=== PATIENT | male | born 1955 | race Caucasian/White ===

== ENCOUNTER → 2019-07-21 | Outpatient (CLI) | payer BC ==
[~2019-07-21] MED LIST: CATHETER FLUSH 10 ML SYR IV PRN; HOLD METFORMIN - RECEIVED CONTRAST 20 ML VIAL IV SCH; IOHEXOL 350 MG/ML 100 ML (OMNIPAQUE 350) VIAL IV ONE; NS 100 ML (IVPB) BAG IV ONE
[2019-07-21 10:31] LABS: BUN/CREATININE RATIO 13; CREATININE SERUM 0.99 MG/DL (0.60-1.30); GFR ESTIMATED > 60
--- NOTE | 2019-07-21 12:15 | Diagnostic Imaging Report ---
PROCEDURE: CT abdomen and pelvis with contrast. TECHNIQUE: Multiple contiguous axial images were obtained through the abdomen and pelvis after administration of intravenous contrast. Auto Exposure Controls were utilized during the CT exam to meet ALARA standards for radiation dose reduction. INDICATION: Bilateral flank pain. COMPARISON: There are no prior studies available for comparison. FINDINGS: There is no evidence for nephrolithiasis or urolithiasis and the kidneys do not seem to be obstructed. There is no sign of a solid renal mass. There do appear to be small cysts associated with both kidneys. These cysts have a generally benign appearance. The liver is of lower density than usually seen. This appearance does suggest fatty metamorphosis. There is no focal mass involving the liver, although the liver is mildly enlarged measuring 21 cm in length. The spleen, pancreas, adrenals, aorta, and inferior vena cava are unremarkable for an acute abnormality. The gallbladder is surgically absent. The stomach is partially filled with fluid and consequently difficult to assess. There is a suggestion of a focal area of narrowing of the midportion of the sigmoid colon. (Axial image 71/104, sagittal series 44/98). This finding is more likely due to volume averaging and/or peristalsis than to a constricting neoplastic mass. Even so, the possibility that there is an underlying neoplastic process should still be considered. If further evaluation is desired, then either an air contrast colon exam or endoscopy would be recommended. There are few diverticula involving the sigmoid and descending colon but there is no sign of acute diverticulitis. The appendix was visualized is not abnormally thickened. There is no pelvic mass or free fluid collection noted. The urinary bladder and prostate gland are grossly unremarkable. There is a small defect in the anterior abdominal wall to the right of midline at the level of the umbilicus. There is no incarceration or obstruction of the bowel in this area but a 3.2 x 3.3 cm collection of fat has extended through the defect into the subcutaneous region. The bone windows show no evidence for an acute fracture. However there is a 30-40% compression deformity of the superior endplate of L3. This is most likely longstanding in nature. There is also degenerative disc and bony disease involving the lower lumbar spine and there is trefoil stenosis at L4-L5 and L5-S1 and perhaps at L3-L4. If further imaging is desired, then MRI would be recommended. The lung bases are clear. IMPRESSION: 1. There is no acute abnormality of the abdomen or pelvis. 2. The apparent area of constriction in the midsigmoid region may be secondary to volume averaging and or peristalsis as opposed to a constricting neoplasm. Recommendations, as above. 3. There is a small defect in the anterior abdominal wall just to the right of midline at the level of the umbilicus. A portion of the mesenteric fat has extended through this defect but there is no incarceration or obstruction of the bowel. 4. There is a longstanding compression fracture of L3. There is also degenerative disc and bony disease in the lower lumbar spine. If further study is desired, then MRI would be recommended. Dictated by: Dictated on workstation # [id number]
== END ==
LOC: RAD 09:52
PROVIDERS: ATTEND Family Medicine
DX: M51.36 Other intervertebral disc degeneration, lumbar region (principal); M48.56XA Collapsed vertebra, not elsewhere classified, lumbar region, initial encounter for fracture
CPT/HCPCS: 36415; 74177; 82565; 84520

== ENCOUNTER 2019-09-20 05:32 | Outpatient (CLI) | payer BC ==
[~2019-09-20] VITALS: Ht 182.9 cm; Wt 130.9 kg
[2019-09-20] MEDS ORDERED: LISI-552 PO (15:03)
== END 2019-09-20 15:04 | disposition home or self-care (01) ==
LOC: PREOP 05:32
PROVIDERS: ATTEND Surgery
DX: Z01.818 Encounter for other preprocedural examination (principal)

== ENCOUNTER 2019-09-24 09:12 | Day surgery (SDC) | payer BC ==
[~2019-09-24] VITALS: Ht 182.9 cm; Wt 130.9 kg
[2019-09-24] VITALS (13 sets, daily range): BP systolic 79–168; BP diastolic 49–98
[~2019-09-24 09:12] MED LIST changes: -CATHETER FLUSH 10 ML SYR IV PRN; -HOLD METFORMIN - RECEIVED CONTRAST 20 ML VIAL IV SCH; -IOHEXOL 350 MG/ML 100 ML (OMNIPAQUE 350) VIAL IV ONE; +LISI-552 PO; -NS 100 ML (IVPB) BAG IV ONE
[2019-09-24] MEDS ORDERED: NS IV 500 ML 500 ML ONE (09:17)
[2019-09-24] MEDS ORDERED: NS IV 500 ML 500 ML IV PRN (09:28)
[2019-09-24] MEDS ORDERED: LIDOCAINE JELLY 2% 6 ML SYRINGE MM PRN (09:30)
[2019-09-24] MEDS ORDERED: fentaNYL INJECTION 100 MCG/2 ML AMP IVP ONE (09:30)
--- NOTE | 2019-09-24 10:35 | Conscious Sedation/ASA ---
Conscious Sedation Pre-Proced Time 10:30 ASA Score 2 For ASA 3 and 4: Consider anesthesia and medical clearance. Also, for patients with a history of failed moderate sedation consider anesthesia. Airway Lungs Heart ASA score ASA 1: a normal healthy patient ASA 2: a patient with a mild systemic disease (mid diabetes, controlled hypertension, obesity ASA 3: a patient with a severe systemic disease that limits activity (angina, COPD, prior Myocardial infarction) ASA 4: a patient with an incapacitating disease that is a constant threat to life (CHF, renal failure) ASA 5: a moribund patient not expected to survive 24 hrs. (ruptured aneurysm) ASA 6: a declared brain- patient whose organs are being harvested. For emergent operations, add the letter E after the classification Mallampati Classification Grade 2 Sedation Plan Analgesia, Amnesia, Plan communicated to team members, Discussed options with patient/fam, Discussed risks with patient/fam The patient is an appropriate candidate to undergo the planned procedure, sedation, and anesthesia. The patient immediately re-assessed prior to indication. PADMA GARG MD Sep 24, 2019 10:35
--- NOTE | 2019-09-24 10:35 | Progress Note-Pre Operative ---
Pre-Operative Progress Note H&P Reviewed The H&P was reviewed, patient examined and no changes noted. Date Seen by Provider: Sep 24, 2019 Time Seen by Provider: 10:30 Date H&P Reviewed: Sep 24, 2019 Time H&P Reviewed: 10:30 Pre-Operative Diagnosis: screening colo, sigmoid lesion on CT PADMA GARG MD Sep 24, 2019 10:35
--- NOTE | 2019-09-24 10:37 | Discharge Inst-Surgical ---
D/C Lap Instructions-BRIATNY Follow Up Activity as tolerated High Fiber Diet 25g or more per day Avoid Alcohol, Caffeine, Spicy [place] and Acid foods. Drink 64 fluid oz or more of fluids per day. Symptoms to Report: Fever over 101 degree F, Nausea/Vomiting If any problems/questions: Contact your physician or go to Emergency Room PADMA GARG MD Sep 24, 2019 10:37
[2019-09-24] MEDS ORDERED: HYDROcodone/APAP 5 MG/325 MG (LORTAB) TAB PO PRN (10:45)
[2019-09-24] MEDS ORDERED: morphine INJ 10 MG/ML 1ML (SYR OR VIAL) IVP PRN ×2 (10:45)
[2019-09-24] MEDS ORDERED: ACETAMINOPHEN 325 MG TABLET PO PRN (10:45)
[2019-09-24] MEDS ORDERED: ONDANSETRON 4 MG/2 ML (SDV) Z0FRAN IVP PRN (10:45)
[2019-09-24] MEDS ORDERED: LIDOCAINE JELLY 2% 6 ML SYRINGE ONE (10:48)
[2019-09-24] MEDS ORDERED: MIDAZOLAM 5 MG/5 ML (VERSED) VIAL ONE ×3 (10:49→11:13)
[2019-09-24] MEDS ORDERED: fentaNYL INJECTION 100 MCG/2 ML AMP ONE ×2 (10:49→11:13)
[2019-09-24] MEDS: MIDAZOLAM 5 MG/5 ML (VERSED) VIAL IV PRN ×5 (11:01→11:18)
--- NOTE | 2019-09-24 11:42 | Progress Note-Post Operative ---
Post-Operative Progess Note Surgeon (s)/Steel Barrel Reamer (s) Surgeon PADMA GARG MD Steel Barrel Reamer: none Pre-Operative Diagnosis screening colo, sigmoid lesion on CT Post-Operative Diagnosis mild chronic stage 2 ext and int hemorrhoids, mild sigmoid diverticulosis, no neoplasms. Procedure & Operative Findings Date of Procedure 09/24/19 Procedure Performed/Findings colonoscopy Anesthesia Type cs Estimated Blood Loss Estimated blood loss (mL): minimal Specimens/Packing Specimens Removed none PADMA GARG MD Sep 24, 2019 11:42
--- NOTE | 2019-09-24 18:30 | OPERATIVE REPORT ---
DATE OF SERVICE: 09/24/2019 ATTENDING PRIMARY CARE PHYSICIAN: Dr. Ling. PREOPERATIVE DIAGNOSIS: Screening colonoscopy with radiographic finding of the mid sigmoid peristalsis versus contraction versus a possible neoplasm. POSTOPERATIVE DIAGNOSES: Chronic stage II external and internal hemorrhoids, mild sigmoid diverticulosis. Remainder of the rectum and colon were normal. PROCEDURE: Colonoscopy. SURGEON: Padma Waite MD. ANESTHESIA: Conscious sedation. ESTIMATED BLOOD LOSS: Minimal. FINDINGS: Chronic stage II external and internal hemorrhoids, mild sigmoid diverticulosis. Remainder of the rectum and colon were normal. DISPOSITION: The patient tolerated the procedure well. INDICATIONS: The patient is a 64-year-old male referred over to us for screening colonoscopy. He has not had a colonoscopy up to this point in his life. He does report in the past six weeks, he has had intermittent bilateral flank pain, more on the right side and was found to have nephrolithiasis. A CT scan was also performed at that time, which did show constriction of the mid sigmoid colon, which may have been secondary to volume averaging versus peristalsis versus a constricting neoplasm. There was also a small ventral abdominal hernia identified as well; however, this is not symptomatic. He does not report any red blood per rectum nor any dark tarry stools. He also does not report any recent inadvertent weight loss. He also does not report any family history of colon cancer. DESCRIPTION OF PROCEDURE: The patient was brought to the endoscopy suite, laid in left lateral decubitus position. After adequate IV pain and stated medications and conscious sedation anesthesia, a digital rectal examination was performed. Mild chronic stage II external and internal hemorrhoids were identified, which were not actively edematous nor inflamed and no bleeding. Normal sphincter tone was felt and there were no palpable masses. Prostate gland was palpable and appeared normal. The endoscope was then intubated to the anus and rectum gently insufflated. The endoscope was then advanced to the valves of Deng of the rectum with no polyps or any neoplasms identified. Through the sigmoid colon, mild sigmoid diverticulosis identified. There was aperistaltic contractions of the sigmoid colon; however, no neoplasms identified. The endoscope was then advanced to the remainder of the descending, transverse and ascending colon to the cecum. These segments were normal as well. The endoscope was then slowly withdrawn while taking a second look and suctioning of residual air with no additional findings. The patient tolerated the procedure well. We will recommend a high fiber diet with 30 grams of fiber daily as well as 64 fluid ounces of water daily to promote soft stools on a daily basis. He does not need another colonoscopy for another 10 years. Job ID: [id number] DocumentID: [id number] Dictated Date: 09/24/2019 11:38:59 Cut And Print Machine Operator Date: 09/24/2019 18:29:13 Dictated By: PADMA WAITE MD
== END 2019-09-24 12:15 | disposition home or self-care (01) ==
LOC: ENDO 09:12
PROVIDERS: ATTEND Surgery
DX: Z12.11 Encounter for screening for malignant neoplasm of colon (principal); K64.1 Second degree hemorrhoids; K57.30 Diverticulosis of large intestine without perforation or abscess without bleeding; K43.2 Incisional hernia without obstruction or gangrene; Z87.442 Personal history of urinary calculi; I10 Essential (primary) hypertension; E11.9 Type 2 diabetes mellitus without complications; Z79.899 Other long term (current) drug therapy; Z87.81 Personal history of (healed) traumatic fracture; M48.07 Spinal stenosis, lumbosacral region; M51.36 Other intervertebral disc degeneration, lumbar region; S32.030D Wedge compression fracture of third lumbar vertebra, subsequent encounter for fracture with routine healing

== ENCOUNTER → 2019-10-28 | Outpatient (CLI) | payer BC | LOC: WOUNDCARE 08:03 | PROVIDERS: ATTEND Orthopaedic Surgery Hand Surgery | DX: E11.621 Type 2 diabetes mellitus with foot ulcer (principal); E11.42 Type 2 diabetes mellitus with diabetic polyneuropathy; L97.512 Non-pressure chronic ulcer of other part of right foot with fat layer exposed; L03.031 Cellulitis of right toe | CPT/HCPCS: 11042 ==

== ENCOUNTER → 2019-11-02 | Outpatient (CLI) | payer BC | LOC: WOUNDCARE 08:55 | PROVIDERS: ATTEND Orthopaedic Surgery Hand Surgery | DX: E11.621 Type 2 diabetes mellitus with foot ulcer (principal); E11.42 Type 2 diabetes mellitus with diabetic polyneuropathy; L97.512 Non-pressure chronic ulcer of other part of right foot with fat layer exposed; L03.031 Cellulitis of right toe; B95.62 Methicillin resistant Staphylococcus aureus infection as the cause of diseases classified elsewhere | CPT/HCPCS: 11042 ==

== ENCOUNTER → 2019-11-09 | Outpatient (CLI) | payer BC | LOC: WOUNDCARE 08:54 | PROVIDERS: ATTEND Orthopaedic Surgery Hand Surgery | DX: L97.512 Non-pressure chronic ulcer of other part of right foot with fat layer exposed (principal); E11.621 Type 2 diabetes mellitus with foot ulcer; E11.52 Type 2 diabetes mellitus with diabetic peripheral angiopathy with gangrene; E11.42 Type 2 diabetes mellitus with diabetic polyneuropathy; L03.039 Cellulitis of unspecified toe; B95.62 Methicillin resistant Staphylococcus aureus infection as the cause of diseases classified elsewhere | CPT/HCPCS: 11042 ==

== ENCOUNTER → 2019-11-16 | Outpatient (CLI) | payer BC | LOC: LAB 09:15 | PROVIDERS: ATTEND Surgery | DX: L97.512 Non-pressure chronic ulcer of other part of right foot with fat layer exposed (principal); E11.621 Type 2 diabetes mellitus with foot ulcer; E11.42 Type 2 diabetes mellitus with diabetic polyneuropathy; B95.62 Methicillin resistant Staphylococcus aureus infection as the cause of diseases classified elsewhere; E44.1 Mild protein-calorie malnutrition | CPT/HCPCS: 36415; 83036; 84134 ==

== ENCOUNTER → 2019-11-16 | Outpatient (CLI) | payer BC | LOC: WOUNDCARE 08:08 | PROVIDERS: ATTEND Surgery | DX: L97.512 Non-pressure chronic ulcer of other part of right foot with fat layer exposed (principal); E11.621 Type 2 diabetes mellitus with foot ulcer; E11.42 Type 2 diabetes mellitus with diabetic polyneuropathy; E11.52 Type 2 diabetes mellitus with diabetic peripheral angiopathy with gangrene; B95.62 Methicillin resistant Staphylococcus aureus infection as the cause of diseases classified elsewhere; E44.1 Mild protein-calorie malnutrition | CPT/HCPCS: 11042; 87070; 87077; 87205 ==

== ENCOUNTER → 2019-11-23 | Outpatient (CLI) | payer BC | LOC: WOUNDCARE 09:01 | PROVIDERS: ATTEND Surgery | DX: L97.512 Non-pressure chronic ulcer of other part of right foot with fat layer exposed (principal); E11.621 Type 2 diabetes mellitus with foot ulcer; E11.42 Type 2 diabetes mellitus with diabetic polyneuropathy; B95.62 Methicillin resistant Staphylococcus aureus infection as the cause of diseases classified elsewhere; E11.52 Type 2 diabetes mellitus with diabetic peripheral angiopathy with gangrene | CPT/HCPCS: 11042 ==

== ENCOUNTER → 2019-11-29 | Outpatient (CLI) | payer BC | LOC: WOUNDCARE 08:13 | PROVIDERS: ATTEND Surgery | DX: E11.621 Type 2 diabetes mellitus with foot ulcer (principal); E11.42 Type 2 diabetes mellitus with diabetic polyneuropathy; L97.512 Non-pressure chronic ulcer of other part of right foot with fat layer exposed; B95.62 Methicillin resistant Staphylococcus aureus infection as the cause of diseases classified elsewhere | CPT/HCPCS: 11042 ==

== ENCOUNTER → 2019-12-06 | Outpatient (CLI) | payer BC | LOC: WOUNDCARE 08:20 | PROVIDERS: ATTEND Surgery | DX: E11.621 Type 2 diabetes mellitus with foot ulcer (principal); E11.42 Type 2 diabetes mellitus with diabetic polyneuropathy; L97.512 Non-pressure chronic ulcer of other part of right foot with fat layer exposed; B95.62 Methicillin resistant Staphylococcus aureus infection as the cause of diseases classified elsewhere | CPT/HCPCS: 11042 ==

== ENCOUNTER → 2019-12-13 | Outpatient (CLI) | payer BC | LOC: WOUNDCARE 08:13 | PROVIDERS: ATTEND Surgery | DX: E11.621 Type 2 diabetes mellitus with foot ulcer (principal); E11.42 Type 2 diabetes mellitus with diabetic polyneuropathy; L97.512 Non-pressure chronic ulcer of other part of right foot with fat layer exposed; B95.62 Methicillin resistant Staphylococcus aureus infection as the cause of diseases classified elsewhere | CPT/HCPCS: 11042 ==

== ENCOUNTER → 2019-12-20 | Outpatient (CLI) | payer BC | LOC: WOUNDCARE 08:18 | PROVIDERS: ATTEND Surgery | DX: E11.621 Type 2 diabetes mellitus with foot ulcer (principal); E11.42 Type 2 diabetes mellitus with diabetic polyneuropathy; L97.512 Non-pressure chronic ulcer of other part of right foot with fat layer exposed; B95.62 Methicillin resistant Staphylococcus aureus infection as the cause of diseases classified elsewhere | CPT/HCPCS: 11042 ==

== ENCOUNTER → 2019-12-27 | Outpatient (CLI) | payer BC | LOC: WOUNDCARE 08:19 | PROVIDERS: ATTEND Surgery | DX: E11.621 Type 2 diabetes mellitus with foot ulcer (principal); E11.42 Type 2 diabetes mellitus with diabetic polyneuropathy; L97.512 Non-pressure chronic ulcer of other part of right foot with fat layer exposed; B95.62 Methicillin resistant Staphylococcus aureus infection as the cause of diseases classified elsewhere | CPT/HCPCS: 11042; 87070; 87077; 87205 ==

== ENCOUNTER → 2020-01-03 | Outpatient (CLI) | payer BC | LOC: WOUNDCARE 08:15 | PROVIDERS: ATTEND Surgery | DX: E11.621 Type 2 diabetes mellitus with foot ulcer (principal); E11.42 Type 2 diabetes mellitus with diabetic polyneuropathy; L97.512 Non-pressure chronic ulcer of other part of right foot with fat layer exposed; L97.522 Non-pressure chronic ulcer of other part of left foot with fat layer exposed; B95.62 Methicillin resistant Staphylococcus aureus infection as the cause of diseases classified elsewhere | CPT/HCPCS: 11042; 15275 ==

== ENCOUNTER → 2020-01-10 | Outpatient (CLI) | payer BC | LOC: WOUNDCARE 08:16 | PROVIDERS: ATTEND Surgery | DX: E11.621 Type 2 diabetes mellitus with foot ulcer (principal); E11.42 Type 2 diabetes mellitus with diabetic polyneuropathy; L97.512 Non-pressure chronic ulcer of other part of right foot with fat layer exposed; L97.522 Non-pressure chronic ulcer of other part of left foot with fat layer exposed; B95.62 Methicillin resistant Staphylococcus aureus infection as the cause of diseases classified elsewhere; I70.245 Atherosclerosis of native arteries of left leg with ulceration of other part of foot | CPT/HCPCS: 15275 ==

== ENCOUNTER → 2020-01-17 | Outpatient (CLI) | payer BC | LOC: WOUNDCARE 08:25 | PROVIDERS: ATTEND Surgery | DX: E11.621 Type 2 diabetes mellitus with foot ulcer (principal); E11.42 Type 2 diabetes mellitus with diabetic polyneuropathy; L97.512 Non-pressure chronic ulcer of other part of right foot with fat layer exposed; L97.522 Non-pressure chronic ulcer of other part of left foot with fat layer exposed; B95.62 Methicillin resistant Staphylococcus aureus infection as the cause of diseases classified elsewhere; I70.245 Atherosclerosis of native arteries of left leg with ulceration of other part of foot | CPT/HCPCS: 11042 ==

== ENCOUNTER 2020-01-20 10:30 | Inpatient (IN) | payer OTHER ==
[~2020-01-20] VITALS: Ht 182.9 cm; Wt 137.0 kg
[~2020-01-20 10:30] MED LIST changes: -CALC625T66 PO; -EMPA10TA PO; -GABA-488 PO; -IBUP-1773 PO; -INSU100I32 SC; -LEVO750T39 PO; -LNZ600T PO; -METF-397 PO; -METR-145 PO
--- NOTE | 2020-01-20 10:35 | NUR ---
PT DIRECT ADMIT TO FLOOR FROM WOUND CLINIC FOR LEFT DIABETIC FOOT INFECTION. ORIENTED PT TO ROOM/CALL LIGHT.
[2020-01-20 10:44] VITALS: BP 143/92
--- NOTE | 2020-01-20 10:55 | NUR ---
PT TAKEN OFF FLOOR FOR MRI AND THEN WILL GO TO US BEFORE RETURNING TO FLOOR
[2020-01-20] MEDS ORDERED: MILK OF MAGNESIA 400 MG/5 ML 30 ML UDC PO PRN (11:00)
[2020-01-20] MEDS: inSUlin ASPART (NovoLOG) 1 UNIT/0.01 ML (CHARGE PER UNIT) SC SCH ×3 (11:00→22:02)
[2020-01-20] MEDS ORDERED: ANTACID SUSP 30 ML UDC (MYLANTA) PO PRN (11:00)
[2020-01-20] MEDS ORDERED: MELATONIN 3 MG TABLET PO PRN (11:00)
[2020-01-20] MEDS ORDERED: VANCOMYCIN INJECTION 0.1 MG in NS (IVPB) 250 ML IV SCH (11:00)
--- NOTE | 2020-01-20 11:09 | History & Physical-Hospitalist ---
History of Present Illness HPI/Chief Complaint 64-year-old male with a past medical history of insulin-dependent diabetes type II, hypertension, sleep apnea, chronic foot wounds was direct admitted from wound care clinic here due to a new worsening left foot wound. She was following with Dr. Raya at wound care for the past 2 months for a wound on his right great toe. This has responded to treatment well but within the past couple of weeks his left foot developed a wound between his great toe and second digit in the webspace. He has been on Levaquin, and his lip, and Flagyl and been compliant with wound care. Despite this he has new necrotic area of that wound with surrounding erythema and warmth of the foot. He was direct admitted from wound care today. He is a known insulin-dependent diabetic that is poorly controlled. His last A1c was 12.8. He has no known peripheral artery disease. Source: patient Date Seen 01/20/20 Time Seen by a Provider: 11:04 Attending Physician Kaylee Burnette MD PCP Jaxon Ling DO Referring Physician Date of Admission Home Medications & Allergies Home Medications Reviewed patient Home Medication Reconciliation performed by pharmacy medication reconciliations microfilm technician and/or nursing. Patients Allergies have been reviewed. Allergies Allergies Coded Allergies No Known Drug Allergies (Unverified09/20/19) Past Jarbhpr-Cycwoo-Rmvhmq Hx Past Med/Social Hx: Reviewed Nursing Past Med/Soc Hx Patient Social History Employed/Student: employed Smoking Status: Former Smoker Former Smoker, Quit: Dec 14, 2008 Recent Foreign Travel: Yes ( states has been in [place] within the last month and [place] a few weeks ) Contact w/other who traveled: No Recent Hopitalizations: No Recent Infectious Disease Expo: No Seasonal Allergies Seasonal Allergies: No Past Medical History Surgeries: Gallbladder Cardiac: Hypertension Endocrine: Diabetes, Insulin dep History of Blood Disorders: No Family History Reviewed Nursing Family Hx No Pertinent Family Hx Review of Systems Constitutional: No chills, No fever EENTM: no symptoms reported Respiratory: No cough, No short of breath Cardiovascular: No chest pain, No Hx of Intervention, No palpitations Gastrointestinal: abdominal pain; No constipation; diarrhea Genitourinary: no symptoms reported Musculoskeletal: no symptoms reported Skin: see HPI Psychiatric/Neurological: No Symptoms Reported Physical Exam Physical Exam Vital Signs Vital Signs - First Documented 01/20/20 10:44 Temp 37.4 Pulse 103 Resp 20 B/P (MAP) 143/92 Pulse Ox 94 O2 Delivery Room Air Capillary Refill : Height, Weight, BMI Height: '" Weight: lbs. oz. kg; 40.14 BMI Method: General Appearance: No Apparent Distress, WD/WN, Obese HEENT: PERRL/EOMI, Moist Mucous Membranes; No Scleral Icterus (L), No Scleral Icterus (R) Respiratory: Lungs Clear, No Accessory Muscle Use, No Respiratory Distress Cardiovascular: Regular Rate, Rhythm, No Murmur Gastrointestinal: Normal Bowel Sounds, Non Tender, Soft Extremity: Other (right foot wrapped in dressing from wound care- I did not undress. Left foot dressing unfone and revealed ~3x1cm wound between first and second toe with some nercosis noted, erythema, warmth, and edema of left foot noted) Neurologic/Psychiatric: Alert, Oriented x3, Normal Mood/Affect Results Results/Procedures Labs Patient resulted labs reviewed. Assessment/Plan Admission Diagnosis Diabetic Foot Wound Admission Status: Inpatient Order (span 2 midnights) Reason for Inpatient Admission: failed outpatient management Assessment and Plan Diabetic Foot Wound Likely osteomyelitis MRI ordered Wound care consult Vanc and Zosyn Blood cultures ordered No evidence of sepsis CBC/BMP ordered HTN diminished pulse Concern for PAD Dopplers ordered Cardiology consult placed Continue home antihypertensives IDDMII poorly controlled SSI Levemir 20 units QHS as is on Tresiba 20U at home Diarrhea Check KAYLEE Fung MD January 20, 2020 11:09
[2020-01-20] MEDS ORDERED: PIPERACILLIN/TAZO 4.5 GM/NS 100 ML IV NR ×4 (11:30→13:13)
[2020-01-20 11:46] LABS: BASOPHILS % (AUTO) 0 % (0-10); EOSINOPHILS # (AUTO) 0.1 10^3/uL (0.0-0.3); EOSINOPHILS % (AUTO) 1 % (0-10); HEMATOCRIT 41 % (40-54); HEMOGLOBIN 13.9 G/DL (13.3-17.7); LYMPHOCYTES # (AUTO) 2.1 X 10^3 (1.0-4.0); LYMPHOCYTES % (AUTO) 16 % (12-44); MEAN CORPUSCULAR HEMOGLOBIN 30 PG (25-34); MEAN CORPUSCULAR HGB CONC 34 G/DL (32-36); MEAN CORPUSCULAR VOLUME 89 FL (80-99); MEAN PLATELET VOLUME 9.7 FL (7.4-10.4); MONOCYTES % (AUTO) 8 % (0-12); NEUTROPHILS % (AUTO) 76 % (42-75); PLATELET COUNT 398 10^3/uL (130-400); RED CELL DISTRIBUTION WIDTH 12.7 % (10.0-14.5); WHITE BLOOD COUNT 13.2 10^3/uL (4.3-11.0)
--- NOTE | 2020-01-20 11:47 | Consultation-Cardiology ---
HPI-Cardiology Cardiology Consultation: Date of Consultation 01/20/20 Time Seen by a Provider: 14:40 Date of Admission 01-20-2020 Attending Physician Kaylee Burnette MD Admitting Physician Jaxon Ling DO Consulting Physician Jenn Botello MD HPI: Chief Complaint: Non-healing wound to left foot Mr. Nation is a 64 year old male admitted to [facility] as a direct admit from wound care clinic. He has been following with wound care for approx the last 2 months for treatment of a wound to the left great toe which was improving, but has recently began to worsen. He states the wound has extended from between his left great toe to the second toe. He reports he has chronic peripheral neuropathy d/t diabetes and has not had any pain. He does not recall any recent injury to the foot. He reports he has noted redness and warmth to the top of the left foot. He denies any symptoms of claudication. He denies any fever or chills. He denies any c/o CP, dyspnea, palpitations, syncope or near syncope. He states he used to smoke, but quit greater than 10 years ago. Review of Systems-Cardiology Review of Systems Constitutional: No chills, No fever, No malaise Eyes: No vision change Ears/Nose/Throat: No epistaxis, No recent hearing loss Respiratory: As described under HPI Cardiovascular: As described under HPI Gastrointestinal: No constipation; diarrhea; No nausea, No vomiting Genitourinary: No dysuria, No hematuria Musculoskeletal: As describe under HPI Skin: As described under HPI Psychiatric/Neurological: No anxiety, No depression, No seizure, No focal weakness, No syncope Hematologic: No bleeding abnormalities INY-Vvvqtg-Ivlmxb Hx Patient Social History Employed/Student: employed Smoking Status: Former Smoker Recent Foreign Travel: Yes (Pt states has been in [place] within the last month and [place] a few weeks ) Recent Infectious Disease Expo: No Past Medical History PMH As described under Assessment. Family Medical History Family Medical History: He reports his mother had an CO in her 40's. No other reported family h/o CAD. Allergies and Home Medications Allergies Coded Allergies: No Known Drug Allergies (Unverified , 09/20/19) Home Medications Calcium Polycarbophil 625 Mg Tablet, 625 MG PO DAILY, (Reported) Empagliflozin 10 Mg Tablet, 10 MG PO DAILY, (Reported) Gabapentin 300 Mg Capsule, 300 MG PO TID, (Reported) Ibuprofen 600 Mg Tablet, 600 MG PO TID PRN for PAIN-MILD (1-4), (Reported) Insulin Degludec 100 Unit/1 Ml Insuln.pen, 20 UNITS SC HS, (Reported) Levofloxacin 750 Mg Tablet, 750 MG PO DAILY, (Reported) PICKED UP 01-05-2020 #14 DAY SUPPLY Linezolid 600 Mg Tablet, 600 MG PO BID, (Reported) FILLED 01-10-2020 # DAY SUPPLY Lisinopril 20 Mg Tablet, 20 TAB PO BID, (Reported) Metformin HCl 500 Mg Tablet, 500-1,000 MG PO BID, (Reported) TAKES 1 TO 2 TABS TWICE DAILY Metronidazole 500 Mg Tablet, 500 MG PO QID, (Reported) PICKED UP 01-05-2020 #56 DAY SUPPLY Patient Home Medication List Home Medication List Reviewed: Yes Physical Exam-Cardiology Physical Exam Vital Signs/I&O 01/21/20 01/21/20 01/21/20 03:51 08:00 12:00 Temp 36.3 36.9 36.5 Pulse 80 85 97 Resp 18 18 18 B/P (MAP) 154/81 (105) 151/95 (113) 155/81 (105) Pulse Ox 96 96 94 O2 Delivery Room Air Room Air Room Air 01/21/20 00:00 Intake Total 2145 ml Balance 2145 ml Capillary Refill : Constitutional: AAO x 3, well-developed, well-nourished HEENT: PERRL, hearing is well preserved, oral hygience is good Neck: No carotid bruit; carotid pulses are 2 + bilaterally Respiratory: No accessory muscle use, No respiratory distress; chest expansion is symmetric, chest is bilaterally symmetric, lungs clear to auscultation Cardiovascular: regular rate-rhythm; No JVD; S1 and S2 Gastrointestinal: No tender; soft, round, audible bowel sounds Extremities: other (mild LLE swelling) Neurologic/Psychiatric: grossly intact (moves all extremities) Skin: other (Dressing to left foot; D&I - not removed. Ruddish discoloration of the visible portion of the foot.) Data Review Labs Laboratory Tests 01/20/20 16:36: Glucometer 298H 01/20/20 21:06: Glucometer 299H 01/21/20 05:24: Glucometer 183H 01/21/20 05:55: White Blood Count 11.8H, Red Blood Count 4.29L, Hemoglobin 13.0L, Hematocrit 38L , Mean Corpuscular Volume 90, Mean Corpuscular Hemoglobin 30, Mean Corpuscular Hemoglobin Concent 34, Red Cell Distribution Width 12.8, Platelet Count 397, Mean Platelet Volume 9.6, Prothrombin Time 13.8, INR Comment 1.0, Activated Partial Thromboplast Time 31, Sodium Level 138, Potassium Level 3.6, Chloride Level 105, Carbon Dioxide Level 23, Anion Gap 10, Blood Urea Nitrogen 10, Creatinine 0.80, Estimat Glomerular Filtration Rate > 60, BUN/Creatinine Ratio 13, Glucose Level 193H, Calcium Level 8.8 01/21/20 10:15: Vancomycin Level Trough 9.5L 01/21/20 11:01: Glucometer 275H Microbiology 01/20/20 MRSA Screen - Final, Complete MRSA not isolated 01/20/20 C. difficile GDH Antigen & Toxins - Final, Complete Radiology NAME: JONELLE NATION MED REC#: [id number] PT STATUS: ADM IN : 1955 PHYSICIAN: KAYLEE BURNETTE MD ADMIT DATE: 01/20/20 Draft Date of Exam:01/20/20 US JANI LOWER EXT [id number] PROCEDURE: US Bilateral lower extremity arterial. TECHNIQUE: Multiple real-time grayscale images are obtained through both lower extremity arterial systems with color Doppler imaging and color Doppler spectral analysis. INDICATION: Foot infection, peripheral artery disease COMPARISON: None available FINDINGS: Triphasic and biphasic waveforms are identified throughout the large arterial structures of the right lower extremity with associated brisk upstrokes. No focally increased velocities. Monophasic waveforms are identified within the left posterior tibial artery and left dorsalis pedis artery. There is associated focally increased velocities within the left posterior tibial artery distally at 254 cm/s. Otherwise, triphasic and biphasic waveforms noted throughout the large arterial structures of the left lower extremity. 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 No evidence of hemodynamically significant stenosis on the right. Dictated on workstation # [id number] Dict: 01/20/20 1333 Trans: 01/20/20 1340 [facility] [id number] Interpreted by: JAXON HADDAD MD Electronically signed by: PT STATUS: ADM IN : 1955 PHYSICIAN: KAYLEE BURNETTE MD ADMIT DATE: 01/20/20/ Signed Date of Exam:01/20/20 MRI LT LOWER EXT W/O CON EXAMINATION: MRI of the left lower extremity from 01/20/2020. TECHNIQUE: Multiplanar, multisequence non contrast enhanced MR imaging of the left lower extremity was accomplished. INDICATION: Ulceration between the great toe and second toe. Diabetic. FINDINGS: Per the technologist, patient had marked difficulty remaining still for imaging. There is marked motion artifact on most of the sequences, limiting evaluation. There does appear to be abnormal signal intensity along the dorsum of the forefoot, predominantly overlying the third and second metatarsophalangeal joint spaces. In this region, more focal fluid-like collections are noted with the collection overlying the third metatarsophalangeal joint measuring at least 2.1 cm in jotlrmex-qf-ghvdob dimension. A similar finding is seen just between the second metatarsophalangeal joint and adjacent great toe. This extends into the soft tissues in between the toes and measures at least 2.8 cm in hbjliqgk-ct-xrycmx dimension. This may extend through the skin in between the toes as there is marked hyperintensity, best seen on sagittal STIR sequence image #15/35. Correlate for site of ulceration. This appears to track towards the larger cystic collection just described. The underlying second proximal phalanx demonstrates questioned edema. This could be secondary to reactive change versus osteomyelitis and follow-up with and without contrast, when patient is able to remain still for imaging, may be useful for further delineation of these findings as clinically indicated. The remaining osseous structures appear to be unremarkable at this time. There is small amount of joint fluid within the second and first metatarsophalangeal joints. The visualized tendons are grossly intact. IMPRESSION: 1. Suspected ulceration extending to the distal skin in between the second and first toes which appears to track proximally and towards the dorsum of the foot into a fluid collection, possibly abscess. Similar smaller fluid collection overlies the third metatarsophalangeal joint. 2. Findings of suspected osteomyelitis of the second proximal phalanx, however please see above discussion. Dictated by: Dictated on workstation # [id number] Dict: 01/20/20 1216 Trans: 01/20/20 1257 [id number] Interpreted by: JAY GONZALEZ MD Electronically signed by: JAY GONZALEZ MD 01/20/20 1257 A/P-Cardiology Assessment/Admission Diagnosis Non-healing wound to left foot PAD - Monophasic waveforms within the left posterior tibial artery and dorsalis pedis artery is consistent with underlying atherosclerotic tibioperoneal disease on the left. No evidence of hemodynamically significant stenosis on the right. Per Doppler of January 20, 2020 Suspected ulceration extending to the distal skin in between the second and first toes which appears to track proximally and towards the dorsum of the foot into a fluid collection, possibly abscess. Similar smaller fluid collection overlies the third metatarsophalangeal joint. Findings of suspected osteomy elitis of the second proximal phalanx per MRI of January 20, 2020 DM 2 HTN Reported peripheral neuropathy GERD Diarrhea Discussion and Recomendations Non-healing wound to the left foot with evidence of PAD per doppler carried out today Advise peripheral angiogram to eval perfusion. Discussed procedure, risks, benefits of peripheral angiogram with possible percutaneous intervention. Provides informed consent. Will proceed tomorrow or sooner if needed. Monitor lab closely Continue enoxaparin Continue home medications Management of DM as per medical services Management of diarrhea per medical services Wound care management per medical services We would like to thank Dr. Burnette for this consult Further recs will be based on his hospital course VINITA WINN January 20, 2020 11:47
--- NOTE | 2020-01-20 11:52 | NUR ---
PTD VANCOMYCIN LABS: PENDING PLAN: WEIGHT 134KG WILL GIVE VANCOMYCIN LOADING DOSE 2,000MG X 1 NOW, THEN START 1,500MG IV Q 12 HOURS (STARTING TONIGHT) WILL CHECK A TROUGH PRIOR TO 3RD DOSE (01/20 @ 1000). HOLD IF GREATER THAN 20. WILL MONITOR SCR/RENAL FXN CLOSELY AND ADJUST DOSE IF NEEDED.
[2020-01-20] MEDS ORDERED: VANCOMYCIN 2000 MG/NS 500 ML IVPB IV NR ×2 (12:00)
[2020-01-20 12:03] LABS: ALANINE AMINOTRANSFERASE 20 U/L (0-55); ALBUMIN 3.6 GM/DL (3.2-4.5); ALKALINE PHOSPHATASE 89 U/L (40-136); BILIRUBIN,TOTAL 0.3 MG/DL (0.1-1.0); BUN/CREATININE RATIO 11; CALCIUM 9.6 MG/DL (8.5-10.1); CARBON DIOXIDE 27 MMOL/L (21-32); CHLORIDE 101 MMOL/L (98-107); CREATININE SERUM 0.94 MG/DL (0.60-1.30); GFR ESTIMATED > 60; GLUCOSE 354 MG/DL (70-105); SODIUM 138 MMOL/L (135-145); TOTAL PROTEIN 8.6 GM/DL (6.4-8.2)
--- OUTSIDE RECORDS SUMMARY | 2020-01-20 12:33 | XMS REPORT | Continuity of Care Document ---
Author Organization Unknown Address Unknown Phone Unavailable Allergies Active Description Code Type Severity Reaction Onset Reported/Identified Relationship to Patient Clinical Status Yes No Allergy Information Available [id number] Drug Allergy Unknown N/A 019 Yes No Known Drug Allergies [id number] Drug Allergy Unknown N/A 09/20/2019 Medications There is no data. Problems Date Dx Coded Attending Type Code Diagnosis Diagnosed By 09/03/2019 COURTNEY FERREIRA DO, Ot M48.56 XA COLLAPSED VERTEBRA, NEC, LUMBAR REGION, 09/03/2019 COURTNEY FERREIRA DO, Ot M51.36 OTHER INTERVERTEBRAL DISC DEGENERATION, 09/22/2019 PADMA GARG MD, Ot Z01.81 8 ENCOUNTER FOR OTHER PREPROCEDURAL EXAMIN 09/24/2019 PADMA GARG MD Ot E11.9 TYPE 2 DIABETES MELLITUS WITHOUT COMPLIC 09/24/2019 PADMA GARG MD Ot I10 ESSENTIAL (PRIMARY) HYPERTENSION 09/24/2019 PADMA GARG MD, Ot K43.2 INCISIONAL HERNIA WITHOUT OBSTRUCTION OR 09/24/2019 PADMA GARG MD, Ot K57.30 DVRTCLOS OF LG INT W/O PERFORATION OR AB 09/24/2019 PADMA GARG MD, Ot K64.1 SECOND DEGREE HEMORRHOIDS 09/24/2019 PADMA GARG MD, Ot M48.07 SPINAL STENOSIS, LUMBOSACRAL REGION 09/24/2019 PADMA GARG MD, Ot M51.36 OTHER INTERVERTEBRAL DISC DEGENERATION, 09/24/2019 PADMA GARG MD, Ot S32.03 0D WEDGE COMPRSN FX THIRD LUM VERT, SUBS FO 09/24/2019 PADMA GARG MD, Ot Z12.11 ENCOUNTER FOR SCREENING FOR MALIGNANT NE 09/24/2019 PADMA GARG MD, Ot Z79.89 9 OTHER CABLE REELER (CURRENT) DRUG THERAPY 09/24/2019 PADMA GARG MD, Ot Z87.44 2 PERSONAL HISTORY OF URINARY CALCULI 09/24/2019 PADMA GARG MD, Ot Z87.81 PERSONAL HISTORY OF (HEALED) TRAUMATIC F 09/27/2019 PADMA GARG MD, Ot E11.9 TYPE 2 DIABETES MELLITUS WITHOUT COMPLIC 09/27/2019 PADMA GARG MD, Ot I10 ESSENTIAL (PRIMARY) HYPERTENSION 09/27/2019 PADMA GARG MD, Ot K43.2 INCISIONAL HERNIA WITHOUT OBSTRUCTION OR 09/27/2019 PADMA GARG MD, Ot K57.30 DVRTCLOS OF LG INT W/O PERFORATION OR AB 09/27/2019 PADMA GARG MD, Ot K64.1 SECOND DEGREE HEMORRHOIDS 09/27/2019 PADMA GARG MD, Ot M48.07 SPINAL STENOSIS, LUMBOSACRAL REGION 09/27/2019 PADMA GARG MD, Ot M51.36 OTHER INTERVERTEBRAL DISC DEGENERATION, 09/27/2019 PADMA GARG MD, Ot S32.03 0D WEDGE COMPRSN FX THIRD LUM VERT, SUBS FO 09/27/2019 PADMA GARG MD, Ot Z12.11 ENCOUNTER FOR SCREENING FOR MALIGNANT NE 09/27/2019 PADMA GARG MD, Ot Z79.89 9 OTHER DETENTION (CURRENT) DRUG THERAPY 09/27/2019 PADMA GARG MD, Ot Z87.44 2 PERSONAL HISTORY OF URINARY CALCULI 09/27/2019 PADMA GARG MD, Ot Z87.81 PERSONAL HISTORY OF (HEALED) TRAUMATIC F 10/29/2019 SILVIO SINGH MD, Ot E11.42 TYPE 2 DIABETES MELLITUS WITH DIABETIC P 10/29/2019 SILVIO SINGH MD, Ot E11.621 TYPE 2 DIABETES MELLITUS WITH FOOT ULCER 10/29/2019 SILVIO SINGH MD, Ot L03.031 CELLULITIS OF RIGHT TOE 10/29/2019 SILVIO SINGH MD, Ot L97.512 NON- PRS CHRONIC ULCER OTH PRT RIGHT FOOT 11/04/2019 SILVIO SINGH MD, Ot 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 11/04/2019 SILVIO SINGH MD, Ot E11.42 TYPE 2 DIABETES MELLITUS WITH DIABETIC P 11/04/2019 SILVIO SINGH MD, Ot E11.621 TYPE 2 DIABETES MELLITUS WITH FOOT ULCER 11/04/2019 SILVIO SINGH MD, Ot L03.031 CELLULITIS OF RIGHT TOE 11/04/2019 LO MD, KIRTIE Ot L97.512 NON- PRS CHRONIC ULCER OTH PRT RIGHT FOOT 11/17/2019 SILVIO SINGH MD Ot 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 11/17/2019 SILVIO SINGH MD, Ot E11.42 TYPE 2 DIABETES MELLITUS WITH DIABETIC P 11/17/2019 SILVIO SINGH MD, Ot E11.52 TYPE 2 DIABETES W DIABETIC PERIPHERAL AN 11/17/2019 SILVIO SINGH MD, Ot E11.621 TYPE 2 DIABETES MELLITUS WITH FOOT ULCER 11/17/2019 SILVIO SINGH MD, Ot L03.031 CELLULITIS OF RIGHT TOE 11/17/2019 SILVIO SINGH MD, Ot L97.512 NON- PRS CHRONIC ULCER OTH PRT RIGHT FOOT 11/18/2019 LIDA GARCIA MD, Ot 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 11/18/2019 LIDA GARCIA MD, Ot E11.42 TYPE 2 DIABETES MELLITUS WITH DIABETIC P 11/18/2019 LIDA GARCIA MD, Ot E11.52 TYPE 2 DIABETES W DIABETIC PERIPHERAL AN 11/18/2019 LIDA GARCIA MD, Ot E11.621 TYPE 2 DIABETES MELLITUS WITH FOOT ULCER 11/18/2019 LIDA GARCIA MD Ot E44 .1 MILD PROTEIN-CALORIE MALNUTRITION 11/18/2019 LIDA GARCIA MD Ot L97.512 NON-PRS CHRONIC ULCER OTH PRT RIGHT FOOT 11/18/2019 LIDA GARCIA MD, Ot 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 11/18/2019 LIDA GARCIA MD Ot E11.42 TYPE 2 DIABETES MELLITUS WITH DIABETIC P 11/18/2019 LIDA GARCIA MD, Ot E11.621 TYPE 2 DIABETES MELLITUS WITH FOOT ULCER 11/18/2019 LIDA GARCIA MD, Ot E44 .1 MILD PROTEIN-CALORIE MALNUTRITION 11/18/2019 LIDA GARCIA MD, Ot L97.512 NON-PRS CHRONIC ULCER OTH PRT RIGHT FOOT 11/25/2019 LIDA GARCIA MD, Ot 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 11/25/2019 LIDA GARCIA MD, Ot E11.42 TYPE 2 DIABETES MELLITUS WITH DIABETIC P 11/25/2019 LIDA GARCIA MD Ot E11.52 TYPE 2 DIABETES W DIABETIC PERIPHERAL AN 11/25/2019 LIDA GARCIA MD, Ot E11.621 TYPE 2 DIABETES MELLITUS WITH FOOT ULCER 11/25/2019 LIDA GARCIA MD, Ot L97.512 NON-PRS CHRONIC ULCER OTH PRT RIGHT FOOT 11/30/2019 LIDA GARCIA MD Ot 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 11/30/2019 LIDA GARCIA MD, Ot E11.42 TYPE 2 DIABETES MELLITUS WITH DIABETIC P 11/30/2019 LIDA GARCIA MD, Ot E11.621 TYPE 2 DIABETES MELLITUS WITH FOOT ULCER 11/30/2019 LIDA GARCIA MD, Ot L97.512 NON-PRS CHRONIC ULCER OTH PRT RIGHT FOOT 12/03/2019 SILVIO SINGH MD, Ot E11.42 TYPE 2 DIABETES MELLITUS WITH DIABETIC P 12/03/2019 SILVIO SINGH MD, Ot E11.621 TYPE 2 DIABETES MELLITUS WITH FOOT ULCER 12/03/2019 SILVIO SINGH MD, Ot L03.031 CELLULITIS OF RIGHT TOE 12/03/2019 SILVIO SINGH MD, Ot L97.512 NON- PRS CHRONIC ULCER OTH PRT RIGHT FOOT 12/03/2019 SILVIO SINGH MD, Ot 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 12/03/2019 SILVIO SINGH MD, Ot E11.42 TYPE 2 DIABETES MELLITUS WITH DIABETIC P 12/03/2019 SILVIO SINGH MD, Ot E11.621 TYPE 2 DIABETES MELLITUS WITH FOOT ULCER 12/03/2019 SILVIO SINGH MD, Ot L03.031 CELLULITIS OF RIGHT TOE 12/03/2019 SILVIO SINGH MD, Ot L97.512 NON- PRS CHRONIC ULCER OTH PRT RIGHT FOOT 12/03/2019 SILVIO SINGH MD, Ot 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 12/03/2019 SILVIO SINGH MD, Ot E11.42 TYPE 2 DIABETES MELLITUS WITH DIABETIC P 12/03/2019 SILVIO SINGH MD, Ot E11.52 TYPE 2 DIABETES W DIABETIC PERIPHERAL AN 12/03/2019 SILVIO SINGH MD, Ot E11.621 TYPE 2 DIABETES MELLITUS WITH FOOT ULCER 12/03/2019 SILVIO SINGH MD, Ot L03.031 CELLULITIS OF RIGHT TOE 12/03/2019 SILVIO SINGH MD, Ot L97.512 NON- PRS CHRONIC ULCER OTH PRT RIGHT FOOT 12/08/2019 LIDA GARCIA MD Ot 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 12/08/2019 LIDA GARCIA MD, Ot E11.42 TYPE 2 DIABETES MELLITUS WITH DIABETIC P 12/08/2019 LIDA GARCIA MD Ot E11.621 TYPE 2 DIABETES MELLITUS WITH FOOT ULCER 12/08/2019 LIDA GARCIA MD, Ot L97.512 NON-PRS CHRONIC ULCER OTH PRT RIGHT FOOT 12/15/2019 LIDA GARCIA MD Ot 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 12/15/2019 LIDA GARCIA MD Ot E11.42 TYPE 2 DIABETES MELLITUS WITH DIABETIC P 12/15/2019 LIDA GARCIA MD, Ot E11.621 TYPE 2 DIABETES MELLITUS WITH FOOT ULCER 12/15/2019 LIDA GARCIA MD, Ot L97.512 NON-PRS CHRONIC ULCER OTH PRT RIGHT FOOT 12/21/2019 LIDA GARCIA MD Ot 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 12/21/2019 LIDA GARCIA MD, Ot E11.42 TYPE 2 DIABETES MELLITUS WITH DIABETIC P 12/21/2019 LIDA GARCIA MD, Ot E11.621 TYPE 2 DIABETES MELLITUS WITH FOOT ULCER 12/21/2019 LIDA GARCIA MD Ot L97.512 NON-PRS CHRONIC ULCER OTH PRT RIGHT FOOT 12/28/2019 LIDA GARCIA MD Ot 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 12/28/2019 LIDA GARCIA MD Ot E11.42 TYPE 2 DIABETES MELLITUS WITH DIABETIC P 12/28/2019 LIDA GARCIA MD Ot E11.621 TYPE 2 DIABETES MELLITUS WITH FOOT ULCER 12/28/2019 LIDA GARCIA MD Ot L97.512 NON-PRS CHRONIC ULCER OTH PRT RIGHT FOOT 12/30/2019 LIDA GARCIA MD Ot 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 12/30/2019 LIDA GARCIA MD Ot E11.42 TYPE 2 DIABETES MELLITUS WITH DIABETIC P 12/30/2019 LIDA GARCIA MD Ot E11.52 TYPE 2 DIABETES W DIABETIC PERIPHERAL AN 12/30/2019 LIDA GARCIA MD Ot E11.621 TYPE 2 DIABETES MELLITUS WITH FOOT ULCER 12/30/2019 LIDA GARCIA MD Ot E44 .1 MILD PROTEIN-CALORIE MALNUTRITION 12/30/2019 LIDA GARCIA MD Ot L97.512 NON-PRS CHRONIC ULCER OTH PRT RIGHT FOOT 12/30/2019 LIDA GARCIA MD Ot 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 12/30/2019 LIDA GARCIA MD Ot E11.42 TYPE 2 DIABETES MELLITUS WITH DIABETIC P 12/30/2019 LIDA GARCIA MD, Ot E11.621 TYPE 2 DIABETES MELLITUS WITH FOOT ULCER 12/30/2019 LIDA GARCIA MD Ot E44 .1 MILD PROTEIN-CALORIE MALNUTRITION 12/30/2019 LIDA GARCIA MD, Ot L97.512 NON-PRS CHRONIC ULCER OTH PRT RIGHT FOOT 12/30/2019 LIDA GARCIA MD Ot 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 12/30/2019 LIDA GARCIA MD Ot E11.42 TYPE 2 DIABETES MELLITUS WITH DIABETIC P 12/30/2019 LIDA GARCIA MD Ot E11.52 TYPE 2 DIABETES W DIABETIC PERIPHERAL AN 12/30/2019 LIDA GARCIA MD, Ot E11.621 TYPE 2 DIABETES MELLITUS WITH FOOT ULCER 12/30/2019 LIDA GARCIA MD Ot L97.512 NON-PRS CHRONIC ULCER OTH PRT RIGHT FOOT 12/30/2019 LIDA GARCIA MD Ot 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 12/30/2019 LIDA GARCIA MD Ot E11.42 TYPE 2 DIABETES MELLITUS WITH DIABETIC P 12/30/2019 LIDA GARCIA MD Ot E11.621 TYPE 2 DIABETES MELLITUS WITH FOOT ULCER 12/30/2019 LIDA GARCIA MD Ot L97.512 NON-PRS CHRONIC ULCER OTH PRT RIGHT FOOT 12/30/2019 LIDA GARCIA MD Ot 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 12/30/2019 LIDA GARCIA MD Ot E11.42 TYPE 2 DIABETES MELLITUS WITH DIABETIC P 12/30/2019 LIDA GARCIA MD Ot E11.621 TYPE 2 DIABETES MELLITUS WITH FOOT ULCER 12/30/2019 LIDA GARCIA MD Ot L97.512 NON-PRS CHRONIC ULCER OTH PRT RIGHT FOOT 12/30/2019 LIDA GARCIA MD Ot 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 12/30/2019 LIDA GARCIA MD Ot E11.42 TYPE 2 DIABETES MELLITUS WITH DIABETIC P 12/30/2019 LIDA GARCIA MD, Ot E11.621 TYPE 2 DIABETES MELLITUS WITH FOOT ULCER 12/30/2019 LIDA GARCIA MD Ot L97.512 NON-PRS CHRONIC ULCER OTH PRT RIGHT FOOT 01/04/2020 LIDA GARCIA MD, Ot 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 01/04/2020 LIDA GARCIA MD, Ot E11.42 TYPE 2 DIABETES MELLITUS WITH DIABETIC P 01/04/2020 LIDA GARCIA MD, Ot E11.621 TYPE 2 DIABETES MELLITUS WITH FOOT ULCER 01/04/2020 LIDA GARCIA MD, Ot L97.512 NON-PRS CHRONIC ULCER OTH PRT RIGHT FOOT 01/04/2020 LIDA GARCIA MD, Ot L97.522 NON-PRS CHRONIC ULCER OTH PRT LEFT FOOT 01/11/2020 LIDA GARCIA MD, Ot 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 01/11/2020 LIDA GARCIA MD, Ot E11.42 TYPE 2 DIABETES MELLITUS WITH DIABETIC P 01/11/2020 LIDA GARCIA MD, Ot E11.621 TYPE 2 DIABETES MELLITUS WITH FOOT ULCER 01/11/2020 LIDA GARCIA MD, Ot I70.245 ATHSCL SN[place]MIE ARTERIES OF LEFT LEG W ULC 01/11/2020 LIDA GARCIA MD, Ot L97.512 NON-PRS CHRONIC ULCER OTH PRT RIGHT FOOT 01/11/2020 LIDA GARCIA MD, Ot L97.522 NON-PRS CHRONIC ULCER OTH PRT LEFT FOOT 01/18/2020 LIDA GARCIA MD, Ot 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 Results Test Result Range [id number] - 07/21/19 10:03 Serum or plasma urea nitrogen measurement (mass/volume ) 13 mg/dL 7-18 Serum or plasma creatinine measurement (mass/volume) 0.99 mg/dL 0.60-1.30 Serum or plasma urea nitrogen/creatinine mass ratio 13 NRG Serum or plasma creatinine measurement w ith calculation of estimated glomerular filtration rate > NRG Gram stain microscopy - 11/16/19 08:46 Gram stain microscopy No bacteria seen NRG Bacteria identification in wound by cult ure - 11/16/19 08:46 Bacteria identification in wound by culture [id number] NRG FREE TEXT EXTERNAL NO SUSCEPTIBILITY PERFORMED NRG QUANTITY OF GROWTH Rare NRG FREE TEXT ENTRY 2 RESISTANT ORGANISM/CONTACT PRECA UTIONS NRG FREE TEXT ENTRY 3 MRSA/METHICILLIN-RESISTANT STAPH AUREUS NRG CALL POSITIVES (F1 HELP) CALLED TO TUNG/WC 11-22-19, 09/KD NRG PBP2 NO INDUCIBLE CLINDAMYCIN RESISTANTCE NRG Dirithromycin susceptibility test by dis k diffusion - 11/16/19 08:46 Oxacillin susceptibility test by minimum inhibitory co ncentration > NRG Clindamycin susceptibility test by minimum inhibitory concentration <= NRG Erythromycin susceptibility test by minimum inhibitory concentration > NRG Trimethoprim/sulfamethoxazole susceptibi lity test by minimum inhibitoryconcentration <= NRG Vancomycin susceptibility test by minimum inhibitory c oncentration 1 NRG Levofloxacin susceptibility test by minimum inhibitory concentration <= NRG Rifampin susceptibility test by minimum inhibitory con centration <= NRG Cefazolin susceptibility test by minimum inhibitory co ncentration R NRG Linezolid susceptibility test by minimum inhibitory co ncentration 2 NRG Penicillin G susceptibility test by minimum inhibitory concentration > NRG Moxifloxacin susceptibility test by minimum inhibitory concentration <= NRG Minocycline susc DAYNE <= NRG Hemoglobin A1c measurement - 11/16/19 09 :25 Blood hemoglobin A1C measurement (mass/volume) 12. 8 % 4.0- 5.6 MEAN BLOOD GLUCOSE 321 % <=126 Prealbumin - 11/16/19 09:25 Serum or plasma prealbumin measurement (mass/volume) 28.8 % 18.0-37.0 Gram stain microscopy - 12/27/19 08:46 Gram stain microscopy No bacteria seen NRG Bacteria identification in wound by cult ure - 12/27/19 08:46 Bacteria identification in wound by culture [id number] NRG FREE TEXT EXTERNAL NO INDUCIBLE CLINDAMYCIN RESIST ANCE NRG QUANTITY OF GROWTH Rare NRG SUSCEPTIBILITY RML REPORT: NO SUSCEPTIBILIY PERFOR MED NRG MRSA SCREEN RML REPORT: NO SUSCEPTIBILTIY PERFORME D NRG RAPID ID PRELIM RAPID ID TEST AT [facility] 12/27 13:27 NRG MRSA CONFIRMATION RML CONFIRMED MRSA 12/29 15:05 NRG ID CONFIRMATION RML CONFIRMED ID 12/27 16:25 NRG Dirithromycin susceptibility test by dis k diffusion - 12/27/19 08:46 Oxacillin susceptibility test by minimum inhibitory co ncentration > NRG Clindamycin susceptibility test by minimum inhibitory concentration <= NRG Erythromycin susceptibility test by minimum inhibitory concentration > NRG Trimethoprim/sulfamethoxazole susceptibi lity test by minimum inhibitoryconcentration <= NRG Vancomycin susceptibility test by minimum inhibitory c oncentration 1 NRG Levofloxacin susceptibility test by minimum inhibitory concentration <= NRG Rifampin susceptibility test by minimum inhibitory con centration <= NRG Cefazolin susceptibility test by minimum inhibitory co ncentration R NRG Linezolid susceptibility test by minimum inhibitory co ncentration 2 NRG Penicillin G susceptibility test by minimum inhibitory concentration > NRG Moxifloxacin susceptibility test by minimum inhibitory concentration <= NRG Minocycline susc DAYNE <= NRG Complete blood count (CBC) with automate d white blood cell (WBC) differential - 01/20/20 11:30 Blood leukocytes automated count (number/volume) 13.2 10*3/uL 4.3-11.0 Blood erythrocytes automated count (number/volume) 4.62 10*6/uL 4.35-5.85 Venous blood hemoglobin measurement (mass/volume) 13.9 g/dL 13.3-17.7 Blood hematocrit (volume fraction) 41 % 40-54 Automated erythrocyte mean corpuscular volume 89 [ foz_us] 80-99 Automated erythrocyte mean corpuscular h emoglobin (mass per erythrocyte) 30 pg 25-34 Automated erythrocyte mean corpuscular h emoglobin concentration measurement (mass/volume) 34 g/dL 32-36 Automated erythrocyte distribution width ratio 12. 7 % 10.0- 14.5 Automated blood platelet count (count/volume) 398 10*3/uL 130-400 Automated blood platelet mean volume measurement 9.7 [foz_us] 7.4-10.4 Automated blood neutrophils/100 leukocytes 76 % 42-75 Automated blood lymphocytes/100 leukocytes 16 % 12-44 Blood monocytes/100 leukocytes 8 % 0-12 Automated blood eosinophils/100 leukocytes 1 % 0-10 Automated blood basophils/100 leukocytes 0 % 0-10 Blood neutrophils automated count (number/volume) 10.0 10*3 1.8-7.8 Blood lymphocytes automated count (number/volume) 2.1 10*3 1.0-4.0 Blood monocytes automated count (number/volume) 1. 0 10*3 0.0-1.0 Automated eosinophil count 0.1 10*3/uL 0 .0-0.3 Automated blood basophil count (count/volume) 0.0 10*3/uL 0.0-0.1 Blood lactic acid measurement (moles/vol ume) - 01/20/20 11:30 Blood lactic acid measurement (moles/volume) 1.63 mmol/L 0.50-2.00 Comprehensive metabolic panel - 01/20/20 11:30 Serum or plasma sodium measurement (moles/volume) 138 mmol/L 135-145 Serum or plasma potassium measurement (moles/volume) 4.0 mmol/L 3.6-5.0 Serum or plasma chloride measurement (moles/volume) 101 mmol/L 98-107 Carbon dioxide 27 mmol/L 21-32 Serum or plasma anion gap determination (moles/volume) 10 mmol/L 5-14 Serum or plasma urea nitrogen measurement (mass/volume ) 10 mg/dL 7-18 Serum or plasma creatinine measurement (mass/volume) 0.94 mg/dL 0.60-1.30 Serum or plasma urea nitrogen/creatinine mass ratio 11 NRG Serum or plasma creatinine measurement w ith calculation of estimated glomerular filtration rate > NRG Serum or plasma glucose measurement (mass/volume) 354 mg/dL 70-105 Serum or plasma calcium measurement (mass/volume) 9.6 mg/dL 8.5-10.1 Serum or plasma total bilirubin measurement (mass/volu me) 0.3 mg/dL 0.1-1.0 Serum or plasma alkaline phosphatase thea surement (enzymatic activity/volume) 89 U/L 40-136 Serum or plasma aspartate aminotransfera se measurement (enzymatic activity/volume) 11 U/L 5-34 Serum or plasma alanine aminotransferase measurement (enzymatic activity/volume) 20 U/L 0-55 Serum or plasma protein measurement (mass/volume) 8.6 g/dL 6.4-8.2 Serum or plasma albumin measurement (mass/volume) 3.6 g/dL 3.2-4.5 CALCIUM CORRECTED 9.9 mg/dL 8.5-10.1 Encounters ACCT No. Visit Date/Time Discharge Status Pt. Type Provider Facility Loc./Unit Complaint [id number] 01/10/2020 08:16:00 23:59:59 CLS Outpatient LIDA GARCIA MD [facility] [id number] 01/03/2020 08:15:00 23:59:59 CLS Outpatient LIDA GARCIA MD [facility] [id number] 12/27/2019 08:19:00 23:59:59 CLS Outpatient LIDA GARCIA MD [facility] [id number] 12/20/2019 08:18:00 23:59:59 CLS Outpatient LIDA GARCIA MD [facility] [id number] 12/13/2019 08:13:00 23:59:59 CLS Outpatient LIDA GARCIA MD [facility] [id number] 12/06/2019 08:20:00 23:59:59 CLS Outpatient LIDA GARCIA MD [facility] [id number] 11/29/2019 09:46:00 23:59:59 CLS Outpatient LIDA GARCIA MD [facility] [id number] 11/23/2019 09:01:00 23:59:59 CLS Outpatient LIDA GARCIA MD [facility] [id number] 11/16/2019 09:15:00 23:59:59 CLS Outpatient LIDA GARCIA MD [facility] LAB TYPE 2 DIABETES [id number] 11/16/2019 08:08:00 23:59:59 CLS Outpatient LIDA GARCIA MD [facility] [id number] 11/09/2019 08:54:00 23:59:59 CLS Outpatient SILVIO SINGH MD [facility] [id number] 11/02/2019 08:55:00 23:59:59 CLS Outpatient SILVIO SINGH MD [id number] 10/28/2019 08:03:00 23:59:59 CLS Outpatient SILVIO SINGH MD [facility] [id number] 09/24/2019 09:12:00 12:15:00 DIS Outpatient PADMA GARG MD [facility] ENDO SCREENING [id number] 09/20/2019 05:32:00 15:04:00 DIS Outpatient PADMA GARG MD [facility] PREOP COLONOSCOPY [id number] 07/21/2019 09:52:00 23:59:59 CLS Outpatient COURTNEY FERREIRA DO [facility] RAD ABD PAIN [id number] 01/20/2020 11:51:00 Document Registration [id number] 01/17/2020 08:25:[address] Outpatient RADHA PHAN, LIDA Saini [facility]
--- NOTE | 2020-01-20 12:36 | Diagnostic Imaging Report ---
EXAMINATION: MRI of the left lower extremity from 01/20/2020. TECHNIQUE: Multiplanar, multisequence non contrast enhanced MR imaging of the left lower extremity was accomplished. INDICATION: Ulceration between the great toe and second toe. Diabetic. FINDINGS: Per the technologist, patient had marked difficulty remaining still for imaging. There is marked motion artifact on most of the sequences, limiting evaluation. There does appear to be abnormal signal intensity along the dorsum of the forefoot, predominantly overlying the third and second metatarsophalangeal joint spaces. In this region, more focal fluid-like collections are noted with the collection overlying the third metatarsophalangeal joint measuring at least 2.1 cm in [id number] dimension. A similar finding is seen just between the second metatarsophalangeal joint and adjacent great toe. This extends into the soft tissues in between the toes and measures at least 2.8 cm in [id number] dimension. This may extend through the skin in between the toes as there is marked hyperintensity, best seen on sagittal STIR sequence image #15/35. Correlate for site of ulceration. This appears to track towards the larger cystic collection just described. The underlying second proximal phalanx demonstrates questioned edema. This could be secondary to reactive change versus osteomyelitis and follow-up with and without contrast, when patient is able to remain still for imaging, may be useful for further delineation of these findings as clinically indicated. The remaining osseous structures appear to be unremarkable at this time. There is small amount of joint fluid within the second and first metatarsophalangeal joints. The visualized tendons are grossly intact. IMPRESSION: 1. Suspected ulceration extending to the distal skin in between the second and first toes which appears to track proximally and towards the dorsum of the foot into a fluid collection, possibly abscess. Similar smaller fluid collection overlies the third metatarsophalangeal joint. 2. Findings of suspected osteomyelitis of the second proximal phalanx, however please see above discussion. Dictated by: Dictated on workstation # [id number]
[2020-01-20 12:47] VITALS: BP 149/94
[2020-01-20] MEDS: ENOXAPARIN 40 MG/0.4 ML (LOVENOX) SYR SQ SCH (13:30)
[2020-01-20] MEDS ORDERED: GABA-488 PO (13:32)
[2020-01-20] MEDS ORDERED: CALC625T66 PO (13:32)
[2020-01-20] MEDS ORDERED: IBUP-1773 PO (13:32)
[2020-01-20] MEDS ORDERED: INSU100I32 SC (13:32)
[2020-01-20] MEDS ORDERED: EMPA10TA PO (13:32)
[2020-01-20] MEDS ORDERED: LNZ600T PO (13:32)
[2020-01-20] MEDS ORDERED: METF-397 PO (13:32)
--- NOTE | 2020-01-20 13:40 | Diagnostic Imaging Report ---
PROCEDURE: US Bilateral lower extremity arterial. TECHNIQUE: Multiple real-time grayscale images are obtained through both lower extremity arterial systems with color Doppler imaging and color Doppler spectral analysis. INDICATION: Foot infection, peripheral artery disease COMPARISON: None available FINDINGS: Triphasic and biphasic waveforms are identified throughout the large arterial structures of the right lower extremity with associated brisk upstrokes. No focally increased velocities. Monophasic waveforms are identified within the left posterior tibial artery and left dorsalis pedis artery. There is associated focally increased velocities within the left posterior tibial artery distally at 254 cm/s. Otherwise, triphasic and biphasic waveforms noted throughout the large arterial structures of the left lower extremity. 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 No evidence of hemodynamically significant stenosis on the right. Dictated by: Dictated on workstation # [id number]
[2020-01-20] MEDS ORDERED: METR-145 PO (14:14)
[2020-01-20] MEDS ORDERED: LEVO750T39 PO (14:14)
--- NOTE | 2020-01-20 14:14 | NUR ---
SPOKE WITH THE PT, WENT THRU THE EXT MED HISTORY AND CALLED [facility] TO COMPLETE THE MED REC WHEN I SPOKE WITH THE PATIENT HE LET ME KNOW HE WAS TAKING 3 DIFFERENT ANTIBIOTICS, LINEZOLID PICKED UP 01-10-2020 #14 FLAGYL 500MG PICKED UP 01-05-2020 #56/14DS LEVAQUIN 750MG PICKED UP 01-05-2020 #14 THE FLAGYL AND LEVAQUIN WERE FILLED ON 01-03-2020 BUT PT SAID HE DID NOT PICK THEM UP RIGHT AWAY AND HAD STILL BEEN TAKING PRIOR TO HIS ADMISSION TODAY GABAPENTIN 300MG: THE DIRECTIONS SAY "1 BID" HOWEVER THE PT IS TAKING 1 TID- HE DIDNT REALIZE THE PRESCRIPTION SAID TWICE DAILY METFORMIN 500MG- THE SCRIPT SAYS " 2 TABS BID" HOWEVER THE PT SAID DUE TO GI SIDE EFFECTS HE WILL ONLY TAKE 1 TAB TWICE DAILY OTC MEDS: FIBER SUPPLEMENT
[2020-01-20 16:00] VITALS: BP 162/91
--- NOTE | 2020-01-20 17:04 | Consultation-Cardiology ---
HPI-Cardiology Cardiology Consultation: Date of Consultation 01/20/20 Time Seen by a Provider: 16:40 Date of Admission Attending Physician Scarlett Burnette MD Admitting Physician Jaxon Ling DO Consulting Physician BREE IGNACIO MD, MA, FACP, FACC, [facility] [place], CCDS Physician requesting consult: Dr Burnette HPI: Chief Complaint: Reason for consultation: Non-healing wound on left foot Mr. Rivera is a 64 year old male admitted to [facility] as a direct admit from wound care clinic. He has been following with wound care for approx the last 2 months for treatment of a wound to the left great toe which was improving, but has recently began to worsen. He states the wound has extended from between his left great toe to the second toe. He reports he has chronic peripheral neuropathy d/t diabetes and has not had any pain. He does not recall any recent injury to the foot. He reports he has noted redness and warmth to the top of the left foot. He denies any symptoms of claudication. He denies any fever or chills. He denies any c/o CP, dyspnea, palpitations, syncope or near syncope. He states he used to smoke, but quit greater than 10 years ago. Review of Systems-Cardiology Review of Systems Constitutional: No chills, No fever, No malaise Eyes: No vision change Ears/Nose/Throat: No epistaxis, No recent hearing loss Respiratory: As described under HPI Cardiovascular: As described under HPI Gastrointestinal: No constipation; diarrhea; No nausea, No vomiting Genitourinary: No dysuria, No hematuria Musculoskeletal: As describe under HPI Skin: As described under HPI Psychiatric/Neurological: No anxiety, No depression, No seizure, No focal weakness, No syncope Hematologic: No bleeding abnormalities [id number] Hx Patient Social History Employed/Student: employed Smoking Status: Former Smoker Recent Foreign Travel: Yes (Pt states has been in [place] within the last month and [place] a few weeks ) Recent Infectious Disease Expo: No Past Medical History PMH As described under Assessment. Family Medical History Family Medical History: He reports his mother had an SD in her 40's. No other reported family h/o CAD. Allergies and Home Medications Allergies Coded Allergies: No Known Drug Allergies (Unverified , 09/20/19) Home Medications Calcium Polycarbophil 625 Mg Tablet, 625 MG PO DAILY, (Reported) Empagliflozin 10 Mg Tablet, 10 MG PO DAILY, (Reported) Gabapentin 300 Mg Capsule, 300 MG PO TID, (Reported) Ibuprofen 600 Mg Tablet, 600 MG PO TID PRN for PAIN-MILD (1-4), (Reported) Insulin Degludec 100 Unit/1 Ml Insuln.pen, 20 UNITS SC HS, (Reported) Levofloxacin 750 Mg Tablet, 750 MG PO DAILY, (Reported) PICKED UP 01-05-2020 #14/14 DAY SUPPLY Linezolid 600 Mg Tablet, 600 MG PO BID, (Reported) FILLED 01-10-2020 #28 DAY SUPPLY Lisinopril 20 Mg Tablet, 20 TAB PO BID, (Reported) Metformin HCl 500 Mg Tablet, 500-1,000 MG PO BID, (Reported) TAKES 1 TO 2 TABS TWICE DAILY Metronidazole 500 Mg Tablet, 500 MG PO QID, (Reported) PICKED UP 01-05-2020 #56/ DAY SUPPLY Patient Home Medication List Home Medication List Reviewed: Yes Physical Exam-Cardiology Physical Exam Vital Signs/I&O 01/20/20 01/20/20 01/20/20 10:44 12:47 16:00 Temp 37.4 37.1 Pulse 103 93 91 Resp 20 20 14 B/P (MAP) 143/92 149/94 (112) 162/91 (114) Pulse Ox 94 93 95 O2 Delivery Room Air Room Air Room Air Capillary Refill : Constitutional: AAO x 3, well-developed, well-nourished HEENT: PERRL, hearing is well preserved, oral hygience is good Neck: No carotid bruit; carotid pulses are 2 + bilaterally Respiratory: No accessory muscle use, No respiratory distress; chest expansion is symmetric, chest is bilaterally symmetric, lungs clear to auscultation Cardiovascular: regular rate-rhythm; No JVD; S1 and S2 Gastrointestinal: No tender; soft, round, audible bowel sounds Extremities: other (mild LLE swelling) Neurologic/Psychiatric: grossly intact (moves all extremities) Skin: other (Dressing to left foot; D&I - not removed. Ruddish discoloration of the visible portion of the foot.) Data Review Labs Laboratory Tests 01/20/20 11:30: White Blood Count 13.2H, Red Blood Count 4.62, Hemoglobin 13.9, Hematocrit 41, Mean Corpuscular Volume 89, Mean Corpuscular Hemoglobin 30, Mean Corpuscular Hemoglobin Concent 34, Red Cell Distribution Width 12.7, Platelet Count 398, Mean Platelet Volume 9.7, Neutrophils (%) (Auto) 76H, Lymphocytes (%) (Auto) 16, Monocytes (%) (Auto) 8, Eosinophils (%) (Auto) 1, Basophils (%) (Auto) 0, Neutrophils # (Auto) 10.0H, Lymphocytes # (Auto) 2.1, Monocytes # (Auto) 1.0, Eosinophils # (Auto) 0.1, Basophils # (Auto) 0.0, Sodium Level 138, Potassium Level 4.0, Chloride Level 101, Carbon Dioxide Level 27, Anion Gap 10, Blood Urea Nitrogen 10, Creatinine 0.94, Estimat Glomerular Filtration Rate > 60, BUN/ Creatinine Ratio 11, Glucose Level 354H, Lactic Acid Level 1.63, Calcium Level 9.6, Corrected Calcium 9.9, Total Bilirubin 0.3, Aspartate Amino Transf (AST/SGOT) 11, Alanine Aminotransferase (ALT/SGPT) 20, Alkaline Phosphatase 89, Total Protein 8.6H, Albumin 3.6 01/20/20 16:36: Glucometer 298H A/P-Cardiology Assessment/Admission Diagnosis Non-healing wound to left foot PAD - Arterial Doppler of 01/20/20: Monophasic waveforms within the left posterior tibial artery and dorsalis pedis artery is consistent with underlying atherosclerotic tibioperoneal disease on the left. No evidence of hemodynamically significant stenosis on the right. Suspected ulceration extending to the distal skin in between the second and first toes which appears to track proximally and towards the dorsum of the foot into a fluid collection, possibly abscess. Similar smaller fluid collection overlies the third metatarsophalangeal joint. Findings of suspected osteomyelitis of the second proximal phalanx per MRI of January 20, 2020 DM 2 HTN Reported peripheral neuropathy GERD Diarrhea Discussion and Recomendations Advise peripheral angiogram to eval perfusion. Discussed procedure, risks, benefits of peripheral angiogram with possible percutaneous intervention. Provides informed consent. Will proceed tomorrow or sooner if needed. Monitor lab closely Continue enoxaparin Continue home medications Management of DM as per Medical services Management of diarrhea per Medical services Wound care management per Medical services We would like to thank Dr. Burnette for this consult Further recs will be based on his hospital course BREE IGNACIO MD FACP FAC CCDS January 20, 2020 17:04
[2020-01-20 20:00] VITALS: BP 141/74
[2020-01-20] MEDS: PIPERACILLIN/TAZOBACTAM (BULK) 4.5 GM in NS (IVPB) 100 ML IV SCH (20:09)
[2020-01-20] MEDS: DAKIN'S 1/4 STRENGTH (0.125%) 473 ML BTL TOP SCH (22:04)
[2020-01-20] MEDS: ACETAMINOPHEN 325 MG TABLET PO PRN (22:06)
[2020-01-21] VITALS (14 sets, daily range): BP systolic 116–190; BP diastolic 77–120
[2020-01-21] MEDS: ENOXAPARIN 40 MG/0.4 ML (LOVENOX) SYR SQ SCH ×3 (00:04→23:23)
[2020-01-21] MEDS: VANCOMYCIN 1500 MG/NS 500 ML IVPB IV SCH ×8 (00:04→22:14)
[2020-01-21] MEDS: PIPERACILLIN/TAZOBACTAM (BULK) 4.5 GM in NS (IVPB) 100 ML IV SCH ×3 (04:35→22:14)
[2020-01-21] MEDS: ACETAMINOPHEN 325 MG TABLET PO PRN ×2 (04:36→17:17)
[2020-01-21] MEDS: inSUlin ASPART (NovoLOG) 1 UNIT/0.01 ML (CHARGE PER UNIT) SC SCH ×4 (06:18→20:30)
[2020-01-21 06:41] LABS: MEAN PLATELET VOLUME 9.6 FL (7.4-10.4); RED CELL DISTRIBUTION WIDTH 12.8 % (10.0-14.5); WHITE BLOOD COUNT 11.8 10^3/uL (4.3-11.0)
[2020-01-21 06:52] LABS: PROTHROMBIN TIME PATIENT 13.8 SEC (12.2-14.7)
[2020-01-21 06:54] LABS: CHLORIDE 105 MMOL/L (98-107); POTASSIUM 3.6 MMOL/L (3.6-5.0); SODIUM 138 MMOL/L (135-145)
[2020-01-21 06:55] LABS: CALCIUM 8.8 MG/DL (8.5-10.1)
[2020-01-21 06:56] LABS: GLUCOSE 193 MG/DL (70-105)
[2020-01-21 06:57] LABS: CARBON DIOXIDE 23 MMOL/L (21-32)
[2020-01-21 07:00] LABS: GFR ESTIMATED > 60
[2020-01-21 07:01] LABS: BUN/CREATININE RATIO 13
[2020-01-21] MEDS ORDERED: LIDOCAINE 1% INJ 20 ML 20 ML VIAL ONE (08:17)
[2020-01-21] MEDS ORDERED: HEParin (CATH LAB) 2,000 ML IV ONE (08:17)
[2020-01-21] MEDS: DAKIN'S 1/4 STRENGTH (0.125%) 473 ML BTL TOP SCH ×2 (09:00→22:08)
--- NOTE | 2020-01-21 09:09 | Progress Note - Hospitalist ---
Subjective HPI/CC On Admission Date Seen by Provider: January 21, 2020 Time Seen by Provider: 09:09 64-year-old male with a past medical history of insulin-dependent diabetes type II, hypertension, sleep apnea, chronic foot wounds was direct admitted from wound care clinic here due to a new worsening left foot wound. She was following with Dr. Raya at wound care for the past 2 months for a wound on his right great toe. This has responded to treatment well but within the past couple of weeks his left foot developed a wound between his great toe and second digit in the webspace. He has been on Levaquin, and his lip, and Flagyl and been compliant with wound care. Despite this he has new necrotic area of that wound with surrounding erythema and warmth of the foot. He was direct admitted from wound care today. He is a known insulin-dependent diabetic that is poorly controlled. His last A1c was 12.8. He has no known peripheral artery disease. Subjective/Events-last exam Pt reports doing well. Still having diarrhea. Plan for angiogram today. Focused Exam Lactate Level 01/20/20 11:30: Lactic Acid Level 1.63 Objective Exam Vital Signs Vital Signs Date Time Temp Pulse Resp B/P (MAP) Pulse Ox O2 Delivery O2 Flow Rate FiO2 01/21/20 03:51 36.3 80 18 154/81 (105) 96 Room Air Capillary Refill : Less Than 3 Seconds General Appearance: No Apparent Distress, Obese Respiratory: Lungs Clear, No Respiratory Distress Cardiovascular: Regular Rate, Rhythm, No Murmur Gastrointestinal: Normal Bowel Sounds, Non Tender, Soft Extremity: Other (bilatereal feet wrapped in gauze and plastic bags for shower) Neurologic/Psychiatric: Alert, Oriented x3 Results/Procedures Lab Laboratory Tests 01/20/20 11:30 01/21/20 05:55 Patient resulted labs reviewed. Assessment/Plan Assessment and Plan Assess & Plan/Chief Complaint Diabetic Foot Wound Suspected osteomyelitis MRI shows likely abscess and suspected osteo Podiatry consulted Wound care consult Vanc and Zosyn Blood cultures pending HTN diminished pulse Concern for PAD Dopplers consistent with underlying PAD Cardiology consult placed, plan for angiogram today Continue home antihypertensives IDDMII poorly controlled SSI Levemir 20 units QHS as is on Tresiba 20U at home Diarrhea C diff negative Add probiotic KAYLEE LU MD January 21, 2020 09:09
--- NOTE | 2020-01-21 09:58 | Progress Note - Cardiology ---
Cardiology SOAP Progress Note Subjective: Does not report foot or leg pain No cp or palp or syncope No focal weakness No n/v/d today Objective: I&O/Vital Signs 01/21/20 01/21/20 00:59 03:51 Temp 36.8 36.3 Pulse 80 80 Resp 18 18 B/P (MAP) 143/84 (103) 154/81 (105) Pulse Ox 96 96 O2 Delivery Room Air Room Air 01/21/20 00:00 Intake Total 2145 ml Balance 2145 ml Constitutional: AAO x 3, well-developed, well-nourished Respiratory: No accessory muscle use, No respiratory distress; chest expansion is symmetric, chest is bilaterally symmetric, lungs clear to auscultation Cardiovascular: regular rate-rhythm; No JVD; S1 and S2 Gastrointestional: No tender; soft, round, audible bowel sounds Extremities: other (mild LLE swelling) Neurologic/Psychiatric: grossly intact (moves all extremities) Skin: other (Dressing to left foot; D&I - not removed. Ruddish discoloration of the visible portion of the foot.) Results/Procedures: Labs Laboratory Tests 01/20/20 11:30: White Blood Count 13.2H, Red Blood Count 4.62, Hemoglobin 13.9, Hematocrit 41, Mean Corpuscular Volume 89, Mean Corpuscular Hemoglobin 30, Mean Corpuscular He moglobin Concent 34, Red Cell Distribution Width 12.7, Platelet Count 398, Mean Platelet Volume 9.7, Neutrophils (%) (Auto) 76H, Lymphocytes (%) (Auto) 16, Monocytes (%) (Auto) 8, Eosinophils (%) (Auto) 1, Basophils (%) (Auto) 0, Neutrophils # (Auto) 10.0H, Lymphocytes # (Auto) 2.1, Monocytes # (Auto) 1.0, Eosinophils # (Auto) 0.1, Basophils # (Auto) 0.0, Sodium Level 138, Potassium Level 4.0, Chloride Level 101, Carbon Dioxide Level 27, Anion Gap 10, Blood Urea Nitrogen 10, Creatinine 0.94, Estimat Glomerular Filtration Rate > 60, BUN/Creatinine Ratio 11, Glucose Level 354H, Lactic Acid Level 1.63, Calcium Level 9.6, Corrected Calcium 9.9, Total Bilirubin 0.3, Aspartate Amino Transf (AST/SGOT) 11, Alanine Aminotransferase (ALT/SGPT) 20, Alkaline Phosphatase 89, Total Protein 8.6H, Albumin 3.6 01/20/20 16:36: Glucometer 298H 01/20/20 21:06: Glucometer 299H 01/21/20 05:24: Glucometer 183H 01/21/20 05:55: White Blood Count 11.8H, Red Blood Count 4.29L, Hemoglobin 13.0L, Hematocrit 38L , Mean Corpuscular Volume 90, Mean Corpuscular Hemoglobin 30, Mean Corpuscular Hemoglobin Concent 34, Red Cell Distribution Width 12.8, Platelet Count 397, Mean Platelet Volume 9.6, Prothrombin Time 13.8, INR Comment 1.0, Activated Partial Thromboplast Time 31, Sodium Level 138, Potassium Level 3.6, Chloride Level 105, Carbon Dioxide Level 23, Anion Gap 10, Blood Urea Nitrogen 10, Creatinine 0.80, Estimat Glomerular Filtration Rate > 60, BUN/Creatinine Ratio 13, Glucose Level 193H, Calcium Level 8.8 Microbiology 01/20/20 C. difficile GDH Antigen & Toxins - Final, Complete Laboratory Tests 01/20/20 11:30 01/21/20 05:55 A/P: Assessment: Non-healing wound to left foot PAD - Arterial Doppler of 01/20/20: Monophasic waveforms within the left posterior tibial artery and dorsalis pedis artery is consistent with underlying atherosclerotic tibioperoneal disease on the left. No evidence of hemodynamically significant stenosis on the right. Suspected ulceration extending to the distal skin in between the second and first toes which appears to track proximally and towards the dorsum of the foot into a fluid collection, possibly abscess. Similar smaller fluid collection overlies the third metatarsophalangeal joint. Findings of suspected osteomyelitis of the second proximal phalanx per MRI of January 20, 2020 DM 2 HTN Reported peripheral neuropathy GERD Diarrhea Plan: * Plan peripheral angiogram to eval perfusion. Discussed procedure, risks, benefits of peripheral angiogram with possible percutaneous intervention. Provides informed consent. Will proceed tomorrow or sooner if needed. * Monitor lab closely * Management of DM as per Medical services * Wound care management per Medical services * Further recs will be based on his hospital course BREE IGNACIO MD FACP FAC CCDS January 21, 2020 09:58
[2020-01-21] MEDS ORDERED: TROUGH ORDER-PHARMACY XX ONE (10:00)
[2020-01-21] MEDS: LACTOBACILLUS ACIDOPHILUS (PROBIOTIC) CAPSULE PO SCH ×2 (12:11→19:29)
[2020-01-21] MEDS ORDERED: fentaNYL INJECTION 100 MCG/2 ML AMP ONE (13:15)
[2020-01-21] MEDS ORDERED: MIDAZOLAM 5 MG/5 ML (VERSED) VIAL ONE (13:15)
[2020-01-21] MEDS ORDERED: HEParin 1000 UNIT/ML (10ML VIAL) FOR BOLUS ONE (13:15)
--- NOTE | 2020-01-21 13:35 | NUR ---
TO HEART CATH ROOM PER BED.
[2020-01-21] MEDS ORDERED: NS IV 1000 ML 1,000 ML ONE (13:47)
--- NOTE | 2020-01-21 13:47 | NUR ---
RD ASSESSMENT PMHx: DM; HTN; sleep apnea; chronic wounds PT INTERACTION: Pt was awake and pleasant during nutrition assessment. Pt states current appetite is "alright," and was the same prior to admit. Note avg PO intake 88% x2meal, per chart review. Pt states following a diabetic diet at home, and has no issues with chewing/swallowing food. Pt states no recent issues with nausea, vomiting, or constipation, but states issues with "diarrhea, constantly." Note last BM was 01/20, and pt not currently on bowel regimen per chart review. Pt states recent wt gain of "a little bit," but unsure of amount/timeframe. Note recent 7# wt gain x4mon, per chart review. Pt states current DM management as "pretty good, until I got here (was admitted)." Note recent HbA1c of 12.8 taken on 11/16/19, per chart review. Note presence of wound on left foot, per chart review. ABNORMAL NUTRITION-RELATED LAB VALUES LOW: HIGH: glu 193; HbA1c 12.8 (11/16/2019) Est. kcal needs: 7920-5076 kcal | 15-18 kcal/kg Est. Pro needs: 134-161 g Pro | 1.0-1.2 g Pro/kg PES STATEMENT: Inadequate protein intake ([id number]) related to increased protein needs as evidenced by presence of wound (left foot) INTERVENTION: Note pt currently NPO. Would recommend diet advancement to consistent CHO diet, when medically able and as tolerated. When medically able, add Ensure HP (vary) to meals TID. Provides 160 kcal and 16 g Pro per serving for perceived benefit to wound healing. Discussed DM management and nutrition suggestions. Discussed CHO counting and smartphone applications. Discussed with pt role of fiber in diet and its relationship to DM management. Pt appeared confident to follow suggestions upon discharge. Will continue to follow and reassess as pt needs, intake, and status change. MONITOR/EVALUATE: PO Intake; Plan of Care; Hydration Status; Weight Status; Lab Values Claudia Ca, MS, RD, LD
--- NOTE | 2020-01-21 13:49 | NUR ---
VANCOMYCIN TROUGH LEVEL 9.5 01/20 @ 1000; CHANGED DOSING FREQUENCY TO 1500MG Q8H, WILL RECHECK LEVEL ON 01/21 @ 1000; IF TROUGH >20, WILL HOLD DOSE AND MAKE FURHTER ADJUSTMENTS.
[2020-01-21] MEDS ORDERED: NITRO DRIP 25000 MCG/D5W 250 ML IV ONE (14:51)
[2020-01-21] MEDS ORDERED: NS (IVPB) 250 ML ONE (15:44)
[2020-01-21] MEDS ORDERED: niCARdipine 25 MG/10 ML (CARDENE) AMP IV ONE (15:44)
[2020-01-21] MEDS ORDERED: ASPIRIN 81 MG CHEW (CHILDREN'S ASA) ONE (16:09)
[2020-01-21] MEDS ORDERED: CLOPIDOGREL 300 MG (PLAVIX) TABLET PO ONE (16:09)
--- NOTE | 2020-01-21 19:15 | NUR ---
Dr. Villalta in room. Unwrapped drsg to lt foot. Dr. Villalta spoke with pt regarding dx osteomyelitis et need for sx in AM. Pt agrees to surgery et states Dr. Villalta answered all questions. Dr. Villalta stated sx already schd for 0800 tomorrow. AZAR Kelly notified.
--- NOTE | 2020-01-21 19:17 | Podiatry Progress Note ---
Standard Progress Note Progress Notes/Assess & Plan Date Seen by a Provider: January 21, 2020 Time Seen by a Provider: 19:16 Progress/Assessment & Plan Consult dictated. Deep abscess left foot. Will go to surgery in the morning for I&D and possible 2nd toe amputation. Final Diagnosis Abscess left foot, Osteomyelitis left 2nd toe. GEE SEXTON DPM January 21, 2020 19:17
--- NOTE | 2020-01-21 19:23 | OPERATIVE REPORT ---
DATE OF SERVICE: 01/21/2020 PERIPHERAL ANGIOGRAPHY AND INTERVENTION REPORT The patient is a 64-year-old man with risk factors for peripheral arterial disease, who has a nonhealing wound of the left foot. Noninvasive imaging was indicative of peripheral arterial disease of the left side. Informed consent was obtained for peripheral angiography and intervention, if needed. DESCRIPTION OF PROCEDURE: He was brought to the cardiac catheterization laboratory in a fasting state. Right groin was prepared and draped in the usual sterile fashion. Utilizing 1% lidocaine for local anesthesia. Modified Seldinger technique was used to advance a 5-[place] sheath in the right femoral artery. A 5-[place] pigtail catheter was used for abdominal aortic angiography. The pigtail was placed at the level of L1 and abdominal aortic angiography was performed. The catheter was then pulled back to just above the level of the aortoiliac bifurcation and bilateral angiography was performed with runoff down to the level of the ankles. Subsequently, percutaneous intervention was carried out, which is described below. PERCUTANEOUS INTERVENTION TO THE LEFT POPLITEAL ARTERY AND TO THE LEFT POSTERIOR TIBIAL ARTERY: We used a crossover catheter to advance a Storq wire into the left superficial femoral artery. We removed the 5-[place] sheath. We advanced a long 6-[place] sheath with the tip of the sheath placed in the left superficial femoral artery. We then crossed the lesions in the popliteal artery and the left posterior tibial artery with an 0.018 wire. We carried out balloon angioplasty with 2.5 x 40 mm balloon and the distal left posterior tibial. We then exchanged the wire out to a 0.014 inch wire. DICTATION ENDS HERE. Job ID: [id number] DocumentID: [id number] Dictated Date: 01/21/2020 16:26:16 Corsage Maker Date: 01/21/2020 19:22:55 Dictated By: BREE IGNACIO MD, MA, FACP, FACC,
--- NOTE | 2020-01-21 22:00 | NUR ---
PT B/P 190/120, HR 98. DR IGNACIO NOTIFIED. DR ORDERED TO RESTART PT HOME MED LISINOPRIL, AND TO GIVE A ONE TIME DOSE OF TOPROL XL 100MG, AND ORDERED TO TOPROL XL 100MG DAILY.
[2020-01-21] MEDS ORDERED: lisINopril 20 MG (PRINIVIL) TABLET ONE (22:07)
[2020-01-21] MEDS ORDERED: meTOprolol SUCCINATE 100 MG (TOPROL XL) TAB PO ONE (22:15)
[2020-01-21] MEDS: lisINopril 20 MG (PRINIVIL) TABLET PO SCH (22:17)
--- NOTE | 2020-01-21 23:24 | CONSULTATION REPORT ---
DATE OF SERVICE: 01/21/2020 REASON FOR CONSULTATION: Diabetic foot care. HISTORY OF PRESENT ILLNESS: This 64-year-old male who was admitted secondary to a worsening new wound of the left forefoot. He has been working with Dr. Sanchez for wound care for the last couple of months for the right great toe; however, this right great toe seems to be progressing and improving. He developed a crack in between the first and second toes of the left foot, which quickly developed into a deep space wound that developed necrosis and Dr. Sanchez felt it is best for him to be admitted for IV antibiotics and possible incision and drainage type procedure. He is a poorly controlled diabetic with a hemoglobin A1c last checked, it was 12.8%. He is known to have some peripheral vascular disease and was earlier today had a revascularization procedure performed on the left lower extremity. PAST MEDICAL HISTORY: The patient has a past medical history, which includes the insulin-dependent diabetes, hypertension, sleep apnea, chronic wounds of the feet and peripheral neuropathy. PAST SURGICAL HISTORY: Include a cholecystectomy. SOCIAL HISTORY: The patient denies tobacco use. 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 ALLERGIES: He has no known drug allergies. PHYSICAL EXAMINATION: LOWER EXTREMITY EXAMINATION: The patient has nonpalpable pedal pulses on the left. The foot is warm to touch with capillary refill time of less than 2 seconds to the hallux. NEUROLOGIC: The patient has diminished light touch sensation. He also has diminished protective sensation with 10 gram monofilament wire examination to the forefoot on the left. DERMATOLOGIC: The patient has a full-thickness wound that probes deep tissue in between the first and second digit and extends to the dorsal aspect of the second metatarsophalangeal joint with necrosis and serous drainage noted. No malodor. Some surrounding erythema is present. The right foot wound was not evaluated due to recent vascular intervention. I did not want to move the right lower extremity at this time. DIAGNOSTICS: 1. The MRI report that was reviewed, which has one suspected ulceration extending to the distal skin in between the second and first toes, which appears to track proximally and towards the dorsum of the foot and a fluid collection, possibly abscess. Similar smaller fluid collection overlying the third metatarsophalangeal joint. 2. Findings of suspected osteomyelitis of the second proximal phalanx; however, please see above discussion. ASSESSMENT: 1. Diabetic neuropathy. 2. Peripheral vascular disease. 3. Deep abscess with cellulitis left foot, possible osteomyelitis of the second toe. PLAN: Various treatment options were discussed with the patient today. We discussed the need for a debridement of the abscess, which will need to be done surgically. The patient is agreeable to incision and drainage procedure to be performed tomorrow morning. The patient understands that if there are signs and symptoms of a bone infection of the proximal phalanx of the left second toe and amputation of the second toe is likely to happen. The patient is to continue with IV antibiotics tomorrow morning. A deep wound culture and sensitivity will also be taken. In the meantime, he is to be nonweightbearing. Dressing change was performed with Dakin solution to the left first and in webspace lesion. Job ID: [id number] DocumentID: [id number] Dictated Date: 01/21/2020 19:44:18 Premix Operator Concentrate Date: 01/21/2020 23:22:55 Dictated By: GEE SEXTON DPM
--- NOTE | 2020-01-21 23:34 | OPERATIVE REPORT ---
DATE OF SERVICE: 01/21/2020 PERIPHERAL ANGIOGRAPHY AND INTERVENTION REPORT INDICATIONS: The patient is a 64-year-old man with nonhealing ulcer of the left foot. Noninvasive imaging had indicated considerable disease of the arterial circulation of the left lower leg. Peripheral angiography was recommended. Informed consent was obtained for peripheral angiography and for ad hoc intervention, if needed. DESCRIPTION OF PROCEDURE: He was brought to the cardiac catheterization laboratory in a fasting state. The right groin was prepared and draped in the usual sterile fashion. 1% lidocaine was used for local anesthesia. Modified Seldinger technique was used to advance a 5-Venezuelan sheath into right femoral artery. We used a 5-Venezuelan pigtail catheter to carry out abdominal aortic angiography. The catheter was placed at the level of L1. Abdominal aortic angiography was performed. The catheter was then pulled back to just above the aortoiliac bifurcation and bilateral leg artery angiography was performed with runoff down to the level of the ankles. Subsequently, percutaneous intervention was carried out to the distal arterial circulation of the left leg that is described below. PERCUTANEOUS INTERVENTION TO THE LEFT POPLITEAL ARTERY AND TO THE LEFT POSTERIOR TIBIAL ARTERY: We exchanged the right femoral sheath over a wire for a long 6-Venezuelan sheath after we had advanced a Storq wire into the left superficial femoral artery using a crossover catheter. The sheath was used to perform selective angiography of the left superficial femoral artery with runoff down to the level of the ankle. We then carried out percutaneous intervention in the left popliteal artery and in the left posterior tibial artery. We first used an 0.018 inch wire to cross multiple lesions and carried out balloon angioplasty with a 2.5 x 40 mm balloon. Multiple balloon inflations were carried out within the left posterior tibial artery. Then, keeping balloon in place, the wire was replaced with a 0.014 inch wire to allow more options with balloons. We then used a 2.5 x 200 mm balloon and carried out balloon angioplasty throughout the length of the posterior tibial artery. Subsequently, we used a 5.0 x 60 mm balloon to carry out balloon angioplasty within the left popliteal artery. The popliteal artery was exhibiting 80% stenosis, which was reduced to less than 20% stenosis. The posterior tibial artery was exhibiting many up to 90% stenoses, which was reduced to less than 50%. However, the very distal segment of the left posterior tibial artery exhibited dissection and a very little antegrade flow. It could not be further intervened on. The peroneal artery was not intervened on. It did not show significant disease and exhibited good flow. The left anterior tibial artery is proximally occluded and of small caliber. It did not exhibit any significant flow and no intervention was attempted to that vessel. The patient tolerated the procedure well. ABDOMINAL AORTIC ANGIOGRAPHY: Abdominal aortic angiography did not indicate any significant abdominal aortic aneurysm or dissection. The renal arteries are identified. The right renal artery is seen well and does not exhibit significant disease. The left renal artery is seen, but the views are somewhat suboptimal. It does not exhibit significant disease. The aortoiliac bifurcation does not exhibit significant disease. LEG ARTERY ANGIOGRAPHY: On the right side, there does not appear to be significant stenosis of the iliac, femoral, popliteal or trifurcation vessels. On the left side, the iliacs are intact and so are the superficial and deep femorals. The popliteal, however, had up to 80% stenosis to which successful balloon angioplasty was carried out with reduction of stenosis to less than 20%. The anterior tibial artery is occluded proximally and does not exhibit any distal flow. The peroneal artery was intact and does not exhibit significant disease. The posterior tibial artery had multiple up to 90% stenosis in its proximal, mid and distal portion to which balloon angioplasty was carried out The stenoses were reduced to less than 50% proximally and in the mid vessel. However, the very distal segment of the posterior tibial artery exhibits dissection and slow or no flow that could not be further intervened on. CONCLUSIONS: Peripheral arterial disease primarily consisting of 80% distal stenosis of the left popliteal artery to which successful balloon angioplasty was carried out with reduction of stenosis to less than 20%. The left anterior tibial is chronically occluded. The left posterior tibial had multiple severe stenoses to which successful balloon angioplasty was carried out in the proximal and mid segments, but the distal segment exhibits dissection and slow flow that could not be further intervened on. Job ID: [id number] DocumentID: [id number] Dictated Date: 01/21/2020 19:06:19 Paint And Table Edger Date: 01/21/2020 23:33:10 Dictated By: BREE IGNACIO MD, MA, FACP, FACC, FSCAI, CCDS [facility]
[2020-01-22] VITALS (11 sets, daily range): BP systolic 130–158; BP diastolic 74–101
[2020-01-22] MEDS: ACETAMINOPHEN 325 MG TABLET PO PRN (00:11)
[2020-01-22] MEDS: BENZONATATE 100 MG (TESSALON) CAPSULE PO PRN ×2 (00:11→15:03)
[2020-01-22] MEDS: PIPERACILLIN/TAZOBACTAM (BULK) 4.5 GM in NS (IVPB) 100 ML IV SCH ×3 (05:18→20:45)
[2020-01-22] MEDS: VANCOMYCIN 1500 MG/NS 500 ML IVPB IV SCH ×6 (05:21→20:45)
[2020-01-22 06:19] LABS: HEMOGLOBIN 12.7 G/DL (13.3-17.7); MEAN PLATELET VOLUME 9.5 FL (7.4-10.4); RED CELL DISTRIBUTION WIDTH 12.5 % (10.0-14.5)
[2020-01-22 06:40] LABS: BUN/CREATININE RATIO 9; CALCIUM 8.6 MG/DL (8.5-10.1); CARBON DIOXIDE 23 MMOL/L (21-32); CHLORIDE 106 MMOL/L (98-107); CREATININE SERUM 0.74 MG/DL (0.60-1.30); GFR ESTIMATED > 60; GLUCOSE 181 MG/DL (70-105); POTASSIUM 3.4 MMOL/L (3.6-5.0); SODIUM 139 MMOL/L (135-145)
[2020-01-22] MEDS: inSUlin ASPART (NovoLOG) 1 UNIT/0.01 ML (CHARGE PER UNIT) SC SCH ×4 (06:57→20:45)
--- NOTE | 2020-01-22 07:30 | NUR ---
PT off floor to surgery at this time
[2020-01-22] MEDS ORDERED: PROPOFOL INJECTION 50 ML IV ONE (07:38)
[2020-01-22] MEDS ORDERED: fentaNYL INJECTION 100 MCG/2 ML AMP ONE (07:39)
[2020-01-22] MEDS ORDERED: KETAMINE/NaCl 50 MG/5 ML SYRINGE (ED ONLY) ONE (07:39)
[2020-01-22] MEDS ORDERED: LACTATED RINGERS 1,000 ML IV PRN (07:40)
[2020-01-22] MEDS ORDERED: MIDAZOLAM 2 MG/2 ML (VERSED) VIAL ONE (07:41)
[2020-01-22] MEDS ORDERED: BUPIVACAINE 0.5% 30 ML (SENSORCAINE) VIAL ONE (07:52)
[2020-01-22] MEDS ORDERED: LIDOCAINE 1% INJ 20 ML 20 ML VIAL ONE (07:52)
[2020-01-22] MEDS: LACTOBACILLUS ACIDOPHILUS (PROBIOTIC) CAPSULE PO SCH ×3 (08:06→17:52)
--- NOTE | 2020-01-22 08:44 | Progress Note-Post Operative ---
Post-Operative Progess Note Surgeon (s)/Card Tender (s) Surgeon GEE SEXTON DPM Card Tender: none Pre-Operative Diagnosis Deep Abscess left foot, possible osteomyelitis of the 2nd toe Post-Operative Diagnosis Deep Abscess left foot, Fascia and muscle Procedure & Operative Findings Date of Procedure 01/22/20 Procedure Performed/Findings Incision and Drainage of deep abscess (Fascia and muscle) left foot Anesthesia Type MAC Estimated Blood Loss Estimated blood loss (mL): Minimal Specimens/Packing Specimens Removed Soft tissue from left 2nd metatarsophalangeal joint area. Packing: Betadine soaked gauzGEE Kendall DPM January 22, 2020 08:44
[2020-01-22] MEDS: DAKIN'S 1/4 STRENGTH (0.125%) 473 ML BTL TOP SCH ×2 (09:06→21:03)
--- NOTE | 2020-01-22 09:06 | NUR ---
Dakins dressing change will not be administered this shift per MDs orders of no dressing changes until post op day 1
--- NOTE | 2020-01-22 09:20 | NUR ---
PT back to floor at this time. Pt alert and orientated. no pain noted. IV fluids infusing. complaint of hunger. dietary called to bring PT breakfast . no other needs at this time
--- NOTE | 2020-01-22 09:25 | Anesthesia-General Post-Op ---
MAC Patient Condition Mental Status/LOC: Same as Preop Cardiovascular: Satisfactory Nausea/Vomiting: Absent Respiratory: Satisfactory Pain: Controlled Complications: Absent Post Op Complications Complications None Follow Up Care/Instructions Patient Instructions None needed. Anesthesiology Discharge Order Discharge Order Patient is doing well, no complaints, stable vital signs, no apparent adverse anesthesia problems. No complications reported per nursing. KEVIN FALLON CRNA January 22, 2020 09:25
[2020-01-22] MEDS: lisINopril 20 MG (PRINIVIL) TABLET PO SCH ×2 (09:49→20:46)
[2020-01-22] MEDS: meTOprolol SUCCINATE 100 MG (TOPROL XL) TAB PO SCH (09:49)
[2020-01-22] MEDS: LACTATED RINGERS 1,000 ML IV SCH ×3 (09:49→23:44)
[2020-01-22] MEDS: HYDROcodone/APAP 5 MG/325 MG (LORTAB) TAB PO PRN ×2 (10:29→15:04)
[2020-01-22] MEDS ORDERED: TROUGH ORDER-PHARMACY XX NR (11:00)
--- NOTE | 2020-01-22 11:13 | Progress Note - Hospitalist ---
Subjective HPI/CC On Admission Date Seen by Provider: January 22, 2020 Time Seen by Provider: 11:08 64-year-old male with a past medical history of insulin-dependent diabetes type II, hypertension, sleep apnea, chronic foot wounds was direct admitted from wound care clinic here due to a new worsening left foot wound. She was following with Dr. Raya at wound care for the past 2 months for a wound on his right great toe. This has responded to treatment well but within the past couple of weeks his left foot developed a wound between his great toe and second digit in the webspace. He has been on Levaquin, and his lip, and Flagyl and been compliant with wound care. Despite this he has new necrotic area of that wound with surrounding erythema and warmth of the foot. He was direct admitted from wound care today. He is a known insulin-dependent diabetic that is poorly controlled. His last A1c was 12.8. He has no known peripheral artery disease. Subjective/Events-last exam Pt reports doing well. Went to OR this morning for I&D. Pain controlled. No complaints. Focused Exam Lactate Level 01/20/20 11:30: Lactic Acid Level 1.63 Objective Exam Vital Signs Vital Signs Date Time Temp Pulse Resp B/P (MAP) Pulse Ox O2 Delivery O2 Flow Rate FiO2 01/22/20 09:32 Room Air 01/22/20 09:30 36.8 79 18 158/92 (114) 93 Capillary Refill : Less Than 3 SecondsLess Than 3 Seconds General Appearance: No Apparent Distress, Obese Respiratory: Lungs Clear, No Respiratory Distress Cardiovascular: Regular Rate, Rhythm, No Murmur Gastrointestinal: Normal Bowel Sounds, Soft Extremity: Other (feet wrapped in gauze, clean and dry dressings. I did not unwrap as just back from the OR) Neurologic/Psychiatric: Alert, Oriented x3 Results/Procedures Lab Laboratory Tests 01/22/20 05:00 01/22/20 05:20 Patient resulted labs reviewed. Assessment/Plan Assessment and Plan Assess & Plan/Chief Complaint Diabetic Foot Wound Suspected osteomyelitis MRI shows likely abscess and suspected osteo Podiatry consulted Wound care consult Vanc and Zosyn Blood cultures NGTD I&D today by Dr Villalta Await operative cultures HTN diminished pulse Concern for PAD Dopplers consistent with underlying PAD Cardiology consulted, appreciate recs underwent angiogram on 01/20 with revascularization as able but had severe distal disease Continue home antihypertensives IDDMII poorly controlled, a1c 12.8 as an outpatient SSI Levemir 20 units QHS as is on Tresiba 20U at home Diarrhea C diff negative probiotic KAYLEE LU MD January 22, 2020 11:13
[2020-01-22] MEDS ORDERED: LOPERAMIDE 2 MG (IMODIUM) TABLET PO PRN (11:15)
[2020-01-22] MEDS: ENOXAPARIN 40 MG/0.4 ML (LOVENOX) SYR SQ SCH ×2 (11:52→23:44)
--- NOTE | 2020-01-22 15:32 | OPERATIVE REPORT ---
DATE OF SERVICE: 01/22/2020 SURGEON: Joanna Sexton DPM. PREOPERATIVE DIAGNOSES: Deep abscess, left foot, possible osteomyelitis of the proximal phalanx, left second toe. POSTOPERATIVE DIAGNOSIS: Deep abscess, left foot into the first and second webspace and intermetatarsal space. PROCEDURE: Incision and drainage of deep abscess down to deep fascia and muscle, left foot. WOUND CLASS: Contaminated. ANESTHESIA: Monitored anesthesia care. HEMOSTASIS: None. INDICATIONS: This 64-year-old was admitted secondary to a deep infection to the left foot. MRI results indicated a deep abscess between the first and second metatarsals as well as the third and second metatarsal area with a possible osteomyelitis to the base of the proximal phalanx, left second toe. The patient is agreeable to surgical intervention after risks and complications were discussed at length. No guarantees were extended to the patient and he is willing to proceed. DESCRIPTION OF PROCEDURE: The patient was brought back to the operating table, placed in secure supine position. Appropriate timeout was performed. Pneumatic ankle tourniquet was placed on the left lower extremity over several layers of padding, but it was never inflated. Left foot was prepped and draped in normal sterile manner. The left foot was then addressed to the first web space where there is a deep abscess between the first and second digits that extended dorsally to the base of the proximal phalanx and second metatarsophalangeal joint. Utilizing a combination of electrocautery as well as sharp dissection, the necrotic and abscess tissue was removed overlying the second metatarsophalangeal joint to and into the second intermetatarsal space. There was a large abscess that was identified and a deep culture taken of this material. Specimen was also taken and sent for gross and microscopic evaluation. The abscess continued to the dorsal aspect of the third metatarsophalangeal joint area, but did not extend to the plantar aspect of the foot. The wound was then explored into the first intermetatarsal space were extended proximally another centimeter or more, which was evacuated of any necrotic and purulent tissue. The base of the second digit was devoid of any necrosis or signs of osteomyelitis. It was then decided to leave the digit in place and proceed with the incision and drainage as well as the pulse irrigation. Pulse irrigation was then performed to the entire wound. 3000 mL were utilized. After the irrigation, no pulsatile bleeders were identified. Areas of oozing were noted to the wound, which indicated to me that he has good healing potential for this ulceration. The wound was then packed with Betadine soaked gauze, sterile 4 x 4's, Kerlix, ABDs and secured with a Kerlix and Coban wrap. The patient is to have daily Dakin's solution dressing changes and wound care would be through Dr. Sanchez. He is welcome to follow up as necessary. Job ID: [id number] DocumentID: [id number] Dictated Date: 01/22/2020 09:13:00 Drying Machine Back Tender Date: 01/22/2020 15:32:11 Dictated By: JOANNA SEXTON DPM
--- NOTE | 2020-01-22 15:36 | NUR ---
Patients foot dressing is saturated with bright red blood at this time. Dr Villalta notified. Instructed this RN to reinforce dressing only at this time
--- NOTE | 2020-01-22 15:51 | Progress Note - Cardiology ---
Cardiology SOAP Progress Note Subjective: Has had L foot surgery this am. Reports mild discomfort at the site of incision No cp or palp or syncope No leg or foot discoloration or pain No fever or chills No n/v/d Objective: I&O/Vital Signs 01/22/20 01/22/20 01/22/20 01/22/20 04:59 06:42 08:39 08:39 Temp 36.9 36.5 Pulse 82 97 Resp 20 16 B/P (MAP) 149/101 (117) 140/78 (98) Pulse Ox 97 96 O2 Delivery Room Air Room Air Room Air 01/22/20 01/22/20 01/22/20 01/22/20 08:40 08:50 08:50 09:00 Resp 16 14 12 B/P (MAP) 140/78 (98) 143/85 (104) 130/78 (95) Pulse Ox 96 94 96 O2 Delivery Room Air Room Air Room Air Room Air 01/22/20 01/22/20 01/22/20 01/22/20 09:05 09:10 09:20 09:20 Temp 36.6 Resp 14 16 B/P (MAP) 135/74 (94) 135/74 (94) Pulse Ox 96 96 O2 Delivery Room Air Room Air Room Air Room Air 01/22/20 01/22/20 01/22/20 01/22/20 09:30 09:32 12:00 12:37 Temp 36.8 37.0 Pulse 79 83 78 Resp 18 20 B/P (MAP) 158/92 (114) 153/93 (113) Pulse Ox 93 95 O2 Delivery Room Air Room Air Room Air 01/22/20 00:00 Intake Total 250 ml Balance 250 ml Constitutional: AAO x 3, well-developed, well-nourished Respiratory: No accessory muscle use, No respiratory distress; chest expansion is symmetric, chest is bilaterally symmetric, lungs clear to auscultation Cardiovascular: regular rate-rhythm; No JVD; S1 and S2 Gastrointestional: No tender; soft, round, audible bowel sounds Extremities: other (mild LLE swelling) Neurologic/Psychiatric: grossly intact (moves all extremities) Skin: other (Dressing to left foot; D&I - not removed. Ruddish discoloration of the visible portion of the foot.) Results/Procedures: Labs Laboratory Tests 01/21/20 20:23: Glucometer 256H 01/22/20 05:00: Sodium Level 139, Potassium Level 3.4L, Chloride Level 106, Carbon Dioxide Level 23, Anion Gap 10, Blood Urea Nitrogen 7, Creatinine 0.74, Estimat Glomerular Filtration Rate > 60, BUN/Creatinine Ratio 9, Glucose Level 181H, Calcium Level 8.6 01/22/20 05:20: White Blood Count 11.0, Red Blood Count 4.20L, Hemoglobin 12.7L, Hematocrit 38L, Mean Corpuscular Volume 89, Mean Corpuscular Hemoglobin 30, Mean Corpuscular Hemoglobin Concent 34, Red Cell Distribution Width 12.5, Platelet Count 377, Mean Platelet Volume 9.5 01/22/20 05:29: Glucometer 194H 01/22/20 10:54: Glucometer 236H 01/22/20 11:09: Vancomycin Level Trough 18.0 Microbiology 01/20/20 MRSA Screen - Final, Complete MRSA not isolated 01/20/20 C. difficile GDH Antigen & Toxins - Final, Complete 01/20/20 Blood Culture - Preliminary, Resulted No growth A/P: Assessment: PAD. Angio and PCI of 01/21/20: 80% distal stenosis of the left popliteal artery to which successful balloon angioplasty was carried out with reduction of stenosis to less than 20%. The left anterior tibial is chronically occluded. The left posterior tibial had multiple severe stenoses to which successful balloon angioplasty was carried out in the proximal and mid segments, but the distal segment exhibits dissection and slow flow that could not be further intervened on. Deep abscess left foot, possible osteomyelitis of the 2nd toe, treated with I&D by Dr Villalta on 01/22/20 DM 2 HTN Reported peripheral neuropathy involving the lower extremeties GERD, by history Obesity with BMI approx 41 Plan: * I again reviewed with him the findings of peripheral angio and treatments undertaken and their results on 01/21/20. I did that again today. I answered his questions * I discussed the findings and treatments and results with Dr Sanchez on 01/21/[address] Burnette on 01/22/20 * Monitor lab closely * Management of DM as per Medical services * Wound care management is per Wound Care Svce and per Medical and Surg Svces BREE IGNACIO MD FACP FAC CCDS January 22, 2020 15:51
[2020-01-23] VITALS: BP 149/92
[2020-01-23] MEDS: ONDANSETRON 4 MG/2 ML (SDV) Z0FRAN IV PRN ×2 (00:09→17:29)
[2020-01-23 04:00] VITALS: BP 151/78
[2020-01-23] MEDS: VANCOMYCIN 1500 MG/NS 500 ML IVPB IV SCH ×6 (04:22→22:16)
[2020-01-23] MEDS: PIPERACILLIN/TAZOBACTAM (BULK) 4.5 GM in NS (IVPB) 100 ML IV SCH ×3 (04:22→20:19)
[2020-01-23 05:24] LABS: BASOPHILS % (AUTO) 0 % (0-10); EOSINOPHILS # (AUTO) 0.1 10^3/uL (0.0-0.3); EOSINOPHILS % (AUTO) 1 % (0-10); HEMATOCRIT 35 % (40-54); HEMOGLOBIN 11.8 G/DL (13.3-17.7); LYMPHOCYTES # (AUTO) 2.2 X 10^3 (1.0-4.0); LYMPHOCYTES % (AUTO) 20 % (12-44); MEAN CORPUSCULAR HEMOGLOBIN 30 PG (25-34); MEAN CORPUSCULAR HGB CONC 34 G/DL (32-36); MEAN CORPUSCULAR VOLUME 90 FL (80-99); MEAN PLATELET VOLUME 9.1 FL (7.4-10.4); MONOCYTES # (AUTO) 0.9 X 10^3 (0.0-1.0); MONOCYTES % (AUTO) 9 % (0-12); NEUTROPHILS # (AUTO) 7.8 X 10^3 (1.8-7.8); NEUTROPHILS % (AUTO) 70 % (42-75); PLATELET COUNT 386 10^3/uL (130-400); RED CELL DISTRIBUTION WIDTH 12.9 % (10.0-14.5); WHITE BLOOD COUNT 11.1 10^3/uL (4.3-11.0)
[2020-01-23 05:51] LABS: CHLORIDE 107 MMOL/L (98-107); POTASSIUM 3.6 MMOL/L (3.6-5.0); SODIUM 139 MMOL/L (135-145)
[2020-01-23 05:52] LABS: CALCIUM 8.4 MG/DL (8.5-10.1)
[2020-01-23 05:53] LABS: GLUCOSE 149 MG/DL (70-105)
[2020-01-23 05:54] LABS: CARBON DIOXIDE 23 MMOL/L (21-32)
[2020-01-23 05:56] LABS: CREATININE SERUM 0.71 MG/DL (0.60-1.30); GFR ESTIMATED > 60
[2020-01-23 05:57] LABS: BUN/CREATININE RATIO 7
[2020-01-23] MEDS: inSUlin ASPART (NovoLOG) 1 UNIT/0.01 ML (CHARGE PER UNIT) SC SCH ×4 (06:06→22:14)
[2020-01-23] MEDS: HYDROcodone/APAP 5 MG/325 MG (LORTAB) TAB PO PRN ×3 (06:38→22:16)
[2020-01-23 08:00] VITALS: BP 120/72
[2020-01-23] MEDS: lisINopril 20 MG (PRINIVIL) TABLET PO SCH ×2 (08:39→22:15)
[2020-01-23] MEDS: LACTATED RINGERS 1,000 ML IV SCH ×3 (08:39→18:31)
[2020-01-23] MEDS: meTOprolol SUCCINATE 100 MG (TOPROL XL) TAB PO SCH (08:39)
[2020-01-23] MEDS: LACTOBACILLUS ACIDOPHILUS (PROBIOTIC) CAPSULE PO SCH ×3 (08:39→18:31)
--- NOTE | 2020-01-23 10:15 | NUR ---
DR SEXTON ORDERED TO RESTART ASPIRIN 81 MG AND PLAVIX [address] MG[address] AND [address] LU NOTIFIED.
[2020-01-23] MEDS: ASPIRIN 81 MG CHEW (CHILDREN'S ASA) PO SCH (11:02)
[2020-01-23] MEDS: CLOPIDOGREL 75 MG (PLAVIX) TABLET PO SCH (11:02)
[2020-01-23] MEDS: DAKIN'S 1/4 STRENGTH (0.125%) 473 ML BTL TOP SCH ×2 (11:03→22:16)
[2020-01-23 11:27] VITALS: BP 127/71
[2020-01-23] MEDS: ENOXAPARIN 40 MG/0.4 ML (LOVENOX) SYR SQ SCH ×2 (11:42→22:40)
--- NOTE | 2020-01-23 12:38 | Progress Note - Hospitalist ---
Subjective HPI/CC On Admission Date Seen by Provider: January 23, 2020 Time Seen by Provider: 12:32 64-year-old male with a past medical history of insulin-dependent diabetes type II, hypertension, sleep apnea, chronic foot wounds was direct admitted from wound care clinic here due to a new worsening left foot wound. She was following with Dr. Raya at wound care for the past 2 months for a wound on his right great toe. This has responded to treatment well but within the past couple of weeks his left foot developed a wound between his great toe and second digit in the webspace. He has been on Levaquin, and his lip, and Flagyl and been compliant with wound care. Despite this he has new necrotic area of that wound with surrounding erythema and warmth of the foot. He was direct admitted from wound care today. He is a known insulin-dependent diabetic that is poorly controlled. His last A1c was 12.8. He has no known peripheral artery disease. Subjective/Events-last exam Pt reports feeling well. No complaints. Pain under control. Review cultures results. Staph Aureus is growing. Awaiting sensitivities. Pt reports he will only stay until noon tomorrow and then will discharge. Objective Exam Vital Signs Vital Signs Date Time Temp Pulse Resp B/P (MAP) Pulse Ox O2 Delivery O2 Flow Rate FiO2 01/23/20 11:27 36.8 72 18 127/71 (89) 95 Room Air Capillary Refill : Less Than 3 SecondsLess Than 3 Seconds General Appearance: No Apparent Distress, Obese Respiratory: Lungs Clear, No Respiratory Distress Cardiovascular: Regular Rate, Rhythm, No Murmur Extremity: Other (feet wrapped in surgical ) Neurologic/Psychiatric: Alert, Oriented x3 Results/Procedures Lab Laboratory Tests 01/23/20 04:55 Patient resulted labs reviewed. Assessment/Plan Assessment and Plan Assess & Plan/Chief Complaint Diabetic Foot Wound Suspected osteomyelitis MRI shows likely abscess and suspected osteo Podiatry consulted Wound care consult Vanc and Zosyn Blood cultures NGTD POD #[address] Villalta Operative cultures show staph aureus, await sensitivities PAD HTN Dopplers consistent with underlying PAD Cardiology consulted, appreciate recs underwent angiogram on 01/20 with revascularization as able but had severe distal disease Continue home antihypertensives IDDMII poorly controlled, a1c 12.8 as an outpatient SSI Levemir 20 units QHS as is on Tresiba 20U at home Diarrhea C diff negative probiotic Diagnosis/Problems Diagnosis/Problems (1) PAD (peripheral artery disease) Status: Acute (2) Insulin dependent diabetes mellitus Status: Chronic (3) Essential (primary) hypertension Status: Chronic (4) Diarrhea Status: Acute Qualifiers: Diarrhea type: unspecified type Qualified Codes: R19.7 - Diarrhea, unspecified (5) Diabetic infection of left foot Status: Acute KAYLEE LU MD January 23, 2020 12:38
--- NOTE | 2020-01-23 13:21 | Progress Note - Cardiology ---
Cardiology SOAP Progress Note Subjective: No cp or palp or syncope or shortness of breath at rest No significant leg swelling or foot discomfort Gen malaise No focal weaknes No n/v/d Objective: I&O/Vital Signs 01/23/20 01/23/20 01/23/20 01/23/20 04:00 06:58 08:00 08:00 Temp 37.3 36.8 Pulse 80 76 85 Resp 22 22 B/P (MAP) 151/78 (102) 120/72 (88) Pulse Ox 98 95 O2 Delivery Room Air Room Air Room Air 01/23/20 11:27 Temp 36.8 Pulse 72 Resp 18 B/P (MAP) 127/71 (89) Pulse Ox 95 O2 Delivery Room Air 01/23/20 00:00 Intake Total 1665 ml Balance 1665 ml Constitutional: AAO x 3, well-developed, well-nourished Respiratory: No accessory muscle use, No respiratory distress; chest expansion is symmetric, chest is bilaterally symmetric, lungs clear to auscultation Cardiovascular: regular rate-rhythm; No JVD; S1 and S2 Gastrointestional: No tender; soft, round, audible bowel sounds Extremities: other (mild LLE swelling) Neurologic/Psychiatric: grossly intact (moves all extremities) Skin: other (Dressing to left foot; D&I - not removed. Ruddish discoloration of the visible portion of the foot.) Results/Procedures: Labs Laboratory Tests 01/22/20 16:42: Glucometer 236H 01/22/20 20:10: Glucometer 264H 01/23/20 04:55: White Blood Count 11.1H, Red Blood Count 3.90L, Hemoglobin 11.8L, Hematocrit 35L , Mean Corpuscular Volume 90, Mean Corpuscular Hemoglobin 30, Mean Corpuscular Hemoglobin Concent 34, Red Cell Distribution Width 12.9, Platelet Count 386, Mean Platelet Volume 9.1, Neutrophils (%) (Auto) 70, Lymphocytes (%) (Auto) 20, Monocytes (%) (Auto) 9, Eosinophils (%) (Auto) 1, Basophils (%) (Auto) 0, Neutrophils # (Auto) 7.8, Lymphocytes # (Auto) 2.2, Monocytes # (Auto) 0.9, Eosinophils # (Auto) 0.1, Basophils # (Auto) 0.0, Sodium Level 139, Potassium Level 3.6, Chloride Level 107, Carbon Dioxide Level 23, Anion Gap 9, Blood Urea Nitrogen 5L, Creatinine 0.71, Estimat Glomerular Filtration Rate > 60, BUN/Creatinine Ratio 7, Glucose Level 149H, Calcium Level 8.4L 01/23/20 10:52: Glucometer 217H Microbiology 01/22/20 Gram Stain - Final, Resulted 01/22/20 Anaerobic Culture, Resulted Pending 01/22/20 Surgical Culture - Preliminary, Resulted Staphylococcus aureus 01/22/20 Fungal Culture 1, Resulted Pending 01/20/20 MRSA Screen - Final, Complete MRSA not isolated 01/20/20 C. difficile GDH Antigen & Toxins - Final, Complete 01/20/20 Blood Culture - Preliminary, Resulted No growth A/P: Assessment: PAD. Angio and PCI of 01/21/20: 80% distal stenosis of the left popliteal artery to which successful balloon angioplasty was carried out with reduction of stenosis to less than 20%. The left anterior tibial is chronically occluded. The left posterior tibial had multiple severe stenoses to which successful balloon angioplasty was carried out in the proximal and mid segments, but the distal segment exhibits dissection and slow flow that could not be further intervened on. 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
[2020-01-23 15:33] VITALS: BP 151/87
[2020-01-23 20:01] VITALS: BP 161/92
[2020-01-24 00:05] VITALS: BP 114/69
[2020-01-24] MEDS: LACTATED RINGERS 1,000 ML IV SCH ×2 (01:00→04:21)
[2020-01-24] MEDS: PIPERACILLIN/TAZOBACTAM (BULK) 4.5 GM in NS (IVPB) 100 ML IV SCH ×2 (04:14→11:46)
[2020-01-24] MEDS: ACETAMINOPHEN 325 MG TABLET PO PRN (04:20)
[2020-01-24 04:40] VITALS: BP 153/94
[2020-01-24] MEDS: VANCOMYCIN 1500 MG/NS 500 ML IVPB IV SCH ×4 (05:34→13:20)
[2020-01-24] MEDS: inSUlin ASPART (NovoLOG) 1 UNIT/0.01 ML (CHARGE PER UNIT) SC SCH ×2 (06:37→11:41)
[2020-01-24] MEDS: LACTOBACILLUS ACIDOPHILUS (PROBIOTIC) CAPSULE PO SCH ×2 (07:54→13:21)
[2020-01-24] MEDS: meTOprolol SUCCINATE 100 MG (TOPROL XL) TAB PO SCH (07:55)
[2020-01-24] MEDS: CLOPIDOGREL 75 MG (PLAVIX) TABLET PO SCH (07:55)
[2020-01-24] MEDS: lisINopril 20 MG (PRINIVIL) TABLET PO SCH (07:55)
[2020-01-24] MEDS: ASPIRIN 81 MG CHEW (CHILDREN'S ASA) PO SCH (07:55)
--- NOTE | 2020-01-24 09:42 | Progress Note - Cardiology ---
Cardiology SOAP Progress Note Subjective: No cp or palp or syncope or shortness of breath or leg or foot discomfort No focal weakness Some gen malaise No n/v/d Objective: I&O/Vital Signs 01/24/20 01/24/20 01/24/20 01/24/20 00:05 01:00 04:40 07:00 Temp 36.6 36.6 Pulse 84 82 75 73 Resp 16 18 B/P (MAP) 114/69 (84) 153/94 (113) Pulse Ox 95 94 O2 Delivery Room Air Room Air 01/24/20 08:00 Pulse Ox 94 O2 Delivery Room Air 01/24/20 00:00 Intake Total 2710 ml Balance 2710 ml Constitutional: AAO x 3, well-developed, well-nourished Respiratory: No accessory muscle use, No respiratory distress; chest expansion is symmetric, chest is bilaterally symmetric, lungs clear to auscultation Cardiovascular: regular rate-rhythm; No JVD; S1 and S2 Gastrointestional: No tender; soft, round, audible bowel sounds Extremities: other (mild LLE swelling; Dressing to left foot; D&I - not removed. No discoloration of visible part of foot) Neurologic/Psychiatric: grossly intact (moves all extremities) Skin: other (Dressing to left foot; D&I - not removed. No discoloration of visible part of foot) Results/Procedures: Labs Laboratory Tests 01/23/20 10:52: Glucometer 217H 01/23/20 15:36: Glucometer 192H 01/23/20 20:07: Glucometer 213H 01/24/20 05:58: Glucometer 190H Microbiology 01/22/20 Gram Stain - Final, Resulted 01/22/20 Anaerobic Culture, Resulted Pending 01/22/20 Surgical Culture - Preliminary, Resulted Staphylococcus aureus 01/22/20 Fungal Culture 1, Resulted Pending 01/20/20 MRSA Screen - Final, Complete MRSA not isolated 01/20/20 C. difficile GDH Antigen & Toxins - Final, Complete 01/20/20 Blood Culture - Preliminary, Resulted No growth A/P: Assessment: PAD. Angio and PCI of 01/21/20: 80% distal stenosis of the left popliteal artery to which successful balloon angioplasty was carried out with reduction of stenosis to less than 20%. The left anterior tibial is chronically occluded. The left posterior tibial had multiple severe stenoses to which successful balloon angioplasty was carried out in the proximal and mid segments, but the distal segment exhibits dissection and slow flow that could not be further i ntervened on. Deep abscess left foot, treated with I&D by Dr Villalta on 01/22/20, growing staph aureus DM 2 HTN Reported peripheral neuropathy involving the lower extremeties GERD, by history Obesity with BMI approx 41 Plan: * Continue DAPT * Monitor labs * Management of DM as per Medical services * Wound care management is per [facility] and per [facility] BREE IGNACIO MD FACP FACC CCDS January 24, 2020 09:42
[2020-01-24] MEDS: ENOXAPARIN 40 MG/0.4 ML (LOVENOX) SYR SQ SCH (11:41)
[2020-01-24] MEDS: DAKIN'S 1/4 STRENGTH (0.125%) 473 ML BTL TOP SCH (11:41)
[2020-01-24 12:00] VITALS: BP 168/85
--- NOTE | 2020-01-24 12:21 | NUR ---
WAS CALLED, PT'S SYSTOLIC BP INCREASED OVER MORNING WITH HEART MEDICATIONS GIVEN. LAST WAS SYSTOLIC 180. DR. GARCIA'S ORDERS ARE TO WAIT AND RECHECK. WILL RECHECK AFTER LUNCH
[2020-01-24] MEDS ORDERED: hydrALAZINE (APESOLINE) 20 MG/ML VIAL IV PRN (12:30)
[2020-01-24 13:18] VITALS: BP 168/103
[2020-01-24] MEDS: ONDANSETRON 4 MG/2 ML (SDV) Z0FRAN IV PRN (13:32)
[2020-01-24] MEDS ORDERED: LNZ600T PO (14:14)
[2020-01-24 14:15] VITALS: BP 168/103
[2020-01-24] MEDS ORDERED: CLOP75TA28 PO (14:25)
[2020-01-24] MEDS ORDERED: ASPI-999 PO (14:25)
--- NOTE | 2020-01-24 14:41 | Discharge Summary ---
Discharge Summary Hospital Course Was the Problem List Reviewed?: Yes Problems/Dx: (1) Diabetic infection of left foot Status: Acute (2) PAD (peripheral artery disease) Status: Acute (3) Insulin dependent diabetes mellitus Status: Chronic (4) Essential (primary) hypertension Status: Chronic Hospital Course Date of Admission: January 20, 2020 at 10:35 Admission Diagnosis : Diabetic infection of left foot Family Physician/Provider: Jaxon Ling DO Date of Discharge: 01/24/20 Discharge Diagnosis: diabetic infection of left foot, peripheral arterial disease Hospital Course: Santo Rivera is a 64-year-old male with past medical history of type II diabetes mellitus who presented with a diabetic infection of the left foot. He had been on oral antibiotics as an outpatient but failed to improve. Cardiology was consulted to evaluate for peripheral arterial disease. He underwent an angiogram which revealed severe stenosis of the popliteal and stent was placed. He was started on dual antiplatelet therapy with aspirin and Plavix. Imaging was concerning for possible osteomyelitis. Podiatry was consulted and performed an irrigation and debridement which revealed an abscess but no evident osteomyelitis. His wound culture grew MRSA, sensitive to linezolid. He had been on linezolid prior to admission and this was thought to be ineffective due to lack of source control with his underlying abscess. He will complete a two- week course of linezolid as an outpatient. He will follow-up in the wound clini c for ongoing wound care. He should follow-up with podiatry. He should follow up with cardiology in about 2 weeks. He should follow-up with his primary care physician in about 2 weeks. Labs and Pending Lab Test: Laboratory Tests 01/23/20 15:36: Glucometer 192H 01/23/20 20:07: Glucometer 213H 01/24/20 05:58: Glucometer 190H 01/24/20 11:34: Glucometer 242H Microbiology 01/22/20 Gram Stain - Final, Resulted 01/22/20 Anaerobic Culture, Resulted Pending 01/22/20 Surgical Culture - Final, Resulted Staphylococcus aureus 01/22/20 Fungal Culture 1, Resulted Pending 01/20/20 MRSA Screen - Final, Complete MRSA not isolated 01/20/20 C. difficile GDH Antigen & Toxins - Final, Complete 01/20/20 Blood Culture - Preliminary, Resulted No growth Home Meds Active Aspirin 81 Mg Tab.chew 81 Mg PO DAILY 30 Days Clopidogrel (Clopidogrel Bisulfate) 75 Mg Tablet 75 Mg PO DAILY 30 Days Linezolid 600 Mg Tablet 600 Mg PO BID 10 Days FILLED 01-10-2020 # DAY SUPPLY Reported Levofloxacin 750 Mg Tablet 750 Mg PO DAILY 14 Days PICKED UP 01-05-2020 #14 DAY SUPPLY Metronidazole 500 Mg Tablet 500 Mg PO QID 14 Days PICKED UP 01-05-2020 #56 DAY SUPPLY Fiber-Tabs (Calcium Polycarbophil) 625 Mg Tablet 625 Mg PO DAILY Jardiance (Empagliflozin) 10 Mg Tablet 10 Mg PO DAILY Metformin HCl 500 Mg Tablet 500-1,000 Mg PO BID TAKES 1 TO 2 TABS TWICE DAILY Tresiba Flextouch U-100 (Insulin Degludec) 100 Unit/1 Ml Insuln.pen 20 Units SC HS Gabapentin 300 Mg Capsule 300 Mg PO TID Ibuprofen 600 Mg Tablet 600 Mg PO TID PRN Lisinopril 20 Mg Tablet 20 Tab PO BID Assessment/Pt Instructions take medications as prescribed. Complete your course of antibiotics even if you're feeling better. Continue to work towards better control of your diabetes. Follow-up with wound care, podiatry, cardiology, and her primary care physician. Discharge Planning: <30 minutes discharge planning Discharge Instructions Discharge Diet: ADA Diet Activity as Tolerated: Yes Pneumonia Vaccine Order Indica: Yes Consultations Podiatry, cardiology, wound care Discharge Physical Examination Vital Signs Vital Signs Date Time Temp Pulse Resp B/P (MAP) Pulse Ox O2 Delivery O2 Flow Rate FiO2 01/24/20 14:15 36.7 92 20 168/103 97 Room Air General Appearance: No Apparent Distress, Obese Respiratory: Lungs Clear, Normal Breath Sounds, No Respiratory Distress Cardiovascular: Regular Rate, Rhythm, No Murmur Gastrointestinal: Normal Bowel Sounds, Non Tender Extremity: Normal Inspection, Pedal Edema, Other (left foot wrapped with bandage) Skin: Normal Color, Warm/Dry Neurologic/Psychiatric: Alert, Oriented x3, No Motor/Sensory Deficits, Normal Mood/Affect Allergies: Coded Allergies: No Known Drug Allergies (Unverified , 09/20/19) Copy Copies To 1: JAXON LING DO Discharge Summary Date of Admission January 20, 2020 at 10:35 Date of Discharge Discharge Date: January 24, 2020 Discharge Time: 14:33 Admission Diagnosis Diabetic Foot Wound Consults/Procedures Consulations Podiatry, cardiology, wound care Discharge Diagnosis (1) Diabetic infection of left foot Status: Acute (2) PAD (peripheral artery disease) Status: Acute (3) Insulin dependent diabetes mellitus Status: Chronic (4) Essential (primary) hypertension Status: Chronic (5) Diarrhea Status: Acute Qualifiers: Qualified Codes: R19.7 - Diarrhea, unspecified BEE GARCIA MD January 24, 2020 14:34
== END 2020-01-24 15:15 | disposition home or self-care (01) | DRG 623 ==
LOC: 4TH 10:35 → ICU 01-21 17:35 → 4TH 01-21 21:30
PROVIDERS: ADMIT Family Medicine; ATTEND Family Medicine
PROC: 047N3ZZ Dilation of Left Popliteal Artery, Percutaneous Approach (ICD-10-PCS; 2020-01-21)
PROC: 047S3ZZ Dilation of Left Posterior Tibial Artery, Percutaneous Approach (ICD-10-PCS; 2020-01-21)
PROC: B41D1ZZ Fluoroscopy of Aorta and Bilateral Lower Extremity Arteries using Low Osmolar Contrast (ICD-10-PCS; 2020-01-21)
PROC: 0KBW0ZZ Excision of Left Foot Muscle, Open Approach (ICD-10-PCS; principal; 2020-01-22 07:51)
DX: E11.69 Type 2 diabetes mellitus with other specified complication (principal); M60.074 Infective myositis, left foot; B95.62 Methicillin resistant Staphylococcus aureus infection as the cause of diseases classified elsewhere; I70.92 Chronic total occlusion of artery of the extremities; Z68.41 Body mass index [BMI] 40.0-44.9, adult; E11.621 Type 2 diabetes mellitus with foot ulcer; L97.524 Non-pressure chronic ulcer of other part of left foot with necrosis of bone; L97.519 Non-pressure chronic ulcer of other part of right foot with unspecified severity; E11.42 Type 2 diabetes mellitus with diabetic polyneuropathy; I70.202 Unspecified atherosclerosis of native arteries of extremities, left leg; K21.9 Gastro-esophageal reflux disease without esophagitis; I10 Essential (primary) hypertension; G47.30 Sleep apnea, unspecified; E11.65 Type 2 diabetes mellitus with hyperglycemia; R19.7 Diarrhea, unspecified; E66.9 Obesity, unspecified; Z79.4 Long term (current) use of insulin; Z87.891 Personal history of nicotine dependence
CPT/HCPCS: 36415; 75625; 75716; 80048; 80053; 80202; 82962; 83605; 85025; 85027; 85610; 85730; 87040; 87070; 87075; 87077; 87081; 87101; 87186; 87205; 87324; 87449; 93925

== ENCOUNTER → 2020-01-20 | Outpatient (CLI) | payer OTHER ==
[~2020-01-20] MED LIST changes: +CALC625T66 PO; +EMPA10TA PO; +GABA-488 PO; +IBUP-1773 PO; +INSU100I32 SC; +LEVO750T39 PO; +LNZ600T PO; +METF-397 PO; +METR-145 PO
== END ==
LOC: WOUNDCARE 09:03
PROVIDERS: ATTEND Surgery
DX: E11.621 Type 2 diabetes mellitus with foot ulcer (principal); E11.42 Type 2 diabetes mellitus with diabetic polyneuropathy; L97.512 Non-pressure chronic ulcer of other part of right foot with fat layer exposed; L97.522 Non-pressure chronic ulcer of other part of left foot with fat layer exposed; B95.62 Methicillin resistant Staphylococcus aureus infection as the cause of diseases classified elsewhere; I70.245 Atherosclerosis of native arteries of left leg with ulceration of other part of foot
CPT/HCPCS: 99214

== ENCOUNTER → 2020-01-26 | Outpatient (CLI) | payer OTHER ==
[~2020-01-26] MED LIST changes: +ASPI-999 PO; +CALC625T66 PO; +CLOP75TA28 PO; +EMPA10TA PO; +GABA-488 PO; +IBUP-1773 PO; +INSU100I32 SC; +LEVO750T39 PO; +LNZ600T PO; +METF-397 PO; +METR-145 PO
== END ==
LOC: WOUNDCARE 08:40
PROVIDERS: ATTEND Surgery
DX: E11.621 Type 2 diabetes mellitus with foot ulcer (principal); E11.42 Type 2 diabetes mellitus with diabetic polyneuropathy; L97.512 Non-pressure chronic ulcer of other part of right foot with fat layer exposed; L97.523 Non-pressure chronic ulcer of other part of left foot with necrosis of muscle; B95.62 Methicillin resistant Staphylococcus aureus infection as the cause of diseases classified elsewhere; I70.245 Atherosclerosis of native arteries of left leg with ulceration of other part of foot; M65.172 Other infective (teno)synovitis, left ankle and foot; I10 Essential (primary) hypertension; Z87.891 Personal history of nicotine dependence
CPT/HCPCS: 11042; 11043

== ENCOUNTER → 2020-01-31 | Outpatient (CLI) | payer OTHER | LOC: WOUNDCARE 08:10 | PROVIDERS: ATTEND Surgery | DX: E11.621 Type 2 diabetes mellitus with foot ulcer (principal); E11.42 Type 2 diabetes mellitus with diabetic polyneuropathy; L97.512 Non-pressure chronic ulcer of other part of right foot with fat layer exposed; L97.523 Non-pressure chronic ulcer of other part of left foot with necrosis of muscle; B95.62 Methicillin resistant Staphylococcus aureus infection as the cause of diseases classified elsewhere; I70.245 Atherosclerosis of native arteries of left leg with ulceration of other part of foot; M65.172 Other infective (teno)synovitis, left ankle and foot; I10 Essential (primary) hypertension; Z87.891 Personal history of nicotine dependence | CPT/HCPCS: 11042; 11043 ==

== ENCOUNTER → 2020-02-14 | Outpatient (CLI) | payer OTHER | LOC: WOUNDCARE 08:09 | PROVIDERS: ATTEND Surgery | DX: M65.872 Other synovitis and tenosynovitis, left ankle and foot (principal); E11.621 Type 2 diabetes mellitus with foot ulcer; E11.42 Type 2 diabetes mellitus with diabetic polyneuropathy; E11.52 Type 2 diabetes mellitus with diabetic peripheral angiopathy with gangrene; L97.523 Non-pressure chronic ulcer of other part of left foot with necrosis of muscle; L97.512 Non-pressure chronic ulcer of other part of right foot with fat layer exposed; B95.62 Methicillin resistant Staphylococcus aureus infection as the cause of diseases classified elsewhere; I70.245 Atherosclerosis of native arteries of left leg with ulceration of other part of foot | CPT/HCPCS: 11042; 11043 ==

== ENCOUNTER → 2020-02-21 | Outpatient (CLI) | payer OTHER | LOC: WOUNDCARE 10:02 | PROVIDERS: ATTEND Surgery | DX: E11.621 Type 2 diabetes mellitus with foot ulcer (principal); E11.42 Type 2 diabetes mellitus with diabetic polyneuropathy; E11.52 Type 2 diabetes mellitus with diabetic peripheral angiopathy with gangrene; L97.523 Non-pressure chronic ulcer of other part of left foot with necrosis of muscle; I70.245 Atherosclerosis of native arteries of left leg with ulceration of other part of foot; L97.512 Non-pressure chronic ulcer of other part of right foot with fat layer exposed; M65.872 Other synovitis and tenosynovitis, left ankle and foot; B95.62 Methicillin resistant Staphylococcus aureus infection as the cause of diseases classified elsewhere ==

== ENCOUNTER → 2020-02-21 | Outpatient (CLI) | payer OTHER | LOC: LAB 11:28 | PROVIDERS: ATTEND Surgery | DX: E11.621 Type 2 diabetes mellitus with foot ulcer (principal); E11.42 Type 2 diabetes mellitus with diabetic polyneuropathy; L97.523 Non-pressure chronic ulcer of other part of left foot with necrosis of muscle; I70.245 Atherosclerosis of native arteries of left leg with ulceration of other part of foot; L97.512 Non-pressure chronic ulcer of other part of right foot with fat layer exposed; M65.172 Other infective (teno)synovitis, left ankle and foot; B95.62 Methicillin resistant Staphylococcus aureus infection as the cause of diseases classified elsewhere | CPT/HCPCS: 36415; 83036 ==

== ENCOUNTER → 2020-02-28 | Outpatient (CLI) | payer OTHER ==
[2020-02-28 10:50] LABS: BUN/CREATININE RATIO 23; CALCIUM 9.8 MG/DL (8.5-10.1); CARBON DIOXIDE 21 MMOL/L (21-32); CHLORIDE 108 MMOL/L (98-107); CREATININE SERUM 0.86 MG/DL (0.60-1.30); GFR ESTIMATED > 60; GLUCOSE 159 MG/DL (70-105); POTASSIUM 4.3 MMOL/L (3.6-5.0); SODIUM 140 MMOL/L (135-145)
== END ==
LOC: LAB 10:14
PROVIDERS: ATTEND Surgery
DX: Z01.89 Encounter for other specified special examinations (principal)
CPT/HCPCS: 36415; 80048

== ENCOUNTER → 2020-02-28 | Outpatient (CLI) | payer OTHER | LOC: WOUNDCARE 02-21 10:31 | PROVIDERS: ATTEND Surgery | DX: E11.621 Type 2 diabetes mellitus with foot ulcer (principal); E11.42 Type 2 diabetes mellitus with diabetic polyneuropathy; E11.52 Type 2 diabetes mellitus with diabetic peripheral angiopathy with gangrene; L97.523 Non-pressure chronic ulcer of other part of left foot with necrosis of muscle; I70.245 Atherosclerosis of native arteries of left leg with ulceration of other part of foot; L97.512 Non-pressure chronic ulcer of other part of right foot with fat layer exposed; M65.872 Other synovitis and tenosynovitis, left ankle and foot; B95.62 Methicillin resistant Staphylococcus aureus infection as the cause of diseases classified elsewhere | CPT/HCPCS: 11042 ×2; 11043; A6207 ==

== ENCOUNTER → 2020-03-06 | Outpatient (CLI) | payer OTHER | LOC: WOUNDCARE 11:26 | PROVIDERS: ATTEND Surgery | DX: L97.422 Non-pressure chronic ulcer of left heel and midfoot with fat layer exposed (principal); E11.621 Type 2 diabetes mellitus with foot ulcer; E11.42 Type 2 diabetes mellitus with diabetic polyneuropathy; L97.523 Non-pressure chronic ulcer of other part of left foot with necrosis of muscle; I70.245 Atherosclerosis of native arteries of left leg with ulceration of other part of foot; L97.512 Non-pressure chronic ulcer of other part of right foot with fat layer exposed; M65.172 Other infective (teno)synovitis, left ankle and foot; B95.62 Methicillin resistant Staphylococcus aureus infection as the cause of diseases classified elsewhere; E11.52 Type 2 diabetes mellitus with diabetic peripheral angiopathy with gangrene | CPT/HCPCS: 11042; 11043 ==

== ENCOUNTER → 2020-03-13 | Outpatient (CLI) | payer OTHER | LOC: WOUNDCARE 08:15 | PROVIDERS: ATTEND Surgery | DX: E11.621 Type 2 diabetes mellitus with foot ulcer (principal); E11.42 Type 2 diabetes mellitus with diabetic polyneuropathy; L97.523 Non-pressure chronic ulcer of other part of left foot with necrosis of muscle; M65.172 Other infective (teno)synovitis, left ankle and foot; L97.422 Non-pressure chronic ulcer of left heel and midfoot with fat layer exposed; I70.245 Atherosclerosis of native arteries of left leg with ulceration of other part of foot; L97.512 Non-pressure chronic ulcer of other part of right foot with fat layer exposed; B95.62 Methicillin resistant Staphylococcus aureus infection as the cause of diseases classified elsewhere; E11.52 Type 2 diabetes mellitus with diabetic peripheral angiopathy with gangrene | CPT/HCPCS: 11042; 11043 ==

== ENCOUNTER → 2020-03-20 | Outpatient (CLI) | payer OTHER | LOC: WOUNDCARE 08:03 | PROVIDERS: ATTEND Surgery | DX: E11.621 Type 2 diabetes mellitus with foot ulcer (principal); E11.42 Type 2 diabetes mellitus with diabetic polyneuropathy; L97.522 Non-pressure chronic ulcer of other part of left foot with fat layer exposed; M65.172 Other infective (teno)synovitis, left ankle and foot; L97.422 Non-pressure chronic ulcer of left heel and midfoot with fat layer exposed; I70.245 Atherosclerosis of native arteries of left leg with ulceration of other part of foot; L97.512 Non-pressure chronic ulcer of other part of right foot with fat layer exposed; B95.62 Methicillin resistant Staphylococcus aureus infection as the cause of diseases classified elsewhere; E11.52 Type 2 diabetes mellitus with diabetic peripheral angiopathy with gangrene | CPT/HCPCS: 11042 ==

== ENCOUNTER → 2020-03-20 | Outpatient (CLI) | payer OTHER ==
[2020-03-20 12:00] LABS: CHLORIDE 106 MMOL/L (98-107); SODIUM 137 MMOL/L (135-145)
[2020-03-20 12:01] LABS: CALCIUM 9.4 MG/DL (8.5-10.1)
[2020-03-20 12:02] LABS: GLUCOSE 131 MG/DL (70-105)
[2020-03-20 12:03] LABS: CARBON DIOXIDE 21 MMOL/L (21-32)
[2020-03-20 12:06] LABS: CREATININE SERUM 0.95 MG/DL (0.60-1.30); GFR ESTIMATED > 60
[2020-03-20 12:07] LABS: BUN/CREATININE RATIO 18
== END ==
LOC: LAB 11:25
PROVIDERS: ATTEND Surgery
DX: E11.621 Type 2 diabetes mellitus with foot ulcer (principal); E11.42 Type 2 diabetes mellitus with diabetic polyneuropathy; L97.523 Non-pressure chronic ulcer of other part of left foot with necrosis of muscle; M65.172 Other infective (teno)synovitis, left ankle and foot; L97.422 Non-pressure chronic ulcer of left heel and midfoot with fat layer exposed; I70.245 Atherosclerosis of native arteries of left leg with ulceration of other part of foot; L97.512 Non-pressure chronic ulcer of other part of right foot with fat layer exposed; B95.62 Methicillin resistant Staphylococcus aureus infection as the cause of diseases classified elsewhere
CPT/HCPCS: 36415; 80048

== ENCOUNTER → 2020-03-28 | Outpatient (CLI) | payer OTHER | LOC: WOUNDCARE 09:16 | PROVIDERS: ATTEND Surgery | DX: E11.621 Type 2 diabetes mellitus with foot ulcer (principal); E11.42 Type 2 diabetes mellitus with diabetic polyneuropathy; E11.52 Type 2 diabetes mellitus with diabetic peripheral angiopathy with gangrene; L97.522 Non-pressure chronic ulcer of other part of left foot with fat layer exposed; L97.422 Non-pressure chronic ulcer of left heel and midfoot with fat layer exposed; L97.512 Non-pressure chronic ulcer of other part of right foot with fat layer exposed; M65.872 Other synovitis and tenosynovitis, left ankle and foot; I70.245 Atherosclerosis of native arteries of left leg with ulceration of other part of foot | CPT/HCPCS: 11042 ==

== ENCOUNTER → 2020-03-30 | Outpatient (CLI) | payer OTHER ==
[2020-03-30 12:17] LABS: CALCIUM 10.1 MG/DL (8.5-10.1); CREATININE SERUM 1.37 MG/DL (0.60-1.30); POTASSIUM 5.1 MMOL/L (3.6-5.0)
== END ==
LOC: LAB 11:41
PROVIDERS: ATTEND Surgery
DX: E11.621 Type 2 diabetes mellitus with foot ulcer (principal); E11.42 Type 2 diabetes mellitus with diabetic polyneuropathy; L97.522 Non-pressure chronic ulcer of other part of left foot with fat layer exposed; M65.172 Other infective (teno)synovitis, left ankle and foot; L97.422 Non-pressure chronic ulcer of left heel and midfoot with fat layer exposed; I70.245 Atherosclerosis of native arteries of left leg with ulceration of other part of foot; L97.512 Non-pressure chronic ulcer of other part of right foot with fat layer exposed
CPT/HCPCS: 36415; 80048

== ENCOUNTER → 2020-04-03 | Outpatient (CLI) | payer OTHER | LOC: WOUNDCARE 08:25 | PROVIDERS: ATTEND Surgery | DX: E11.621 Type 2 diabetes mellitus with foot ulcer (principal); E11.42 Type 2 diabetes mellitus with diabetic polyneuropathy; L97.522 Non-pressure chronic ulcer of other part of left foot with fat layer exposed; M65.172 Other infective (teno)synovitis, left ankle and foot; L97.422 Non-pressure chronic ulcer of left heel and midfoot with fat layer exposed; I70.245 Atherosclerosis of native arteries of left leg with ulceration of other part of foot; L97.512 Non-pressure chronic ulcer of other part of right foot with fat layer exposed | CPT/HCPCS: 11042 ==

== ENCOUNTER → 2020-04-10 | Outpatient (CLI) | payer OTHER | LOC: WOUNDCARE 10:40 | PROVIDERS: ATTEND Surgery | DX: E11.621 Type 2 diabetes mellitus with foot ulcer (principal); E11.42 Type 2 diabetes mellitus with diabetic polyneuropathy; E11.52 Type 2 diabetes mellitus with diabetic peripheral angiopathy with gangrene; I70.262 Atherosclerosis of native arteries of extremities with gangrene, left leg; L97.522 Non-pressure chronic ulcer of other part of left foot with fat layer exposed; L97.422 Non-pressure chronic ulcer of left heel and midfoot with fat layer exposed; L97.512 Non-pressure chronic ulcer of other part of right foot with fat layer exposed; M65.172 Other infective (teno)synovitis, left ankle and foot | CPT/HCPCS: 11042 ==

== ENCOUNTER → 2020-04-20 | Outpatient (CLI) | payer OTHER | LOC: WOUNDCARE 07:58 | PROVIDERS: ATTEND Surgery | DX: E11.621 Type 2 diabetes mellitus with foot ulcer (principal); E11.42 Type 2 diabetes mellitus with diabetic polyneuropathy; M65.872 Other synovitis and tenosynovitis, left ankle and foot; L97.522 Non-pressure chronic ulcer of other part of left foot with fat layer exposed; L97.512 Non-pressure chronic ulcer of other part of right foot with fat layer exposed; I70.245 Atherosclerosis of native arteries of left leg with ulceration of other part of foot; I70.244 Atherosclerosis of native arteries of left leg with ulceration of heel and midfoot; L97.422 Non-pressure chronic ulcer of left heel and midfoot with fat layer exposed; I10 Essential (primary) hypertension; M48.061 Spinal stenosis, lumbar region without neurogenic claudication; Z87.891 Personal history of nicotine dependence | CPT/HCPCS: 11042; G0463 ==

== ENCOUNTER → 2020-04-24 | Outpatient (CLI) | payer OTHER | LOC: WOUNDCARE 08:46 | PROVIDERS: ATTEND Surgery | DX: E11.621 Type 2 diabetes mellitus with foot ulcer (principal); E11.42 Type 2 diabetes mellitus with diabetic polyneuropathy; M65.172 Other infective (teno)synovitis, left ankle and foot; L97.522 Non-pressure chronic ulcer of other part of left foot with fat layer exposed; L97.512 Non-pressure chronic ulcer of other part of right foot with fat layer exposed; I70.245 Atherosclerosis of native arteries of left leg with ulceration of other part of foot; I70.244 Atherosclerosis of native arteries of left leg with ulceration of heel and midfoot; L97.422 Non-pressure chronic ulcer of left heel and midfoot with fat layer exposed; E11.52 Type 2 diabetes mellitus with diabetic peripheral angiopathy with gangrene | CPT/HCPCS: 11042; G0463 ==

== ENCOUNTER → 2020-05-01 | Outpatient (CLI) | payer OTHER | LOC: WOUNDCARE 08:06 | PROVIDERS: ATTEND Surgery | DX: E11.621 Type 2 diabetes mellitus with foot ulcer (principal); E11.42 Type 2 diabetes mellitus with diabetic polyneuropathy; M65.172 Other infective (teno)synovitis, left ankle and foot; L97.523 Non-pressure chronic ulcer of other part of left foot with necrosis of muscle; L97.512 Non-pressure chronic ulcer of other part of right foot with fat layer exposed; I70.245 Atherosclerosis of native arteries of left leg with ulceration of other part of foot; I70.244 Atherosclerosis of native arteries of left leg with ulceration of heel and midfoot; L97.423 Non-pressure chronic ulcer of left heel and midfoot with necrosis of muscle; E11.52 Type 2 diabetes mellitus with diabetic peripheral angiopathy with gangrene | CPT/HCPCS: 11043; 15275; G0463 ==

== ENCOUNTER → 2020-05-08 | Outpatient (CLI) | payer OTHER | LOC: WOUNDCARE 08:03 | PROVIDERS: ATTEND Surgery | DX: E11.621 Type 2 diabetes mellitus with foot ulcer (principal); E11.42 Type 2 diabetes mellitus with diabetic polyneuropathy; E11.52 Type 2 diabetes mellitus with diabetic peripheral angiopathy with gangrene; I70.262 Atherosclerosis of native arteries of extremities with gangrene, left leg; L97.422 Non-pressure chronic ulcer of left heel and midfoot with fat layer exposed; L97.523 Non-pressure chronic ulcer of other part of left foot with necrosis of muscle; L97.512 Non-pressure chronic ulcer of other part of right foot with fat layer exposed; M65.172 Other infective (teno)synovitis, left ankle and foot | CPT/HCPCS: 11042; 11043; 15275; G0463 ==

== ENCOUNTER 2020-05-18 08:10 | Outpatient (RCR) | payer OTHER | END 2020-05-18 12:00 | disposition home or self-care (01) | LOC: WOUNDCARE 08:10 | PROVIDERS: ATTEND Surgery | DX: E11.621 Type 2 diabetes mellitus with foot ulcer (principal); E11.42 Type 2 diabetes mellitus with diabetic polyneuropathy; I10 Essential (primary) hypertension; L97.523 Non-pressure chronic ulcer of other part of left foot with necrosis of muscle; M65.172 Other infective (teno)synovitis, left ankle and foot; L97.422 Non-pressure chronic ulcer of left heel and midfoot with fat layer exposed; I70.245 Atherosclerosis of native arteries of left leg with ulceration of other part of foot; L97.512 Non-pressure chronic ulcer of other part of right foot with fat layer exposed; B95.62 Methicillin resistant Staphylococcus aureus infection as the cause of diseases classified elsewhere; E11.52 Type 2 diabetes mellitus with diabetic peripheral angiopathy with gangrene; Z87.891 Personal history of nicotine dependence | CPT/HCPCS: 82962; G0277; 99183 ==

== ENCOUNTER → 2020-05-23 | Outpatient (CLI) | payer OTHER | LOC: WOUNDCARE 11:05 | PROVIDERS: ATTEND Surgery | DX: E11.621 Type 2 diabetes mellitus with foot ulcer (principal); E11.42 Type 2 diabetes mellitus with diabetic polyneuropathy; M65.172 Other infective (teno)synovitis, left ankle and foot; L97.522 Non-pressure chronic ulcer of other part of left foot with fat layer exposed; L97.512 Non-pressure chronic ulcer of other part of right foot with fat layer exposed; I70.245 Atherosclerosis of native arteries of left leg with ulceration of other part of foot; E11.52 Type 2 diabetes mellitus with diabetic peripheral angiopathy with gangrene | CPT/HCPCS: 11042; 15275; G0463 ==

== ENCOUNTER → 2020-06-06 | Outpatient (CLI) | payer OTHER | LOC: WOUNDCARE 10:58 | PROVIDERS: ATTEND Surgery | DX: E11.621 Type 2 diabetes mellitus with foot ulcer (principal); E11.42 Type 2 diabetes mellitus with diabetic polyneuropathy; E11.52 Type 2 diabetes mellitus with diabetic peripheral angiopathy with gangrene; L97.516 Non-pressure chronic ulcer of other part of right foot with bone involvement without evidence of necrosis; L97.522 Non-pressure chronic ulcer of other part of left foot with fat layer exposed; M65.172 Other infective (teno)synovitis, left ankle and foot; I70.262 Atherosclerosis of native arteries of extremities with gangrene, left leg | CPT/HCPCS: 11042; 11043; 87070; 87075; 87205; A6266; G0463 ==

== ENCOUNTER → 2020-06-08 | Outpatient (CLI) | payer OTHER ==
[2020-06-08 10:34] LABS: BASOPHILS % (AUTO) 0 % (0-10); EOSINOPHILS # (AUTO) 0.1 10^3/uL (0.0-0.3); EOSINOPHILS % (AUTO) 1 % (0-10); HEMATOCRIT 40 % (40-54); HEMOGLOBIN 13.5 g/dL (13.3-17.7); LYMPHOCYTES % (AUTO) 17 % (12-44); MEAN CORPUSCULAR HEMOGLOBIN 30 pg (25-34); MEAN CORPUSCULAR HGB CONC 34 g/dL (32-36); MEAN CORPUSCULAR VOLUME 88 fL (80-99); MONOCYTES # (AUTO) 0.9 10^3/uL (0.0-1.0); MONOCYTES % (AUTO) 8 % (0-12); NEUTROPHILS # (AUTO) 8.5 10^3/uL (1.8-7.8); NEUTROPHILS % (AUTO) 74 % (42-75); PLATELET COUNT 280 10^3/uL (130-400); WHITE BLOOD COUNT 11.5 10^3/uL (4.3-11.0)
[2020-06-08 10:56] LABS: ALANINE AMINOTRANSFERASE 15 U/L (0-55); ALBUMIN 3.6 GM/DL (3.2-4.5); ALKALINE PHOSPHATASE 93 U/L (40-136); BILIRUBIN,TOTAL 0.6 MG/DL (0.1-1.0); BUN/CREATININE RATIO 18; CALCIUM 9.5 MG/DL (8.5-10.1); CARBON DIOXIDE 23 MMOL/L (21-32); CHLORIDE 104 MMOL/L (98-107); CREATININE SERUM 0.87 MG/DL (0.60-1.30); GFR ESTIMATED > 60; GLUCOSE 241 MG/DL (70-105); POTASSIUM 3.6 MMOL/L (3.6-5.0); SODIUM 138 MMOL/L (135-145); TOTAL PROTEIN 7.9 GM/DL (6.4-8.2)
--- NOTE | 2020-06-08 14:36 | Diagnostic Imaging Report ---
PROCEDURE: US Bilateral lower extremity arterial. TECHNIQUE: Multiple real-time grayscale images are obtained through both lower extremity arterial systems with color Doppler imaging and color Doppler spectral analysis. INDICATION: Type 2 diabetes, synovitis left ankle. FINDINGS: The previous bilateral lower extremity arterial Doppler exam of 01/20/2020 noted monophasic waveforms within the left posterior tibial and dorsalis pedis arteries consistent with underlying atherosclerotic tibioperoneal disease. On this exam, there is still monophasic flow within the posterior tibial and dorsalis pedis arteries on the left; however, the velocity within the posterior tibial artery has diminished since the prior exam and is now 115 cm/s as opposed to 254 cm/s on the prior exam. There is no hemodynamically significant stenosis of the arterial system of the left lower extremity seen otherwise. Triphasic and biphasic waveforms are evident in the superficial femoral, profunda, common femoral, and popliteal arteries. There is generally good arterial blood flow in the right lower extremity. Triphasic and biphasic waveforms are seen and there is no sign of a hemodynamically significant stenosis. IMPRESSION: 1. There is still monophasic flow in the posterior tibial and dorsalis pedis arteries on the left; however, the velocity in the posterior tibial artery has decreased since the prior exam. 2. There is no evidence for hemodynamically significant stenosis of either lower extremity otherwise. Dictated by: Dictated on workstation # [id number]
== END ==
LOC: RAD 10:30
PROVIDERS: ATTEND Surgery
DX: E11.621 Type 2 diabetes mellitus with foot ulcer (principal); E11.42 Type 2 diabetes mellitus with diabetic polyneuropathy; L97.516 Non-pressure chronic ulcer of other part of right foot with bone involvement without evidence of necrosis; L97.522 Non-pressure chronic ulcer of other part of left foot with fat layer exposed; M65.172 Other infective (teno)synovitis, left ankle and foot; I70.245 Atherosclerosis of native arteries of left leg with ulceration of other part of foot
CPT/HCPCS: 36415; 80053; 83036; 85025; 93925

== ENCOUNTER → 2020-06-13 | Outpatient (CLI) | payer OTHER | LOC: WOUNDCARE 10:04 | PROVIDERS: ATTEND Surgery | DX: E11.621 Type 2 diabetes mellitus with foot ulcer (principal); E11.42 Type 2 diabetes mellitus with diabetic polyneuropathy; L97.514 Non-pressure chronic ulcer of other part of right foot with necrosis of bone; L97.522 Non-pressure chronic ulcer of other part of left foot with fat layer exposed; M65.172 Other infective (teno)synovitis, left ankle and foot; I70.235 Atherosclerosis of native arteries of right leg with ulceration of other part of foot; M86.471 Chronic osteomyelitis with draining sinus, right ankle and foot; E11.52 Type 2 diabetes mellitus with diabetic peripheral angiopathy with gangrene | CPT/HCPCS: 11042; 11044; G0463 ==

== ENCOUNTER → 2020-06-21 | Outpatient (CLI) | payer OTHER | LOC: WOUNDCARE 15:01 | PROVIDERS: ATTEND Surgery | DX: L03.115 Cellulitis of right lower limb (principal); E11.621 Type 2 diabetes mellitus with foot ulcer; E11.42 Type 2 diabetes mellitus with diabetic polyneuropathy; L97.514 Non-pressure chronic ulcer of other part of right foot with necrosis of bone; L97.522 Non-pressure chronic ulcer of other part of left foot with fat layer exposed; M65.872 Other synovitis and tenosynovitis, left ankle and foot; I70.245 Atherosclerosis of native arteries of left leg with ulceration of other part of foot; M86.471 Chronic osteomyelitis with draining sinus, right ankle and foot; E11.52 Type 2 diabetes mellitus with diabetic peripheral angiopathy with gangrene | CPT/HCPCS: 11042; 11044; G0463 ==

== ENCOUNTER → 2020-06-29 | Outpatient (CLI) | payer OTHER | LOC: WOUNDCARE 11:05 | PROVIDERS: ATTEND Surgery | DX: E11.621 Type 2 diabetes mellitus with foot ulcer (principal); E11.42 Type 2 diabetes mellitus with diabetic polyneuropathy; L97.522 Non-pressure chronic ulcer of other part of left foot with fat layer exposed; L97.514 Non-pressure chronic ulcer of other part of right foot with necrosis of bone; M65.872 Other synovitis and tenosynovitis, left ankle and foot; I70.245 Atherosclerosis of native arteries of left leg with ulceration of other part of foot; M86.471 Chronic osteomyelitis with draining sinus, right ankle and foot | CPT/HCPCS: 11042; 11044; A6207; G0463 ==

== ENCOUNTER → 2020-07-06 | Outpatient (CLI) | payer OTHER | LOC: WOUNDCARE 09:33 | PROVIDERS: ATTEND Surgery | DX: E11.621 Type 2 diabetes mellitus with foot ulcer (principal); E11.42 Type 2 diabetes mellitus with diabetic polyneuropathy; L97.514 Non-pressure chronic ulcer of other part of right foot with necrosis of bone; M86.471 Chronic osteomyelitis with draining sinus, right ankle and foot; L97.522 Non-pressure chronic ulcer of other part of left foot with fat layer exposed; M65.172 Other infective (teno)synovitis, left ankle and foot; I70.245 Atherosclerosis of native arteries of left leg with ulceration of other part of foot | CPT/HCPCS: 11042; 11044; G0463 ==

== ENCOUNTER → 2020-07-13 | Outpatient (CLI) | payer OTHER | LOC: WOUNDCARE 08:38 | PROVIDERS: ATTEND Surgery | DX: E11.621 Type 2 diabetes mellitus with foot ulcer (principal); E11.42 Type 2 diabetes mellitus with diabetic polyneuropathy; L97.514 Non-pressure chronic ulcer of other part of right foot with necrosis of bone; M86.471 Chronic osteomyelitis with draining sinus, right ankle and foot; L97.522 Non-pressure chronic ulcer of other part of left foot with fat layer exposed; M65.172 Other infective (teno)synovitis, left ankle and foot; I70.245 Atherosclerosis of native arteries of left leg with ulceration of other part of foot; I96 Gangrene, not elsewhere classified | CPT/HCPCS: 11042; 11044; G0463 ==

== ENCOUNTER → 2020-07-24 | Outpatient (CLI) | payer OTHER | LOC: WOUNDCARE 09:14 | PROVIDERS: ATTEND Surgery | DX: E11.621 Type 2 diabetes mellitus with foot ulcer (principal); E11.42 Type 2 diabetes mellitus with diabetic polyneuropathy; L97.512 Non-pressure chronic ulcer of other part of right foot with fat layer exposed; M86.471 Chronic osteomyelitis with draining sinus, right ankle and foot; L97.522 Non-pressure chronic ulcer of other part of left foot with fat layer exposed; M65.872 Other synovitis and tenosynovitis, left ankle and foot; I70.245 Atherosclerosis of native arteries of left leg with ulceration of other part of foot; E11.52 Type 2 diabetes mellitus with diabetic peripheral angiopathy with gangrene | CPT/HCPCS: 11042; G0463 ==

== ENCOUNTER → 2020-07-31 | Outpatient (CLI) | payer OTHER | LOC: WOUNDCARE 08:24 | PROVIDERS: ATTEND Surgery | DX: E11.621 Type 2 diabetes mellitus with foot ulcer (principal); E11.42 Type 2 diabetes mellitus with diabetic polyneuropathy; L97.514 Non-pressure chronic ulcer of other part of right foot with necrosis of bone; M86.471 Chronic osteomyelitis with draining sinus, right ankle and foot; L97.522 Non-pressure chronic ulcer of other part of left foot with fat layer exposed; M65.172 Other infective (teno)synovitis, left ankle and foot; I70.245 Atherosclerosis of native arteries of left leg with ulceration of other part of foot; E11.52 Type 2 diabetes mellitus with diabetic peripheral angiopathy with gangrene | CPT/HCPCS: 11042; 11044 ==

== ENCOUNTER → 2020-08-07 | Outpatient (CLI) | payer OTHER | LOC: WOUNDCARE 08:26 | PROVIDERS: ATTEND Surgery | DX: E11.621 Type 2 diabetes mellitus with foot ulcer (principal); E11.42 Type 2 diabetes mellitus with diabetic polyneuropathy; L97.516 Non-pressure chronic ulcer of other part of right foot with bone involvement without evidence of necrosis; M86.471 Chronic osteomyelitis with draining sinus, right ankle and foot; L97.522 Non-pressure chronic ulcer of other part of left foot with fat layer exposed; M65.172 Other infective (teno)synovitis, left ankle and foot; I70.245 Atherosclerosis of native arteries of left leg with ulceration of other part of foot; I96 Gangrene, not elsewhere classified | CPT/HCPCS: 11042; A6197; G0463 ==

== ENCOUNTER → 2020-08-16 | Outpatient (CLI) | payer OTHER | LOC: WOUNDCARE 10:41 | PROVIDERS: ATTEND Surgery | DX: E11.621 Type 2 diabetes mellitus with foot ulcer (principal); E11.42 Type 2 diabetes mellitus with diabetic polyneuropathy; I96 Gangrene, not elsewhere classified; I70.245 Atherosclerosis of native arteries of left leg with ulceration of other part of foot; L97.512 Non-pressure chronic ulcer of other part of right foot with fat layer exposed; L97.522 Non-pressure chronic ulcer of other part of left foot with fat layer exposed; L97.523 Non-pressure chronic ulcer of other part of left foot with necrosis of muscle; M86.471 Chronic osteomyelitis with draining sinus, right ankle and foot; M65.872 Other synovitis and tenosynovitis, left ankle and foot | CPT/HCPCS: 11042; 11043; G0463 ==

== ENCOUNTER → 2020-08-23 | Outpatient (CLI) | payer OTHER | LOC: WOUNDCARE 08:59 | PROVIDERS: ATTEND Surgery | DX: E11.621 Type 2 diabetes mellitus with foot ulcer (principal); E11.42 Type 2 diabetes mellitus with diabetic polyneuropathy; L97.516 Non-pressure chronic ulcer of other part of right foot with bone involvement without evidence of necrosis; L97.522 Non-pressure chronic ulcer of other part of left foot with fat layer exposed; M86.471 Chronic osteomyelitis with draining sinus, right ankle and foot; M65.172 Other infective (teno)synovitis, left ankle and foot; I70.245 Atherosclerosis of native arteries of left leg with ulceration of other part of foot; I96 Gangrene, not elsewhere classified | CPT/HCPCS: 11042; G0463 ==

== ENCOUNTER → 2020-08-30 | Outpatient (CLI) | payer OTHER | LOC: WOUNDCARE 09:02 | PROVIDERS: ATTEND Surgery | DX: E11.621 Type 2 diabetes mellitus with foot ulcer (principal); E11.42 Type 2 diabetes mellitus with diabetic polyneuropathy; L97.516 Non-pressure chronic ulcer of other part of right foot with bone involvement without evidence of necrosis; L97.522 Non-pressure chronic ulcer of other part of left foot with fat layer exposed; M86.471 Chronic osteomyelitis with draining sinus, right ankle and foot; M65.172 Other infective (teno)synovitis, left ankle and foot; I70.245 Atherosclerosis of native arteries of left leg with ulceration of other part of foot; I96 Gangrene, not elsewhere classified | CPT/HCPCS: 11042; G0463 ==

== ENCOUNTER → 2020-09-06 | Outpatient (CLI) | payer OTHER | LOC: WOUNDCARE 08:57 | PROVIDERS: ATTEND Surgery | DX: E11.52 Type 2 diabetes mellitus with diabetic peripheral angiopathy with gangrene (principal); E11.621 Type 2 diabetes mellitus with foot ulcer; E11.42 Type 2 diabetes mellitus with diabetic polyneuropathy; I70.262 Atherosclerosis of native arteries of extremities with gangrene, left leg; L97.222 Non-pressure chronic ulcer of left calf with fat layer exposed; L97.212 Non-pressure chronic ulcer of right calf with fat layer exposed; M86.471 Chronic osteomyelitis with draining sinus, right ankle and foot; M65.172 Other infective (teno)synovitis, left ankle and foot | CPT/HCPCS: 11042; 17250; G0463 ==

== ENCOUNTER → 2020-09-13 | Outpatient (CLI) | payer OTHER | LOC: WOUNDCARE 08:20 | PROVIDERS: ATTEND Surgery | DX: E11.621 Type 2 diabetes mellitus with foot ulcer (principal); E11.42 Type 2 diabetes mellitus with diabetic polyneuropathy; L97.512 Non-pressure chronic ulcer of other part of right foot with fat layer exposed; L97.522 Non-pressure chronic ulcer of other part of left foot with fat layer exposed; M86.471 Chronic osteomyelitis with draining sinus, right ankle and foot; M65.172 Other infective (teno)synovitis, left ankle and foot; I70.245 Atherosclerosis of native arteries of left leg with ulceration of other part of foot; L92.8 Other granulomatous disorders of the skin and subcutaneous tissue; I96 Gangrene, not elsewhere classified | CPT/HCPCS: 11042; 17250; G0463 ==

== ENCOUNTER → 2020-09-14 | Outpatient (CLI) | payer OTHER ==
[2020-09-14 12:29] LABS: BASOPHILS % (AUTO) 0 % (0-10); EOSINOPHILS # (AUTO) 0.1 10^3/uL (0.0-0.3); EOSINOPHILS % (AUTO) 1 % (0-10); HEMATOCRIT 46 % (40-54); HEMOGLOBIN 15.5 g/dL (13.3-17.7); LYMPHOCYTES # (AUTO) 2.1 10^3/uL (1.0-4.0); LYMPHOCYTES % (AUTO) 25 % (12-44); MEAN CORPUSCULAR HEMOGLOBIN 30 pg (25-34); MEAN CORPUSCULAR HGB CONC 34 g/dL (32-36); MEAN CORPUSCULAR VOLUME 90 fL (80-99); MEAN PLATELET VOLUME 10.1 fL (9.0-12.2); MONOCYTES # (AUTO) 0.6 10^3/uL (0.0-1.0); MONOCYTES % (AUTO) 8 % (0-12); NEUTROPHILS # (AUTO) 5.4 10^3/uL (1.8-7.8); NEUTROPHILS % (AUTO) 66 % (42-75); PLATELET COUNT 230 10^3/uL (130-400); WHITE BLOOD COUNT 8.1 10^3/uL (4.3-11.0)
[2020-09-14 12:45] LABS: CHLORIDE 104 MMOL/L (98-107); POTASSIUM 4.1 MMOL/L (3.6-5.0); SODIUM 134 MMOL/L (135-145)
[2020-09-14 12:47] LABS: CALCIUM 9.1 MG/DL (8.5-10.1)
[2020-09-14 12:48] LABS: TOTAL PROTEIN 8.3 GM/DL (6.4-8.2)
[2020-09-14 12:49] LABS: CARBON DIOXIDE 19 MMOL/L (21-32)
[2020-09-14 12:50] LABS: BILIRUBIN,TOTAL 0.3 MG/DL (0.1-1.0)
[2020-09-14 12:51] LABS: ALKALINE PHOSPHATASE 105 U/L (40-136); CREATININE SERUM 1.13 MG/DL (0.60-1.30); GFR ESTIMATED > 60
[2020-09-14 12:53] LABS: BUN/CREATININE RATIO 14
[2020-09-14 12:54] LABS: ALANINE AMINOTRANSFERASE 27 U/L (0-55)
[2020-09-14 13:00] LABS: GLUCOSE 412 MG/DL (70-105)
== END ==
LOC: LAB 11:50
PROVIDERS: ATTEND Surgery
DX: E11.621 Type 2 diabetes mellitus with foot ulcer (principal); E11.42 Type 2 diabetes mellitus with diabetic polyneuropathy; L97.512 Non-pressure chronic ulcer of other part of right foot with fat layer exposed; L97.522 Non-pressure chronic ulcer of other part of left foot with fat layer exposed; M86.471 Chronic osteomyelitis with draining sinus, right ankle and foot; M65.172 Other infective (teno)synovitis, left ankle and foot; I70.245 Atherosclerosis of native arteries of left leg with ulceration of other part of foot; L92.8 Other granulomatous disorders of the skin and subcutaneous tissue
CPT/HCPCS: 36415; 80053; 83036; 85025

== ENCOUNTER → 2020-09-27 | Outpatient (CLI) | payer OTHER | LOC: WOUNDCARE 09:33 | PROVIDERS: ATTEND Orthopaedic Surgery Hand Surgery | DX: E11.621 Type 2 diabetes mellitus with foot ulcer (principal); E11.42 Type 2 diabetes mellitus with diabetic polyneuropathy; L97.516 Non-pressure chronic ulcer of other part of right foot with bone involvement without evidence of necrosis; L97.522 Non-pressure chronic ulcer of other part of left foot with fat layer exposed; M86.471 Chronic osteomyelitis with draining sinus, right ankle and foot; M65.172 Other infective (teno)synovitis, left ankle and foot; I70.245 Atherosclerosis of native arteries of left leg with ulceration of other part of foot; L92.8 Other granulomatous disorders of the skin and subcutaneous tissue; E11.52 Type 2 diabetes mellitus with diabetic peripheral angiopathy with gangrene | CPT/HCPCS: 11042; G0463 ==

== ENCOUNTER → 2020-10-09 | Outpatient (CLI) | payer OTHER | LOC: WOUNDCARE 11:30 | PROVIDERS: ATTEND Orthopaedic Surgery Hand Surgery | DX: E11.621 Type 2 diabetes mellitus with foot ulcer (principal); E11.42 Type 2 diabetes mellitus with diabetic polyneuropathy; I96 Gangrene, not elsewhere classified; I70.245 Atherosclerosis of native arteries of left leg with ulceration of other part of foot; L97.516 Non-pressure chronic ulcer of other part of right foot with bone involvement without evidence of necrosis; L97.522 Non-pressure chronic ulcer of other part of left foot with fat layer exposed; L92.8 Other granulomatous disorders of the skin and subcutaneous tissue; M86.471 Chronic osteomyelitis with draining sinus, right ankle and foot; M65.872 Other synovitis and tenosynovitis, left ankle and foot | CPT/HCPCS: 11042; G0463 ==

== ENCOUNTER → 2020-10-17 | Outpatient (CLI) | payer OTHER ==
[~2020-10-17] VITALS: Ht 182.9 cm; Wt 136.4 kg
[~2020-10-17] MED LIST changes: +BAMLANIVIMAB (NON FORM) 700 MG in NS (IVPB) 250 ML IV ONE; +EPINEPHrine INJECTION 1 MG/ML AMP IM PRN; +diphenhydrAMINE 50 MG/ML INJ (BENADRYL) IV PRN
[2020-10-17 08:22] VITALS: BP 184/88
[2020-10-17 10:34] VITALS: BP 157/93
== END ==
LOC: INFUSION 08:24
PROVIDERS: ATTEND Nurse Practitioner Family
DX: U07.1 COVID-19 (principal)

== ENCOUNTER → 2020-11-07 | Outpatient (CLI) | payer OTHER ==
[~2020-11-07] MED LIST changes: -BAMLANIVIMAB (NON FORM) 700 MG in NS (IVPB) 250 ML IV ONE; -EPINEPHrine INJECTION 1 MG/ML AMP IM PRN; -LISI-552 PO; +LISI20TA26 PO; -diphenhydrAMINE 50 MG/ML INJ (BENADRYL) IV PRN
== END ==
LOC: WOUNDCARE 12:58
PROVIDERS: ATTEND Surgery
DX: E11.621 Type 2 diabetes mellitus with foot ulcer (principal); E11.42 Type 2 diabetes mellitus with diabetic polyneuropathy; L97.514 Non-pressure chronic ulcer of other part of right foot with necrosis of bone; L97.522 Non-pressure chronic ulcer of other part of left foot with fat layer exposed; M86.471 Chronic osteomyelitis with draining sinus, right ankle and foot; M65.172 Other infective (teno)synovitis, left ankle and foot; I70.245 Atherosclerosis of native arteries of left leg with ulceration of other part of foot
CPT/HCPCS: 11042; 11044; 87070; 87077; 87205

== ENCOUNTER → 2020-11-14 | Outpatient (CLI) | payer OTHER | LOC: WOUNDCARE 08:18 | PROVIDERS: ATTEND Surgery | DX: E11.621 Type 2 diabetes mellitus with foot ulcer (principal); E11.42 Type 2 diabetes mellitus with diabetic polyneuropathy; L97.512 Non-pressure chronic ulcer of other part of right foot with fat layer exposed; L97.522 Non-pressure chronic ulcer of other part of left foot with fat layer exposed; M86.471 Chronic osteomyelitis with draining sinus, right ankle and foot; I70.245 Atherosclerosis of native arteries of left leg with ulceration of other part of foot; E11.52 Type 2 diabetes mellitus with diabetic peripheral angiopathy with gangrene | CPT/HCPCS: 11042 ==

== ENCOUNTER → 2020-11-22 | Outpatient (CLI) | payer OTHER | LOC: WOUNDCARE 08:22 | PROVIDERS: ATTEND Surgery | DX: E11.621 Type 2 diabetes mellitus with foot ulcer (principal); E11.42 Type 2 diabetes mellitus with diabetic polyneuropathy; L97.512 Non-pressure chronic ulcer of other part of right foot with fat layer exposed; L97.522 Non-pressure chronic ulcer of other part of left foot with fat layer exposed; M86.471 Chronic osteomyelitis with draining sinus, right ankle and foot; I70.245 Atherosclerosis of native arteries of left leg with ulceration of other part of foot; E11.52 Type 2 diabetes mellitus with diabetic peripheral angiopathy with gangrene | CPT/HCPCS: 11042 ==

== ENCOUNTER → 2020-11-29 | Outpatient (CLI) | payer OTHER | LOC: WOUNDCARE 08:12 | PROVIDERS: ATTEND Surgery | DX: E11.621 Type 2 diabetes mellitus with foot ulcer (principal); I96 Gangrene, not elsewhere classified; E11.42 Type 2 diabetes mellitus with diabetic polyneuropathy; L97.522 Non-pressure chronic ulcer of other part of left foot with fat layer exposed; L97.512 Non-pressure chronic ulcer of other part of right foot with fat layer exposed; M86.471 Chronic osteomyelitis with draining sinus, right ankle and foot; I70.245 Atherosclerosis of native arteries of left leg with ulceration of other part of foot | CPT/HCPCS: 11042; G0463 ==

== ENCOUNTER → 2020-12-13 | Outpatient (CLI) | payer OTHER | LOC: WOUNDCARE 08:30 | PROVIDERS: ATTEND Surgery | DX: E11.621 Type 2 diabetes mellitus with foot ulcer (principal); E11.42 Type 2 diabetes mellitus with diabetic polyneuropathy; I96 Gangrene, not elsewhere classified; L97.512 Non-pressure chronic ulcer of other part of right foot with fat layer exposed; M86.471 Chronic osteomyelitis with draining sinus, right ankle and foot | CPT/HCPCS: 11042; G0463 ==

== ENCOUNTER → 2020-12-20 | Outpatient (CLI) | payer OTHER | LOC: WOUNDCARE 08:38 | PROVIDERS: ATTEND Surgery | DX: E11.621 Type 2 diabetes mellitus with foot ulcer (principal); E11.42 Type 2 diabetes mellitus with diabetic polyneuropathy; L97.512 Non-pressure chronic ulcer of other part of right foot with fat layer exposed; M86.471 Chronic osteomyelitis with draining sinus, right ankle and foot; E11.52 Type 2 diabetes mellitus with diabetic peripheral angiopathy with gangrene | CPT/HCPCS: 11042; G0463 ==

== ENCOUNTER → 2020-12-20 | Outpatient (CLI) | payer OTHER ==
[2020-12-20 09:58] LABS: BASOPHILS % (AUTO) 0 % (0-10); EOSINOPHILS # (AUTO) 0.1 10^3/uL (0.0-0.3); EOSINOPHILS % (AUTO) 1 % (0-10); HEMATOCRIT 46 % (40-54); HEMOGLOBIN 15.7 g/dL (13.3-17.7); LYMPHOCYTES # (AUTO) 1.8 10^3/uL (1.0-4.0); LYMPHOCYTES % (AUTO) 26 % (12-44); MEAN CORPUSCULAR HEMOGLOBIN 32 pg (25-34); MEAN CORPUSCULAR HGB CONC 34 g/dL (32-36); MEAN CORPUSCULAR VOLUME 93 fL (80-99); MEAN PLATELET VOLUME 10.3 fL (9.0-12.2); MONOCYTES # (AUTO) 0.6 10^3/uL (0.0-1.0); MONOCYTES % (AUTO) 8 % (0-12); NEUTROPHILS # (AUTO) 4.6 10^3/uL (1.8-7.8); NEUTROPHILS % (AUTO) 64 % (42-75); PLATELET COUNT 253 10^3/uL (130-400); WHITE BLOOD COUNT 7.2 10^3/uL (4.3-11.0)
[2020-12-20 10:24] LABS: ALANINE AMINOTRANSFERASE 25 U/L (0-55); ALKALINE PHOSPHATASE 93 U/L (40-136); BILIRUBIN,TOTAL 0.8 MG/DL (0.1-1.0); BUN/CREATININE RATIO 20; CALCIUM 9.5 MG/DL (8.5-10.1); CARBON DIOXIDE 21 MMOL/L (21-32); CHLORIDE 101 MMOL/L (98-107); CREATININE SERUM 1.13 MG/DL (0.60-1.30); GFR ESTIMATED > 60; GLUCOSE 385 MG/DL (70-105); POTASSIUM 4.2 MMOL/L (3.6-5.0); SODIUM 135 MMOL/L (135-145); TOTAL PROTEIN 8.5 GM/DL (6.4-8.2)
[2020-12-20 10:34] LABS: ERYTHROCYTE SEDIMENTATION RATE 12 MM/HR (0-30)
== END ==
LOC: LAB 09:31
PROVIDERS: ATTEND Surgery
DX: E11.621 Type 2 diabetes mellitus with foot ulcer (principal); E11.42 Type 2 diabetes mellitus with diabetic polyneuropathy; L97.512 Non-pressure chronic ulcer of other part of right foot with fat layer exposed; M86.471 Chronic osteomyelitis with draining sinus, right ankle and foot
CPT/HCPCS: 36415; 80053; 83036; 85025; 85652; 86141

== ENCOUNTER → 2020-12-29 | Outpatient (CLI) | payer OTHER | LOC: WOUNDCARE 08:03 | PROVIDERS: ATTEND Orthopaedic Surgery Hand Surgery | DX: E11.52 Type 2 diabetes mellitus with diabetic peripheral angiopathy with gangrene (principal); E11.621 Type 2 diabetes mellitus with foot ulcer; E11.42 Type 2 diabetes mellitus with diabetic polyneuropathy; E11.65 Type 2 diabetes mellitus with hyperglycemia; I96 Gangrene, not elsewhere classified; L97.512 Non-pressure chronic ulcer of other part of right foot with fat layer exposed; M86.471 Chronic osteomyelitis with draining sinus, right ankle and foot | CPT/HCPCS: 11042; G0463 ==

== ENCOUNTER → 2021-01-03 | Outpatient (CLI) | payer OTHER | LOC: WOUNDCARE 08:26 | PROVIDERS: ATTEND Surgery | DX: E11.621 Type 2 diabetes mellitus with foot ulcer (principal); I96 Gangrene, not elsewhere classified; E11.42 Type 2 diabetes mellitus with diabetic polyneuropathy; L97.512 Non-pressure chronic ulcer of other part of right foot with fat layer exposed; M86.471 Chronic osteomyelitis with draining sinus, right ankle and foot; E11.65 Type 2 diabetes mellitus with hyperglycemia | CPT/HCPCS: 11042; G0463 ==

== ENCOUNTER → 2021-01-10 | Outpatient (CLI) | payer OTHER | LOC: WOUNDCARE 08:27 | PROVIDERS: ATTEND Surgery | DX: E11.52 Type 2 diabetes mellitus with diabetic peripheral angiopathy with gangrene (principal); E11.621 Type 2 diabetes mellitus with foot ulcer; E11.42 Type 2 diabetes mellitus with diabetic polyneuropathy; E11.65 Type 2 diabetes mellitus with hyperglycemia; I96 Gangrene, not elsewhere classified; L97.516 Non-pressure chronic ulcer of other part of right foot with bone involvement without evidence of necrosis; M86.471 Chronic osteomyelitis with draining sinus, right ankle and foot | CPT/HCPCS: 11042; G0463 ==

== ENCOUNTER → 2021-01-17 | Outpatient (CLI) | payer OTHER | LOC: WOUNDCARE 08:20 | PROVIDERS: ATTEND Surgery | DX: E11.621 Type 2 diabetes mellitus with foot ulcer (principal); E11.42 Type 2 diabetes mellitus with diabetic polyneuropathy; I96 Gangrene, not elsewhere classified; L97.512 Non-pressure chronic ulcer of other part of right foot with fat layer exposed; M86.471 Chronic osteomyelitis with draining sinus, right ankle and foot; E11.65 Type 2 diabetes mellitus with hyperglycemia | CPT/HCPCS: 11042; G0463 ==

== ENCOUNTER → 2021-01-29 | Outpatient (CLI) | payer BC, OTHER | LOC: WOUNDCARE 11:29 | PROVIDERS: ATTEND Surgery | DX: L03.115 Cellulitis of right lower limb (principal); I96 Gangrene, not elsewhere classified; E11.621 Type 2 diabetes mellitus with foot ulcer; E11.42 Type 2 diabetes mellitus with diabetic polyneuropathy; L97.514 Non-pressure chronic ulcer of other part of right foot with necrosis of bone; M86.471 Chronic osteomyelitis with draining sinus, right ankle and foot; E11.65 Type 2 diabetes mellitus with hyperglycemia | CPT/HCPCS: 11044; 82947; A6266; G0463 ==

== ENCOUNTER → 2021-01-29 | Outpatient (CLI) | payer BC ==
--- NOTE | 2021-01-29 16:37 | Diagnostic Imaging Report ---
INDICATION: Cellulitis. Suspect osteomyelitis. COMPARISON: None FINDINGS: 3 radiographic views of the right foot were obtained. There is osteolytic process involving the 1st interphalangeal joint space as well as the adjacent portions of the proximal and distal phalanges. Overlying soft tissue defect is also noted medially. No unexpected radiopaque foreign bodies seen. There is no radiographic evidence of acute fracture or dislocation. IMPRESSION:. Prominent osteolytic process at the centered at the 1st interphalangeal joint space involving the adjacent proximal and distal phalanges. Given history of cellulitis and overlying soft tissue defect, findings are favored to represent osteomyelitis. Dictated by: Dictated on workstation # [id number]
== END ==
LOC: RAD 13:01
PROVIDERS: ATTEND Surgery
DX: L03.115 Cellulitis of right lower limb (principal)
CPT/HCPCS: 73630

== ENCOUNTER → 2021-02-07 | Outpatient (CLI) | payer BC | LOC: WOUNDCARE 08:21 | PROVIDERS: ATTEND Surgery | DX: L03.115 Cellulitis of right lower limb (principal); M86.471 Chronic osteomyelitis with draining sinus, right ankle and foot; E11.621 Type 2 diabetes mellitus with foot ulcer; L97.514 Non-pressure chronic ulcer of other part of right foot with necrosis of bone; E11.42 Type 2 diabetes mellitus with diabetic polyneuropathy; E11.65 Type 2 diabetes mellitus with hyperglycemia; E11.52 Type 2 diabetes mellitus with diabetic peripheral angiopathy with gangrene | CPT/HCPCS: 11042; G0463 ==

== ENCOUNTER → 2021-02-21 | Outpatient (CLI) | payer BC | LOC: WOUNDCARE 10:59 | PROVIDERS: ATTEND Surgery | DX: M86.471 Chronic osteomyelitis with draining sinus, right ankle and foot (principal); E11.621 Type 2 diabetes mellitus with foot ulcer; L97.514 Non-pressure chronic ulcer of other part of right foot with necrosis of bone; E11.42 Type 2 diabetes mellitus with diabetic polyneuropathy; E11.65 Type 2 diabetes mellitus with hyperglycemia; E11.52 Type 2 diabetes mellitus with diabetic peripheral angiopathy with gangrene | CPT/HCPCS: 11044; G0463 ==

== ENCOUNTER → 2021-02-28 | Outpatient (CLI) | payer BC | LOC: WOUNDCARE 09:06 | PROVIDERS: ATTEND Surgery | DX: M86.471 Chronic osteomyelitis with draining sinus, right ankle and foot (principal); E11.621 Type 2 diabetes mellitus with foot ulcer; L97.514 Non-pressure chronic ulcer of other part of right foot with necrosis of bone; E11.42 Type 2 diabetes mellitus with diabetic polyneuropathy; E11.65 Type 2 diabetes mellitus with hyperglycemia; E11.52 Type 2 diabetes mellitus with diabetic peripheral angiopathy with gangrene | CPT/HCPCS: 11044; G0463 ==

== ENCOUNTER → 2021-03-09 | Outpatient (CLI) | payer BC | LOC: WOUNDCARE 09:27 | PROVIDERS: ATTEND Surgery | DX: M86.471 Chronic osteomyelitis with draining sinus, right ankle and foot (principal); I96 Gangrene, not elsewhere classified; E11.621 Type 2 diabetes mellitus with foot ulcer; L97.514 Non-pressure chronic ulcer of other part of right foot with necrosis of bone; E11.42 Type 2 diabetes mellitus with diabetic polyneuropathy; E11.65 Type 2 diabetes mellitus with hyperglycemia | CPT/HCPCS: 11042; G0463 ==

== ENCOUNTER → 2021-03-14 | Outpatient (CLI) | payer BC | LOC: WOUNDCARE 09:50 | PROVIDERS: ATTEND Surgery | DX: M86.471 Chronic osteomyelitis with draining sinus, right ankle and foot (principal); I96 Gangrene, not elsewhere classified; E11.621 Type 2 diabetes mellitus with foot ulcer; L97.514 Non-pressure chronic ulcer of other part of right foot with necrosis of bone; E11.42 Type 2 diabetes mellitus with diabetic polyneuropathy; E11.65 Type 2 diabetes mellitus with hyperglycemia | CPT/HCPCS: 11042; G0463 ==

== ENCOUNTER → 2021-03-22 | Outpatient (CLI) | payer BC | LOC: WOUNDCARE 09:35 | PROVIDERS: ATTEND Surgery | DX: M86.471 Chronic osteomyelitis with draining sinus, right ankle and foot (principal); I96 Gangrene, not elsewhere classified; E11.621 Type 2 diabetes mellitus with foot ulcer; L97.514 Non-pressure chronic ulcer of other part of right foot with necrosis of bone; E11.42 Type 2 diabetes mellitus with diabetic polyneuropathy; E11.65 Type 2 diabetes mellitus with hyperglycemia | CPT/HCPCS: 11042; G0463 ==

== ENCOUNTER → 2021-03-22 | Outpatient (CLI) | payer BC ==
[2021-03-22 10:39] LABS: BASOPHILS % (AUTO) 1 % (0-10); EOSINOPHILS # (AUTO) 0.1 10^3/uL (0.0-0.3); EOSINOPHILS % (AUTO) 1 % (0-10); HEMATOCRIT 46 % (40-54); HEMOGLOBIN 15.4 g/dL (13.3-17.7); LYMPHOCYTES # (AUTO) 2.2 10^3/uL (1.0-4.0); LYMPHOCYTES % (AUTO) 26 % (12-44); MEAN CORPUSCULAR HEMOGLOBIN 31 pg (25-34); MEAN CORPUSCULAR HGB CONC 34 g/dL (32-36); MEAN CORPUSCULAR VOLUME 92 fL (80-99); MEAN PLATELET VOLUME 9.9 fL (9.0-12.2); MONOCYTES # (AUTO) 0.6 10^3/uL (0.0-1.0); MONOCYTES % (AUTO) 8 % (0-12); NEUTROPHILS # (AUTO) 5.5 10^3/uL (1.8-7.8); NEUTROPHILS % (AUTO) 65 % (42-75); PLATELET COUNT 280 10^3/uL (130-400); WHITE BLOOD COUNT 8.4 10^3/uL (4.3-11.0)
[2021-03-22 11:01] LABS: BILIRUBIN,TOTAL 0.4 MG/DL (0.1-1.0); CALCIUM 9.9 MG/DL (8.5-10.1); CREATININE SERUM 1.42 MG/DL (0.60-1.30); POTASSIUM 4.6 MMOL/L (3.6-5.0); TOTAL PROTEIN 8.7 GM/DL (6.4-8.2)
== END ==
LOC: LAB 10:13
PROVIDERS: ATTEND Surgery
DX: M86.471 Chronic osteomyelitis with draining sinus, right ankle and foot (principal); E11.621 Type 2 diabetes mellitus with foot ulcer; L97.514 Non-pressure chronic ulcer of other part of right foot with necrosis of bone; E11.42 Type 2 diabetes mellitus with diabetic polyneuropathy; E11.65 Type 2 diabetes mellitus with hyperglycemia
CPT/HCPCS: 36415; 80053; 83036; 85025

== ENCOUNTER → 2021-04-04 | Outpatient (CLI) | payer BC | LOC: WOUNDCARE 08:22 | PROVIDERS: ATTEND Surgery | DX: M86.471 Chronic osteomyelitis with draining sinus, right ankle and foot (principal); E11.621 Type 2 diabetes mellitus with foot ulcer; L97.514 Non-pressure chronic ulcer of other part of right foot with necrosis of bone; E11.42 Type 2 diabetes mellitus with diabetic polyneuropathy; E11.65 Type 2 diabetes mellitus with hyperglycemia; E11.52 Type 2 diabetes mellitus with diabetic peripheral angiopathy with gangrene | CPT/HCPCS: 11044; G0463 ==

== ENCOUNTER → 2021-04-11 | Outpatient (CLI) | payer BC | LOC: WOUNDCARE 08:29 | PROVIDERS: ATTEND Surgery | DX: M86.471 Chronic osteomyelitis with draining sinus, right ankle and foot (principal); E11.621 Type 2 diabetes mellitus with foot ulcer; L97.514 Non-pressure chronic ulcer of other part of right foot with necrosis of bone; E11.42 Type 2 diabetes mellitus with diabetic polyneuropathy; E11.65 Type 2 diabetes mellitus with hyperglycemia; E11.52 Type 2 diabetes mellitus with diabetic peripheral angiopathy with gangrene | CPT/HCPCS: 11044; 87070; 87205; A6207; G0463 ==

== ENCOUNTER → 2021-04-18 | Outpatient (CLI) | payer BC | LOC: WOUNDCARE 08:18 | PROVIDERS: ATTEND Surgery | DX: M86.471 Chronic osteomyelitis with draining sinus, right ankle and foot (principal); E11.621 Type 2 diabetes mellitus with foot ulcer; L97.514 Non-pressure chronic ulcer of other part of right foot with necrosis of bone; E11.42 Type 2 diabetes mellitus with diabetic polyneuropathy; E11.65 Type 2 diabetes mellitus with hyperglycemia; E11.52 Type 2 diabetes mellitus with diabetic peripheral angiopathy with gangrene | CPT/HCPCS: 11044; G0463 ==

== ENCOUNTER → 2021-04-26 | Outpatient (CLI) | payer BC | LOC: WOUNDCARE 13:46 | PROVIDERS: ATTEND Surgery | DX: M86.471 Chronic osteomyelitis with draining sinus, right ankle and foot (principal); I96 Gangrene, not elsewhere classified; E11.621 Type 2 diabetes mellitus with foot ulcer; L97.514 Non-pressure chronic ulcer of other part of right foot with necrosis of bone; E11.42 Type 2 diabetes mellitus with diabetic polyneuropathy; E11.65 Type 2 diabetes mellitus with hyperglycemia | CPT/HCPCS: 11044; G0463 ==

== ENCOUNTER → 2021-05-02 | Outpatient (CLI) | payer BC | LOC: WOUNDCARE 08:30 | PROVIDERS: ATTEND Surgery | DX: M86.471 Chronic osteomyelitis with draining sinus, right ankle and foot (principal); E11.621 Type 2 diabetes mellitus with foot ulcer; L97.514 Non-pressure chronic ulcer of other part of right foot with necrosis of bone; E11.42 Type 2 diabetes mellitus with diabetic polyneuropathy; E11.65 Type 2 diabetes mellitus with hyperglycemia; E11.52 Type 2 diabetes mellitus with diabetic peripheral angiopathy with gangrene | CPT/HCPCS: 11044; G0463 ==

== ENCOUNTER → 2021-05-16 | Outpatient (CLI) | payer BC | LOC: WOUNDCARE 08:31 | PROVIDERS: ATTEND Surgery | DX: M86.471 Chronic osteomyelitis with draining sinus, right ankle and foot (principal); E11.621 Type 2 diabetes mellitus with foot ulcer; L97.514 Non-pressure chronic ulcer of other part of right foot with necrosis of bone; E11.42 Type 2 diabetes mellitus with diabetic polyneuropathy; E11.65 Type 2 diabetes mellitus with hyperglycemia; E11.52 Type 2 diabetes mellitus with diabetic peripheral angiopathy with gangrene | CPT/HCPCS: 11044; G0463 ==

== ENCOUNTER → 2021-06-07 | Outpatient (CLI) | payer BC | LOC: WOUNDCARE 08:48 | PROVIDERS: ATTEND Surgery | DX: M86.471 Chronic osteomyelitis with draining sinus, right ankle and foot (principal); E11.621 Type 2 diabetes mellitus with foot ulcer; L97.512 Non-pressure chronic ulcer of other part of right foot with fat layer exposed; E11.42 Type 2 diabetes mellitus with diabetic polyneuropathy; E11.65 Type 2 diabetes mellitus with hyperglycemia; E11.52 Type 2 diabetes mellitus with diabetic peripheral angiopathy with gangrene | CPT/HCPCS: 99213 ==

== ENCOUNTER → 2021-06-13 | Outpatient (CLI) | payer BC | LOC: WOUNDCARE 08:51 | PROVIDERS: ATTEND Surgery | DX: M86.471 Chronic osteomyelitis with draining sinus, right ankle and foot (principal); E11.621 Type 2 diabetes mellitus with foot ulcer; L97.512 Non-pressure chronic ulcer of other part of right foot with fat layer exposed; E11.42 Type 2 diabetes mellitus with diabetic polyneuropathy; E11.65 Type 2 diabetes mellitus with hyperglycemia; E11.52 Type 2 diabetes mellitus with diabetic peripheral angiopathy with gangrene | CPT/HCPCS: 99212 ==

== ENCOUNTER → 2021-06-20 | Outpatient (CLI) | payer BC | LOC: WOUNDCARE 08:27 | PROVIDERS: ATTEND Surgery | DX: M86.471 Chronic osteomyelitis with draining sinus, right ankle and foot (principal); E11.621 Type 2 diabetes mellitus with foot ulcer; E11.42 Type 2 diabetes mellitus with diabetic polyneuropathy; E11.65 Type 2 diabetes mellitus with hyperglycemia; L97.512 Non-pressure chronic ulcer of other part of right foot with fat layer exposed | CPT/HCPCS: 11042; G0463 ==

== ENCOUNTER → 2021-06-29 | Outpatient (CLI) | payer BC | LOC: WOUNDCARE 08:28 | PROVIDERS: ATTEND Surgery | DX: M86.471 Chronic osteomyelitis with draining sinus, right ankle and foot (principal); E11.621 Type 2 diabetes mellitus with foot ulcer; L97.512 Non-pressure chronic ulcer of other part of right foot with fat layer exposed; E11.42 Type 2 diabetes mellitus with diabetic polyneuropathy; E11.65 Type 2 diabetes mellitus with hyperglycemia; E11.52 Type 2 diabetes mellitus with diabetic peripheral angiopathy with gangrene | CPT/HCPCS: 99213 ==

== ENCOUNTER → 2021-07-04 | Outpatient (CLI) | payer BC | LOC: WOUNDCARE 08:36 | PROVIDERS: ATTEND Family Medicine | DX: M86.471 Chronic osteomyelitis with draining sinus, right ankle and foot (principal); E11.621 Type 2 diabetes mellitus with foot ulcer; L97.512 Non-pressure chronic ulcer of other part of right foot with fat layer exposed; E11.42 Type 2 diabetes mellitus with diabetic polyneuropathy; E11.65 Type 2 diabetes mellitus with hyperglycemia; E11.52 Type 2 diabetes mellitus with diabetic peripheral angiopathy with gangrene | CPT/HCPCS: 11042; G0463 ==

== ENCOUNTER → 2021-07-11 | Outpatient (CLI) | payer BC | LOC: WOUNDCARE 08:26 | PROVIDERS: ATTEND Family Medicine | DX: M86.471 Chronic osteomyelitis with draining sinus, right ankle and foot (principal); E11.621 Type 2 diabetes mellitus with foot ulcer; E11.52 Type 2 diabetes mellitus with diabetic peripheral angiopathy with gangrene; L97.512 Non-pressure chronic ulcer of other part of right foot with fat layer exposed; E11.42 Type 2 diabetes mellitus with diabetic polyneuropathy; E11.65 Type 2 diabetes mellitus with hyperglycemia; R19.7 Diarrhea, unspecified | CPT/HCPCS: 11042; G0463 ==

== ENCOUNTER → 2021-07-18 | Outpatient (CLI) | payer BC | LOC: WOUNDCARE 08:21 | PROVIDERS: ATTEND Family Medicine | DX: M86.471 Chronic osteomyelitis with draining sinus, right ankle and foot (principal); E11.621 Type 2 diabetes mellitus with foot ulcer; L97.512 Non-pressure chronic ulcer of other part of right foot with fat layer exposed; E11.42 Type 2 diabetes mellitus with diabetic polyneuropathy; E11.65 Type 2 diabetes mellitus with hyperglycemia; E11.52 Type 2 diabetes mellitus with diabetic peripheral angiopathy with gangrene; R19.7 Diarrhea, unspecified | CPT/HCPCS: 11042; G0463 ==

== ENCOUNTER → 2021-07-26 | Outpatient (CLI) | payer BC | LOC: WOUNDCARE 12:37 | PROVIDERS: ATTEND Family Medicine | DX: M86.471 Chronic osteomyelitis with draining sinus, right ankle and foot (principal); E11.621 Type 2 diabetes mellitus with foot ulcer; L97.512 Non-pressure chronic ulcer of other part of right foot with fat layer exposed; E11.42 Type 2 diabetes mellitus with diabetic polyneuropathy; E11.65 Type 2 diabetes mellitus with hyperglycemia | CPT/HCPCS: A6197; G0463; 99212 ==

== ENCOUNTER → 2021-08-01 | Outpatient (CLI) | payer BC | LOC: WOUNDCARE 08:29 | PROVIDERS: ATTEND Family Medicine | DX: E11.52 Type 2 diabetes mellitus with diabetic peripheral angiopathy with gangrene (principal); E11.621 Type 2 diabetes mellitus with foot ulcer; E11.42 Type 2 diabetes mellitus with diabetic polyneuropathy; E11.65 Type 2 diabetes mellitus with hyperglycemia; M86.471 Chronic osteomyelitis with draining sinus, right ankle and foot; L97.512 Non-pressure chronic ulcer of other part of right foot with fat layer exposed; I96 Gangrene, not elsewhere classified | CPT/HCPCS: 97597; G0463 ==

== ENCOUNTER → 2021-08-08 | Outpatient (CLI) | payer BC | LOC: WOUNDCARE 08:25 | PROVIDERS: ATTEND Family Medicine | DX: E11.42 Type 2 diabetes mellitus with diabetic polyneuropathy (principal); E11.65 Type 2 diabetes mellitus with hyperglycemia | CPT/HCPCS: 99212 ==

== ENCOUNTER → 2021-12-27 | Outpatient (CLI) | payer BC ==
[~2021-12-27] MED LIST changes: +GABA300C PO; +SULF-221 PO
== END ==
LOC: WOUNDCARE 14:15
PROVIDERS: ATTEND Family Medicine
DX: L97.522 Non-pressure chronic ulcer of other part of left foot with fat layer exposed (principal); S91.332A Puncture wound without foreign body, left foot, initial encounter; E11.621 Type 2 diabetes mellitus with foot ulcer; E11.65 Type 2 diabetes mellitus with hyperglycemia; L03.116 Cellulitis of left lower limb; I70.244 Atherosclerosis of native arteries of left leg with ulceration of heel and midfoot; E11.40 Type 2 diabetes mellitus with diabetic neuropathy, unspecified
CPT/HCPCS: 11042; 87070; 87077; 87205; A6260; G0463

== ENCOUNTER 2021-12-31 15:33 | Inpatient (IN) | payer BC ==
[~2021-12-31] VITALS: Ht 180 cm; Wt 126.4 kg
[~2021-12-31 15:33] MED LIST changes: -GABA300C PO; -SULF-221 PO
[2021-12-31] MEDS ORDERED: LACTATED RINGERS 1,000 ML IV ONE (15:45)
--- NOTE | 2021-12-31 15:49 | ED General ---
General Stated Complaint: L FOOT CELLULITIS/WOUND, FEVER Source of Information: Patient Exam Limitations: No Limitations History of Present Illness Date Seen by Provider: Dec 31, 2021 Time Seen by Provider: 15:48 Initial Comments To ER by private vehicle with reports of left foot cellulitis. He was seen initially by wound care last week for a wound to the plantar surface arch of the left foot. He has neuropathy and is a poorly controlled diabetic. Unbeknownst to him he was found to have a nail at this location in his shoe. He was given empiric Bactrim and return today for follow-up and found to have worsening cellulitis. Plain films of the left foot were obtained today as well as CBC CMP CRP and ESR. CRP, ESR, WBC were elevated. He was referred to the emergency room. Primary care is Dr. FERREIRA. Timing/Duration: 1 Week, Getting Worse Severity: Moderate Associated Systoms: Fever/Chills; No Nausea/Vomiting Allergies and Home Medications Allergies Coded Allergies: No Known Drug Allergies (Unverified , 09/20/19) Patient Home Medication List Home Medication List Reviewed: Yes Aspirin (Aspirin) 81 Mg Tab.chew, 81 MG PO DAILY Prescribed by: BEE GARCIA on 01/24/20 1425 Calcium Polycarbophil (Fiber-Tabs) 625 Mg Tablet, 625 MG PO DAILY, (Reported) Entered as Reported by: ANDI ORTEGA on 01/20/20 133 Clopidogrel Bisulfate (Clopidogrel) 75 Mg Tablet, 75 MG PO DAILY Prescribed by: BEE GARCIA on 01/24/20 1425 Empagliflozin (Jardiance) 10 Mg Tablet, 10 MG PO DAILY, (Reported) Entered as Reported by: ANDI ORTEGA on 01/20/20 1332 Gabapentin (Gabapentin) 300 Mg Capsule, 300 MG PO TID, (Reported) Entered as Reported by: ANDI ORTEGA on 01/20/20 133 Ibuprofen (Ibuprofen) 600 Mg Tablet, 600 MG PO TID PRN for PAIN-MILD (1-4), (Reported) Entered as Reported by: ANDI ORTEGA on 01/20/20 133 Insulin Degludec (Tresiba Flextouch U-100) 100 Unit/1 Ml Insuln.pen, 20 UNITS SC HS, (Reported) Entered as Reported by: ANDI ORTEGA on 01/20/20 1332 Linezolid (Linezolid) 600 Mg Tablet, 600 MG PO BID Prescribed by: BEE GARCIA on 01/24/20 1414 Lisinopril (Lisinopril) 20 Mg Tablet, 20 TAB PO BID, (Reported) Entered as Reported by: DUKE AKHTAR on 09/20/19 1503 Metformin HCl (Metformin HCl) 500 Mg Tablet, 500-1,000 MG PO BID, (Reported) Entered as Reported by: ANDI ORTEGA on 01/20/20 1332 Review of Systems Review of Systems Constitutional: see HPI, chills, fever EENTM: see HPI Respiratory: no symptoms reported Cardiovascular: no symptoms reported Genitourinary: no symptoms reported Musculoskeletal: no symptoms reported Skin: see HPI Psychiatric/Neurological: No Symptoms Reported Hematologic/Lymphatic: No Symptoms Reported Immunological/Allergic: no symptoms reported Past Lwuolgn-Hyyvtd-Yxwzws Hx Seasonal Allergies Seasonal Allergies: No Past Medical History Surgeries: Yes Gallbladder Respiratory: No Cardiac: Yes Hypertension Neurological: No Genitourinary: No Gastrointestinal: Yes Diverticulosis Musculoskeletal: No Endocrine: Yes Diabetes, Insulin dep HEENT: No Cancer: No Psychosocial: No Integumentary: No Blood Disorders: No Family Medical History No Pertinent Family Hx Physical Exam Vital Signs Vital Signs - First Documented 12/31/21 16:02 Temp 36.9 Pulse 107 Resp 22 B/P (MAP) 144/99 Pulse Ox 96 O2 Delivery Room Air Capillary Refill : Height, Weight, BMI Height: '" Weight: lbs. oz. kg; 40.14 BMI Method: General Appearance: No Apparent Distress, WD/WN, Chronically ill Eyes: Bilateral Eye Normal Inspection, Bilateral Eye PERRL, Bilateral Eye EOMI Neck: Full Range of Motion, Normal Inspection Respiratory: Normal Breath Sounds, No Accessory Muscle Use, No Respiratory Distress Cardiovascular: Normal Peripheral Pulses, Tachycardia Gastrointestinal: Normal Bowel Sounds, Non Tender, Soft Extremity: No Calf Tenderness, Other (To the plantar surface of the arch of the left foot there is some erythema with central dry black necrotic tissue. He has capillary refill at about 3 seconds at the toes.) Neurologic/Psychiatric: Alert, Oriented x3 Skin: Normal Color, Warm/Dry Focused Exam Lactate Level 12/31/21 15:51: Lactic Acid Level Laboratory Tests Test 12/31/21 15:51 Progress/Results/Core Measures Suspected Sepsis SIRS Temperature: Pulse: Respiratory Rate: Laboratory Tests 12/31/21 15:51: Blood Pressure / Mean: 12/31/21 15:51: Laboratory Tests 12/31/21 15:51: Results/Orders Lab Results Laboratory Tests Test 12/31/21 15:51 Range/Units My Orders Orders - LARRY MOJICA APRN Cbc With Automated Diff (12/31/21 15:35) Comprehensive Metabolic Panel (12/31/21 15:35) Blood Culture (12/31/21 15:35) Sputum Culture (12/31/21 15:35) Urinalysis (12/31/21 15:35) Urine Culture (12/31/21 15:35) Protime With Inr (12/31/21 15:35) Partial Thromboplastin Time (12/31/21 15:35) Ed Iv/Invasive Line Start (12/31/21 15:35) Ed Iv/Invasive Line Start (12/31/21 15:35) Vital Signs Adult Sepsis Patie Q15M (12/31/21 15:35) O2 (12/31/21 15:35) Remove Rings In Anticipation O (12/31/21 15:35) Lactic Acid Analyzer (12/31/21 15:35) Lactated Ringers (Lr 1000 Ml Iv Solution (12/31/21 15:45) Mri Lt Lower Ext With Con (12/31/21 15:38) Insulin (Regular) Human (Novolin R (Per (12/31/21 16:15) Vital Signs/I&O 12/31/21 16:02 Temp 36.9 Pulse 107 Resp 22 B/P (MAP) 144/99 Pulse Ox 96 O2 Delivery Room Air Capillary Refill : Departure Communication (Admissions) 1610-Patient had labs done at wound care before being referred here. He is alert oriented very pleasant. Though tachycardic with a heart rate of 107. Blood pressure is fine. 144/99. I spoke with Dr. Burnette we will admit to MedSurg on Zosyn and vancomycin. The patient has been operated on previously by Dr. Villalta and so I did speak with Dr. Villalta and he will be happy to consult on the patient. I will get an MRI as soon as available. I have placed the order but I am not sure if they will be able to get to this today or if it will be tomorrow morning. I will put him on sepsis protocol as well as insulin sliding scale. Impression Primary Impression: Sepsis Additional Impressions: Cellulitis of left foot Poorly controlled diabetes mellitus Disposition: ADMITTED INPATIENT Condition: Stable Admissions Decision to Admit Reason: Admit from ER (General) Decision to Admit/Date: Dec 31, 2021 Time/Decision to Admit Time: 16:09 Departure-Patient Inst. Referrals: COURTNEY FERREIRA DO (PCP/Family) Primary Care Physician LARRY MOJICA APRN Dec 31, 2021 15:49
[2021-12-31 16:05] LABS: BASOPHILS # (AUTO) 0.1 10^3/uL (0.0-0.1); BASOPHILS % (AUTO) 0 % (0-10); EOSINOPHILS % (AUTO) 0 % (0-10); HEMATOCRIT 43 % (40-54); HEMOGLOBIN 14.6 g/dL (13.3-17.7); LYMPHOCYTES # (AUTO) 1.8 10^3/uL (1.0-4.0); LYMPHOCYTES % (AUTO) 8 % (12-44); MEAN CORPUSCULAR HEMOGLOBIN 31 pg (25-34); MEAN CORPUSCULAR HGB CONC 34 g/dL (32-36); MEAN CORPUSCULAR VOLUME 91 fL (80-99); MEAN PLATELET VOLUME 9.7 fL (9.0-12.2); MONOCYTES # (AUTO) 1.4 10^3/uL (0.0-1.0); MONOCYTES % (AUTO) 6 % (0-12); NEUTROPHILS # (AUTO) 18.1 10^3/uL (1.8-7.8); NEUTROPHILS % (AUTO) 83 % (42-75); PLATELET COUNT 394 10^3/uL (130-400); WHITE BLOOD COUNT 21.8 10^3/uL (4.3-11.0)
[2021-12-31 16:10] LABS: ALBUMIN 3.6 GM/DL (3.2-4.5); POTASSIUM 4.1 MMOL/L (3.6-5.0)
[2021-12-31 16:12] LABS: CALCIUM 9.6 MG/DL (8.5-10.1)
[2021-12-31 16:13] LABS: TOTAL PROTEIN 8.4 GM/DL (6.4-8.2)
[2021-12-31 16:15] LABS: BILIRUBIN,TOTAL 0.4 MG/DL (0.1-1.0)
[2021-12-31] MEDS ORDERED: inSUlin (REGULAR) HUMAN 1 UNIT/0.01 ML (CHARGE PER UNIT) IV SCH (16:15)
[2021-12-31 16:17] LABS: CREATININE SERUM 1.23 MG/DL (0.60-1.30)
[2021-12-31 16:19] LABS: INR 1.1 (0.8-1.4); PROTHROMBIN TIME PATIENT 14.2 SEC (12.2-14.7)
[2021-12-31] MEDS ORDERED: NS IV 1000 ML 1,000 ML ONE (17:50)
[2021-12-31 17:53] VITALS: BP 134/90
[2021-12-31] MEDS ORDERED: ACETAMINOPHEN 325 MG TABLET PO PRN (18:15)
[2021-12-31] MEDS ORDERED: ONDANSETRON 4 MG/2 ML (SDV) Z0FRAN IV PRN (18:15)
[2021-12-31] MEDS ORDERED: IBUPROFEN 600 MG (MOTRIN) TAB PO PRN (18:15)
[2021-12-31] MEDS ORDERED: PIPERACILLIN SODIUM/TAZOBACTAM 4.5 GM in NS (IVPB) 100 ML IV NR (18:15)
[2021-12-31] MEDS: NS IV 1000 ML 1,000 ML IV SCH (18:27)
[2021-12-31] MEDS ORDERED: VANCOMYCIN 2000 MG/NS 500 ML IVPB IV NR ×2 (18:30)
[2021-12-31 19:28] VITALS: BP 145/73
[2021-12-31] MEDS: inSUlin ASPART (NovoLOG) 1 UNIT/0.01 ML (CHARGE PER UNIT) SC SCH (20:39)
[2021-12-31 23:21] VITALS: BP 131/70
[2022-01-01] VITALS (7 sets, daily range): BP systolic 129–164; BP diastolic 67–95
[2022-01-01] MEDS: PIPERACILLIN SODIUM/TAZOBACTAM 4.5 GM in NS (IVPB) 100 ML IV SCH ×3 (00:43→16:43)
[2022-01-01] MEDS: NS IV 1000 ML 1,000 ML IV SCH ×3 (00:44→19:30)
[2022-01-01 05:59] LABS: BASOPHILS # (AUTO) 0.1 10^3/uL (0.0-0.1); BASOPHILS % (AUTO) 0 % (0-10); EOSINOPHILS # (AUTO) 0.1 10^3/uL (0.0-0.3); EOSINOPHILS % (AUTO) 1 % (0-10); HEMATOCRIT 38 % (40-54); HEMOGLOBIN 13.1 g/dL (13.3-17.7); LYMPHOCYTES # (AUTO) 1.8 10^3/uL (1.0-4.0); LYMPHOCYTES % (AUTO) 11 % (12-44); MEAN CORPUSCULAR HEMOGLOBIN 31 pg (25-34); MEAN CORPUSCULAR HGB CONC 34 g/dL (32-36); MEAN CORPUSCULAR VOLUME 91 fL (80-99); MEAN PLATELET VOLUME 9.8 fL (9.0-12.2); MONOCYTES # (AUTO) 1.2 10^3/uL (0.0-1.0); MONOCYTES % (AUTO) 7 % (0-12); NEUTROPHILS # (AUTO) 13.6 10^3/uL (1.8-7.8); NEUTROPHILS % (AUTO) 81 % (42-75); PLATELET COUNT 340 10^3/uL (130-400); WHITE BLOOD COUNT 16.9 10^3/uL (4.3-11.0)
[2022-01-01 06:13] LABS: POTASSIUM 3.5 MMOL/L (3.6-5.0)
[2022-01-01 06:14] LABS: CALCIUM 8.8 MG/DL (8.5-10.1)
[2022-01-01 06:19] LABS: CREATININE SERUM 0.89 MG/DL (0.60-1.30)
[2022-01-01] MEDS: VANCOMYCIN 1500 MG/NS 500 ML IVPB IV SCH ×4 (06:31→18:22)
[2022-01-01] MEDS: inSUlin ASPART (NovoLOG) 1 UNIT/0.01 ML (CHARGE PER UNIT) SC SCH ×4 (06:31→21:02)
[2022-01-01] MEDS ORDERED: HYPOCHLOROUS ACID/NaCl (VASHE) 250 ML IR PRN (10:45)
[2022-01-01] MEDS ORDERED: GABA300C PO (11:03)
[2022-01-01] MEDS ORDERED: SULF-221 PO (11:03)
--- NOTE | 2022-01-01 11:47 | History & Physical-Hospitalist ---
History of Present Illness HPI/Chief Complaint Patient 66-year-old male past medical history of insulin-dependent diabetes type 2 and peripheral neuropathy who presented to the emergency department from the wound care clinic due to a wound on his left foot. He states that a couple weeks ago he stepped on a nail and due to his neuropathy he did not feel it and it remained in his boot. He developed a wound secondary to this and has been following with Dr. Rivas. He was started on Bactrim as an outpatient and followed up yesterday with him and despite antibiotics his wound had worsened with a significant mount of eschar. He was also found to have a leukocytosis and elevated CRP and was admitted for IV antibiotics and podiatry consult. This morning he states he is feeling okay he denies any pain. He reports to the hospital pharmacy technician that he does not take his insulin and reports to me that his blood sugars often read as high and probably average around 300. Source: patient Date Seen 01/01/22 Time Seen by a Provider: 11:47 Attending Physician Kaylee Lu MD PCP Jaxon Ling DO Referring Physician Date of Admission Dec 31, 2021 at 16:00 Home Medications & Allergies Home Medications Reviewed patient Home Medication Reconciliation performed by pharmacy medication reconciliations electrical service technician and/or nursing. Patients Allergies have been reviewed. Allergies Allergies Coded Allergies No Known Drug Allergies (Unverified09/20/19) Past Mqfduiu-Qbwxzy-Nrjvbj Hx Patient Social History Tobacco Use?: No Use of E-Cig and/or Vaping dev: No Substance use?: No Alcohol Use?: No Pt feels they are or have been: No Seasonal Allergies Seasonal Allergies: No Current Status Advance Directives: No Communicates: Verbally Primary Language: Yoruba Preferred Spoken Language: Yoruba Is interpretation needed?: No Sensory deficits: Vision impairment Implanted or Applied Medical D: None Past Medical History Surgeries: Gallbladder Hypertension Diverticulosis Diabetes, Insulin dep Blood Disorders: No Family Medical History No Pertinent Family Hx Review of Systems Constitutional: No chills; fever EENTM: no symptoms reported Respiratory: No cough, No short of breath Cardiovascular: No chest pain, No palpitations Gastrointestinal: no symptoms reported Genitourinary: no symptoms reported Musculoskeletal: see HPI Skin: other (wound on foot) Psychiatric/Neurological: Paresthesia Physical Exam Physical Exam Vital Signs Vital Signs - First Documented 12/31/21 16:02 Temp 36.9 Pulse 107 Resp 22 B/P (MAP) 144/99 Pulse Ox 96 O2 Delivery Room Air Capillary Refill : Less Than 3 Seconds Height, Weight, BMI Height: '" Weight: lbs. oz. kg; 39.01 BMI Method: General Appearance: No Apparent Distress, WD/WN, Obese HEENT: PERRL/EOMI, Moist Mucous Membranes Neck: Normal Inspection, Supple Respiratory: Lungs Clear, No Accessory Muscle Use, No Respiratory Distress Cardiovascular: Regular Rate, Rhythm, No JVD, No Murmur Gastrointestinal: Normal Bowel Sounds, Non Tender, Soft Extremity: No Calf Tenderness, No Pedal Edema, Other (large wound on base of foot extending superiorly with eschar and erythema) Neurologic/Psychiatric: Alert, Oriented x3 Results Results/Procedures Labs Laboratory Tests 12/31/21 15:51 01/01/22 05:29 Patient resulted labs reviewed. Imaging: Reviewed Imaging Report Imaging [facility] [place] NAME: JONELLE NATION Syeda [facility] REC#: [id number] PT STATUS: REG CLI : 1955 PHYSICIAN: KEVIN RIVAS MD ADMIT DATE: 12/31/21/RAD Signed Date of Exam:12/31/21 FOOT, LEFT, 3 VIEWS INDICATION: Foot pain and swelling. COMPARISON: None. FINDINGS: Three views of the left foot demonstrate no acute fracture or dislocation. There are no focal osseous lesions. There is no soft tissue swelling. Joint spaces are well maintained. No radiopaque foreign bodies are seen. IMPRESSION: Unremarkable radiographic exam of the left foot. Please note, osteomyelitis cannot be excluded based on radiographs alone. If there is concern for osteomyelitis, further evaluation with MRI is recommended. Dictated by: Dictated on workstation # [id number] Dict: 12/31/21 1644 Trans: 01/01/22 0845 [id number] Interpreted by: GEORGE ABRAHAM MD Electronically signed by: GEORGE ABRAHAM MD 01/01/22 0845 Assessment/Plan Admission Diagnosis Diabetic foot wound Admission Status: Inpatient Order (span 2 midnights) Reason for Inpatient Admission: see below Assessment and Plan Diabetic foot wound- rule out osteomyelitis Continue on vanc and Zosyn Podiatry consulted, appreciate recs MRI ordered- was inadvertently cancelled last night but reordered today Wound nurse consulted IDDMII Peripheral Neuropathy Noncompliant with insulin at home DM education Start insulin here A1c Resume home gabapentin DVT ppx: Lovenox after seen by podiatry if no plan for intervention KAYLEE LU MD Jan 01, 2022 11:47
--- NOTE | 2022-01-01 16:48 | Diagnostic Imaging Report ---
EXAMINATION: Magnetic resonance imaging of the left ankle with and without intravenous contrast. DATE: January 01, 2022. COMPARISON: Left foot radiographs December 31, 2021. HISTORY: 66-year-old male, left foot wound. Concern for infection and osteomyelitis. TECHNIQUE: Magnetic Resonance Imaging sequences were performed of the ankle without and with intravenous contrast. FINDINGS: The Achilles tendon is intact. There is a very small amount of fluid in the tibialis posterior tendon sheath likely within normal limits for detection on MRI. Additional evaluation of the posterior flexor tendons is unremarkable. There is an interstitial split tear of the peroneus brevis tendon centered in the region of the distal fibular tip. The peroneus longus tendon is intact. The anterior extensor tendons are intact. The anterior and posterior syndesmotic ligaments are intact. The anterior talofibular, posterior talofibular, and calcaneofibular ligaments are intact. The deep deltoid ligament is intact. There is thickening and increased signal of the medial cord of the plantar fascia. There is no evidence of active plantar fasciitis. There is no identified tear of the plantar fascia. There is no acute fracture, bone contusion, or evidence of osteonecrosis. There is no evidence of osteomyelitis. There are areas of fatty muscle atrophy likely reflecting polyneuropathy. There is also intramuscular edema. There is a skin defect near the marker denoting focal area of concern compatible with soft tissue ulcer which is at the medial aspect of the midfoot. Sensitivity for detection of abscess is reduced without the use of intravenous contrast. There is no clearly identified focal fluid collection or abscess present. IMPRESSION: 1. Skin ulcer at the medial aspect of the midfoot without identified focal fluid collection or abscess on noncontrast imaging assessment. 2. No evidence of osteomyelitis. 3. Interstitial split tear of the peroneus brevis tendon centered at the level of the distal fibular tip. 4. Multifocal fatty muscle atrophy and intramuscular edema most likely reflecting polyneuropathy. Dictated by: Dictated on workstation # [id number]
--- NOTE | 2022-01-01 17:41 | Podiatry Progress Note ---
Standard Progress Note Progress Notes/Assess & Plan Date Seen by a Provider: Jan 01, 2022 Time Seen by a Provider: 17:38 Progress/Assessment & Plan Consultation dictated. Superficial incision and drainage performed to the left foot. Swab culture taken. Reviewed MRI - no deep abscess and no osteomyelitis noted. Final Diagnosis Cellulitis left foot Superficial abscess left foot Diabetic Neuropathy GEE SEXTON DPCarson Jan 01, 2022 17:41
--- NOTE | 2022-01-01 18:14 | CONSULTATION REPORT ---
DATE OF SERVICE: 01/01/2022 REASON FOR CONSULTATION: Foot care. HISTORY OF PRESENT ILLNESS: This 66-year-old male presented through the ER with a puncture wound to the left foot. He indicated that he had a nail go through his shoe and into the foot approximately a week and half ago. He is not sure exact date. After the puncture wound apparently remained in the boot, developed into a secondary wound, seen by Dr. Rivas, who was seen through the ER. He was placed on Bactrim as outpatient and was admitted for IV antibiotic therapy. He also had leukocytosis. He denies any pain. He reports that the foot is doing better since yesterday since he was placed on IV antibiotics. He denies any current fever, chills, nausea or vomiting and no foot pain. No shortness of breath. PAST MEDICAL HISTORY: Insulin-dependent diabetes, history of abscess to the foot, hypertension, diverticulitis. PAST SURGICAL HISTORY: Include cholecystectomy, incision and drainage to the foot. ALLERGIES: The patient has no known drug allergies. CURRENT MEDICATIONS: Listed on the chart. Currently, the patient is afebrile. His WBCs have come down from 21.8 to 16.9 from yesterday to today. Reviewed the MRI report from radiology, which indicated that there is: 1. Skin ulcer at the medial aspect of the mid foot without identified focal fluid collection or abscess on noncontrast image assessment. 2. No evidence of osteomyelitis. 3. Split tear of the peroneus brevis tendon centered at the level of the distal fibular tip. 4. Multifocal fatty muscle atrophy and intramuscular edema, most likely reflective polyneuropathy. PHYSICAL EXAMINATION: LOWER EXTREMITY: The patient has 1/4, PT and dorsalis pedis pulse, 1/4 posterior tibial pulse. NEUROLOGIC: He has absent protective sensation with 10 gram monofilament wire examination. INTEGUMENTARY: The patient has an eschar to the medial aspect of the left foot that measures approximately 30 x 35 mm distal and proximal to this area or wounds that probed approximately 5 mm with some purulent discharge. With further examination, the wounds articulate between the most proximal and distal aspect of the eschar. There is no surrounding erythema, but no proximal streaking, no bogginess identified. There is some slight increasing calor from the left compared to the right. 4/5 muscle strength to the four major quadrants of the foot are noted for the consultation. ASSESSMENT: Superficial abscess with cellulitis, left foot, status post puncture wound, left foot. Various treatment options were discussed with the patient today. The patient is minimal to a superficial debridement of the wound. An incision and drainage procedure was done superficially to the communicating areas of the most distal and proximal aspect of the abscess of the eschar. A 10 blade was utilized to debride the eschar. The area was flushed with normal saline, after which a deep swab culture was taken. The rest of the wound was irrigated with sterile water, after which an iodoform packing quarter inch was applied into the wound site, followed by sterile 4 x 4 and Kerlix. The wound is to be changed twice a day. The patient is to be nonweightbearing on the left foot. We will continue with IV antibiotics until cultures are further worked. We will likely do a bedside debridement of the wound here in the near future. Job ID: [id number] DocumentID: [id number] Dictated Date: 01/01/2022 17:53:06 Bicycle Fitter Date: 01/01/2022 18:14:21 Dictated By: EMILY MICHEL
[2022-01-01] MEDS: GABAPENTIN 300 MG (NEURONTIN) CAP PO SCH (21:02)
[2022-01-02] MEDS: PIPERACILLIN SODIUM/TAZOBACTAM 4.5 GM in NS (IVPB) 100 ML IV SCH ×3 (01:52→16:40)
[2022-01-02 03:25] VITALS: BP 129/71
[2022-01-02] MEDS: VANCOMYCIN 1500 MG/NS 500 ML IVPB IV SCH ×2 (06:23)
[2022-01-02] MEDS: inSUlin ASPART (NovoLOG) 1 UNIT/0.01 ML (CHARGE PER UNIT) SC SCH ×4 (06:23→21:17)
[2022-01-02 07:37] VITALS: BP 153/89
[2022-01-02] MEDS: GABAPENTIN 300 MG (NEURONTIN) CAP PO SCH ×2 (08:27→21:17)
--- NOTE | 2022-01-02 09:57 | Progress Note - Hospitalist ---
Subjective HPI/CC On Admission Date Seen by Provider: Jan 02, 2022 Time Seen by Provider: 09:59 Patient 66-year-old male past medical history of insulin-dependent diabetes type 2 and peripheral neuropathy who presented to the emergency department from the wound care clinic due to a wound on his left foot. He states that a couple weeks ago he stepped on a nail and due to his neuropathy he did not feel it and it remained in his boot. He developed a wound secondary to this and has been following with Dr. Rivas. He was started on Bactrim as an outpatient and followed up yesterday with him and despite antibiotics his wound had worsened with a significant mount of eschar. He was also found to have a leukocytosis and elevated CRP and was admitted for IV antibiotics and podiatry consult. This morning he states he is feeling okay he denies any pain. He reports to the pharmacy district manager that he does not take his insulin and reports to me that his blood sugars often read as high and probably average around 300. Subjective/Events-last exam Pt reports feeling well. No complaints. Discussed plan to wait for culture results to tailor antibiotics. Focused Exam Lactate Level 12/31/21 15:51: Lactic Acid Level 1.81 Objective Exam Vital Signs Vital Signs Date Time Temp Pulse Resp B/P (MAP) Pulse Ox O2 Delivery O2 Flow Rate FiO2 01/02/22 08:59 Room Air 01/02/22 07:37 36.5 87 18 153/89 (110) 92 Capillary Refill : Less Than 3 Seconds General Appearance: No Apparent Distress, Chronically ill, Obese Respiratory: Lungs Clear, No Respiratory Distress Cardiovascular: Regular Rate, Rhythm, No Murmur Gastrointestinal: Normal Bowel Sounds, Soft Extremity: Other (left foot wrapped) Neurologic/Psychiatric: Alert, Oriented x3 Results/Procedures Lab Patient resulted labs reviewed. Imaging: Reviewed Imaging Report Assessment/Plan Assessment and Plan Assess & Plan/Chief Complaint Diabetic foot wound- rule out osteomyelitis Continue on vanc and Zosyn Podiatry consulted, appreciate recs MRI without evidence of osteo Wound nurse consulted IDDMII Peripheral Neuropathy Noncompliant with insulin at home DM education A1c 12 gabapentin DVT ppx: KAYLEE Clifford MD Jan 02, 2022 09:57
[2022-01-02] MEDS: ENOXAPARIN 40 MG/0.4 ML (LOVENOX) SYR SQ SCH (10:46)
--- NOTE | 2022-01-02 12:29 | Podiatry Progress Note ---
Standard Progress Note Progress Notes/Assess & Plan Date Seen by a Provider: Jan 02, 2022 Time Seen by a Provider: 12:23 Progress/Assessment & Plan The patient denies F/C/N/V. No left foot pain. Laboratory Tests 01/02/22 10:37: Glucometer 328H Cultures resulted in strep. There is necrotic tissue with tunneling to the plantar and medial arch, left foot. The erythema around the wound has stabilized. There is no active exudate. Plan: A superficial debridement was done bedside without the aid of anesthesia. He tolerated this well. I believe a more aggressive debridement is need and he will be scheduled for the morning. NPO after midnight. Final Diagnosis Cellulitis with abscess left foot. GEE SEXTON DPM Jan 02, 2022 12:29
[2022-01-02 16:00] VITALS: BP 162/90
[2022-01-02] MEDS ORDERED: DIPHENOXYLATE/ATROPINE 2.5MG/0.025MG (LOMOTIL) TAB PO PRN (21:15)
[2022-01-03] VITALS (11 sets, daily range): BP systolic 122–171; BP diastolic 75–104
[2022-01-03] MEDS: PIPERACILLIN SODIUM/TAZOBACTAM 4.5 GM in NS (IVPB) 100 ML IV SCH ×4 (00:45→23:58)
[2022-01-03 05:41] LABS: HEMATOCRIT 41 % (40-54); HEMOGLOBIN 13.5 g/dL (13.3-17.7); MEAN CORPUSCULAR HEMOGLOBIN 31 pg (25-34); MEAN CORPUSCULAR HGB CONC 33 g/dL (32-36); MEAN CORPUSCULAR VOLUME 92 fL (80-99); MEAN PLATELET VOLUME 9.3 fL (9.0-12.2); PLATELET COUNT 375 10^3/uL (130-400); WHITE BLOOD COUNT 13.7 10^3/uL (4.3-11.0)
[2022-01-03 05:54] LABS: POTASSIUM 3.5 MMOL/L (3.6-5.0)
[2022-01-03 05:55] LABS: CALCIUM 9.3 MG/DL (8.5-10.1)
[2022-01-03] MEDS: inSUlin ASPART (NovoLOG) 1 UNIT/0.01 ML (CHARGE PER UNIT) SC SCH ×4 (05:56→20:33)
[2022-01-03 05:59] LABS: CREATININE SERUM 0.92 MG/DL (0.60-1.30)
--- NOTE | 2022-01-03 07:14 | Progress Note-Pre Operative ---
Pre-Operative Progress Note H&P Reviewed The H&P was reviewed, patient examined and no changes noted. Date Seen by Provider: Jan 03, 2022 Time Seen by Provider: 07:14 Date H&P Reviewed: Jan 03, 2022 Time H&P Reviewed: 07:14 Pre-Operative Diagnosis: Cellulitis and abscess left foot GEE SEXTON DPM Jan 03, 2022 07:14
[2022-01-03] MEDS ORDERED: LACTATED RINGERS 1,000 ML IV PRN ×2 (07:15→08:00)
[2022-01-03] MEDS ORDERED: MIDAZOLAM 2 MG/2 ML (VERSED) VIAL ONE (07:16)
[2022-01-03] MEDS ORDERED: proPOfol 200 MG/20 ML (DIPRIVAN) VIAL IV ONE (07:16)
--- NOTE | 2022-01-03 08:07 | Progress Note-Post Operative ---
Post-Operative Progess Note Surgeon (s)/Test Grader (s) Surgeon GEE SEXTON DPM Test Grader: none Pre-Operative Diagnosis Cellulitis and abscess left foot Post-Operative Diagnosis same Procedure & Operative Findings Date of Procedure 01/03/22 Procedure Performed/Findings Incision and Drainage (deep) left foot Anesthesia Type MAC Estimated Blood Loss Estimated blood loss (mL): Minimal Specimens/Packing Specimens Removed Soft tissue left foot Packing: Iodoform /" GEE SEXTON DPM Jan 03, 2022 08:07
[2022-01-03] MEDS ORDERED: LACTATED RINGERS 1,000 ML IV SCH (08:15)
[2022-01-03] MEDS: ENOXAPARIN 40 MG/0.4 ML (LOVENOX) SYR SQ SCH (09:09)
[2022-01-03] MEDS: GABAPENTIN 300 MG (NEURONTIN) CAP PO SCH ×2 (09:09→20:32)
--- NOTE | 2022-01-03 09:24 | Wound Care Assessment ---
Wound Care Assessment Date Seen by Provider: Jan 03, 2022 Time Seen by Provider: 09:41 Chief Complaint L Foot Abscess/Cellulitis HPI 66yo M with history of T2DM (noncompliant with all medications prior to admit) presents with L medial foot abscess/cellulitis. He is well known to our wound care clinic for previous foot injuries as a result of his neuropathy from diabetes. The current injury started with walking on a nail in his shoe for approximately 5 days prior to noticing wound and presenting to clinic. Started on outpatient antibiotics (Bactrim) empirically last and presented again Friday with worsening of wound and fever. Sent to ER for further eval uation (workup for deep space infection and osteomyelitis). MRI negative for osteo. Podiatry consulted with both bedside and OR debridements (we appreciate their assistance). His A1c on 01/01/22 was 12.0. He did have leukocytosis on admission which has improved with vanc and zosyn. Santo is noncompliant with off loading recommendations in the past as well as glycemic control. He has been advised on the risk for amputation with his current wound trajectory. He has had osteomyelitis on the contralateral foot in the past. Current wound cultures positive for GBC primarily but several other gram positive organisms in smaller quantities. Would suggest Augmentin as option for consideration. Santo's current blood sugars in 200's and he will need tighter control to aide in his healing. I have discussed his case with Dr. Burnette, Dr. Villalta and Dr. Ling. Past Medical History: Admits Diabetes Type II Smoking Status: Never a Smoker Alcohol Use: Rarely Uses Review of Systems General: No Chills, No Night Sweats, No Fatigue HEENT: No Head Aches, No Visual Changes, No Ear Pain Pulmonary: No Dyspnea, No Cough, No Pleuritic Chest Pain Cardiovascular: No: Chest Pain, Palpitations, Paroxysmal Noc. Dyspnea Gastrointestinal: No: Nausea, Vomiting, Diarrhea Genitourinary: No Dysuria, No Frequency, No Incontinence Musculoskeletal: No: neck pain, leg pain, foot pain Neurological: No: Weakness, Numbness, Change in speech Exam Vital Signs Date Time Temp Pulse Resp B/P (MAP) Pulse Ox O2 Delivery O2 Flow Rate FiO2 01/03/22 08:59 36.5 79 20 161/98 (119) 93 Room Air Capillary Refill : Less Than 3 Seconds General Appearance: WD/WN, no apparent distress, obese HEENT: PERRL/EOMI Neck: non-tender, supple, normal inspection Cardiovascular: regular rate, rhythm Respiratory: chest non-tender, lungs clear, normal breath sounds Gastrointestinal: non tender, soft Extremities: non-tender Neurologic/Psychiatric: alert, oriented x 3 Skin: normal color, warm/dry Patient is immediately post op. I did not remove his dressings today as a result. Will complete wound assessment in the near future. Results Laboratory Tests 01/02/22 10:37: Glucometer 328H 01/02/22 16:33: Glucometer 266H 01/02/22 20:46: Glucometer 203H 01/03/22 05:06: Glucometer 220H 01/03/22 05:30: White Blood Count 13.7H, Red Blood Count 4.39, Hemoglobin 13.5, Hematocrit 41, Mean Corpuscular Volume 92, Mean Corpuscular Hemoglobin 31, Mean Corpuscular Hemoglobin Concent 33, Red Cell Distribution Width 12.4, Platelet Count 375, Mean Platelet Volume 9.3, Sodium Level 138, Potassium Level 3.5L, Chloride Level 102, Carbon Dioxide Level 21, Anion Gap 15H, Blood Urea Nitrogen 6L, Creatinine 0.92, Estimat Glomerular Filtration Rate 93, BUN/Creatinine Ratio 7, Glucose Level 232H, Calcium Level 9.3 Microbiology 01/01/22 Gram Stain - Final, Resulted 01/01/22 Anaerobic Culture, Resulted Pending 01/01/22 Wound Culture - Preliminary, Resulted Strep, Beta Hemolytic Group B 12/31/21 Blood Culture - Preliminary, Resulted No growth Microbiology 01/01/22 Gram Stain - Final, Resulted 01/01/22 Anaerobic Culture, Resulted Pending 01/01/22 Wound Culture - Preliminary, Resulted Strep, Beta Hemolytic Group B Assessment/Plan/Dx Assessment: L medial foot abscess/cellulitis s/p I&D on L medial foot abscess 01/03/[address] Villalta [id number] controlled Neuropathy-diabetic Leukocytosis Plan: 1. Transition to oral antibiotics per primary team. Will continue course as indicated as outpatient 2. Glycemic control per primary team. Santo will need to contact his primary for closer monitoring upon d/c home 3. Follow up with outpatient wound care after cleared by primary team. Likely will pack with Vashe or Dakin's and gauze/kerlix as indicated 4. Complete non-weight bearing today. Will transition to CAM vs. cast as outpatient. Supervisory-Addendum Brief Verification & Attestation Participated in pt care: history, MDM, physical Personally performed: history, MDM, supervision of care Care discussed with: Medical Student Procedures: n/a Results interpretation: Verified all documentation HUGH Gonzalez MD Jan 03, 2022 09:24 KEVIN PANDYA MD Jan 03, 2022 13:02
[2022-01-03] MEDS ORDERED: CALCIUM CARBONATE 500 MG (TUMS) TAB.CHEW PO PRN (09:30)
[2022-01-03] MEDS ORDERED: LOPERAMIDE 2 MG (IMODIUM) TABLET PO PRN (09:30)
[2022-01-03] MEDS: HYDROcodone/APAP 5 MG/325 MG (LORTAB) TAB PO PRN ×3 (09:48→23:58)
--- NOTE | 2022-01-03 10:02 | OPERATIVE REPORT ---
DATE OF SERVICE: 01/03/2022 SURGEON: Joanna Villalta DPM. PREOPERATIVE DIAGNOSIS: Abscess, left foot. POSTOPERATIVE DIAGNOSIS: Abscess, left foot. PROCEDURE: Incision and drainage, left foot, down to deep fascia. WOUND CLASS: Contaminated. ANESTHESIA: Monitored anesthesia care. HEMOSTASIS: None. INDICATIONS: This 66-year-old male who had a puncture wound of the left foot resulting in cellulitis and sepsis. He was subsequently admitted for IV antibiotic care. The patient had continued destruction of soft tissue to the plantar aspect of the left foot despite IV antibiotics. Bedside exploration of the wound indicated purulent discharge from tracking abscess. This extended from the inferior aspect of the mid arch extending superiorly and medially. This resulted in a large necrosis to the medial aspect of the left mid arch. It was then decided that an incision and drainage would be in the patient's best interest, which he is agreeable to after risks and complications were discussed at length. No guarantees were extended to the patient and he is willing to proceed. DESCRIPTION OF PROCEDURE: The patient was brought back to the operating table. Appropriate timeout was performed. The patient was given sedation. Due to his profound neuropathy, no local anesthetic was applied at this time. The left foot was prepped and draped in normal sterile manner after an ankle tourniquet was applied. The wound was explored from the inferior aspect of the puncture wound where some purulent discharge was identified that extended superior to the plantar fascia into the intrinsic musculature area. It did not extend beyond the muscle group for the flexor digitorum brevis. The necrosis and purulent tracking was extended along the medial soft tissue, which was sharply debrided as well as utilizing a cautery. The specimens were sent for gross microscopic evaluation and deep culture was also repeated. The tracking extended medially and proximally extending towards the tarsal tunnel area, but only extended towards the navicular tuberosity level. The length of the lesion extended approximately 12 cm. No other abnormality was identified at this time. All necrotic tissue was removed with sharp and cautery knife application. The wound was then flushed with power irrigation with 3000 mL of normal saline. All the tissues appeared to be viable that was left behind. Iodoform packing was then applied into the wound followed by sterile 4 x 4's, ABD, Kerlix, and Coban. The patient tolerated the procedure well and left the operating room with vital signs stable and vascular status intact to all toes of the left foot. He will continue with wound care on a daily basis. He is to be nonweightbearing on left lower extremity. We will continue with IV antibiotics. Preliminary results for the cultures was strep. Job ID: [id number] DocumentID: [id number] Dictated Date: 01/03/2022 08:18:35 Frame Carver Spindle Date: 01/03/2022 10:01:33 Dictated By: EMILY MICHEL
--- NOTE | 2022-01-03 10:53 | Anesthesia-General Post-Op ---
MAC Patient Condition Mental Status/LOC: Same as Preop Cardiovascular: Satisfactory Nausea/Vomiting: Absent Respiratory: Satisfactory Pain: Controlled Complications: Absent Post Op Complications Complications None Follow Up Care/Instructions Patient Instructions None needed. Anesthesiology Discharge Order Discharge Order Patient is doing well, no complaints, stable vital signs, no apparent adverse anesthesia problems. No complications reported per nursing. MARSHALL DUNCAN CRNA Jan 03, 2022 10:53
--- NOTE | 2022-01-03 11:55 | Physical Therapy Evaluation ---
PT Evaluation-General Medical Diagnosis Admission Date Dec 31, 2021 at 16:00 Medical Diagnosis: left foot cellulitis/sepsis Onset Date: Dec 31, 2021 Therapy Diagnosis Therapy Diagnosis: impaired mobility/weakness Precautions Precautions/Isolations: Fall Prevention, Standard Precautions Weight Bear Status Right Lower Extremity: Right Full Weight Bearing Left Lower Extremity: Left Non Weight Bearing Patient unable to comply with NWB left foot with sit to stand transfers Referral Physician: Ambar Reason for Referral: Evaluation/Treatment Medical History Pertinent Medical History: DM, HTN, Neuropathy Current History s/p left foot surgery due to abscess (per physician, patient is NWB left foot fo r the unforeseeable future) Reviewed History: Yes Social History Home: Single Level Current Living Status: Alone Entry Into Home: Stairs Without Railing PT Steps Into Home: 3 Prior Prior Level of Function SCALE: Activities may be completed with or without assistive devices. 4-Ztrwnsrvsm-zuakvhp completes the activity by him/herself with no assistance from a helper. 5-Set-up or Clean-up Assistance-helper sets up or cleans up; patient completes activity. [place] assists only prior to or following the activity. 4-Supervision or Touching Assistance-helper provides verbal cues and/or touching/steadying and/or contact guard assistance as patient completes activity. Assistance may be provided throughout the activity or intermittently. 3-Partial/Moderate Assistance-helper does LESS THAN HALF the effort. [place] lifts, holds or supports trunk or limbs, but provides less than half the effort. 2-Substantial/Maximal Assistance-helper does MORE THAN HALF the effort. [place] lifts or holds trunk or limbs and provides more than half the effort. 1-Wzinwlzdw-xbsprk does ALL the effort. Patient does none of the effort to complete the activity. Or, the assistance of 2 or more helpers is required for the patient to complete the activity. If activity was not attempted, code reason: 7-Patient Refused. 9-Not Applicable-not attempted and the patient did not perform the activity before the current illness, exacerbation or injury. 10-Not Attempted due to Environmental Limitations-(lack of equipment, weather restraints, etc.). 88-Not Attempted due to Medical Conditions or Safety Concerns. Bed Mobility: 6 Transfers (B,C,W/C): 6 Gait: 6 Stairs: 6 Indoor Mobility (Ambulation): Independent Stairs: Independent Prior Devices Use: None PT Evaluation-Current Subjective Patient agrees to PT. Objective Patient Orientation: Normal For Age Attachments: IV ROM/Strength ROM Lower Extremities bilateral LE WFL (left foot wrapped) Strength Lower Extremities right knee flexion 4-/5, extension 4-/5; hip flexion 3/5 left LE 3/5 grossly Integumentary/Posture Integumentary refer to nursing notes Bowel Incontinence: No Bladder Incontinence: No Posture WFL Neuromuscular (Tone, Coordination, Reflexes) grossly intact Sensory Vision: Functional Hearing: Functional Sensation Right Lower Extremit: Impaired Sensation Left Lower Extremity: Impaired Transfers Roll Left to Right (QC): 6 Sit to Lying (QC): 6 Lying to Sitting/Side of Bed(Q: 6 Sit to Stand (QC): 1 (x 2 to comply with NWB left foot/assist of 1 is not enough to maintain NWB left foot) Gait Walk 10 feet (QC): 1 (x 2 for safety due to balance and increase c/o bilateral knee pain with use of knee scooter) Walk 50 ft with 2 Turns(QC): 1 (x 2 for safety due to balance and increase c/o bilateral knee pain with use of knee scooter) Walk 150 ft (QC): 88 Gait Assistive Device: FWW Comments/Gait Description attempted to use FWW for ambulation, however, patient unable to safely perform or comply with NWB left foot/utilized knee scooter x 75' with patient having increase c/o bilateral knee pain and requiring assist of 2 for safety and balance deficits Balance Sitting Static: Normal Sitting Dynamic: Normal Standing Static: Poor Standing Dynamic: Poor Assessment/Needs Patient lives alone and has 3 steps to enter home. Patient is currently not s afe with ambulation with FWW or knee scooter to be independent in home. Did discuss temporary detention stay due to patient in [facility] for the "unforeseeable future" per Dr. Villalta. Education on how this would allow healing and be able to receive therapies, medication, meals, etc., however, patient adamantly declined. Dr. Burnette and SW notified of discussion and PT findings. Rehab Potential: Guarded Post Rehab Potential-Barriers: compliance PT Mcc Goals Mcc Goals PT Mcc Goals Time Frame: Jan 12, 2022 Roll Left & Right (QC): 6 Sit to Lying (QC): 6 Lying-Sitting on Side/Bed(QC): 6 Sit to Stand (QC): 4 Chair/Snq-xe-Jfiwc Xfer(QC): 4 Toilet Transfer (QC): 4 Walk 10 feet (QC): 4 (knee scooter) Walk 50ft with 2 Turns (QC): 4 (knee scooter) Walk 150 ft (QC): 4 (knee scooter) PT Plan Problem List Problem List: Activity Tolerance, Functional Strength, Safety, Balance, Gait, Transfer Treatment/Plan Treatment Plan: Continue Plan of Care Treatment Plan: Education, Functional Activity Carlos Manuel, Functional Strength, Gait, Safety, Therapeutic Exercise, Transfers Treatment Duration: Jan 12, 2022 Frequency: 6 times per week Estimated Hrs Per Day: .5 hour per day Patient and/or Family Agrees t: Yes Time/GCodes Time In: 1100 Time Out: 1125 Total Billed Treatment Time: 25 Total Billed Treatment 1 visit EVModC 10 min GT 15 min JUNIOR ESPINOZA PT Jan 03, 2022 11:55
--- NOTE | 2022-01-03 12:30 | Progress Note - Hospitalist ---
Subjective HPI/CC On Admission Date Seen by Provider: Jan 03, 2022 Time Seen by Provider: 12:25 Patient 66-year-old male past medical history of insulin-dependent diabetes type 2 and peripheral neuropathy who presented to the emergency department from the wound care clinic due to a wound on his left foot. He states that a couple weeks ago he stepped on a nail and due to his neuropathy he did not feel it and it remained in his boot. He developed a wound secondary to this and has been following with Dr. Rivas. He was started on Bactrim as an outpatient and followed up yesterday with him and despite antibiotics his wound had worsened with a significant mount of eschar. He was also found to have a leukocytosis and elevated CRP and was admitted for IV antibiotics and podiatry consult. This morning he states he is feeling okay he denies any pain. He reports to the on call pharmacy technician that he does not take his insulin and reports to me that his blood sugars often read as high and probably average around 300. Subjective/Events-last exam Pt reports doing well. Just back from surgery. States he is starting to get some pain now but had previously been doing well. Focused Exam Lactate Level 12/31/21 15:51: Lactic Acid Level 1.81 Objective Exam Vital Signs Vital Signs Date Time Temp Pulse Resp B/P (MAP) Pulse Ox O2 Delivery O2 Flow Rate FiO2 01/03/22 08:59 36.5 79 20 161/98 (119) 93 Room Air Capillary Refill : Less Than 3 Seconds General Appearance: No Apparent Distress, WD/WN Respiratory: Lungs Clear, No Accessory Muscle Use, No Respiratory Distress Cardiovascular: Regular Rate, Rhythm, No Murmur Neurologic/Psychiatric: Alert, Oriented x3 Results/Procedures Lab Laboratory Tests 01/03/22 05:30 Patient resulted labs reviewed. Imaging: Reviewed Imaging Report Assessment/Plan Assessment and Plan Assess & Plan/Chief Complaint Diabetic foot wound with abscess- rule out osteomyelitis Continue on Zosyn, await operative cultures Podiatry consulted, appreciate recs MRI without evidence of osteo Wound nurse consulted POD #[address] Villalta PT/OT IDDMII Peripheral Neuropathy Noncompliant with insulin at home- states he has no reason, just quit taking it Is agreeable to taking it now DM education A1c 12 gabapentin DVT ppx: KAYLEE Clifford MD Jan 03, 2022 12:29
--- NOTE | 2022-01-03 14:51 | Physician Query Clarification ---
Physician Query-General Query to Physician: The medical record reflects the following clinical scenario: The patient, in the setting of History/Risk factors, DM, Cellulitis of L Foot with abscess Clinical Findings Admission VS/Labs: HR 107, RR 22, BP 144/99, SpO2 96% sat on room air T 36.9 decreased to 35.9, WBC 21.8, Lactic Acid 1.81 Treatment ER: LR 1L, Zosyn IV, Surgery consult, I and D with removal of necrotic tissue Question: Do you agree with the impression of Sepsis per Dr Usman Rubio and Dr. Mike Villalta? 1. Yes; will document Sepsis, present on admission in the Progress Notes 2. No; will continue current documentation in the Progress Notes 3. Other; will document explanation of clinical findings 4. Clinically undetermined; no explanation for clinical findings Please clarify and document your clinical opinion in the Progress Notes and Di jeannierge Summary including the definitive and/or presumptive diagnosis, (suspected or probable), related to the above clinical findings. Please include clinical findings supporting your diagnosis. In responding to this query, please exercise your independent professional judgment. The purpose of this communication is to more accurately reflect the complexity of your patients condition. The fact that a question is asked does not imply that any particular answer is desired or expected. Please remember a lack of response to the above will prompt a phone page by CDI/coding staff Thank you for timely response to this clarification. Kelsie Kay MSN, RN Clinical [employer]er [phone] PHYSICIAN RESPONSE: Based on the clinical findings in the record, please respond to the query above on this document as an addendum. Physician Response: Physician Response 1 If you have questions please contact: Poultry C[employer]er: Ext: Thank you for your time and cooperation. Clinical [employer]er/P[employer] C[employer]er This is a permanent part of the medical record KELSIE KAY Jan 03, 2022 14:51 KAYLEE LU MD Jan 04, 2022 16:54
[2022-01-04] MEDS: HYDROcodone/APAP 5 MG/325 MG (LORTAB) TAB PO PRN ×3 (03:33→16:14)
[2022-01-04] MEDS: inSUlin ASPART (NovoLOG) 1 UNIT/0.01 ML (CHARGE PER UNIT) SC SCH ×4 (05:43→21:19)
[2022-01-04 07:16] VITALS: BP 169/100
[2022-01-04 08:23] VITALS: BP 158/95
[2022-01-04] MEDS: PIPERACILLIN SODIUM/TAZOBACTAM 4.5 GM in NS (IVPB) 100 ML IV SCH ×2 (08:35→16:15)
[2022-01-04] MEDS: GABAPENTIN 300 MG (NEURONTIN) CAP PO SCH ×2 (08:35→21:19)
--- NOTE | 2022-01-04 09:40 | Physical Therapy Daily Note ---
PT Daily Note-Current Subjective Patient declined knee scooter for mobility due to knee patient and inability to tolerate is. Mental Status Patient Orientation: Normal For Age Attachments: IV Transfers SCALE: Activities may be completed with or without assistive devices. 2-Iruchqupta-rhbqrwo completes the activity by him/herself with no assistance from a helper. 5-Set-up or Clean-up Assistance-helper sets up or cleans up; patient completes activity. [place] assists only prior to or following the activity. 4-Supervision or Touching Assistance-helper provides verbal cues and/or touching/steadying and/or contact guard assistance as patient completes activity. Assistance may be provided throughout the activity or intermittently. 3-Partial/Moderate Assistance-helper does LESS THAN HALF the effort. [place] lifts, holds or supports trunk or limbs, but provides less than half the effort. 2-Substantial/Maximal Assistance-helper does MORE THAN HALF the effort. [place] lifts or holds trunk or limbs and provides more than half the effort. 1-Lxomvijgt-bhighv does ALL the effort. Patient does none of the effort to complete the activity. Or, the assistance of 2 or more helpers is required for the patient to complete the activity. If activity was not attempted, code reason: 7-Patient Refused. 9-Not Applicable-not attempted and the patient did not perform the activity before the current illness, exacerbation or injury. 10-Not Attempted due to Environmental Limitations-(lack of equipment, weather restraints, etc.). 88-Not Attempted due to Medical Conditions or Safety Concerns. Lying to Sitting/Side of Bed(Q: 6 Sit to Stand (QC): 3 Chair/Nut-dx-Ncrtz Xfer(QC): 3 unable to comply with NWB left foot with sit to stand and transfer to recliner Weight Bearing Right Lower Extremity: Right Full Weight Bearing Left Lower Extremity: Left Non Weight Bearing Patient unable to comply with NWB left foot with sit to stand transfers Exercises Seated Therapy Exercises: Long arc quads, Hip flexion Seated Reps: 15 (2 sets bilaterally) Assessment PT and patient discussed mobility and safety with NWB left foot. Due to patient's inability to comply with NWB and to allow healing of left foot, patient would benefit from w/c use in home to assist with the process. Patient agrees and reports the use of a w/c would be beneficial. Physician and SW n otified. PT Associate Chemist Goals Assisted Goals PT Associate Chemist Goals Time Frame: Jan 12, 2022 Roll Left & Right (QC): 6 Sit to Lying (QC): 6 Lying-Sitting on Side/Bed(QC): 6 Sit to Stand (QC): 4 Chair/Hes-wu-Huwll Xfer(QC): 4 Toilet Transfer (QC): 4 Walk 10 feet (QC): 4 (knee scooter) Walk 50ft with 2 Turns (QC): 4 (knee scooter) Walk 150 ft (QC): 4 (knee scooter) PT Plan Treatment/Plan Treatment Plan: Continue Plan of Care Treatment Plan: Education, Functional Activity Carlos Manuel, Functional Strength, Gait, Safety, Therapeutic Exercise, Transfers Treatment Duration: Jan 12, 2022 Frequency: 6 times per week Estimated Hrs Per Day: .5 hour per day Patient and/or Family Agrees t: Yes Discharge Recommendations Equpiment Recommendations-D/C: Front Wheeled Walker, Manual Wheelchair Time/GCodes Time In: 910 Time Out: 924 Total Billed Treatment Time: 14 Total Billed Treatment 1 visit EX 14 min JUNIOR ESPINOZA PT Jan 04, 2022 09:40
[2022-01-04] MEDS: ENOXAPARIN 40 MG/0.4 ML (LOVENOX) SYR SQ SCH (10:02)
[2022-01-04] MEDS ORDERED: lisINopril 10 MG (PRINIVIL) TABLET PO NR (11:00)
--- NOTE | 2022-01-04 12:10 | Wound Care Assessment ---
Wound Care Assessment Date Seen by Provider: Jan 04, 2022 Time Seen by Provider: 10:00 Chief Complaint L Foot Abscess/Cellulitis HPI 66yo M with history of T2DM (noncompliant with all medications prior to admit) presented with L medial foot abscess/cellulitis. He is well known to our wound care clinic for previous foot injuries as a result of his neuropathy from diabetes. The current injury started with walking on a nail in his shoe for approximately 5 days prior to noticing wound and presenting to clinic. Started on outpatient antibiotics (Bactrim) empirically last and presented again Friday with worsening of wound and fever. Sent to ER for further dylan luation (workup for deep space infection and osteomyelitis). MRI negative for osteo. Podiatry consulted with both bedside and OR debridements (we appreciate their assistance). His A1c on 01/01/22 was 12.0. He did have leukocytosis on admission which has improved with vanc and zosyn. Santo is noncompliant with off loading recommendations in the past as well as glycemic control. On this admission he has worked with diabetic education and even has had a few blood sugars within the normal range. Importance of glycemic control by diet and medication stressed again today. He will need to stay in close contact with Dr. Ling in order to acheive adequate glycemic control. I have spoke with Dr. Ling and he is aware of Santo's situation. Santo has declined to work with PT on the knee scooter on this admission. However, his off loading is as important as his glycemic control in his wound healing process. I did spend much time in counseling on the importance. A wound vac is a good consideration for Santo due to the large nature of his current ulcer but this will only be possible if he is willing to appropriately off load. He verbalizes understanding and is agreeable to try. We will discuss this further as an outpatient (follow up already arranged). He has been advised on the risk for amputation with his current wound trajectory. He has had osteomyelitis on the contralateral foot in the past. Dr. Burnette is waiting on final cultures prior to d/c home. Plan for dressing currently Vashe dampened gauze packing to be changed twice daily. He already has the necessary supplies at home with the bottle of Vashe from his stay here. Past Medical History: Admits Diabetes Type II, Admits Peripheral Artery Disease Smoking Status: Never a Smoker Alcohol Use: Rarely Uses Exam Vital Signs Date Time Temp Pulse Resp B/P (MAP) Pulse Ox O2 Delivery O2 Flow Rate FiO2 01/04/22 08:42 Room Air 01/04/22 08:23 158/95 (116) 01/04/22 07:16 36.6 72 18 94 Capillary Refill : Less Than 3 Seconds General Appearance: WD/WN, no apparent distress, obese Cardiovascular: no edema Respiratory: no respiratory distress, no accessory muscle use Extremities: pedal edema (left foot) Skin: warm/dry Skin Character: drainage, erythema Left foot: The epithelialization is none, there is no tunneling or undermining, drainage is large and purulent, granulation is none, necrotic is large with slough. Muscle, tendon and fascia exposed. No bone exposed. 2.5x7.5x2.2 cm Results Laboratory Tests 01/03/22 15:26: Glucometer 267H 01/03/22 20:14: Glucometer 198H 01/04/22 05:34: Glucometer 156H Microbiology 01/03/22 Gram Stain - Final, Resulted 01/03/22 Anaerobic Culture, Resulted Pending 01/03/22 Surgical Culture, Resulted Pending 01/03/22 Fungal Culture 1, Resulted Pending 12/31/21 Blood Culture - Preliminary, Resulted No growth Microbiology 01/03/22 Gram Stain - Final, Resulted 01/03/22 Anaerobic Culture, Resulted Pending 01/03/22 Surgical Culture, Resulted Pending 01/03/22 Fungal Culture 1, Resulted Pending Assessment/Plan/Dx Assessment: L medial foot abscess/cellulitis s/p I&D on L medial foot abscess 01/03/[address] Villalta [id number] controlled Neuropathy-diabetic Leukocytosis Plan: 1. Transition to oral antibiotics per primary team. Will continue course as indicated as outpatient 2. Glycemic control per primary team. Santo will need to contact his primary for closer monitoring upon d/c home 3. Follow up with outpatient wound care after cleared by primary team (as scheduled) 4. Off load with knee scooter 5. Vashe gauze wet to dry dressings twice daily and secure with roller gauze, tape and [place] KEVIN PANDYA MD Jan 04, 2022 12:10
--- NOTE | 2022-01-04 12:15 | Podiatry Progress Note ---
Standard Progress Note Progress Notes/Assess & Plan Date Seen by a Provider: Jan 04, 2022 Time Seen by a Provider: 12:10 Progress/Assessment & Plan Post Op day #1 for deep debridement left foot. The patient denies F/C/N/V. No left foot pain today. There was some pain yesterday. Cultures resulted in strep with no sensitivities ran. The dressing was intact with no strike-through, left foot. Plan: Dressing changes were made this morning with Dr. Rivas. He will be discharged to home tomorrow with instruction for wound care and non-weight bearing for the left foot. He is welcome to follow up as needed. I appreciated the opportunity to help. Final Diagnosis Cellulitis and abcess left foot diabetic neuropathy GEE SEXTON DPM Jan 04, 2022 12:15
[2022-01-04 13:49] VITALS: BP 150/70
[2022-01-04 15:16] VITALS: BP 146/78
--- NOTE | 2022-01-04 16:01 | Progress Note - Hospitalist ---
Subjective HPI/CC On Admission Date Seen by Provider: Jan 04, 2022 Time Seen by Provider: 11:30 Patient 66-year-old male past medical history of insulin-dependent diabetes type 2 and peripheral neuropathy who presented to the emergency department from the wound care clinic due to a wound on his left foot. He states that a couple weeks ago he stepped on a nail and due to his neuropathy he did not feel it and it remained in his boot. He developed a wound secondary to this and has been following with Dr. Rivas. He was started on Bactrim as an outpatient and followed up yesterday with him and despite antibiotics his wound had worsened with a significant mount of eschar. He was also found to have a leukocytosis and elevated CRP and was admitted for IV antibiotics and podiatry consult. This morning he states he is feeling okay he denies any pain. He reports to the phlebotomy support tech that he does not take his insulin and reports to me that his blood sugars often read as high and probably average around 300. Subjective/Events-last exam pt reports doing well. No complaints. Agreeable to using wheelchair now. Objective Exam Vital Signs Vital Signs Date Time Temp Pulse Resp B/P (MAP) Pulse Ox O2 Delivery O2 Flow Rate FiO2 01/04/22 15:16 36.4 79 18 146/78 (100) 95 Room Air Capillary Refill : Less Than 3 Seconds General Appearance: No Apparent Distress, Chronically ill, Obese Respiratory: Lungs Clear, No Accessory Muscle Use, No Respiratory Distress Cardiovascular: Regular Rate, Rhythm, No Murmur Gastrointestinal: Normal Bowel Sounds, Non Tender, Soft Neurologic/Psychiatric: Alert, Oriented x3 Results/Procedures Lab Patient resulted labs reviewed. Imaging: Reviewed Imaging Report Assessment/Plan Assessment and Plan Assess & Plan/Chief Complaint Diabetic foot wound with abscess- rule out osteomyelitis Continue on Zosyn, await operative cultures Podiatry consulted, appreciate recs MRI without evidence of osteo Wound nurse consulted POD #[address] Villalta PT/OT Planning DC home tomorrow, awaiting surgical cultures IDDMII Peripheral Neuropathy Noncompliant with insulin at home- states he has no reason, just quit taking it Is agreeable to taking it now DM education A1c 12 gabapentin DVT ppx: KAYLEE Clifford MD Jan 04, 2022 16:01
[2022-01-05] VITALS: BP 142/96
[2022-01-05] MEDS: inSUlin ASPART (NovoLOG) 1 UNIT/0.01 ML (CHARGE PER UNIT) SC SCH ×2 (05:22→11:23)
[2022-01-05 08:00] VITALS: BP 141/83
[2022-01-05] MEDS: GABAPENTIN 300 MG (NEURONTIN) CAP PO SCH (08:17)
--- NOTE | 2022-01-05 08:31 | Physical Therapy Progress Note ---
Therapy Progress Note Patient declined PT stating, "I'm going home and I have everything I need. Thank you." RN notified. 1 ref JUNIOR ESPINOZA PT Jan 05, 2022 08:31
[2022-01-05] MEDS ORDERED: lisINopril 10 MG (PRINIVIL) TABLET PO SCH (09:00)
[2022-01-05] MEDS ORDERED: AMOX1TAB12 PO (09:12)
[2022-01-05] MEDS ORDERED: LISI10TA25 PO (09:12)
[2022-01-05] MEDS ORDERED: INSU100I29 SQ (09:12)
[2022-01-05] MEDS ORDERED: ACHD5005 PO (09:12)
[2022-01-05] MEDS ORDERED: INSU100I14 SQ (09:12)
--- NOTE | 2022-01-05 09:17 | Discharge Inst-Simple/Standard ---
Discharge Inst-Standard Discharge Medications New, Converted or Re-Newed RX: Transmitted to Pharmacy Patient Instructions/Follow Up Plan of Care/Instructions/FU: o Please continue take your medications as written. Please comply with your nonweightbearing status on your left foot. Please follow-up with Dr. FERREIRA and Dr. Rivas to follow-up this hospital stay. Activity as Tolerated: Yes Discharge Diet: ADA Diet Return to The Hospital For: Increasing pain, fever, shortness of breath, chest pain, if you feel you are getting worse. KAYLEE LU MD Jan 05, 2022 09:17
[2022-01-05] MEDS: HYDROcodone/APAP 5 MG/325 MG (LORTAB) TAB PO PRN (09:18)
[2022-01-05] MEDS: ENOXAPARIN 40 MG/0.4 ML (LOVENOX) SYR SQ SCH (09:50)
--- NOTE | 2022-01-05 09:53 | Discharge Summary ---
Diagnosis/Chief Complaint Date of Admission Dec 31, 2021 at 16:00 Date of Discharge Discharge Date: Jan 05, 2022 Admission Diagnosis Diabetic foot wound Primary Care Jaxon Ling DO Discharge Summary Discharge Physical Exam Allergies: Coded Allergies: No Known Drug Allergies (Unverified , 09/20/19) Vitals & I&Os Vital Signs Date Time Temp Pulse Resp B/P (MAP) Pulse Ox O2 Delivery O2 Flow Rate FiO2 01/05/22 08:28 96 Room Air 01/05/22 08:00 36.6 89 18 141/83 (102) General Appearance: No Apparent Distress, WD/WN Neurologic/Psychiatric: Alert, Oriented x3 Hospital Course Patient was admitted to the hospital secondary to sepsis from a diabetic foot ulcer with cellulitis that had failed patient management. He has been followed by Dr. Ophelia Rivas with the wound clinic and had been treated with Bactrim as an outpatient but despite this his wound had worsened with spreading erythema. He was admitted for IV antibiotics and despite this again continued to worsen. Podiatry was consulted and took him to the emergency room for I&D of abscess and debridement of necrotic tissue. He did not have evidence of osteomyelitis at that time. He was continued on IV antibiotics and did well. PT and OT were consulted to assist him with his nonweightbearing status. He was deemed most appropriate for a wheelchair and was discharged home with that. He revealed that he had quit taking his insulin months ago. His A1c was 12. He was restarted on his insulin with improving glycemic control. He was discharged home to follow-up with his primary care doctor and Dr. Rivas to follow-up this hospital stay. Labs (last 24 hrs) Laboratory Tests 01/04/22 20:21: Glucometer 241H 01/05/22 05:17: Glucometer 179H 01/05/22 10:54: Glucometer 208H Microbiology 01/03/22 Gram Stain - Final, Resulted 01/03/22 Anaerobic Culture, Resulted Pending 01/03/22 Surgical Culture, Resulted Pending 01/03/22 Fungal Culture 1, Resulted Pending 12/31/21 Blood Culture - Preliminary, Resulted No growth Patient resulted labs reviewed. Pending Labs Laboratory Tests 01/05/22 05:17: Glucometer 179 01/05/22 10:54: Glucometer 208 Imaging: Reviewed Imaging Report Discussion & Recommendations Discharge Planning: >30 minutes discharge planning Discharge Home Medications: Active Scripts Active Amox Tr-K Clv 875-125 mg Tab (Amoxicillin/Potassium Clav) 875 Mg-125 Mg Tablet 1 Each PO BID Novolog Flexpen (Insulin Aspart) 100 Unit/Ml (3 Ml) Solution 5 Units SQ AC Levemir Flextouch (Insulin Detemir) 100 Unit/Ml (3 Ml) Insuln.pen 15 Unit SQ HS HYDROcodone/APAP 5 MG/325 MG TAB (Acetaminophen/Hydrocodone Bitart) 1 Tab Tab 1 Ea PO Q4H PRN Lisinopril 10 Mg Tablet 10 Mg PO DAILY Reported Neurontin (Gabapentin) 300 Mg Capsule 600 Mg PO BID TAKES 2 (300MG) CAPS LAST FILLED 08-12-2021 #360/90 DAY SUPPLY Bactrim Ds Tablet (Sulfamethoxazole/Trimethoprim) 800 Mg-160 Mg Tablet 1 Ea PO BID FILLED 12-27-2021 #28/14 DAY SUPPLY Ibuprofen 600 Mg Tablet 600-1,200 Mg PO BID PRN TAKES 1 TO 2 (600MG) TABS Instructions to patient/family Please see electronic discharge instructions given to patient. KAYLEE LU MD Jan 05, 2022 09:53
[2022-01-05 12:24] VITALS: BP 141/83
== END 2022-01-05 12:35 | disposition home or self-care (01) | DRG 854 ==
LOC: EDUNIT# 15:33 → ER 15:34 → 4TH 16:00 → EDLOC 16:00
PROVIDERS: ADMIT Family Medicine; ATTEND Family Medicine
PROC: 0JBR0ZZ Excision of Left Foot Subcutaneous Tissue and Fascia, Open Approach (ICD-10-PCS; principal; 2022-01-03 07:15)
DX: A41.9 Sepsis, unspecified organism (principal); L03.116 Cellulitis of left lower limb; L02.612 Cutaneous abscess of left foot; E11.621 Type 2 diabetes mellitus with foot ulcer; L97.529 Non-pressure chronic ulcer of other part of left foot with unspecified severity; E11.42 Type 2 diabetes mellitus with diabetic polyneuropathy; Z91.14 Patient's other noncompliance with medication regimen; E11.65 Type 2 diabetes mellitus with hyperglycemia; D72.829 Elevated white blood cell count, unspecified; Z79.82 Long term (current) use of aspirin; Z79.4 Long term (current) use of insulin; Z79.899 Other long term (current) drug therapy; K57.90 Diverticulosis of intestine, part unspecified, without perforation or abscess without bleeding
CPT/HCPCS: 36415; 80048; 80053; 82947; 83036; 83605; 85025; 85027; 85610; 85730; 87040; 87070; 87075; 87077; 87101; 87205

== ENCOUNTER → 2021-12-31 | Outpatient (CLI) | payer BC ==
[~2021-12-31] MED LIST changes: +ACHD5005 PO; +AMOX1TAB12 PO; +INSU100I14 SQ; +INSU100I29 SQ; +LISI10TA25 PO
== END ==
LOC: WOUNDCARE 14:18
PROVIDERS: ATTEND Family Medicine
DX: L97.522 Non-pressure chronic ulcer of other part of left foot with fat layer exposed (principal); S91.332A Puncture wound without foreign body, left foot, initial encounter; E11.621 Type 2 diabetes mellitus with foot ulcer; E11.65 Type 2 diabetes mellitus with hyperglycemia; L03.116 Cellulitis of left lower limb; I70.244 Atherosclerosis of native arteries of left leg with ulceration of heel and midfoot; E11.40 Type 2 diabetes mellitus with diabetic neuropathy, unspecified; E11.52 Type 2 diabetes mellitus with diabetic peripheral angiopathy with gangrene
CPT/HCPCS: 11042; 11045; G0463

== ENCOUNTER → 2021-12-31 | Outpatient (CLI) | payer BC ==
[~2021-12-31] MED LIST changes: -ACHD5005 PO; -AMOX1TAB12 PO; -INSU100I14 SQ; -INSU100I29 SQ; -LISI10TA25 PO
[2021-12-31 14:50] LABS: BASOPHILS # (AUTO) 0.1 10^3/uL (0.0-0.1); BASOPHILS % (AUTO) 0 % (0-10); EOSINOPHILS % (AUTO) 0 % (0-10); HEMATOCRIT 43 % (40-54); HEMOGLOBIN 14.7 g/dL (13.3-17.7); LYMPHOCYTES # (AUTO) 1.8 10^3/uL (1.0-4.0); LYMPHOCYTES % (AUTO) 8 % (12-44); MEAN CORPUSCULAR HEMOGLOBIN 31 pg (25-34); MEAN CORPUSCULAR HGB CONC 35 g/dL (32-36); MEAN CORPUSCULAR VOLUME 90 fL (80-99); MEAN PLATELET VOLUME 9.9 fL (9.0-12.2); MONOCYTES # (AUTO) 1.4 10^3/uL (0.0-1.0); MONOCYTES % (AUTO) 6 % (0-12); NEUTROPHILS # (AUTO) 19.6 10^3/uL (1.8-7.8); NEUTROPHILS % (AUTO) 85 % (42-75); PLATELET COUNT 413 10^3/uL (130-400)
[2021-12-31 15:10] LABS: ERYTHROCYTE SEDIMENTATION RATE 37 MM/HR (0-30)
[2021-12-31 15:19] LABS: ALBUMIN 3.7 GM/DL (3.2-4.5); BILIRUBIN,TOTAL 0.5 MG/DL (0.1-1.0); CALCIUM 9.7 MG/DL (8.5-10.1); CREATININE SERUM 1.28 MG/DL (0.60-1.30); POTASSIUM 4.4 MMOL/L (3.6-5.0)
[2021-12-31 15:33] LABS: BAND NEUTROPHILS 1 %; LYMPHOCYTES % (MANUAL) 8 %; MONOCYTES % (MANUAL) 6 %; NEUTROPHILS % (MANUAL) 85 %; RBC MORPH NORMAL
--- NOTE | 2021-12-31 18:26 | Diagnostic Imaging Report ---
INDICATION: Foot pain and swelling. COMPARISON: None. FINDINGS: Three views of the left foot demonstrate no acute fracture or dislocation. There are no focal osseous lesions. There is no soft tissue swelling. Joint spaces are well maintained. No radiopaque foreign bodies are seen. IMPRESSION: Unremarkable radiographic exam of the left foot. Please note, osteomyelitis cannot be excluded based on radiographs alone. If there is concern for osteomyelitis, further evaluation with MRI is recommended. Dictated by: Dictated on workstation # [id number]
== END ==
LOC: RAD 14:24
PROVIDERS: ATTEND Family Medicine
DX: E11.621 Type 2 diabetes mellitus with foot ulcer (principal); L97.522 Non-pressure chronic ulcer of other part of left foot with fat layer exposed
CPT/HCPCS: 36415; 73630; 80053; 83036; 85007; 85027; 85652; 86141

== ENCOUNTER → 2022-01-09 | Outpatient (CLI) | payer BC ==
[~2022-01-09] MED LIST changes: +ACHD5005 PO; +AMOX1TAB12 PO; +GABA300C PO; +INSU100I14 SQ; +INSU100I29 SQ; +LISI10TA25 PO; +SULF-221 PO
== END ==
LOC: WOUNDCARE 08:09
PROVIDERS: ATTEND Family Medicine
DX: E11.621 Type 2 diabetes mellitus with foot ulcer (principal); L97.523 Non-pressure chronic ulcer of other part of left foot with necrosis of muscle; S91.332A Puncture wound without foreign body, left foot, initial encounter; E11.65 Type 2 diabetes mellitus with hyperglycemia; L03.116 Cellulitis of left lower limb; I70.244 Atherosclerosis of native arteries of left leg with ulceration of heel and midfoot; E11.42 Type 2 diabetes mellitus with diabetic polyneuropathy; I96 Gangrene, not elsewhere classified
CPT/HCPCS: 11043; 11046; G0463

== ENCOUNTER → 2022-01-16 | Outpatient (CLI) | payer BC ==
[~2022-01-16] MED LIST changes: +ASPI-1238 PO; +INSU100V5 SQ
== END ==
LOC: WOUNDCARE 10:51
PROVIDERS: ATTEND Family Medicine
DX: S91.332A Puncture wound without foreign body, left foot, initial encounter (principal); E11.621 Type 2 diabetes mellitus with foot ulcer; L97.525 Non-pressure chronic ulcer of other part of left foot with muscle involvement without evidence of necrosis; E11.65 Type 2 diabetes mellitus with hyperglycemia; E11.628 Type 2 diabetes mellitus with other skin complications; L03.116 Cellulitis of left lower limb; E11.40 Type 2 diabetes mellitus with diabetic neuropathy, unspecified; I70.244 Atherosclerosis of native arteries of left leg with ulceration of heel and midfoot; E11.52 Type 2 diabetes mellitus with diabetic peripheral angiopathy with gangrene; I96 Gangrene, not elsewhere classified
CPT/HCPCS: 11043; 11046; G0463

== ENCOUNTER → 2022-01-23 | Outpatient (CLI) | payer BC ==
[~2022-01-23] MED LIST changes: -ASPI-1238 PO; -INSU100V5 SQ
== END ==
LOC: WOUNDCARE 08:15
PROVIDERS: ATTEND Family Medicine
DX: S91.332A Puncture wound without foreign body, left foot, initial encounter (principal); E11.621 Type 2 diabetes mellitus with foot ulcer; E11.65 Type 2 diabetes mellitus with hyperglycemia; E11.40 Type 2 diabetes mellitus with diabetic neuropathy, unspecified; I70.244 Atherosclerosis of native arteries of left leg with ulceration of heel and midfoot; L03.116 Cellulitis of left lower limb; L97.525 Non-pressure chronic ulcer of other part of left foot with muscle involvement without evidence of necrosis; E66.01 Morbid (severe) obesity due to excess calories; E11.52 Type 2 diabetes mellitus with diabetic peripheral angiopathy with gangrene; I96 Gangrene, not elsewhere classified; Z68.38 Body mass index [BMI] 38.0-38.9, adult
CPT/HCPCS: 11043; 11046; G0463

== ENCOUNTER 2022-01-30 10:13 | Day surgery (SDC) | payer BC ==
[2022-01-30] VITALS (12 sets, daily range): BP systolic 105–159; BP diastolic 69–104
[~2022-01-30] VITALS: Ht 180 cm; Wt 125.0 kg
[~2022-01-30 10:13] MED LIST changes: -ASPI-1238 PO; -INSU100V5 SQ
[2022-01-30] MEDS ORDERED: LIDOCAINE 1% INJ 20 ML VIAL ONE (10:41)
[2022-01-30] MEDS ORDERED: HEParin (CATH LAB) 2,000 ML IV ONE (10:42)
[2022-01-30] MEDS ORDERED: NS IV 1000 ML 1,000 ML ONE (10:42)
[2022-01-30] MEDS ORDERED: NS IV 1000 ML 1,000 ML IV SCH (10:45)
[2022-01-30 11:07] LABS: HEMATOCRIT 46 % (40-54); HEMOGLOBIN 15.5 g/dL (13.3-17.7); MEAN CORPUSCULAR HEMOGLOBIN 31 pg (25-34); MEAN CORPUSCULAR HGB CONC 34 g/dL (32-36); MEAN CORPUSCULAR VOLUME 91 fL (80-99); MEAN PLATELET VOLUME 9.9 fL (9.0-12.2); PLATELET COUNT 272 10^3/uL (130-400); WHITE BLOOD COUNT 8.6 10^3/uL (4.3-11.0)
[2022-01-30 11:10] LABS: BILIRUBIN,URINE NEGATIVE (NEGATIVE); CLARITY,URINE CLEAR; COLOR,URINE YELLOW; GLUCOSE, URINE (UA) 3+ (NEGATIVE); KETONES,URINE NEGATIVE (NEGATIVE); LEUKOCYTE ESTERASE ,URINE NEGATIVE (NEGATIVE); NITRITE,URINE NEGATIVE (NEGATIVE); PROTEIN,URINE 1+ (NEGATIVE)
--- NOTE | 2022-01-30 11:15 | Diagnostic Imaging Report ---
INDICATION: History of diabetes. Abnormal ankle-brachial indices suggesting peripheral vascular disease.. TECHNIQUE: Single view chest 10:56 AM. CORRELATION STUDY: None FINDINGS: Heart size enlarged. Vasculature slightly prominent. Elevated right diaphragm suggesting right lung volume loss. No infiltrate. IMPRESSION: 1. Cardiac enlargement with borderline vascular congestion. Dictated by: Dictated on workstation # [id number]
[2022-01-30 11:18] LABS: AMORPHOUS SEDIMENT,UR FEW AMOR URATES /LPF; BACTERIA,URINE NEGATIVE /HPF; RBC,URINE RARE /HPF; WBC,URINE RARE /HPF
[2022-01-30] MEDS ORDERED: INSU100V5 SQ (11:24)
[2022-01-30 11:25] LABS: ALBUMIN 3.8 GM/DL (3.2-4.5); BILIRUBIN,TOTAL 0.5 MG/DL (0.1-1.0); CALCIUM 9.6 MG/DL (8.5-10.1); CREATININE SERUM 0.88 MG/DL (0.60-1.30); POTASSIUM 4.3 MMOL/L (3.6-5.0); TOTAL PROTEIN 8.4 GM/DL (6.4-8.2)
[2022-01-30 11:26] LABS: INR 0.9 (0.8-1.4); PROTHROMBIN TIME PATIENT 12.5 SEC (12.2-14.7)
[2022-01-30] MEDS ORDERED: MIDAZOLAM 5 MG/5 ML (VERSED) VIAL ONE (11:47)
[2022-01-30] MEDS ORDERED: fentaNYL INJ 100 MCG/2 ML AMP ONE (11:47)
--- NOTE | 2022-01-30 12:22 | Conscious Sedation/ASA ---
Conscious Sedation Pre-Proced Time 12:22 ASA Score 3 For ASA 3 and 4: Consider anesthesia and medical clearance. Also, for patients with a history of failed moderate sedation consider anesthesia. Airway Lungs Heart ASA score ASA 1: a normal healthy patient ASA 2: a patient with a mild systemic disease (mid diabetes, controlled hypertension, obesity x ASA 3: a patient with a severe systemic disease that limits activity (angina, COPD, prior Myocardial infarction) ASA 4: a patient with an incapacitating disease that is a constant threat to life (CHF, renal failure) ASA 5: a moribund patient not expected to survive 24 hrs. (ruptured aneurysm) ASA 6: a declared brain- patient whose organs are being harvested. For emergent operations, add the letter E after the classification Mallampati Classification Grade 3 Sedation Plan Analgesia, Amnesia, Plan communicated to team members, Discussed options with patient/fam, Discussed risks with patient/fam The patient is an appropriate candidate to undergo the planned procedure, sedation, and anesthesia. The patient immediately re-assessed prior to indication. THOMAS MCLEOD MD January 30, 2022 12:22
[2022-01-30] MEDS ORDERED: HEParin 1000 UNIT/ML (10ML VIAL) FOR BOLUS ONE (12:35)
[2022-01-30] MEDS ORDERED: NITRO DRIP 25000 MCG/D5W 250 ML IV ONE (12:59)
[2022-01-30] MEDS ORDERED: PATIENT MAY USE OWN MEDS, ALL PO SCH (13:30)
--- NOTE | 2022-01-30 13:32 | Peripheral Report ---
Peripheral Report Physician (s)/Patrol Inspector (s) Physician THOMAS MCLEOD MD Pre-Procedure Diagnosis Pre-Procedure Diagnosis: Cellulitis and abscess left foot Post-Procedure Note Procedure Start Date: January 30, 2022 Name of Procedure: Bilateral lower extremities angiogram Third order Additional imaging CRTT to the left anterior tibial artery CRTT to the left posterior tibial artery Findings/Procedure Note PROCEDURE NOTE: 66-year-old gentleman with extensive peripheral arterial disease, had multiple interventions in the past. Had nonhealing wound on the left foot. Scheduled for peripheral angiogram After explaining the procedure to the patient, all pros and cons were explained, all questions were answered. The patient signed the consent and then he was placed on the cardiac catheterization laboratory. The patient was placed on the cardiac catheterization laboratory. Groin was prepped SL fashion local anesthesia was used. Sheath placed in the right femoral artery, runoff to the right leg was done through the sheath. Then using a rim catheter I advanced a Storq wire to the left common femoral artery and advanced a straight catheter to the left common iliac and did runoff to the left lower extremity then I advanced a straight wire down to the popliteal artery and remove the catheter and used long 6 Kiswahili sheath, 55 cm down to the mid left SFA and did DSA imaging to the trifurcation. Patient has severe stenosis in the posterior tibial artery proximally and total occlusion of the anterior tibial artery. Command 18 wire was advanced in the anterior tibial artery and parked distally then I advanced mini catheter to the distal anterior tibial artery, remove the command 18 and did manual injection in the distal anterior tibial artery then I placed a command 14 wire distally and remove the catheter and proceeded with balloon angioplasty using Blencoe 3 x 120, 3 inflation at the distal anterior tibial mid anterior tibial and proximal and ostial anterior tibial artery, angiogram showing excellent results. I redirected the wire in the posterior tibial artery and did balloon angioplasty with the same balloon, the balloon appeared to be undersized. I remove the balloon and used Blencoe 14 4 x 40 did 3 inflation, angiogram showing excellent results. No residual stenosis. The distal posterior tibial artery and anterior tibial artery at the foot level has moderate to severe disease very small arteries. The sheath was retracted and exchanged into a short 6 Kiswahili sheath then closure device deployed FINDINGS: Right lower extremity, mild to moderate disease at the mid right SFA, below the trifurcation the anterior tibial artery appeared to be occluded proximally, the posterior tibial artery has severe stenosis distally. The peroneal artery is patent. Left lower extremity, mild to moderate disease at the left common iliac and common femoral artery, mild to moderate disease at the mid left SFA. Total occlusion of the left anterior tibial artery with successful balloon angioplasty and reestablishment of the flow down to the foot through the anterior tibial artery Severe stenosis at the proximal left posterior tibial artery with successful balloon angioplasty with excellent results with good flow down to the foot Mild disease at the left peroneal artery nonobstructive disease. CONCLUSIONS: 1. Total occlusion of the left anterior tibial artery with successful balloon angioplasty. Severe stenosis in the proximal left posterior tibial artery with successful balloon angioplasty. End result showing excellent flow down to the foot on the left leg. Mild to moderate disease at the common femoral and SFA. 2. On the right side there is an occluded anterior tibial artery, severe stenosis at the distal left posterior tibial artery. Patient does not have an ischemic wound. We will continue monitoring DISCUSSION AND RECOMMENDATIONS: Continue to maximize medical therapy. Anesthesia Type: Conscious Sedation Estimated blood loss (mL): 25 ml Contrast Amount: 35 ml Total Radiation Dose: 205 mGy Post-Procedure Diagnosis Post-operative diagnosis: Critical limb ischemia Peripheral arterial disease Hypertension Hyperlipidemia THOMAS MCLEOD MD January 30, 2022 13:32
[2022-01-30] MEDS ORDERED: ASPIRIN 325 MG (5 GR) TABLET ONE (13:35)
[2022-01-30] MEDS ORDERED: CLOPIDOGREL 300 MG (PLAVIX) TABLET PO ONE (13:36)
[2022-01-30] MEDS: NS IV 1000 ML 1,000 ML IV SCH ×2 (14:04→18:16)
[2022-01-30] MEDS: inSUlin ASPART (NovoLOG) 1 UNIT/0.01 ML (CHARGE PER UNIT) SQ SCH (17:04)
[2022-01-30] MEDS: GABAPENTIN 300 MG (NEURONTIN) CAP PO SCH (21:02)
[2022-01-31 03:00] VITALS: BP 140/84
[2022-01-31 05:37] LABS: HEMATOCRIT 45 % (40-54); HEMOGLOBIN 14.9 g/dL (13.3-17.7); MEAN CORPUSCULAR HEMOGLOBIN 31 pg (25-34); MEAN CORPUSCULAR HGB CONC 34 g/dL (32-36); MEAN CORPUSCULAR VOLUME 92 fL (80-99); MEAN PLATELET VOLUME 10.1 fL (9.0-12.2); PLATELET COUNT 252 10^3/uL (130-400)
[2022-01-31 05:59] LABS: POTASSIUM 4.2 MMOL/L (3.6-5.0)
[2022-01-31 06:01] LABS: CALCIUM 9.1 MG/DL (8.5-10.1)
[2022-01-31 06:05] LABS: CREATININE SERUM 0.78 MG/DL (0.60-1.30)
[2022-01-31] MEDS ORDERED: ASPI-1238 PO (06:20)
[2022-01-31] MEDS ORDERED: CLOP75TA28 PO (06:20)
--- NOTE | 2022-01-31 06:21 | Discharge Inst-Post CATH ---
Discharge Inst-CATH/EP Problems Reviewed?: Yes Post Cardiac Cath/EP D/C Inst Follow Up/Plan Appointment with Dr Peterson in 2-4 weeks <b>CARDIAC CATH/EP PROCEDURE DISCHARGE INSTRUCTIONS</b> ACTIVITY * Go Home directly and rest. * Limit activity of the leg (or wrist if it was used) for 7 days including aerobics, swimming, jogging, bicycling, etc. * Restrict stair-climbing for 7 days if possible, if not, climb up with your non-cath leg, then bring together on the same step. * Avoid lifting, pushing, pulling or excessive movement of the affected extremity for 7 days. * Customary sexual activity may be resumed after 2 days-use caution not to use a position that strains or causes pain to the affected extremity. * No driving for 24 hours. * NO SMOKING. * Avoid straining for bowel movements for 7 days. * Gentle walking on level ground is allowed. * Returning to work will depend on the type of procedure and the results. Your doctor will discuss this with you. CALL YOUR DOCTOR FOR ANY OF THE FOLLOWING: *If bleeding from the puncture site occurs- Apply gentle pressure to site with clean cloth and call your doctor or EMS. * If a knot or lump forms under the skin, increases in size, or causes pain. * If bruising appears to be worsening or moving further down your leg instead of disappearing. * Temperature above 101 F. CARE OF YOUR GROIN INCISION; * Bruising or purple discoloration of the skin near the puncture site is common. * You may shower only, no bathtub bathing for 5 days. Be careful to avoid slipping as your leg may feel stiff. * If a closure device was used on your femoral artery, please see the attached guide regarding care of the device and your leg. * Leave dressing on FOR 24 hours. CARE OF YOUR WRIST INCISION; * Bruising or purple discoloration of the skin near the puncture site is common. * You may shower. * DO NOT submerge wrist. * Leave dressing on FOR 24 hours. THOMAS PETERSON MD January 31, 2022 06:21
[2022-01-31 07:00] VITALS: BP 148/103
[2022-01-31] MEDS ORDERED: EMPA10TA PO (07:55)
--- NOTE | 2022-01-31 07:58 | Cardiology Progress Note ---
Subjective Date Seen by Provider: January 31, 2022 Time Seen by Provider: 07:55 Subjective/Events-last exam Patient was seen at bedside, laying down comfortably, feeling well, groin is healing well. Review of Systems General: No Chills, No Night Sweats, No Fatigue, No Malaise, No Appetite, No Other HEENT: No Head Aches, No Visual Changes, No Eye Pain, No Ear Pain, No Dy sphasia, No Sinus Congestion, No Post Nasal Drip, No Sore Throat, No Other Pulmonary: No Dyspnea, No Cough, No Pleuritic Chest Pain, No Other Cardiovascular: No: Chest Pain, Palpitations, Orthopnea, Paroxysmal Noc. Dyspnea, Edema, Lt Headedness, Other Objective-Cardiology Exam Last Set of Vital Signs Vital Signs 01/30/22 01/31/22 01/31/22 22:58 03:00 07:00 Temp 36.4 Pulse 71 Resp 13 B/P (MAP) 140/84 (102) Pulse Ox 97 O2 Delivery Room Air I&O Intake and Output 01/31/22 00:00 Intake Total 1600 ml Balance 1600 ml Intake Oral 600 ml IV Total 1000 ml # Voids 3 # Bowel Movements 2 General: Alert, Oriented X3, Cooperative HEENT: Atraumatic, PERRLA Neck: Supple, No JVD, No Thyromegaly Lungs: Clear to Auscultation, Normal Air Movement Heart: Regular Rate, Normal S1, Normal S2, No Murmurs Abdomen: Normal Bowel Sounds, Soft, No Tenderness, No Hepatosplenomegaly, No Masses Extremities: No Clubbing, No Edema, No Tenderness/Swelling, Other (Ulceration on the left foot) Skin: Other (Ulceration on the left foot) Neuro: Normal Gait, Normal Speech, Strength at 5/5 X4 Ext, Normal Tone, Sensati on Intact Psych/Mental Status: Mental Status NL, Mood NL Results Lab Laboratory Tests 01/30/22 11:00 01/31/22 05:19 A/P-Cardiology Admission Diagnosis Critical limb ischemia, nonhealing wound Peripheral arterial disease Hypertension Hyperlipidemia Diabetes mellitus Assessment/Plan Nonhealing wound on the left lower extremity. Status post complex intervention with balloon angioplasty to the anterior tibial artery and posterior tibial artery with excellent results. Mild to moderate disease on the left iliac and SFA. Right lower extremity has extensive disease as described below. Started on aspirin and Plavix. Peripheral angiogram results: 1. Total occlusion of the left anterior tibial artery with successful balloon angioplasty. Severe stenosis in the proximal left posterior tibial artery with successful balloon angioplasty. End result showing excellent flow down to the foot on the left leg. Mild to moderate disease at the common femoral and SFA. 2. On the right side there is an occluded anterior tibial artery, severe stenosis at the distal left posterior tibial artery. Patient does not have an ischemic wound. We will continue monitoring Hypertension, continue current medication monitor Hyperlipidemia, intolerant to statin Diabetes mellitus, poorly controlled, maintained on insulin, adding Jardiance. THOMAS MCLEOD MD January 31, 2022 07:58
[2022-01-31 08:01] VITALS: BP 148/103
[2022-01-31] MEDS: inSUlin ASPART (NovoLOG) 1 UNIT/0.01 ML (CHARGE PER UNIT) SQ SCH (08:08)
[2022-01-31] MEDS ORDERED: lisINopril 10 MG (PRINIVIL) TABLET PO SCH (09:00)
[2022-01-31] MEDS ORDERED: ASPIRIN E.C. 81 MG (ECOTRIN) TAB PO SCH (09:00)
[2022-01-31] MEDS ORDERED: CLOPIDOGREL 75 MG (PLAVIX) TABLET PO SCH (09:00)
[2022-01-31] MEDS: GABAPENTIN 300 MG (NEURONTIN) CAP PO SCH (09:05)
[2022-01-31] MEDS: NS IV 1000 ML 1,000 ML IV SCH (09:06)
== END 2022-01-31 11:00 | disposition home or self-care (01) ==
LOC: CATH 10:13 → CSD 13:45 → CATH 01-31 11:00
PROVIDERS: ATTEND Internal Medicine Cardiovascular Disease
DX: I70.92 Chronic total occlusion of artery of the extremities (principal); E11.51 Type 2 diabetes mellitus with diabetic peripheral angiopathy without gangrene; I65.23 Occlusion and stenosis of bilateral carotid arteries; S91.302A Unspecified open wound, left foot, initial encounter; I10 Essential (primary) hypertension; E78.5 Hyperlipidemia, unspecified; I77.89 Other specified disorders of arteries and arterioles; I70.202 Unspecified atherosclerosis of native arteries of extremities, left leg; Z87.891 Personal history of nicotine dependence; Z79.4 Long term (current) use of insulin
CPT/HCPCS: 36247; 36248; 37228; 37232; 71045; 75716; 80048; 80053; 80061; 81000; 82947; 85027 ×2; 85610; 85730; 87081; 93005; C1725 ×2; C1760; C1769 ×3; C1887 ×3; C1894 ×3; 36415

== ENCOUNTER → 2022-01-30 | Outpatient (CLI) | payer BC ==
[~2022-01-30] MED LIST changes: +ASPI-1238 PO; +INSU100V5 SQ
== END ==
LOC: WOUNDCARE 08:20
PROVIDERS: ATTEND Family Medicine
DX: S91.332A Puncture wound without foreign body, left foot, initial encounter (principal); I96 Gangrene, not elsewhere classified; I70.244 Atherosclerosis of native arteries of left leg with ulceration of heel and midfoot; I65.22 Occlusion and stenosis of left carotid artery; E11.621 Type 2 diabetes mellitus with foot ulcer; E11.65 Type 2 diabetes mellitus with hyperglycemia; E11.40 Type 2 diabetes mellitus with diabetic neuropathy, unspecified; E11.52 Type 2 diabetes mellitus with diabetic peripheral angiopathy with gangrene; E66.01 Morbid (severe) obesity due to excess calories; L97.525 Non-pressure chronic ulcer of other part of left foot with muscle involvement without evidence of necrosis; L03.116 Cellulitis of left lower limb; Z68.38 Body mass index [BMI] 38.0-38.9, adult
CPT/HCPCS: 99213

== ENCOUNTER → 2022-02-06 | Outpatient (CLI) | payer BC ==
[~2022-02-06] MED LIST changes: +ASPI-1238 PO; +INSU100V5 SQ
== END ==
LOC: WOUNDCARE 08:15
PROVIDERS: ATTEND Family Medicine
DX: S91.332A Puncture wound without foreign body, left foot, initial encounter (principal); E11.622 Type 2 diabetes mellitus with other skin ulcer; E11.65 Type 2 diabetes mellitus with hyperglycemia; E11.52 Type 2 diabetes mellitus with diabetic peripheral angiopathy with gangrene; I96 Gangrene, not elsewhere classified; I70.244 Atherosclerosis of native arteries of left leg with ulceration of heel and midfoot; I65.22 Occlusion and stenosis of left carotid artery; E11.40 Type 2 diabetes mellitus with diabetic neuropathy, unspecified; L97.525 Non-pressure chronic ulcer of other part of left foot with muscle involvement without evidence of necrosis; E66.01 Morbid (severe) obesity due to excess calories; Z68.38 Body mass index [BMI] 38.0-38.9, adult
CPT/HCPCS: 11042; 11045; G0463

== ENCOUNTER → 2022-02-13 | Outpatient (CLI) | payer BC | LOC: WOUNDCARE 08:09 | PROVIDERS: ATTEND Family Medicine | DX: S91.332A Puncture wound without foreign body, left foot, initial encounter (principal); E11.621 Type 2 diabetes mellitus with foot ulcer; E11.65 Type 2 diabetes mellitus with hyperglycemia; I70.244 Atherosclerosis of native arteries of left leg with ulceration of heel and midfoot; I65.22 Occlusion and stenosis of left carotid artery; E11.40 Type 2 diabetes mellitus with diabetic neuropathy, unspecified; L97.525 Non-pressure chronic ulcer of other part of left foot with muscle involvement without evidence of necrosis; E66.01 Morbid (severe) obesity due to excess calories; I95.9 Hypotension, unspecified; E11.52 Type 2 diabetes mellitus with diabetic peripheral angiopathy with gangrene | CPT/HCPCS: 11042; 11045; G0463 ==

== ENCOUNTER → 2022-02-20 | Outpatient (CLI) | payer BC | LOC: WOUNDCARE 08:25 | PROVIDERS: ATTEND Family Medicine | DX: S91.332A Puncture wound without foreign body, left foot, initial encounter (principal); E11.621 Type 2 diabetes mellitus with foot ulcer; L97.525 Non-pressure chronic ulcer of other part of left foot with muscle involvement without evidence of necrosis; E11.65 Type 2 diabetes mellitus with hyperglycemia; I65.22 Occlusion and stenosis of left carotid artery; E11.42 Type 2 diabetes mellitus with diabetic polyneuropathy; E66.01 Morbid (severe) obesity due to excess calories; I70.244 Atherosclerosis of native arteries of left leg with ulceration of heel and midfoot; E11.52 Type 2 diabetes mellitus with diabetic peripheral angiopathy with gangrene; I96 Gangrene, not elsewhere classified | CPT/HCPCS: 11042; 11045; G0463 ==

== ENCOUNTER → 2022-02-28 | Outpatient (CLI) | payer BC | LOC: WOUNDCARE 09:00 | PROVIDERS: ATTEND Family Medicine | DX: S91.332A Puncture wound without foreign body, left foot, initial encounter (principal); E11.621 Type 2 diabetes mellitus with foot ulcer; E11.65 Type 2 diabetes mellitus with hyperglycemia; I70.244 Atherosclerosis of native arteries of left leg with ulceration of heel and midfoot; I65.22 Occlusion and stenosis of left carotid artery; E11.40 Type 2 diabetes mellitus with diabetic neuropathy, unspecified; L97.525 Non-pressure chronic ulcer of other part of left foot with muscle involvement without evidence of necrosis; E66.01 Morbid (severe) obesity due to excess calories; E11.52 Type 2 diabetes mellitus with diabetic peripheral angiopathy with gangrene; I96 Gangrene, not elsewhere classified; Z68.38 Body mass index [BMI] 38.0-38.9, adult | CPT/HCPCS: 11042; 11045; A6197; G0463 ==

== ENCOUNTER → 2022-03-06 | Outpatient (CLI) | payer BC | LOC: WOUNDCARE 08:22 | PROVIDERS: ATTEND Family Medicine | DX: S91.332A Puncture wound without foreign body, left foot, initial encounter (principal); E11.621 Type 2 diabetes mellitus with foot ulcer; E11.65 Type 2 diabetes mellitus with hyperglycemia; I70.244 Atherosclerosis of native arteries of left leg with ulceration of heel and midfoot; I65.22 Occlusion and stenosis of left carotid artery; E11.40 Type 2 diabetes mellitus with diabetic neuropathy, unspecified; L97.525 Non-pressure chronic ulcer of other part of left foot with muscle involvement without evidence of necrosis; E11.52 Type 2 diabetes mellitus with diabetic peripheral angiopathy with gangrene; I96 Gangrene, not elsewhere classified; E66.01 Morbid (severe) obesity due to excess calories; Z68.38 Body mass index [BMI] 38.0-38.9, adult | CPT/HCPCS: 11042; G0463 ==

== ENCOUNTER → 2022-03-13 | Outpatient (CLI) | payer BC | LOC: WOUNDCARE 08:24 | PROVIDERS: ATTEND Family Medicine | DX: S91.332A Puncture wound without foreign body, left foot, initial encounter (principal); E11.621 Type 2 diabetes mellitus with foot ulcer; E11.65 Type 2 diabetes mellitus with hyperglycemia; I70.244 Atherosclerosis of native arteries of left leg with ulceration of heel and midfoot; I65.22 Occlusion and stenosis of left carotid artery; E11.40 Type 2 diabetes mellitus with diabetic neuropathy, unspecified; L97.525 Non-pressure chronic ulcer of other part of left foot with muscle involvement without evidence of necrosis; E66.01 Morbid (severe) obesity due to excess calories; E11.52 Type 2 diabetes mellitus with diabetic peripheral angiopathy with gangrene | CPT/HCPCS: 11042; G0463 ==

== ENCOUNTER → 2022-03-20 | Outpatient (CLI) | payer BC | LOC: WOUNDCARE 12:50 | PROVIDERS: ATTEND Family Medicine | DX: S91.332A Puncture wound without foreign body, left foot, initial encounter (principal); E11.621 Type 2 diabetes mellitus with foot ulcer; E11.65 Type 2 diabetes mellitus with hyperglycemia; I70.244 Atherosclerosis of native arteries of left leg with ulceration of heel and midfoot; I65.22 Occlusion and stenosis of left carotid artery; E11.40 Type 2 diabetes mellitus with diabetic neuropathy, unspecified; L97.525 Non-pressure chronic ulcer of other part of left foot with muscle involvement without evidence of necrosis; E66.01 Morbid (severe) obesity due to excess calories; E11.52 Type 2 diabetes mellitus with diabetic peripheral angiopathy with gangrene; I96 Gangrene, not elsewhere classified | CPT/HCPCS: 11042; G0463 ==

== ENCOUNTER → 2022-04-03 | Outpatient (CLI) | payer BC | LOC: WOUNDCARE 08:08 | PROVIDERS: ATTEND Family Medicine | DX: E11.621 Type 2 diabetes mellitus with foot ulcer (principal); L97.525 Non-pressure chronic ulcer of other part of left foot with muscle involvement without evidence of necrosis; E11.65 Type 2 diabetes mellitus with hyperglycemia; I25.10 Atherosclerotic heart disease of native coronary artery without angina pectoris; E11.40 Type 2 diabetes mellitus with diabetic neuropathy, unspecified; E66.01 Morbid (severe) obesity due to excess calories; S91.332A Puncture wound without foreign body, left foot, initial encounter; I70.244 Atherosclerosis of native arteries of left leg with ulceration of heel and midfoot; E11.52 Type 2 diabetes mellitus with diabetic peripheral angiopathy with gangrene; I96 Gangrene, not elsewhere classified | CPT/HCPCS: 11042; G0463 ==

== ENCOUNTER → 2022-04-10 | Outpatient (CLI) | payer BC ==
[2022-04-10 09:38] LABS: ALBUMIN 3.9 GM/DL (3.2-4.5); BILIRUBIN,TOTAL 0.5 MG/DL (0.1-1.0); CALCIUM 9.8 MG/DL (8.5-10.1); CREATININE SERUM 1.34 MG/DL (0.60-1.30); POTASSIUM 4.1 MMOL/L (3.6-5.0); TOTAL PROTEIN 8.3 GM/DL (6.4-8.2)
== END ==
LOC: LAB 08:11
PROVIDERS: ATTEND Family Medicine
DX: E11.621 Type 2 diabetes mellitus with foot ulcer (principal); E55.9 Vitamin D deficiency, unspecified
CPT/HCPCS: 36415; 80053; 82306; 82607; 83036

== ENCOUNTER → 2022-04-10 | Outpatient (CLI) | payer BC | LOC: WOUNDCARE 08:22 | PROVIDERS: ATTEND Family Medicine | DX: S91.332A Puncture wound without foreign body, left foot, initial encounter (principal); E11.621 Type 2 diabetes mellitus with foot ulcer; E11.65 Type 2 diabetes mellitus with hyperglycemia; E11.52 Type 2 diabetes mellitus with diabetic peripheral angiopathy with gangrene; I96 Gangrene, not elsewhere classified; I70.244 Atherosclerosis of native arteries of left leg with ulceration of heel and midfoot; I65.22 Occlusion and stenosis of left carotid artery; E11.40 Type 2 diabetes mellitus with diabetic neuropathy, unspecified; L97.525 Non-pressure chronic ulcer of other part of left foot with muscle involvement without evidence of necrosis; E66.01 Morbid (severe) obesity due to excess calories; Z68.39 Body mass index [BMI] 39.0-39.9, adult | CPT/HCPCS: 11042; G0463 ==

== ENCOUNTER → 2022-04-17 | Outpatient (CLI) | payer BC | LOC: WOUNDCARE 08:17 | PROVIDERS: ATTEND Family Medicine | DX: S91.332A Puncture wound without foreign body, left foot, initial encounter (principal); E11.621 Type 2 diabetes mellitus with foot ulcer; E11.65 Type 2 diabetes mellitus with hyperglycemia; I70.244 Atherosclerosis of native arteries of left leg with ulceration of heel and midfoot; I65.22 Occlusion and stenosis of left carotid artery; E11.40 Type 2 diabetes mellitus with diabetic neuropathy, unspecified; L97.525 Non-pressure chronic ulcer of other part of left foot with muscle involvement without evidence of necrosis; E66.01 Morbid (severe) obesity due to excess calories; E55.9 Vitamin D deficiency, unspecified; E11.52 Type 2 diabetes mellitus with diabetic peripheral angiopathy with gangrene | CPT/HCPCS: 11042; G0463 ==

== ENCOUNTER → 2022-04-24 | Outpatient (CLI) | payer BC | LOC: WOUNDCARE 08:19 | PROVIDERS: ATTEND Family Medicine | DX: S91.332A Puncture wound without foreign body, left foot, initial encounter (principal); E11.621 Type 2 diabetes mellitus with foot ulcer; E11.65 Type 2 diabetes mellitus with hyperglycemia; I70.244 Atherosclerosis of native arteries of left leg with ulceration of heel and midfoot; I65.22 Occlusion and stenosis of left carotid artery; E11.40 Type 2 diabetes mellitus with diabetic neuropathy, unspecified; L97.525 Non-pressure chronic ulcer of other part of left foot with muscle involvement without evidence of necrosis; E66.01 Morbid (severe) obesity due to excess calories; E55.9 Vitamin D deficiency, unspecified; E11.52 Type 2 diabetes mellitus with diabetic peripheral angiopathy with gangrene | CPT/HCPCS: 11042; G0463 ==

== ENCOUNTER → 2022-05-02 | Outpatient (CLI) | payer BC | LOC: WOUNDCARE 08:12 | PROVIDERS: ATTEND Family Medicine | DX: E11.621 Type 2 diabetes mellitus with foot ulcer (principal); E11.65 Type 2 diabetes mellitus with hyperglycemia; E11.52 Type 2 diabetes mellitus with diabetic peripheral angiopathy with gangrene; I96 Gangrene, not elsewhere classified; I70.244 Atherosclerosis of native arteries of left leg with ulceration of heel and midfoot; I65.22 Occlusion and stenosis of left carotid artery; E11.40 Type 2 diabetes mellitus with diabetic neuropathy, unspecified; S91.332A Puncture wound without foreign body, left foot, initial encounter; L97.525 Non-pressure chronic ulcer of other part of left foot with muscle involvement without evidence of necrosis; E66.01 Morbid (severe) obesity due to excess calories; E55.9 Vitamin D deficiency, unspecified; Z68.39 Body mass index [BMI] 39.0-39.9, adult | CPT/HCPCS: 11042; G0463 ==

== ENCOUNTER → 2022-05-08 | Outpatient (CLI) | payer BC | LOC: WOUNDCARE 08:20 | PROVIDERS: ATTEND Family Medicine | DX: S91.332A Puncture wound without foreign body, left foot, initial encounter (principal); E11.621 Type 2 diabetes mellitus with foot ulcer; E11.65 Type 2 diabetes mellitus with hyperglycemia; I70.244 Atherosclerosis of native arteries of left leg with ulceration of heel and midfoot; I65.22 Occlusion and stenosis of left carotid artery; E11.40 Type 2 diabetes mellitus with diabetic neuropathy, unspecified; L97.525 Non-pressure chronic ulcer of other part of left foot with muscle involvement without evidence of necrosis; E66.01 Morbid (severe) obesity due to excess calories; E55.9 Vitamin D deficiency, unspecified; E11.52 Type 2 diabetes mellitus with diabetic peripheral angiopathy with gangrene | CPT/HCPCS: 11042; G0463 ==

== ENCOUNTER → 2022-05-15 | Outpatient (CLI) | payer BC | LOC: WOUNDCARE 08:15 | PROVIDERS: ATTEND Family Medicine | DX: S91.332A Puncture wound without foreign body, left foot, initial encounter (principal); E11.621 Type 2 diabetes mellitus with foot ulcer; E11.65 Type 2 diabetes mellitus with hyperglycemia; I70.244 Atherosclerosis of native arteries of left leg with ulceration of heel and midfoot; I65.22 Occlusion and stenosis of left carotid artery; E11.40 Type 2 diabetes mellitus with diabetic neuropathy, unspecified; L97.525 Non-pressure chronic ulcer of other part of left foot with muscle involvement without evidence of necrosis; E66.01 Morbid (severe) obesity due to excess calories; E55.9 Vitamin D deficiency, unspecified; E11.52 Type 2 diabetes mellitus with diabetic peripheral angiopathy with gangrene | CPT/HCPCS: 11042; G0463 ==

== ENCOUNTER → 2022-05-29 | Outpatient (CLI) | payer BC ==
[~2022-05-29] MED LIST changes: +LEVO750T PO; -LEVO750T39 PO
== END ==
LOC: WOUNDCARE 08:08
PROVIDERS: ATTEND Family Medicine
DX: S91.332A Puncture wound without foreign body, left foot, initial encounter (principal); E11.621 Type 2 diabetes mellitus with foot ulcer; E11.65 Type 2 diabetes mellitus with hyperglycemia; E11.52 Type 2 diabetes mellitus with diabetic peripheral angiopathy with gangrene; I70.244 Atherosclerosis of native arteries of left leg with ulceration of heel and midfoot; I65.22 Occlusion and stenosis of left carotid artery; I96 Gangrene, not elsewhere classified; E11.40 Type 2 diabetes mellitus with diabetic neuropathy, unspecified; L97.525 Non-pressure chronic ulcer of other part of left foot with muscle involvement without evidence of necrosis; E66.01 Morbid (severe) obesity due to excess calories; E55.9 Vitamin D deficiency, unspecified; Z68.39 Body mass index [BMI] 39.0-39.9, adult
CPT/HCPCS: 11042; G0463

== ENCOUNTER → 2022-06-05 | Outpatient (CLI) | payer BC | LOC: WOUNDCARE 08:25 | PROVIDERS: ATTEND Family Medicine | DX: S91.332A Puncture wound without foreign body, left foot, initial encounter (principal); L97.525 Non-pressure chronic ulcer of other part of left foot with muscle involvement without evidence of necrosis; E11.621 Type 2 diabetes mellitus with foot ulcer; E11.65 Type 2 diabetes mellitus with hyperglycemia; L97.509 Non-pressure chronic ulcer of other part of unspecified foot with unspecified severity; I70.234 Atherosclerosis of native arteries of right leg with ulceration of heel and midfoot; I65.22 Occlusion and stenosis of left carotid artery; E11.40 Type 2 diabetes mellitus with diabetic neuropathy, unspecified; E66.01 Morbid (severe) obesity due to excess calories; E55.9 Vitamin D deficiency, unspecified | CPT/HCPCS: 99213 ==

== ENCOUNTER → 2022-06-17 | Outpatient (CLI) | payer BC ==
--- NOTE | 2022-06-17 19:28 | Diagnostic Imaging Report ---
INDICATION: Diabetic foot ulcer. AP, oblique, and lateral views of the left foot are obtained. Comparison is made to study of 12/31/2021. FINDINGS: There is swelling and bandaging about the fifth digit; however, no underlying fracture, malalignment, or bone destruction is seen. There are atherosclerotic calcifications. Degenerative findings are stable. IMPRESSION: There may be cellulitis involving the fifth toe without radiographic evidence of acute osteomyelitis. Dictated by: Dictated on workstation # [id number]
== END ==
LOC: WOUNDCARE 13:21
PROVIDERS: ATTEND Family Medicine
DX: E11.621 Type 2 diabetes mellitus with foot ulcer (principal); L97.509 Non-pressure chronic ulcer of other part of unspecified foot with unspecified severity; E11.65 Type 2 diabetes mellitus with hyperglycemia; E11.40 Type 2 diabetes mellitus with diabetic neuropathy, unspecified; E66.01 Morbid (severe) obesity due to excess calories; E55.9 Vitamin D deficiency, unspecified; L97.522 Non-pressure chronic ulcer of other part of left foot with fat layer exposed; S90.822A Blister (nonthermal), left foot, initial encounter
CPT/HCPCS: 11042; 36415; 73630; 82306; 85652; 86141

== ENCOUNTER 2022-06-25 15:36 | Inpatient (IN) | payer BC ==
[~2022-06-25] VITALS: Ht 182.8 cm; Wt 134.1 kg
[2022-06-25] MEDS ORDERED: ONDANSETRON 4 MG/2 ML (SDV) Z0FRAN ONE (15:52)
[2022-06-25] MEDS ORDERED: ONDANSETRON 4 MG/2 ML (SDV) Z0FRAN IVP ONE (16:00)
[2022-06-25 16:15] LABS: BASOPHILS # (AUTO) 0.1 10^3/uL (0.0-0.1); BASOPHILS % (AUTO) 0 % (0-10); EOSINOPHILS % (AUTO) 0 % (0-10); HEMATOCRIT 48 % (40-54); HEMOGLOBIN 16.1 g/dL (13.3-17.7); LYMPHOCYTES # (AUTO) 0.4 10^3/uL (1.0-4.0); LYMPHOCYTES % (AUTO) 2 % (12-44); MEAN CORPUSCULAR HEMOGLOBIN 31 pg (25-34); MEAN CORPUSCULAR HGB CONC 34 g/dL (32-36); MEAN CORPUSCULAR VOLUME 91 fL (80-99); MEAN PLATELET VOLUME 10.6 fL (9.0-12.2); MONOCYTES # (AUTO) 0.8 10^3/uL (0.0-1.0); MONOCYTES % (AUTO) 4 % (0-12); NEUTROPHILS % (AUTO) 93 % (42-75); PLATELET COUNT 205 10^3/uL (130-400); WHITE BLOOD COUNT 20.4 10^3/uL (4.3-11.0)
[2022-06-25] MEDS ORDERED: ACETAMINOPHEN 500 MG TAB (TYLENOL) PO ONE (16:15)
[2022-06-25] MEDS ORDERED: NS IV 1000 ML 1,000 ML IV SCH (16:15)
--- NOTE | 2022-06-25 16:21 | Diagnostic Imaging Report ---
INDICATION: Altered mental status. TECHNIQUE: Frontal chest obtained at 04:15 p.m. and compared to 01/30/2022. FINDINGS: There is cardiomegaly. There is mild central vascular congestion. There is unchanged elevation of the right hemidiaphragm. There is no pneumothorax or pleural fluid or focal consolidation. IMPRESSION: Cardiomegaly and central vascular congestion. Unchanged elevation of the right hemidiaphragm. No pneumothorax or pleural fluid. Dictated by: Dictated on workstation # [id number]
[2022-06-25 16:30] LABS: ALBUMIN 4.1 GM/DL (3.2-4.5); POTASSIUM 4.5 MMOL/L (3.6-5.0)
[2022-06-25] MEDS ORDERED: VANCOMYCIN INJECTION 0.1 MG in NS (IVPB) 250 ML IV ONE (16:30)
[2022-06-25 16:31] LABS: CALCIUM 9.6 MG/DL (8.5-10.1)
[2022-06-25 16:32] LABS: PROTHROMBIN TIME PATIENT 13.7 SEC (12.2-14.7)
[2022-06-25 16:33] LABS: BAND NEUTROPHILS 16 %; BASOPHILS % (MANUAL) 0 %; EOSINOPHILS % (MANUAL) 0 %; LYMPHOCYTES % (MANUAL) 3 %; MONOCYTES % (MANUAL) 1 %; NEUTROPHILS % (MANUAL) 80 %; RBC MORPH NORMAL; TOTAL PROTEIN 8.9 GM/DL (6.4-8.2)
[2022-06-25 16:36] LABS: CREATININE SERUM 1.47 MG/DL (0.60-1.30)
--- NOTE | 2022-06-25 16:38 | Diagnostic Imaging Report ---
PROCEDURE: CT head without contrast. TECHNIQUE: Multiple contiguous axial images were obtained through the brain without the use of intravenous contrast. Auto Exposure Controls were utilized during the CT exam to meet ALARA standards for radiation dose reduction. INDICATION: Diaphoresis and confusion after a fall. COMPARISON: I have no prior head imaging. FINDINGS: Cerebral cortical volume is unremarkable for age. No focal nor generalized cerebral edema. There is no hemorrhage and there are no abnormal extra-axial collections. The basilar cisterns are patent. There is no sulcal effacement. There was no mass or mass effect. Orbits, sinuses, and calvarium appeared nonacute. IMPRESSION: Unremarkable CT head. Dictated by: Dictated on workstation # [id number]
--- NOTE | 2022-06-25 16:45 | ED General ---
General Chief Complaint: Neurological Problems Stated Complaint: LIGHTHEADED Nursing Triage Note: PT TO RM 2 BY WC WITH COMPLAINT OF FALL, CONFUSION. PT IS DIAPHORETIC. PT WAS BROUGHT IN BY COWORKER. COWORKER STATES HE FOLLOWED PT HOME, AND PT WAS FOUND ON GROUND. PT WAS INCONTINENT ON ARRIVAL. Source of Information: Other (Friend) Exam Limitations: Physical Impairments History of Present Illness Date Seen by Provider: Jun 25, 2022 Time Seen by Provider: 16:32 Initial Comments This is a 66-year-old male with history of HTN and poorly controlled DM who presented to the ER via POV with his employee for concerns of confusion and fall. Upon arrival patient is altered and unable to contribute much to his HPI. His employee states that when he picked him up for work today he was driving around to several wrong job sites and was not acting "quite right". Initially he noticed the symptoms around 1000 this morning and around 1200 today he reports patient was having increased confusion. Co-worker states he followed him home and found him lying on the ground. He brought him to ER for further evaluation. Daughter notified per employee. Allergies and Home Medications Allergies Coded Allergies: No Known Drug Allergies (Unverified , 09/20/19) Patient Home Medication List Home Medication List Reviewed: Yes Amoxicillin/Potassium Clav (Amox Tr-K Clv 875-125 mg Tab) 875 Mg-125 Mg Tablet, 1 EACH PO BID Prescribed by: KAYLEE LU on 01/05/22911 Aspirin (Aspirin EC) 81 Mg Tablet.dr, 81 MG PO DAILY Prescribed by: THOMAS MCLEOD on 01/31/22 0620 Clopidogrel Bisulfate (Clopidogrel) 75 Mg Tablet, 75 MG PO DAILY Prescribed by: THOMAS MCLEOD on 01/31/22 0620 Empagliflozin (Jardiance) 10 Mg Tablet, 10 MG PO DAILY Prescribed by: THOMAS MCLEOD on 01/31/22 0755 Gabapentin (Neurontin) 300 Mg Capsule, 600 MG PO BID, (Reported) Entered as Reported by: ANDI ORTEGA on 01/01/22 1103 Insulin Aspart (Novolog Flexpen) 100 Unit/Ml (3 Ml) Solution, 5 UNITS SQ AC Prescribed by: KAYLEE LU on 01/05/22 0912 Insulin Determir (Levemir) 100 Unit/Ml Soln, 20 UNITS SQ HS, (Reported) Entered as Reported by: KIRILL SUE on 01/30/22 1124 Lisinopril (Lisinopril) 10 Mg Tablet, 10 MG PO DAILY Prescribed by: KAYLEE LU on 01/05/22 0912 Review of Systems Review of Systems Constitutional: see HPI Past Mgwbyxm-Dcbxfe-Gnghbz Hx Patient Social History Tobacco Use?: No Use of E-Cig and/or Vaping dev: No Substance use?: No Alcohol Use?: No Pt feels they are or have been: No Immunizations Up To Date First/Initial COVID19 Vaccinat: 2020 Second COVID19 Vaccination Aris: 2020 Seasonal Allergies Seasonal Allergies: No Past Medical History Surgery/Hospitalization HX: going to [facility]: Yes Gallbladder Respiratory: No Currently Using CPAP: No Currently Using BIPAP: No Cardiac: Yes Hypertension Neurological: No Genitourinary: No Gastrointestinal: Yes Diverticulosis Musculoskeletal: No Endocrine: Yes Diabetes, Insulin dep HEENT: No Cancer: No Psychosocial: No Integumentary: No Blood Disorders: No Family Medical History No Pertinent Family Hx Physical Exam-Suspected Sepsis Physical Exam Vital Signs Vital Signs - First Documented Capillary Refill : Less Than 3 Seconds Blood Pressure Mean: 104 Height, Weight, BMI Height: '" Weight: lbs. oz. kg; 40.00 BMI Method: General Appearance: Obese, Other (ill) Eyes: Bilateral Eye Normal Inspection, Bilateral Eye PERRL HEENT: PERRL/EOMI, Pharynx Normal, Moist Mucous Membranes Neck: Normal Inspection, Supple Respiratory: Lungs Clear, Normal Breath Sounds, No Accessory Muscle Use, No Respiratory Distress Cardiovascular: Regular Rate, Rhythm, Normal Peripheral Pulses; No Friction Rub, No Gallop/S3; Tachycardia Gastrointestinal: Normal Bowel Sounds, No Pulsatile Mass, Soft Extremity: Normal Capillary Refill, Normal Inspection, Normal Range of Motion Neurologic/Psychiatric: No Motor/Sensory Deficits, Other (confused, oriented to person only) Skin: diaphoresis (lazar), ulcerations (lateral left 5th toe ) Focused Exam Sepsis Stage: Severe Sepsis Possible Source: Wound Lactate Level 06/25/22 15:52: Lactic Acid Level 3.55*H 06/25/22 17:57: Lactic Acid Level 0.98 Time of Focused Exam: 17:30 Respiratory: Lungs Clear, Normal Breath Sounds, No Accessory Muscle Use, No Respiratory Distress Cardiovascular: Regular Rate, Rhythm, No Gallop, Normal Peripheral Pulses Capillary Refill: Less Than 3 Seconds Peripheral Pulses: 2+ Radial Pulses (R), 2+ Radial Pulses (L) Skin: normal color, warm/dry Lactic Acid Level 1757: 0.98 Within 3hrs of presentation: Admin fluids, Admin ABX, Blood cultures prior to ABX's, Focus exam, Lactate level Progress/Results/Core Measures Suspected Sepsis SIRS Temperature: Pulse: 133 Respiratory Rate: 43 Laboratory Tests 06/25/22 15:52: White Blood Count 20.4H Blood Pressure 132 /90 Mean: 104 06/25/22 15:52: Lactic Acid Level 3.55*H 06/25/22 17:57: Lactic Acid Level 0.98 Laboratory Tests 06/25/22 15:52: Creatinine 1.47H, INR Comment 1.0, Platelet Count 205, Total Bilirubin 1.0 Results/Orders Lab Results Laboratory Tests Test 06/25/22 15:49 06/25/22 15:52 06/25/22 17:57 06/25/22 18:41 Range/Units Glucometer 460 *H 70-110 MG/DL White Blood Count 20.4 H 4.3-11.0 10^3/uL Red Blood Count 5.26 4.30-5.52 10^6/uL Hemoglobin 16.1 13.3-17.7 g/dL Hematocrit 48 40-54 % Mean Corpuscular Volume 91 80-99 fL Mean Corpuscular Hemoglobin 31 25-34 pg Mean Corpuscular Hemoglobin Concent 34 32-36 g/dL Red Cell Distribution Width 12.6 10.0-14.5 % Platelet Count 205 130-400 10^3/uL Mean Platelet Volume 10.6 9.0-12.2 fL Immature Granulocyte % (Auto) 1 % Neutrophils (%) (Auto) 93 H 42-75 % Lymphocytes (%) (Auto) 2 L 12-44 % Monocytes (%) (Auto) 4 0-12 % Eosinophils (%) (Auto) 0 0-10 % Basophils (%) (Auto) 0 0-10 % Neutrophils # (Auto) 19.0 H 1.8-7.8 10^3/uL Lymphocytes # (Auto) 0.4 L 1.0-4.0 10^3/uL Monocytes # (Auto) 0.8 0.0-1.0 10^3/uL Eosinophils # (Auto) 0.0 0.0-0.3 10^3/uL Basophils # (Auto) 0.1 0.0-0.1 10^3/uL Immature Granulocyte # (Auto) 0.2 H 0.0-0.1 10^3/uL Neutrophils % (Manual) 80 % Lymphocytes % (Manual) 3 % Monocytes % (Manual) 1 % Eosinophils % (Manual) 0 % Basophils % (Manual) 0 % Band Neutrophils 16 % Blood Morphology Comment NORMAL Prothrombin Time 13.7 12.2-14.7 SEC INR Comment 1.0 0.8-1.4 Activated Partial Thromboplast Time 27 24-35 SEC Sodium Level 129 L 135-145 MMOL/L Potassium Level 4.5 3.6-5.0 MMOL/L Chloride Level 97 L 98-107 MMOL/L Carbon Dioxide Level 22 21-32 MMOL/L Anion Gap 10 5-14 MMOL/L Blood Urea Nitrogen 21 H 7-18 MG/DL Creatinine 1.47 H 0.60-1.30 MG/DL Estimat Glomerular Filtration Rate 53 BUN/Creatinine Ratio 14 Glucose Level 548 *H 70-105 MG/DL Lactic Acid Level 3.55 *H 0.98 0.50-2.00 MMOL/L Calcium Level 9.6 8.5-10.1 MG/DL Corrected Calcium 9.5 8.5-10.1 MG/DL Total Bilirubin 1.0 0.1-1.0 MG/DL Aspartate Amino Transf (AST/SGOT) 13 5-34 U/L Alanine Aminotransferase (ALT/SGPT) 19 0-55 U/L Alkaline Phosphatase 106 40-136 U/L Total Protein 8.9 H 6.4-8.2 GM/DL Albumin 4.1 3.2-4.5 GM/DL Procalcitonin 0.53 H <0.10 NG/ML Influenza Type A (RT-PCR) Not Detected Not Detecte Influenza Type B (RT-PCR) Not Detected Not Detecte SARS-CoV-2 RNA (RT-PCR) Not Detected Not Detecte Erythrocyte Sedimentation Rate 7 0-30 MM/HR C-Reactive Protein High Sensitivity 10.99 H 0.00-0.50 MG/DL Test 06/25/22 19:16 06/25/22 20:54 06/25/22 22:29 Range/Units Glucometer 318 H 380 H 391 H 70-110 MG/DL My Orders Orders - CHERRY MIRANDA APRN Ekg Tracing (06/25/22 15:38) Cbc With Automated Diff (06/25/22 15:51) Comprehensive Metabolic Panel (06/25/22 15:51) Blood Culture (06/25/22 15:51) Sputum Culture (06/25/22 15:51) Urinalysis (06/25/22 15:51) Urine Culture (06/25/22 15:51) Protime With Inr (06/25/22 15:51) Partial Thromboplastin Time (06/25/22 15:51) Chest 1 View, Ap/Pa Only (06/25/22 15:51) Ed Iv/Invasive Line Start (06/25/22 15:51) Vital Signs Adult Sepsis Patie Q15M (06/25/22 15:51) O2 (06/25/22 15:51) Remove Rings In Anticipation O (06/25/22 15:51) Lactic Acid Analyzer (06/25/22 15:51) Ondansetron Injection (Zofran Injectio (06/25/22 16:00) Covid 19 Inhouse Test (06/25/22 16:00) Influenza A And B By Pcr (06/25/22 16:00) Manual Differential (06/25/22 15:52) Piperacillin Sodium/Tazobactam (Zosyn Vi (06/25/22 17:00) Vancomycin Injection (Vancomycin Injecti (06/25/22 16:30) Foot, Left, 3 Views (06/25/22 16:37) General/Regular (06/25/22 Dinner) Vancomycin Injection (Vancomycin Injecti (06/25/22 17:00) Lidocaine 2% (Urojet) (Xylocaine Urojet) (06/25/22 17:15) Lebron Cath (06/25/22 17:01) Fentanyl Inj (Sublimaze Injection) (06/25/22 17:15) Ns Iv 1000 Ml (Sodium Chloride 0.9%) (06/25/22 17:30) Insulin (Regular) Human (Novolin R (Per (06/25/22 17:30) Ed Admission (Communication) (06/25/22 18:30) Gabapentin Capsule/Tablet (Neurontin Cap (06/25/22 19:30) Ketorolac Injection (Toradol Injection) (06/25/22 19:30) Medications Given in ED Current Medications Medications Dose Ordered Sig/Abhijit Route Start Time Stop Time Status Last Admin Dose Admin Acetaminophen 1,000 mg ONCE ONCE PO 06/25/22 16:15 06/25/22 16:16 DC 06/25/22 16:16 1,000 MG Fentanyl Citrate 50 mcg ONCE ONCE IVP 06/25/22 17:15 06/25/22 17:16 DC 06/25/22 17:28 50 MCG Insulin Human Regular 10 unit ONCE ONCE IV 06/25/22 17:30 06/25/22 17:31 DC 06/25/22 17:36 10 UNIT Ondansetron HCl 4 mg ONCE ONCE IVP 06/25/22 16:00 06/25/22 16:01 DC 06/25/22 16:02 4 MG Piperacillin Sod/ Tazobactam Sod 4.5 gm/Sodium Chloride 100 ml @ 200 mls/hr ONCE ONCE IV 06/25/22 17:00 06/25/22 17:29 DC 06/25/22 17:21 200 MLS/HR Sodium Chloride 1,000 ml @ 999 mls/hr ONCE ONCE IV 06/25/22 17:30 06/25/22 18:30 DC 06/25/22 17:36 999 MLS/HR Vital Signs/I&O 06/25/22 06/25/22 06/25/22 06/25/22 15:41 15:41 15:41 16:16 Temp 39.7 39.7 Pulse 133 Resp 43 B/P (MAP) 132/90 (104) Pulse Ox 91 O2 Delivery Nasal Cannula Nasal Cannula Nasal Cannula O2 Flow Rate 2.00 2.00 3.00 06/25/22 06/25/22 06/25/22 06/25/22 19:50 20:30 20:48 23:40 Temp 38.7 37.8 37.8 Pulse 104 106 95 Resp 20 18 18 B/P (MAP) 108/65 93/58 (70) 94/62 (73) Pulse Ox 97 94 94 O2 Delivery Nasal Cannula Nasal Cannula Nasal Cannula Nasal Cannula O2 Flow Rate 3.00 3.00 3.00 3.00 06/26/22 00:00 Intake Total 1100 ml Balance 1100 ml Capillary Refill : Less Than 3 Seconds Blood Pressure Mean: 104 Progress Note : Progress Note Upon arrival patient lazar, diaphoretic, altered mental stated. States date is 12/22/2027. Oriented to person only. Unable to follow commands at this time for NIH, however there is no gross evidence of unilateral weakness. His oxygen dropped to 85% and was retching in bucket. Applied oxygen 2 LPM via NC, recovered to 95%. Cardiac monitors sinus tachycardia. He is a known diabetic with blood glucose 460 now. Has known DFU on his lateral left 5th toe and has had sepsis in past from DM foot ulcers. He is currently being treated through the [facility]. Orders placed for CT head w/o for stroke r/o and sepsis workup. His initial temperature is 103.4. Orders placed for IVF bolus and Tylenol. Labs reviewed. Has elevated WBC-20.[address] head w/o negative for acute pathology, CXR negative, x-ray left foot shows no evidence for subcut aneous gas or osteomyelitis. Vancomycin pharmacy to dose and Zosyn ordered. 2nd liter NS bolus ordered. Regular insulin 10 units ordered. Focused exam completed, he is much improved and answering questions appropriately. States he can not remember events of this morning. Requested pain medication for his peripheral neuropathy. Orders placed. His vitals are stable and he is awake and alert. Will plan to admit to medical surgical unit. Daughter is at bedside, results reviewed, plan of care discussed. Dr. Zuniga accepted admission to medical unit. Will plan to consult Dr. Villalta endless track vehicle supervisor. While waiting admit to room patient threatened to leave against medical advice twice stating "its taking to long" and "I'd be better off just going home". I thoroughly reviewed risk of leaving AMA with patient and daughter and discussed that with his severe sepsis and hyperglycemia he has high risk of deterioration with hospitalization and would likely do very poorly and suffer severe debility or if he left AMA at this time. He is agreeable to continue with admission. VSS for transfer to medical unit. BP-108/65, HR-104, SpO2-97% on 3 LPM . BG-318. ECG Initial ECG Impression Date: Jun 25, 2022 Initial ECG Impression Time: 15:57 Initial ECG Rate: 131 Initial ECG Rhythm: S.Tach Initial ECG Impression: Nonspecific Changes Diagnostic Imaging Diagonstic Imaging: Xray Comments [facility] [place], [place] NAME: JONELLE NATION [facility] REC#: [id number] PT STATUS: REG ER : 1955 PHYSICIAN: CHERRY MIRANDA APRN ADMIT DATE: 06/25/22/ER Signed Date of Exam:06/25/22 CHEST 1 VIEW, AP/PA ONLY INDICATION: Altered mental status. TECHNIQUE: Frontal chest obtained at 04:15 p.m. and compared to 01/30/2022. FINDINGS: There is cardiomegaly. There is mild central vascular congestion. There is unchanged elevation of the right hemidiaphragm. There is no pneumothorax or pleural fluid or focal consolidation. IMPRESSION: Cardiomegaly and central vascular congestion. Unchanged elevation of the right hemidiaphragm. No pneumothorax or pleural fluid. Dictated by: Dictated on workstation # [id number] Dict: 06/25/22 1618 Trans: 06/25/221724 AS6 [id number] Interpreted by: AKHIL BROWN MD Electronically signed by: AKHIL BROWN MD 06/25/221724 Comments [facility] [place], [place] NAME: JONELLE NATION [facility] REC#: [id number] PT STATUS: REG ER : 1955 PHYSICIAN: CARLOS LOJA MD ADMIT DATE: 06/25/22/ER Signed Date of Exam:06/25/22 CT HEAD WO PROCEDURE: CT head without contrast. TECHNIQUE: Multiple contiguous axial images were obtained through the brain without the use of intravenous contrast. Auto Exposure Controls were utilized during the CT exam to meet ALARA standards for radiation dose reduction. INDICATION: Diaphoresis and confusion after a fall. COMPARISON: I have no prior head imaging. FINDINGS: Cerebral cortical volume is unremarkable for age. No focal nor generalized cerebral edema. There is no hemorrhage and there are no abnormal extra-axial collections. The basilar cisterns are patent. There is no sulcal effacement. There was no mass or mass effect. Orbits, sinuses, and calvarium appeared nonacute. IMPRESSION: Unremarkable CT head. Dictated by: Dictated on workstation # [id number] Dict: 06/25/22 1632 Trans: 06/25/221723 AS6 [id number] Interpreted by: LEONEL ROBERTSON Electronically signed by: LEONEL ROBERTSON 06/25/221723 Reviewed: Reviewed by Me Comments [facility] [place], [place] NAME: JONELLE NATION [facility] REC#: [id number] PT STATUS: REG ER : 1955 PHYSICIAN: CHERRY MIRANDA SERVICE ESTABLISHMENT ATTENDANT ADMIT DATE: 06/25/22/ER Signed Date of Exam:06/25/22 FOOT, LEFT, 3 VIEWS INDICATION: Left fifth toe ulceration. COMPARISON: June 17, 2022. TECHNIQUE: Three radiographs of the left foot dated June 25, 2022. FINDINGS: Flexion deformities of the second through fourth toes are noted which slightly limits evaluation of the toes. No acute fracture or dislocation. No definite destructive osseous process. Soft tissue swelling of the fifth toe is noted without definite osseous destruction. Mild scattered degenerative changes, including involving the first MTP joint. IMPRESSION: Soft tissue swelling involving the fifth toe, which may relate to cellulitis or other soft tissue wound. No definite evidence of osteomyelitis on this examination. If there remains clinical concern for underlying osteomyelitis, follow-up radiographs in 10 to 14 days would be recommended. Mild scattered degenerative changes with flexion deformities of the second through fourth toes. Dictated by: Dictated on workstation # [id number] Dict: 06/25/22 1651 Trans: 06/25/221724 AS6 [id number] Interpreted by: COURTNEY HADDAD MD Electronically signed by: COURTNEY HADDAD MD 06/25/221724 Reviewed: Reviewed by Me Critical Care Note Critical Care Start Time: 15:50 Stop Time: 17:30 Total Time (minutes) 80 Progress I have personally provided 80 minutes of critical care time. Time includes application of oxygen, stabilization of tachycardia, elevated temperature, review of laboratory data, radiology imaging and results, discussion with hospitalist, and continual monitoring for potential decompensation. He is identified as severe sepsis with poorly controlled diabetes. Has high risk of deterioration. Departure Communication (Admissions) Time/Spoke to Admitting Phy: 18:20 Efrain Impression Primary Impression: Severe sepsis Additional Impression: Diabetic foot ulcer Disposition: ADMITTED INPATIENT Condition: Stable Admissions Decision to Admit Reason: Admit from ER (General) Decision to Admit/Date: Jun 26, 2022 Time/Decision to Admit Time: 17:10 Departure-Patient Inst. Referrals: COURTNEY FERREIRA DO (PCP/Family) Primary Care Physician CHERRY MIRANDA SERVICE ESTABLISHMENT ATTENDANT Jun 25, 2022 16:45
--- NOTE | 2022-06-25 16:59 | Diagnostic Imaging Report ---
INDICATION: Left fifth toe ulceration. COMPARISON: June 17, 2022. TECHNIQUE: Three radiographs of the left foot dated June 25, 2022. FINDINGS: Flexion deformities of the second through fourth toes are noted which slightly limits evaluation of the toes. No acute fracture or dislocation. No definite destructive osseous process. Soft tissue swelling of the fifth toe is noted without definite osseous destruction. Mild scattered degenerative changes, including involving the first MTP joint. IMPRESSION: Soft tissue swelling involving the fifth toe, which may relate to cellulitis or other soft tissue wound. No definite evidence of osteomyelitis on this examination. If there remains clinical concern for underlying osteomyelitis, follow-up radiographs in 10 to 14 days would be recommended. Mild scattered degenerative changes with flexion deformities of the second through fourth toes. Dictated by: Dictated on workstation # [id number]
[2022-06-25] MEDS ORDERED: VANCOMYCIN 2000 MG/NS 500 ML IVPB IV NR ×2 (17:00)
[2022-06-25] MEDS ORDERED: PIPERACILLIN SODIUM/TAZOBACTAM 4.5 GM in NS (IVPB) 100 ML IV ONE (17:00)
[2022-06-25] MEDS ORDERED: fentaNYL INJ 100 MCG/2 ML AMP IVP ONE (17:15)
[2022-06-25] MEDS ORDERED: NS IV 1000 ML 1,000 ML IV ONE (17:30)
[2022-06-25] MEDS ORDERED: inSUlin (REGULAR) HUMAN 1 UNIT/0.01 ML (CHARGE PER UNIT) IV ONE (17:30)
[2022-06-25] MEDS: LIDOCAINE UROJET 2% GEL 10 ML PKG TOP ONE ×2 (17:31→17:36)
[2022-06-25] MEDS ORDERED: GABAPENTIN 600 MG (NEURONTIN) TAB PO ONE (19:30)
[2022-06-25] MEDS ORDERED: KETOROLAC 30 MG/ML VIAL IVP ONE (19:30)
[2022-06-25] MEDS ORDERED: VANCOMYCIN INJECTION 0.1 MG in NS (IVPB) 250 ML IV SCH (20:15)
[2022-06-25] MEDS ORDERED: polyethylene glycoL POWDER 17 GM (MIRALAX) PACK PO PRN (20:15)
[2022-06-25] MEDS ORDERED: MILK OF MAGNESIA 400 MG/5 ML 30 ML UDC PO PRN (20:15)
[2022-06-25] MEDS ORDERED: BISACODYL 10 MG SUPP (DULCOLAX) PR PRN (20:15)
[2022-06-25] MEDS ORDERED: diphenhydrAMINE 25 MG TAB (BENADRYL) PO PRN (20:15)
[2022-06-25] MEDS ORDERED: NS IV 500 ML 500 ML IV PRN (20:15)
[2022-06-25] MEDS ORDERED: MELATONIN 3 MG TABLET PO PRN (20:15)
[2022-06-25] MEDS ORDERED: LACTULOSE SYRUP 10GM/15ML (ENULOSE) 30ML UDC PO PRN (20:15)
[2022-06-25] MEDS ORDERED: ONDANSETRON 4 MG (ZOFRAN) ORAL DISSOLVE TAB PO PRN (20:15)
[2022-06-25] MEDS ORDERED: diphenhydrAMINE 50 MG/ML INJ (BENADRYL) IVP PRN (20:15)
[2022-06-25 20:48] VITALS: BP 93/58
[2022-06-25] MEDS ORDERED: VANCOMYCIN 500 MG/NS 100 ML IV ONE ×2 (22:15)
[2022-06-25] MEDS: ACETAMINOPHEN 325 MG TABLET PO PRN (22:25)
[2022-06-25] MEDS: SENNOSIDES 8.6 MG (SENOKOT) TAB PO SCH (22:40)
[2022-06-25] MEDS: ENOXAPARIN 40 MG/0.4 ML (LOVENOX) SYR SC SCH (22:40)
[2022-06-25] MEDS: DOCUSATE SODIUM 100 MG (COLACE) CAP PO SCH (22:40)
[2022-06-25] MEDS: inSUlin ASPART (NovoLOG) 1 UNIT/0.01 ML (CHARGE PER UNIT) SC SCH (22:41)
[2022-06-25] MEDS: LACTATED RINGERS 1,000 ML IV SCH (22:42)
[2022-06-25 23:40] VITALS: BP 94/62
[2022-06-25] MEDS: PIPERACILLIN SODIUM/TAZOBACTAM 4.5 GM in NS (IVPB) 100 ML IV SCH (23:59)
[2022-06-26 03:46] VITALS: BP 108/70
[2022-06-26 05:44] LABS: BASOPHILS % (AUTO) 0 % (0-10); EOSINOPHILS % (AUTO) 0 % (0-10); HEMATOCRIT 37 % (40-54); HEMOGLOBIN 12.5 g/dL (13.3-17.7); LYMPHOCYTES # (AUTO) 0.9 10^3/uL (1.0-4.0); LYMPHOCYTES % (AUTO) 5 % (12-44); MEAN CORPUSCULAR HGB CONC 34 g/dL (32-36); MEAN CORPUSCULAR VOLUME 91 fL (80-99); MEAN PLATELET VOLUME 10.7 fL (9.0-12.2); MONOCYTES % (AUTO) 5 % (0-12); NEUTROPHILS # (AUTO) 17.2 10^3/uL (1.8-7.8); NEUTROPHILS % (AUTO) 89 % (42-75); PLATELET COUNT 188 10^3/uL (130-400); WHITE BLOOD COUNT 19.3 10^3/uL (4.3-11.0)
[2022-06-26 05:58] LABS: MEAN CORPUSCULAR HEMOGLOBIN 30 pg (25-34)
[2022-06-26 06:07] LABS: CALCIUM 8.4 MG/DL (8.5-10.1); CREATININE SERUM 1.48 MG/DL (0.60-1.30); MAGNESIUM 1.3 MG/DL (1.6-2.4); POTASSIUM 3.7 MMOL/L (3.6-5.0)
[2022-06-26] MEDS: POTASSIUM CL 10MEQ/50ML IVPB 50 ML IV SCH (06:21)
[2022-06-26] MEDS: KCL 20 MEQ TAB (K-DUR) PO SCH (06:22)
[2022-06-26] MEDS: MAGNESIUM 1 GM/100 ML IVPB 100 ML IV SCH ×5 (06:26→10:25)
[2022-06-26] MEDS: inSUlin ASPART (NovoLOG) 1 UNIT/0.01 ML (CHARGE PER UNIT) SC SCH ×7 (06:38→22:59)
[2022-06-26 07:50] VITALS: BP 136/86
[2022-06-26] MEDS: PIPERACILLIN SODIUM/TAZOBACTAM 4.5 GM in NS (IVPB) 100 ML IV SCH ×3 (08:01→23:15)
[2022-06-26] MEDS: LACTATED RINGERS 1,000 ML IV SCH ×3 (08:01→18:11)
[2022-06-26] MEDS: ENOXAPARIN 40 MG/0.4 ML (LOVENOX) SYR SC SCH ×2 (08:02→19:41)
[2022-06-26] MEDS: ACETAMINOPHEN 325 MG TABLET PO PRN (08:07)
[2022-06-26] MEDS: DOCUSATE SODIUM 100 MG (COLACE) CAP PO SCH ×2 (08:56→20:07)
[2022-06-26] MEDS: SENNOSIDES 8.6 MG (SENOKOT) TAB PO SCH ×2 (08:56→20:07)
[2022-06-26 09:10] LABS: BILIRUBIN,URINE NEGATIVE (NEGATIVE); CLARITY,URINE CLEAR; COLOR,URINE YELLOW; GLUCOSE, URINE (UA) 3+ (NEGATIVE); KETONES,URINE NEGATIVE (NEGATIVE); LEUKOCYTE ESTERASE ,URINE NEGATIVE (NEGATIVE); NITRITE,URINE NEGATIVE (NEGATIVE); PROTEIN,URINE 1+ (NEGATIVE)
--- NOTE | 2022-06-26 09:21 | Wound Care Assessment ---
Wound Care Assessment Date Seen by Provider: Jun 26, 2022 Time Seen by Provider: 09:14 Chief Complaint Diabetic foot ulcer with severe sepsis HPI This 66 year old gentleman is well known to my outpatient practice. He initiated care with me last week for a new diabetic foot ulcer (h/o recurrent foot ulcers with osteomyelitis in past). Santo noted this ulcer (likely started as footwear injury) approximately 2 weeks ago. Last week measurements were 1x0.9x0.1 (see below for comparison). He has been using cadexomer iodine dressings at home. On presentation last week ESR was 5 and CRP 0.85 with normal plain films (no osteo) and he was without obvious signs of infection. His ulcer is worsened today (large stable eschar with some serous weeping and blistering in periwound with surrounding erythema, edema extending to knee (c/w cellulitis). Santo was apparently acting out of character at work yesterday and was found down at home by a coworker. He does not remember this currently. He also does not remember the imaging completed yesterday. He still seems to be having some altered mental status compared to his baseline. He was febrile on admission with elevated WBC. He is currently on Vanc and Zosyn. During Santo's last treatment (less than 1 month ago), he had stopped all diabetic medications (A1C was 12) and then reinitiated (04-10-22: A1C 9.4). He had been working with Dr. Ling and his average glucose was 170-180's by report. He is considerably higher today. He does also have vitamin D deficiency which was being supplemented as outpatient. Santo has a significnat h/o PAD with last angioplasty to lower extremities per Dr. lopez in January. I agree with cardiology consultation and input. His last segmental studies (post-intervention) were TBI 0.82/0.81 in mid-February. I do plan to check MRI due to the severity of Santo's symptoms and his h/o osteomyelitis. Past Medical History: Admits Diabetes Type II, Admits Peripheral Artery Disease Obesity, vitamin D. deficiency, long h/o noncompliance in diabetic care Smoking Status: Never a Smoker Recreational Drug Use: No Review of Systems General: Other (fever) Neurological: Confusion Exam Vital Signs Date Time Temp Pulse Resp B/P (MAP) Pulse Ox O2 Delivery O2 Flow Rate FiO2 10/12/22 09:06 36.1 06/26/22 07:50 103 22 136/86 (103) 93 Nasal Cannula 3.00 Capillary Refill : Less Than 3 Seconds General Appearance: WD/WN, no apparent distress, obese HEENT: other (hearing normal) Neck: full range of motion Cardiovascular: other (LLE edema) Respiratory: no respiratory distress, no accessory muscle use, other (on continuous O2) Extremities: normal range of motion, pedal edema Neurologic/Psychiatric: alert, other (Santo is poor historian with memory lapse and communication abnormal from his baseline) Skin: warm/dry, other (erythema and edema c/w cellulitis to knee on left) Skin Character: bullous (blistering in periwound), drainage (serous drainage from periwound blistering), erythema (L. 5 toe with edema) Wound assessment: 2x4x0.2. The epithelialization is none, there is no tunneling or undermining. Drainage is medium and serous (from blistering in periwound), granulation is none. Necrotic is large and eschar. The margins are flat Results Laboratory Tests 06/25/22 15:49: Glucometer 460*H 06/25/22 15:52: White Blood Count 20.4H, Red Blood Count 5.26, Hemoglobin 16.1, Hematocrit 48, Mean Corpuscular Volume 91, Mean Corpuscular Hemoglobin 31, Mean Corpuscular Hemoglobin Concent 34, Red Cell Distribution Width 12.6, Platelet Count 205, Mean Platelet Volume 10.6, Immature Granulocyte % (Auto) 1, Neutrophils (%) ( Auto) 93H, Lymphocytes (%) (Auto) 2L, Monocytes (%) (Auto) 4, Eosinophils (%) (Auto) 0, Basophils (%) (Auto) 0, Neutrophils # (Auto) 19.0H, Lymphocytes # (Auto) 0.4L, Monocytes # (Auto) 0.8, Eosinophils # (Auto) 0.0, Basophils # (Auto) 0.1, Immature Granulocyte # (Auto) 0.2H, Neutrophils % (Manual) 80, Lymphocytes % (Manual) 3, Monocytes % (Manual) 1, Eosinophils % (Manual) 0, Basophils % (Manual) 0, Band Neutrophils 16, Blood Morphology Comment NORMAL, Prothrombin Time 13.7, INR Comment 1.0, Activated Partial Thromboplast Time 27, Sodium Level 129L, Potassium Level 4.5, Chloride Level 97L, Carbon Dioxide Level 22, Anion Gap 10, Blood Urea Nitrogen 21H, Creatinine 1.47H, Estimat Glomerular Filtration Rate 53, BUN/Creatinine Ratio 14, Glucose Level 548*H, Lactic Acid Level 3.55*H, Calcium Level 9.6, Corrected Calcium 9.5, Total Bilirubin 1.0, Aspartate Amino Transf (AST/SGOT) 13, Alanine Aminotransferase (ALT/SGPT) 19, Alkaline Phosphatase 106, Total Protein 8.9H, Albumin 4.1, Procalcitonin 0.53H, Influenza Type A (RT-PCR) Not Detected, Influenza Type B (RT-PCR) Not Detected, SARS-CoV-2 RNA (RT-PCR) Not Detected 06/25/22 17:57: Lactic Acid Level 0.98 06/25/22 18:41: Erythrocyte Sedimentation Rate 7, C-Reactive Protein High Sensitivity 10.99H 06/25/22 19:16: Glucometer 318H 06/25/22 20:54: Glucometer 380H 06/25/22 22:29: Glucometer 391H 06/26/22 05:09: Glucometer 222H 06/26/22 05:25: White Blood Count 19.3H, Red Blood Count 4.10L, Hemoglobin 12.5#L, Hematocrit 37L, Mean Corpuscular Volume 91, Mean Corpuscular Hemoglobin 30, Mean Corpuscular Hemoglobin Concent 34, Red Cell Distribution Width 12.7, Platelet Count 188, Mean Platelet Volume 10.7, Immature Granulocyte % (Auto) 1, Neutrophils (%) (Auto) 89H, Lymphocytes (%) (Auto) 5L, Monocytes (%) (Auto) 5, Eosinophils (%) (Auto) 0, Basophils (%) (Auto) 0, Neutrophils # (Auto) 17.2H, Lymphocytes # (Auto) 0.9L, Monocytes # (Auto) 1.0, Eosinophils # (Auto) 0.0, Basophils # (Auto) 0.0, Immature Granulocyte # (Auto) 0.2H, Sodium Level 131L, Potassium Level 3.7, Chloride Level 101, Carbon Dioxide Level 20L, Anion Gap 10, Blood Urea Nitrogen 23H, Creatinine 1.48H, Estimat Glomerular Filtration Rate 53, BUN/Creatinine Ratio 16, Glucose Level 222H, Calcium Level 8.4L, Magnesium Level 1.3L 06/26/22 06:30: Assessment/Plan/Dx Assessment: 1. Unclassifiable DFU of L. 5 toe/MTH 2. Cellulitis LLE 3. Sepsis with AMS 4. DM2-poorly controlled 5. Obesity 6. PAD with recent arterial intervention 7. Vit. D deficiency 8. Long h/o noncompliance with recommendations Plan: 1. Check MRI to rule out osteomyelitis. Betadine paint bid to ulcer with open to air 2. Agree with broad spectrum antibiotics 3. Agree with current management 4. Tight glycemic control needed. Agree with diabetic education 5. Weight loss adviseable 6. Agree with cardiology consult 7. Supplementation as outpatient 8. Stressed importance of compliance and will continue to do so as outpatient. KEVIN PANDYA MD Jun 26, 2022 09:21
[2022-06-26 09:25] LABS: AMORPHOUS SEDIMENT,UR MOD AMOR URATES /LPF; BACTERIA,URINE NEGATIVE /HPF; SQUAMOUS EPITHELIAL CELL,UR RARE /HPF; WBC,URINE RARE /HPF
--- NOTE | 2022-06-26 09:47 | Consultation-Cardiology ---
HPI-Cardiology Cardiology Consultation Date of Consultation 06/26/22 Date of Admission Time Seen by Provider: 09:14 Indication: LLE Non healing wound, PVD HPI Patient is a 66 y/o male with history of HTN, poorly controlled DM, PVD with intervention in January 2022, presented to the ER after coworker noticed patient having increased confusion and falling. Found to have LLE cellulitis and sepsis, nonhealing wound to left 5th toe. Denies any chest pain or dyspnea. States wound has been present for several weeks since getting new pair of work boots. Home Medications & Allergies Allergies: Coded Allergies: No Known Drug Allergies (Unverified , 09/20/19) Home Medication List Reviewed: Yes [id number]-Illoyp Hx Patient Social History Employed/Student: employed Recreational Drug Use: No Smoking Status: Never a Smoker Recent Hopitalizations: No Have you traveled recently?: No Alcohol Use?: Yes Past Medical History HTN, DM, PVD Family Medical History Significant Family History: No Pertinent Family Hx Review of Systems-General Review of Systems Constitutional: see HPI, malaise, weakness EENTM: see HPI, no symptoms reported Respiratory: see HPI; No cough, No dyspnea on exertion, No short of breath Cardiovascular: see HPI; No chest pain, No edema; Hx of Intervention; No palpitations Gastrointestinal: see HPI; No abdominal pain, No constipation Genitourinary: see HPI Musculoskeletal: see HPI Reviewed Test Results Reviewed Test Results Lab Laboratory Tests 06/25/22 15:49: Glucometer 460*H 06/25/22 15:52: White Blood Count 20.4H, Red Blood Count 5.26, Hemoglobin 16.1, Hematocrit 48, Mean Corpuscular Volume 91, Mean Corpuscular Hemoglobin 31, Mean Corpuscular Hemoglobin Concent 34, Red Cell Distribution Width 12.6, Platelet Count 205, Mean Platelet Volume 10.6, Immature Granulocyte % (Auto) 1, Neutrophils (%) (Auto) 93H, Lymphocytes (%) (Auto) 2L, Monocytes (%) (Auto) 4, Eosinophils (%) (Auto) 0, Basophils (%) (Auto) 0, Neutrophils # (Auto) 19.0H, Lymphocytes # (Auto) 0.4L, Monocytes # (Auto) 0.8, Eosinophils # (Auto) 0.0, Basophils # (Auto) 0.1, Immature Granulocyte # (Auto) 0.2H, Neutrophils % (Manual) 80, Lymphocytes % (Manual) 3, Monocytes % (Manual) 1, Eosinophils % (Manual) 0, Basophils % (Manual) 0, Band Neutrophils 16, Blood Morphology Comment NORMAL, Prothrombin Time 13.7, INR Comment 1.0, Activated Partial Thromboplast Time 27, Sodium Level 129L, Potassium Level 4.5, Chloride Level 97L, Carbon Dioxide Level 22, Anion Gap 10, Blood Urea Nitrogen 21H, Creatinine 1.47H, Estimat Glomerular Filtration Rate 53, BUN/Creatinine Ratio 14, Glucose Level 548*H, Lactic Acid Level 3.55*H, Calcium Level 9.6, Corrected Calcium 9.5, Total Bilirubin 1.0, Aspartate Amino Transf (AST/SGOT) 13, Alanine Aminotransferase (ALT/SGPT) 19, Alkaline Phosphatase 106, Total Protein 8.9H, Albumin 4.1, Procalcitonin 0.53H, Influenza Type A (RT-PCR) Not Detected, Influenza Type B (RT-PCR) Not Detected, SARS-CoV-2 RNA (RT-PCR) Not Detected 06/25/22 17:57: Lactic Acid Level 0.98 06/25/22 18:41: Erythrocyte Sedimentation Rate 7, C-Reactive Protein High Sensitivity 10.99H 06/25/22 19:16: Glucometer 318H 06/25/22 20:54: Glucometer 380H 06/25/22 22:29: Glucometer 391H 06/26/22 05:09: Glucometer 222H 06/26/22 05:25: White Blood Count 19.3H, Red Blood Count 4.10L, Hemoglobin 12.5#L, Hematocrit 37L, Mean Corpuscular Volume 91, Mean Corpuscular Hemoglobin 30, Mean Corpuscular Hemoglobin Concent 34, Red Cell Distribution Width 12.7, Platelet Count 188, Mean Platelet Volume 10.7, Immature Granulocyte % (Auto) 1, Neutrophils (%) (Auto) 89H, Lymphocytes (%) (Auto) 5L, Monocytes (%) (Auto) 5, Eosinophils (%) (Auto) 0, Basophils (%) (Auto) 0, Neutrophils # (Auto) 17.2H, Lymphocytes # (Auto) 0.9L, Monocytes # (Auto) 1.0, Eosinophils # (Auto) 0.0, Basophils # (Auto) 0.0, Immature Granulocyte # (Auto) 0.2H, Sodium Level 131L, Potassium Level 3.7, Chloride Level 101, Carbon Dioxide Level 20L, Anion Gap 10, Blood Urea Nitrogen 23H, Creatinine 1.48H, Estimat Glomerular Filtration Rate 53, BUN/Creatinine Ratio 16, Glucose Level 222H, Calcium Level 8.4L, Magnesium Level 1.3L 06/26/22 06:30: Urine Color YELLOW, Urine Clarity CLEAR, Urine pH 5.0, Urine Specific [place] 1.020, Urine Protein 1+H, Urine Glucose (UA) 3+H, Urine Ketones NEGATIVE, Urine Nitrite NEGATIVE, Urine Bilirubin NEGATIVE, Urine Urobilinogen 0.2, Urine Leukocyte Esterase NEGATIVE, Urine RBC (Auto) TRACE-IH, Urine RBC NONE, Urine WB C RARE, Urine Squamous Epithelial Cells RARE, Urine Crystals PRESENTH, Urine Amorphous Sediment MOD LUZ URATESH, Urine Bacteria NEGATIVE, Urine Casts NONE, Urine Mucus NEGATIVE, Urine Culture Indicated NO ECG Impression ECG Initial ECG Rhythm: Normal Sinus Physical Exam Physical Exam Vital Signs Vital Signs - First Documented Capillary Refill : Less Than 3 Seconds Height, Weight, BMI Height: '" Weight: lbs. oz. kg; 40.13 BMI Method: General Appearance: Obese, Other (ill) Eyes: Bilateral Eye Normal Inspection, Bilateral Eye PERRL HEENT: PERRL/EOMI, Pharynx Normal, Moist Mucous Membranes Neck: Normal Inspection, Supple Respiratory: Lungs Clear, Normal Breath Sounds, No Accessory Muscle Use, No Respiratory Distress Cardiovascular: Regular Rate, Rhythm, No Gallop, Normal Peripheral Pulses Gastrointestinal: Normal Bowel Sounds, No Pulsatile Mass, Soft Extremity: Normal Capillary Refill, Normal Inspection, Normal Range of Motion Neurologic/Psychiatric: Alert, Oriented x3, No Motor/Sensory Deficits Skin: Warm/Dry, Other (wound to left 5th toe) A/P-Cardiology Admission Diagnosis LLE cellulitis with nonhealing wound Sepsis PVD HTN DM Assessment/Plan Sepsis, LLE cellulitis with nonhealing wound, started on antibiotic, management per medical services. Peripheral arterial disease, nonhealing wound on left foot. Multiple interventions in the past, had peripheral procedure with Dr. Barron in the past resulted in bleeding. Patient was not satisfied with the results. Reported that he had an intervention done with Dr. Botello in the remote past. Angiogram was done on January 30, 2022 showing total occlusion of the left anterior tibial artery with successful balloon angioplasty, severe stenosis of the proximal left posterior tibial artery with successful balloon angioplasty with excellent results. Had mild to moderate disease at the common femoral and SFA. On the right side also there is an occlusion of the anterior tibial artery and severe stenosis of the distal left posterior tibial artery. Patient has been maintained on ASA and Plavix, reports sometimes forgets to take his medications. TOM was done on February 27, 2022 was 0.94 on the right and 1.28 on the left and TBI bilaterally was 0.81. I am planning to proceed with peripheral angiogram and possible angioplasty Multiple risk factors for coronary artery disease Planning to evaluate Lexiscan Myoview stress test in the morning Severe left carotid artery stenosis, mild right he was referred for further evaluation with Dr. Campbell. Patient reporting he underwent recent CTA Head and neck at [facility]. Hypertension, has been maintained on lisinopril as outpatient Hyperlipidemia, lipid profile done January 2022 showing total cholesterol 217, HDL 38, LDL 114, trig 217. Recurrent syncope secondary to low blood pressure Diabetes mellitus, poorly controlled followed and managed by primary care physician BMI 38, we discussed weight loss and exercise after his intervention History of tobaccoism, stopped smoking in 2009. History of non compliance Thank you for allowing us to participate in the management of Mr. Rivera. This is Ciarra Rudolph PA-C, as a scribe for Dr. Peterson. Patient was seen and evaluated with Ciarra, I interviewed and examined the patient, discussed the management plan Planning for peripheral angiogram possible angioplasty, prior to the procedure I will evaluate Lexiscan Myoview stress test Evaluate 2D echo, monitor blood pressure and lipids CIARRA LOPEZ Jun 26, 2022 09:47 THOMAS PETERSON MD Jun 26, 2022 14:32
[2022-06-26] MEDS ORDERED: VANCOMYCIN 1500 MG/NS 500 ML IVPB IV SCH ×4 (11:30→13:00)
[2022-06-26] MEDS ORDERED: GADOTERATE 0.5 MMOL/ML (CLARISCAN) 20 ML VIAL IV ONE (11:45)
[2022-06-26] MEDS ORDERED: GADOTERATE 0.5 MMOL/ML (CLARISCAN) 5 ML VIAL IV ONE (11:45)
[2022-06-26 12:12] VITALS: BP 111/67
--- NOTE | 2022-06-26 12:53 | Diagnostic Imaging Report ---
Exam: MRI left foot without and with intravenous contrast. Date: June 26, 2022. Indication: 66-year-old male, ulcer of the left fifth digit. Concern for osteomyelitis. Comparison: MRI left foot January 20, 2020. Technique: Multiple pre and postcontrast MRI sequences of the left foot were obtained. Findings: There is T1 marrow signal loss and marrow edema involving the fifth middle and distal phalanges and distal aspect of the fifth proximal phalanx. Marrow signal abnormalities in the fifth proximal phalanx extending to the level of the mid diaphysis approximately 12 mm proximal to the distal articulating surface. This is consistent with osteomyelitis at these locations. There is no identified focal fluid collection or abscess. The joint spaces are well preserved. There is a trace first metatarsophalangeal joint effusion. There is no evidence of tenosynovitis. There is generalized fatty muscle atrophy which may reflect polyneuropathy. There is abnormal signal in the volar soft tissues at the medial aspect of the foot near the proximal margin of the included [id number]. Impression: 1. Findings compatible with osteomyelitis involving the fifth digit phalanges with marrow signal abnormalities in the fifth proximal phalanx extending to the level of the mid diaphysis. 2. No identified focal fluid collection or abscess. Dictated by: Dictated on workstation # [id number]
[2022-06-26] MEDS ORDERED: INSU100I14 SQ (14:43)
[2022-06-26] MEDS ORDERED: CLOP75TA28 PO (14:43)
[2022-06-26] MEDS ORDERED: METAMUCIL GUMMIES PO (14:43)
[2022-06-26] MEDS ORDERED: EMPA10TA PO (14:43)
[2022-06-26] MEDS ORDERED: IBUP-1773 PO (14:43)
[2022-06-26] MEDS ORDERED: ASPI-1238 PO (14:43)
[2022-06-26] MEDS ORDERED: REGADENOSON 0.4 MG/5 ML SYR (LEXISCAN) IV ONE (14:45)
[2022-06-26 15:38] VITALS: BP 165/98
[2022-06-26] MEDS: GABAPENTIN 300 MG (NEURONTIN) CAP PO SCH (17:47)
--- NOTE | 2022-06-26 18:02 | History & Physical-Hospitalist ---
History of Present Illness HPI/Chief Complaint Santo Rivera is a 66 year old male with PMH HTN, HLD, PAD, poorly controlled T2DM on insulin with diabetic foot ulcer, who presented with altered mental status. He was reportedly acting strangely at work yesterday. He denies fevers and chills. He denies shortness of breath and cough. He was feeling nauseous. He denies abdominal pain. He denies diarrhea. He denies chest pain. Source: patient Exam Limitations: no limitations Date Seen 06/26/22 Time Seen by a Provider: 09:45 Attending Physician Jaxon Ling DO PCP Admitting Physician: Bee Garcia MD Attending Physician: Bee Garcia MD Referring Physician Date of Admission Jun 25, 2022 at 18:31 Home Medications & Allergies Home Medications Reviewed patient Home Medication Reconciliation performed by pharmacy medication reconciliations clinical technician and/or nursing. Patients Allergies have been reviewed. Allergies Allergies Coded Allergies No Known Drug Allergies (Unverified09/20/19) Past Ilectsv-[id number]-Cnojhk Hx Patient Social History Employed/Student: employed Tobacco Use?: No Smoking Status: Never a Smoker Smokeless Tobacco Frequency: Never a User Use of E-Cig and/or Vaping dev: No Substance use?: No Alcohol Use?: Yes Alcohol Frequency: Rarely Pt feels they are or have been: No Immunizations Up To Date First/Initial COVID19 Vaccinat: 2020 Second COVID19 Vaccination Aris: 2020 Tetanus Booster (TDap): Unknown Seasonal Allergies Seasonal Allergies: No Current Status Advance Directives: No Communicates: Verbally Primary Language: Cypriot Preferred Spoken Language: Cypriot Is interpretation needed?: No Implanted or Applied Medical D: None Past Medical History Surgeries: Gallbladder Currently Using CPAP: No Currently Using BIPAP: No Hypertension Diverticulosis Diabetes, Insulin dep Blood Disorders: No Family Medical History No Pertinent Family Hx Review of Systems Constitutional: fever EENTM: no symptoms reported Respiratory: no symptoms reported Cardiovascular: no symptoms reported Gastrointestinal: nausea Physical Exam Physical Exam Vital Signs Vital Signs - First Documented Capillary Refill : Less Than 3 Seconds Height, Weight, BMI Height: '" Weight: lbs. oz. kg; 40.13 BMI Method: General Appearance: No Apparent Distress, Obese HEENT: PERRL/EOMI, Pharynx Normal Neck: Normal Inspection, Supple Respiratory: Lungs Clear, No Respiratory Distress Cardiovascular: Regular Rate, Rhythm, No Murmur Gastrointestinal: Normal Bowel Sounds, Non Tender, Soft Extremity: Inflammation, Pedal Edema, Other (right 5th digit ulcer) Neurologic/Psychiatric: Alert, Motor Weakness, Other (flat affect) Skin: Warm/Dry, Erythema Results Results/Procedures Labs Laboratory Tests 06/25/22 15:52 06/26/22 05:25 Patient resulted labs reviewed. Imaging: Reviewed Imaging Films, Reviewed Imaging Report Assessment/Plan Admission Diagnosis Severe sepsis Admission Status: Inpatient Order (span 2 midnights) Reason for Inpatient Admission: IV antibiotics Assessment and Plan Severe sepsis Diabetic foot ulcer Osteomyelitis Septic on arrival IV fluids Vanc and Zosyn XR without evidence of osteomyelitis ESR normal, CRP elevated MRI with osteomyelitis Wound care consulted Surgery consulted Case discussed with Dr. Waite, surgery T2DM on insulin Neuropathy Diabetic foot ulcer Non-adherent to medication regimen Levemir Novology with meals Sliding scale insulin Diabetes education HTN PAD Cardiology consulted Planning for peripheral angiogram MPI ordered MIASHA Lactic acidosis Cr 1.4, baseline appear to be ~0.8 IV fluids Hyponatremia Hypokalemia Hypomagnesemia Monitor and correct as needed DVT prophylaxis: Lovenox Diagnosis/Problems Diagnosis/Problems (1) Severe sepsis Status: Acute (2) Osteomyelitis due to type 2 diabetes mellitus Status: Acute (3) MAISHA (acute kidney injury) Status: Acute (4) Lactic acidosis Status: Acute (5) Non-adherence to medical treatment Status: Acute (6) T2DM (type 2 diabetes mellitus) Status: Acute Qualifiers: 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
[2022-06-26] MEDS: ONDANSETRON 4 MG/2 ML (SDV) Z0FRAN IV PRN (18:11)
[2022-06-26 19:33] VITALS: BP 119/71
[2022-06-26] MEDS: CALCIUM CARBONATE 500 MG (TUMS) TAB.CHEW PO PRN (19:40)
--- NOTE | 2022-06-26 21:17 | Progress Note-Pre Operative ---
Pre-Operative Progress Note Date of Available H&P: Jun 26, 2022 Date H&P Reviewed: Jun 26, 2022 Time H&P Reviewed: 22:00 History & Physical: No changes noted Pre-Operative Diagnosis: right foot 5th digit osteomyelitis PADMA GARG MD Jun 26, 2022 21:17
--- NOTE | 2022-06-26 21:56 | CONSULTATION REPORT ---
DATE OF SERVICE: ATTENDING PRIMARY CARE PHYSICIAN: Dr. Jaxon Ling. ADMITTING PHYSICIAN: Dr. Zuniga. HISTORY OF PRESENT ILLNESS: The patient is a 66-year-old male who was brought to the Emergency Department by private vehicle due to confusion and a possible fall at work. The patient does have an extensive past medical history including hypertension, peripheral vascular disease as well as poorly controlled diabetes. He was found to be hyperglycemic on admission with blood sugar of 391. He also did appear to be dehydrated with mild acute kidney injury with a BUN of 23 and a creatinine of 1.48. Patient was admitted, started on IV fluids as well as insulin and his mentation did improve to baseline over time. The patient was also found to have an ulcer on the plantar and lateral aspect of the left foot fifth digit. This appeared to be consistent with diabetic foot ulcer. Again, the patient has a known history of peripheral arterial disease and did have ankle brachial index evaluations in the past, which was approximately 0.81 along the right lower extremity. He also underwent arteriography and was found to have occlusion of the anterior tibial as well as posterior tibial arteries. He underwent successful angioplasty of the posterior tibial artery and stent placement. A foot x-ray was performed, which did show soft tissue swelling; however, no signs of osteomyelitis; however, this was followed by an MRI, which was consistent with osteomyelitis of the entire fifth digit. PAST MEDICAL HISTORY: Hypertension, insulin-dependent diabetes, peripheral vascular disease, history of diverticulosis. PAST SURGICAL HISTORY: Laparoscopic cholecystectomy. ALLERGIES: No known drug allergies. MEDICATIONS: Augmentin b.i.d., aspirin 81 mg daily, Plavix 75 mg daily, lisinopril 10 mg daily, gabapentin 600 mg b.i.d., aspartate insulin 5 units q.a.c, detemir insulin 20 units each day at bedtime, lisinopril 10 mg daily. SOCIAL HISTORY: Negative smoke. Does drink a few beers daily. FAMILY HISTORY: Noncontributory. PHYSICAL EXAMINATION: VITAL SIGNS: Temperature 37.8, blood pressure 119/71, pulse 106, respirations 18, pulse ox 91% on 4 liters nasal cannula. REVIEW OF SYSTEMS: This is an obese male, currently in no acute distress. He is not experiencing any shortness of breath or difficulty breathing. No cough or sputum production. No chest pain, palpitations, diaphoresis. No nausea, vomiting, no or diarrhea, constipation, no red blood per rectum, no dark tarry stools. He has had some increased temperatures upon admission; however, does not state any fevers or chills. No recent inadvertent weight loss. All other review of systems negative. PHYSICAL EXAMINATION: Will be ascertained in the a.m. Majority of the patient's history was ascertained by the admitting physician as well as the patient's electronic medical records. LABORATORY DATA: WBC 19.3, hemoglobin 12.5, hematocrit 37, platelets 188. BUN 23, creatinine 1.48, glucose 170. ASSESSMENT AND PLAN: A 66-year-old male with left foot fifth digit osteomyelitis confirmed on magnetic resonance imaging. The natural history of osteomyelitis was explained to the patient including the extreme difficulty in controlling the infection once bacteria is found its way into the trabecula of the bone. Antibiotics may slightly decrease symptoms related to the infection; however, after discontinuation reoccurrence rates are extremely high and this could further propagation of further infection and sepsis. We will recommend amputation of the left foot fifth digit. The patient does have a palpable posterior tibial artery and this should allow for enough blood perfusion to larger and medium sized arterial vasculature to allow the wound to heal after amputation. Job ID: [id number] DocumentID: [id number] Dictated Date: 06/26/2022 20:49:35 General Internal Medicine Doctor Date: 06/26/2022 21:11:21 Dictated By: PADMA GARG MD [facility]PITALVaishali
[2022-06-26] MEDS: POVIDONE (BETADINE) 10% SOLN 240 ML BTL TOP SCH (23:01)
[2022-06-26 23:23] VITALS: BP 164/93
[2022-06-27] VITALS (7 sets, daily range): BP systolic 109–162; BP diastolic 64–106
[2022-06-27] MEDS ORDERED: TROUGH ORDER-PHARMACY XX NR ×2 (04:30→11:00)
[2022-06-27] MEDS: LACTATED RINGERS 1,000 ML IV SCH ×3 (06:14→21:37)
[2022-06-27] MEDS: PIPERACILLIN SODIUM/TAZOBACTAM 4.5 GM in NS (IVPB) 100 ML IV SCH ×3 (06:24→23:13)
[2022-06-27] MEDS: inSUlin ASPART (NovoLOG) 1 UNIT/0.01 ML (CHARGE PER UNIT) SC SCH ×7 (06:39→20:20)
[2022-06-27 06:45] LABS: BASOPHILS % (AUTO) 0 % (0-10); EOSINOPHILS % (AUTO) 0 % (0-10); HEMATOCRIT 38 % (40-54); HEMOGLOBIN 12.7 g/dL (13.3-17.7); LYMPHOCYTES # (AUTO) 0.8 10^3/uL (1.0-4.0); LYMPHOCYTES % (AUTO) 5 % (12-44); MEAN CORPUSCULAR HEMOGLOBIN 31 pg (25-34); MEAN CORPUSCULAR HGB CONC 34 g/dL (32-36); MEAN CORPUSCULAR VOLUME 91 fL (80-99); MEAN PLATELET VOLUME 10.8 fL (9.0-12.2); MONOCYTES # (AUTO) 0.8 10^3/uL (0.0-1.0); MONOCYTES % (AUTO) 5 % (0-12); NEUTROPHILS # (AUTO) 14.9 10^3/uL (1.8-7.8); NEUTROPHILS % (AUTO) 90 % (42-75); PLATELET COUNT 207 10^3/uL (130-400); WHITE BLOOD COUNT 16.6 10^3/uL (4.3-11.0)
[2022-06-27 06:54] LABS: POTASSIUM 3.8 MMOL/L (3.6-5.0)
[2022-06-27 06:55] LABS: CALCIUM 8.8 MG/DL (8.5-10.1)
[2022-06-27 06:59] LABS: CREATININE SERUM 1.02 MG/DL (0.60-1.30)
[2022-06-27] MEDS: KCL 20 MEQ TAB (K-DUR) PO SCH (07:12)
[2022-06-27] MEDS: MAGNESIUM 1 GM/100 ML IVPB 100 ML IV SCH (07:12)
[2022-06-27] MEDS: POTASSIUM CL 10MEQ/50ML IVPB 50 ML IV SCH (07:12)
[2022-06-27] MEDS ORDERED: REGADENOSON 0.4 MG/5 ML SYR (LEXISCAN) IV ONE (08:00)
[2022-06-27] MEDS: DOCUSATE SODIUM 100 MG (COLACE) CAP PO SCH ×2 (08:01→20:20)
[2022-06-27] MEDS: SENNOSIDES 8.6 MG (SENOKOT) TAB PO SCH ×2 (08:01→20:20)
--- NOTE | 2022-06-27 08:45 | Cardiology Progress Note ---
Subjective Date Seen by Provider: Jun 27, 2022 Time Seen by Provider: 08:00 Subjective/Events-last exam Patient down in heart center for stress test this morning. Complaining of some nausea, denies any chest pain Focused Exam Lactate Level 06/25/22 15:52: Lactic Acid Level 3.55*H 06/25/22 17:57: Lactic Acid Level 0.98 Time of Focused Exam: 17:30 Objective-Cardiology Exam Last Set of Vital Signs Vital Signs 06/27/22 11:05 Temp 37.0 Pulse 97 Resp 20 B/P (MAP) 162/86 (111) Pulse Ox 96 O2 Delivery Nasal Cannula O2 Flow Rate 3.00 I&O Intake and Output 06/27/22 00:00 Intake Total 4580 ml Output Total 1680 ml Balance 2900 ml Intake Oral 2180 ml IV Total 2400 ml Output Urine Total 1680 ml # Bowel Movements 4 General: Alert, Oriented X3 HEENT: Atraumatic Lungs: Clear to Auscultation, Normal Air Movement Heart: Regular Rate, Normal S1, Normal S2 Abdomen: Soft, No Tenderness Extremities: Other (trace edema) Results Lab Laboratory Tests 06/27/22 05:36 A/P-Cardiology Admission Diagnosis LLE cellulitis with nonhealing wound Sepsis PVD HTN DM Assessment/Plan Sepsis, LLE cellulitis with nonhealing wound,osteomyelitis to left 5th toe, started on antibiotic, Dr. Waite consulted, recommending amputation of toe Peripheral arterial disease, nonhealing wound on left foot. Multiple interventions in the past, had peripheral procedure with Dr. Barron in the past resulted in bleeding. Patient was not satisfied with the results. Reported that he had an intervention done with Dr. Botello in the remote past. Angiogram was done on January 30, 2022 showing total occlusion of the left anterior tibial artery with successful balloon angioplasty, severe stenosis of the proximal left posterior tibial artery with successful balloon angioplasty with excellent results. Had mild to moderate disease at the common femoral and SFA. On the right side also there is an occlusion of the anterior tibial artery and severe stenosis of the distal left posterior tibial artery. Patient has been maintained on ASA and Plavix, reports sometimes forgets to take his medications. TOM was done on February 27, 2022 was 0.94 on the right and 1.28 on the left and TBI bilaterally was 0.81. I am planning to proceed with peripheral angiogram and possible angioplasty, Tentatively patient is scheduled for tomorrow, I will reevaluate him in the morning to make sure that he will be able to lay down flat during the procedure and postoperatively. Abdominal pain, nausea and dry heaves. Diarrhea. Managed by primary care physician Multiple risk factors for coronary artery disease Lexiscan stress test was done on 06/27/2022 showing no ischemia or infarction, ejection fraction 63% Severe left carotid artery stenosis, mild right he was referred for further evaluation with Dr. Campbell. Patient reporting he underwent recent CTA Head and neck at [place]. Hypertension, has been maintained on lisinopril as outpatient Hyperlipidemia, lipid profile done January 2022 showing total cholesterol 217, HDL 38, LDL 114, trig 217. Recurrent syncope secondary to low blood pressure Diabetes mellitus, poorly controlled followed and managed by primary care physician BMI 38, we discussed weight loss and exercise after his intervention History of tobaccoism, stopped smoking in 2009. History of non compliance Supervisory-Addendum Brief Supervisory Addendum Participated in pt care: history, MDM, physical Personally performed: exam, history, MDM Care discussed with: MALDONADO Results interpretation: Verified all documentation Notes: Patient was seen and evaluated with Ciarra, examination performed, management plan was discussed, agree with the current scribed note, I made few changes to the note using Italic font CIARRA LOPEZ Jun 27, 2022 08:45 THOMAS MCLEOD MD Jun 27, 2022 12:49
[2022-06-27] MEDS: GABAPENTIN 300 MG (NEURONTIN) CAP PO SCH ×2 (09:26→17:48)
[2022-06-27] MEDS: ENOXAPARIN 40 MG/0.4 ML (LOVENOX) SYR SC SCH ×2 (09:26→20:19)
[2022-06-27] MEDS: POVIDONE (BETADINE) 10% SOLN 240 ML BTL TOP SCH ×2 (09:27→20:19)
[2022-06-27] MEDS: CALCIUM CARBONATE 500 MG (TUMS) TAB.CHEW PO PRN ×2 (09:38→16:55)
[2022-06-27] MEDS: ONDANSETRON 4 MG/2 ML (SDV) Z0FRAN IV PRN ×2 (10:31→16:55)
--- NOTE | 2022-06-27 12:22 | Cardiology Stress Test Report ---
Stress Test Report Date of Procedure/Referring: Date of Procedure: Jun 27, 2022 PCP Jaxon Ling DO Admitting Physician Admitting Physician: Isabela Zuniga MD Attending Physician: Isabela Zuniga MD Indications: PAD Baseline Heart Rate: 96 Baseline Blood Pressure: Blood Pressure Systolic: 162 Blood Pressure Diastolic: 86 Baseline Vitals Vital Signs Date Time Temp Pulse Resp B/P (MAP) Pulse Ox O2 Delivery O2 Flow Rate FiO2 06/25/22 15:41 39.7 133 43 132/90 (104) 91 Nasal Cannula 2.00 Baseline EKG: Baseline EKG: NSR Summary After explaining the procedure to the patient, he signed a consent and then brought to the stress nuclear laboratory. Patient received 0.4 mg Lexiscan for stress test, ECG, heart rate and blood pressure were monitored continuously. Resting and stress dose of radio tracer were injected, imaging was acquired and reviewed in short axis, horizontal long axis and vertical long axis views. TID: 1.04 SSS: 0 SDS: 0 EF: 63 1. Patient tolerated Lexiscan well 2. No significant ischemia or infarction on SPECT images 3. Normal left ventricular size, ejection fraction 63% Copy Copies To 1: JAXON LING BASHAR J MD Jun 27, 2022 12:22
--- NOTE | 2022-06-27 12:30 | Progress Note ---
Standard Progress Note Progress Notes/Assess & Plan Date Seen by a Provider: Jun 27, 2022 Time Seen by a Provider: 10:00 Progress/Assessment & Plan PE: chest- few scattered rhales heart- regular heent- no scleral icterus, no cervical lymphadenopathy. extr- no LE edema. neg homans. ulceration left 5th toe abd- soft, nt/nd skin-warm/dry Focused Exam Lactate Level 06/25/22 15:52: Lactic Acid Level 3.55*H 06/25/22 17:57: Lactic Acid Level 0.98 Time of Focused Exam: 17:30 PADMA GARG MD Jun 27, 2022 12:30
[2022-06-27] MEDS: VANCOMYCIN 1500 MG/NS 500 ML IVPB IV SCH ×2 (13:27)
--- NOTE | 2022-06-27 14:17 | Progress Note - Hospitalist ---
Subjective HPI/CC On Admission Date Seen by Provider: Jun 27, 2022 Time Seen by Provider: 10:15 Santo Rivera is a 66 year old male with PMH HTN, HLD, PAD, poorly controlled T2DM on insulin with diabetic foot ulcer, who presented with altered mental status. He was reportedly acting strangely at work yesterday. He denies fevers and ch ills. He denies shortness of breath and cough. He was feeling nauseous. He denies abdominal pain. He denies diarrhea. He denies chest pain. Subjective/Events-last exam He is feeling better. He is nauseous. He denies chest pain and shortness of breath. He denies fevers. He is reluctant to undergo surgery. He plans to talk to his daughter today, but thinks he will decide to have the amputation. Focused Exam Lactate Level 06/25/22 15:52: Lactic Acid Level 3.55*H 06/25/22 17:57: Lactic Acid Level 0.98 Time of Focused Exam: 17:30 Objective Exam Vital Signs Vital Signs Date Time Temp Pulse Resp B/P (MAP) Pulse Ox O2 Delivery O2 Flow Rate FiO2 06/27/22 13:00 96 06/27/22 11:05 37.0 20 162/86 (111) 96 Nasal Cannula 3.00 Capillary Refill : Less Than 3 Seconds General Appearance: No Apparent Distress, Obese Respiratory: Lungs Clear, No Respiratory Distress Cardiovascular: Regular Rate, Rhythm, No Murmur Gastrointestinal: Normal Bowel Sounds, Soft Extremity: Non Tender, Inflammation Neurologic/Psychiatric: Alert, Oriented x3 Skin: Warm/Dry, Other (left foot 5th digit ulcer) Results/Procedures Lab Laboratory Tests 06/27/22 05:36 Patient resulted labs reviewed. Imaging: Reviewed Imaging Films, Reviewed Imaging Report Assessment/Plan Assessment and Plan Assess & Plan/Chief Complaint Severe sepsis Diabetic foot ulcer Osteomyelitis IV fluids Vanc and Zosyn MRI with osteomyelitis Wound care following Surgery following, recommending amputation Case discussed with Dr. Waite, surgery Patient refusing at this time, will discuss with daughter T2DM on insulin Neuropathy Diabetic foot ulcer Non-adherent to medication regimen Levemir Novology with meals Sliding scale insulin Diabetes education HTN PAD Cardiology following Planning for peripheral angiogram MPI negative Hyponatremia Monitor and correct as needed Morbid obesity Clinically significant, no acute management needs DVT prophylaxis: Lovenox MAISHA, resolved Lactic acidosis, resolved Hypokalemia, resolved Hypomagnesemia, resolved Diagnosis/Problems Diagnosis/Problems (1) Severe sepsis Status: Acute (2) Osteomyelitis due to type 2 diabetes mellitus Status: Acute (3) MAISHA (acute kidney injury) Status: Acute (4) Lactic acidosis Status: Acute (5) Non-adherence to medical treatment Status: Acute (6) T2DM (type 2 diabetes mellitus) Status: Acute Qualifiers: Diabetes mellitus medical intern insulin use: with medical intern use Diabetes mellitus complication status: with skin complications Diabetes mellitus co mplication detail: with foot ulcer Qualified Codes: E11.621 - Type 2 diabetes mellitus with foot ulcer; L97.509 - Non-pressure chronic ulcer of other part of unspecified foot with unspecified severity; Z79.4 - FPC (current) use of insulin (7) PAD (peripheral artery disease) Status: Acute (8) Morbid obesity Status: Chronic BEE GARCIA MD Jun 27, 2022 14:17
[2022-06-27] MEDS: ACETAMINOPHEN 325 MG TABLET PO PRN (16:56)
--- NOTE | 2022-06-27 17:41 | Physician Query Clarification ---
Physician Query-General Query to Physician: The medical record reflects the following clinical evidence: Clinical Indicators: in ER: SpO2 84% sat on 2 L (P/F= 170) per nursing documentation respiratory rate 43 on admission has been mostly 18-22, after starting 02, has been as high as 4 L and has been on continuous O2 since admission. Documentation of shortness of air with exertion on admission Risk Factor(s): Poorly controlled DM, Sepsis, no documentation of home 02 use Treatment: Supplemental 02, Respiratory monitoring IV ABX for sepsis 1. Acute respiratory failure, w hypoxia, present on admission 2. Other explanation of clinical findings 3. Unable to determine (no explanation for clinical findings) Please clarify and document your clinical opinion in the progress notes and discharge summary including the definitive and/or presumptive diagnosis, (suspected or probable), related to the above clinical findings. Please include clinical findings supporting your diagnosis. Kelsie Fallon RN, MSN Clinical Subcontracts Manager [phone] [email or web address] PHYSICIAN RESPONSE: Based on the clinical findings in the record, please respond to the query above on this document as an addendum. Physician Response: Physician Response 1 If you have questions please contact: Consulting Solution Manager: Ext: Thank you for your time and cooperation. Clinical Subcontracts Manager/Consulting Solution Manager This is a permanent part of the medical record KELSIE FALLON Jun 27, 2022 17:41 BEE GARCIA MD Jun 27, 2022 19:03
[2022-06-28] VITALS (11 sets, daily range): BP systolic 127–156; BP diastolic 71–98
[2022-06-28] MEDS: VANCOMYCIN 1500 MG/NS 500 ML IVPB IV SCH ×4 (01:59→14:07)
[2022-06-28] MEDS: ACETAMINOPHEN 325 MG TABLET PO PRN ×3 (02:03→18:32)
[2022-06-28] MEDS: inSUlin ASPART (NovoLOG) 1 UNIT/0.01 ML (CHARGE PER UNIT) SC SCH ×7 (06:37→20:18)
[2022-06-28] MEDS: PIPERACILLIN SODIUM/TAZOBACTAM 4.5 GM in NS (IVPB) 100 ML IV SCH ×3 (06:38→22:57)
[2022-06-28 06:47] LABS: BASOPHILS % (AUTO) 0 % (0-10); EOSINOPHILS % (AUTO) 0 % (0-10); HEMATOCRIT 37 % (40-54); HEMOGLOBIN 12.4 g/dL (13.3-17.7); LYMPHOCYTES % (AUTO) 7 % (12-44); MEAN CORPUSCULAR HEMOGLOBIN 31 pg (25-34); MEAN CORPUSCULAR HGB CONC 34 g/dL (32-36); MEAN CORPUSCULAR VOLUME 92 fL (80-99); MEAN PLATELET VOLUME 10.8 fL (9.0-12.2); MONOCYTES # (AUTO) 0.8 10^3/uL (0.0-1.0); MONOCYTES % (AUTO) 6 % (0-12); NEUTROPHILS # (AUTO) 11.5 10^3/uL (1.8-7.8); NEUTROPHILS % (AUTO) 86 % (42-75); PLATELET COUNT 230 10^3/uL (130-400); WHITE BLOOD COUNT 13.4 10^3/uL (4.3-11.0)
[2022-06-28 07:19] LABS: CALCIUM 8.8 MG/DL (8.5-10.1); CREATININE SERUM 0.93 MG/DL (0.60-1.30); MAGNESIUM 1.8 MG/DL (1.6-2.4); POTASSIUM 3.7 MMOL/L (3.6-5.0)
[2022-06-28] MEDS: POTASSIUM CL 10MEQ/50ML IVPB 50 ML IV SCH (07:22)
[2022-06-28] MEDS: KCL 20 MEQ TAB (K-DUR) PO SCH (07:23)
[2022-06-28] MEDS: MAGNESIUM 1 GM/100 ML IVPB 100 ML IV SCH (07:23)
[2022-06-28] MEDS: ENOXAPARIN 40 MG/0.4 ML (LOVENOX) SYR SC SCH ×3 (08:38→20:17)
[2022-06-28] MEDS: GABAPENTIN 300 MG (NEURONTIN) CAP PO SCH ×2 (08:38→17:41)
[2022-06-28] MEDS: SENNOSIDES 8.6 MG (SENOKOT) TAB PO SCH ×2 (08:39→20:18)
[2022-06-28] MEDS: POVIDONE (BETADINE) 10% SOLN 240 ML BTL TOP SCH ×2 (08:39→20:19)
[2022-06-28] MEDS: DOCUSATE SODIUM 100 MG (COLACE) CAP PO SCH ×2 (08:39→20:18)
[2022-06-28] MEDS: ANTACID SUSP 30 ML UDC (MYLANTA) PO PRN ×2 (08:54→18:05)
[2022-06-28] MEDS ORDERED: NS IV 1000 ML 1,000 ML ONE (09:34)
[2022-06-28] MEDS ORDERED: HEParin (CATH LAB) 2,000 ML IV ONE (09:34)
[2022-06-28] MEDS ORDERED: LIDOCAINE 1% INJ 30 ML (XYLOCAINE) VIAL ONE (09:34)
[2022-06-28] MEDS: NS IV 1000 ML 1,000 ML IV SCH ×5 (10:56→23:57)
[2022-06-28] MEDS ORDERED: PANTOPRAZOLE 40 MG (PROTONIX) TAB PO NR (11:00)
--- NOTE | 2022-06-28 11:12 | Cardiac Procedure Note-CS/ASA ---
Pre-Procedure Note Pre-Op Procedure Note Date of Available H&P: Jun 26, 2022 Date H&P Reviewed: Jun 28, 2022 Time H&P Reviewed: 11:12 History & Physical: H&P Reviewed, No changes noted Pre-Operative Diagnosis: PAD Conscious Sedation Pre-Proced Time 22:00 ASA Score 3 For ASA 3 and 4: Consider anesthesia and medical clearance. Also, for patients with a history of failed moderate sedation consider anesthesia. Airway Lungs Heart ASA score ASA 1: a normal healthy patient ASA 2: a patient with a mild systemic disease (mid diabetes, controlled hypertension, obesity ASA 3: a patient with a severe systemic disease that limits activity (angina, COPD, prior Myocardial infarction) ASA 4: a patient with an incapacitating disease that is a constant threat to life (CHF, renal failure) ASA 5: a moribund patient not expected to survive 24 hrs. (ruptured aneurysm) ASA 6: a declared brain- patient whose organs are being harvested. For emergent operations, add the letter E after the classification Mallampati Classification Grade 3 Sedation Plan Analgesia, Amnesia, Plan communicated to team members, Discussed options with patient/fam, Discussed risks with patient/fam The patient is an appropriate candidate to undergo the planned procedure, sedation, and anesthesia. The patient immediately re-assessed prior to indication. THOMAS MCLEOD MD Jun 28, 2022 11:12
--- NOTE | 2022-06-28 11:18 | Cardiology Progress Note ---
Subjective Date Seen by Provider: Jun 28, 2022 Time Seen by Provider: 11:17 Subjective/Events-last exam Patient was seen at bedside, sitting comfortably, reporting episodes of chest pain in the retrosternal area, has been having chest pain mainly in the evening. Review of Systems General: No Chills, No Night Sweats, No Fatigue, No Malaise, No Appetite, No Other HEENT: No Head Aches, No Visual Changes, No Eye Pain, No Ear Pain, No Dysphasia, No Sinus Congestion, No Post Nasal Drip, No Sore Throat, No Other Pulmonary: No Dyspnea, No Cough, No Pleuritic Chest Pain, No Other Cardiovascular: No: Chest Pain, Palpitations, Orthopnea, Paroxysmal Noc. Dyspnea, Edema, Lt Headedness, Other Focused Exam Lactate Level 06/25/22 15:52: Lactic Acid Level 3.55*H 06/25/22 17:57: Lactic Acid Level 0.98 Time of Focused Exam: 17:30 Objective-Cardiology Exam Last Set of Vital Signs Vital Signs 06/28/22 06/28/22 07:44 10:40 Temp 36.7 Pulse 99 Resp 18 B/P (MAP) 156/88 (110) Pulse Ox 92 O2 Delivery Room Air O2 Flow Rate 5.00 I&O Intake and Output 06/28/22 00:00 Intake Total 570 ml Output Total 2650 ml Balance -2080 ml Intake Oral 570 ml Output Urine Total 2650 ml # Bowel Movements 2 General: Alert, Oriented X3 HEENT: Atraumatic Neck: Supple, No JVD Lungs: Clear to Auscultation, Normal Air Movement Heart: Regular Rate, Normal S1, Normal S2 Abdomen: Soft, No Tenderness Extremities: No Clubbing, No Cyanosis, Other (trace edema) Neuro: Normal Speech, Sensation Intact Psych/Mental Status: Mental Status NL, Mood NL Results Lab Laboratory Tests 06/28/22 05:20 A/P-Cardiology Admission Diagnosis LLE cellulitis with nonhealing wound Sepsis PVD HTN DM Assessment/Plan Sepsis, LLE cellulitis with nonhealing wound,osteomyelitis to left 5th toe, started on antibiotic, Dr. Waite consulted, recommending amputation of toe Peripheral arterial disease, nonhealing wound on left foot. Multiple interventions in the past, had peripheral procedure with Dr. Barron in the past resulted in bleeding. Patient was not satisfied with the results. Reported that he had an intervention done with Dr. Botello in the remote past. Angiogram was done on January 30, 2022 showing total occlusion of the left anterior tibial artery with successful balloon angioplasty, severe stenosis of the proximal left posterior tibial artery with successful balloon angioplasty with excellent results. Had mild to moderate disease at the common femoral and SFA. On the right side also there is an occlusion of the anterior tibial artery and severe stenosis of the distal left posterior tibial artery. Patient has been maintained on ASA and Plavix, reports sometimes forgets to take his medications. TOM was done on February 27, 2022 was 0.94 on the right and 1.28 on the left and TBI bilaterally was 0.81. I am planning to proceed with peripheral angiogram and possible angioplasty, Tentatively patient is scheduled for tomorrow, I will reevaluate him in the morning to make sure that he will be able to lay down flat during the procedure and postoperatively. Abdominal pain, nausea and dry heaves. Diarrhea. Managed by primary care physician Chest pain, retrosternal area, multiple risk factors for coronary artery disease Lexiscan stress test was done on 06/27/2022 showing no ischemia or infarction, ejection fraction 63% Severe left carotid artery stenosis, mild right he was referred for further evaluation with Dr. Cmapbell. Patient reporting he underwent recent CTA Head and neck at [place]. Hypertension, has been maintained on lisinopril as outpatient Hyperlipidemia, lipid profile done January 2022 showing total cholesterol 217, HDL 38, LDL 114, trig 217. Recurrent syncope secondary to low blood pressure Diabetes mellitus, poorly controlled followed and managed by primary care physician BMI 38, we discussed weight loss and exercise after his intervention History of tobaccoism, stopped smoking in 2009. History of non compliance THOMAS MCLEOD MD Jun 28, 2022 11:18
[2022-06-28] MEDS ORDERED: MIDAZOLAM 5 MG/5 ML (VERSED) VIAL ONE (11:47)
[2022-06-28] MEDS ORDERED: fentaNYL INJ 100 MCG/2 ML AMP ONE (11:47)
[2022-06-28] MEDS ORDERED: TROUGH ORDER-PHARMACY XX NR (12:00)
[2022-06-28] MEDS: LACTATED RINGERS 1,000 ML IV SCH (12:17)
[2022-06-28] MEDS ORDERED: HEParin 1000 UNIT/ML (10ML VIAL) FOR BOLUS ONE (12:26)
[2022-06-28] MEDS ORDERED: NITRO DRIP 25000 MCG/D5W 250 ML IV ONE (12:28)
[2022-06-28] MEDS ORDERED: CLOPIDOGREL 300 MG (PLAVIX) TABLET PO ONE (13:11)
[2022-06-28] MEDS ORDERED: ASPIRIN 325 MG (5 GR) TABLET ONE (13:11)
--- NOTE | 2022-06-28 13:26 | Peripheral Report ---
Peripheral Report Physician (s)/Plant Cytologist (s) Physician THOMAS MCLEOD MD Pre-Procedure Diagnosis Pre-Procedure Diagnosis: PAD Post-Procedure Note Procedure Start Date: Jun 28, 2022 Name of Procedure: Bilateral lower extremity runoff Third order Additional imaging x2 CUTTER V GROOVE to the left anterior tibial artery Findings/Procedure Note PROCEDURE NOTE: 66-year-old gentleman known peripheral arterial disease, admitted with osteomyelitis, scheduled for peripheral angiogram. After explaining the procedure to the patient, all pros and cons were explained, all questions were answered. The patient signed the consent and then he was placed on the cardiac catheterization laboratory. The patient was placed on the cardiac catheterization laboratory. Groin was prepped SL fashion local anesthesia was used. Sheath placed in the right femoral artery, runoff to the right leg was done, DSA imaging to the trifurcation was done. Then using a rim catheter I placed it at the common iliac artery and did runoff to the left leg then advanced Storq wire and remove the catheter and exchanged the sheath to a long 6 Niuean sheath advanced to the proximal SFA. Then advance straight catheter down to the trifurcation, patient has occlusion of the anterior tibial artery I used multiple different wires to cross the anterior tibial artery to the midportion then advanced balloon Charlotte 2.5 x 80 mm and did multiple inflation, angiogram showed improvement of the proximal and mid anterior tibial artery but the distal continue to be occluded. I retracted the balloon and advance it in the posterior tibial artery and did single injection in the posterior tibial artery and the artery has a good flow brisk flow. Sheath was retracted and exchanged to a short 6 Niuean sheath then closure device deployed FINDINGS: Right lower extremity, mild disease down to the trifurcation, slow flow below the trifurcation due to small vessel disease Left lower extremity: Common iliac and common femoral artery has mild disease SFA has moderate disease at the mid and distal nonobstructive disease Anterior tibial artery is totally occluded, complex intervention with balloon angioplasty using Charlotte 2.5 x 80 mm to the proximal and mid, I was unable to advance the wire to the distal portion. Posterior tibial artery has mild to moderate disease with good flow down to the ankle Peroneal artery has mild to moderate disease CONCLUSIONS: 1. Total occlusion of the anterior tibial artery with balloon angioplasty to the proximal and mid artery, the distal artery continue to be occluded. 2. Otherwise mild to moderate disease on the left lower extremity 3. Slow flow on the right side with mild to moderate disease down to the trifurcation DISCUSSION AND RECOMMENDATIONS: Continue to maximize medical therapy Anesthesia Type: Conscious Sedation Estimated blood loss (mL): 20 ml Contrast Amount: 59 ml Total Radiation Dose: 1052 mGy Post-Procedure Diagnosis Post-operative diagnosis: Osteomyelitis Peripheral arterial disease Hypertension Hyperlipidemia THOMAS MCLEOD MD Jun 28, 2022 13:26
[2022-06-28] MEDS ORDERED: PATIENT MAY USE OWN MEDS, ALL PO SCH (13:30)
--- NOTE | 2022-06-28 14:57 | Progress Note - Hospitalist ---
Subjective HPI/CC On Admission Date Seen by Provider: Jun 28, 2022 Time Seen by Provider: 10:30 Santo Rivera is a 66 year old male with PMH HTN, HLD, PAD, poorly controlled T2DM on insulin with diabetic foot ulcer, who presented with altered mental status. He was reportedly acting strangely at work yesterday. He denies fevers and ch ills. He denies shortness of breath and cough. He was feeling nauseous. He denies abdominal pain. He denies diarrhea. He denies chest pain. Subjective/Events-last exam He is feeling better. He denies pain. He denies shortness of breath. His stomach is upset. Focused Exam Lactate Level 06/25/22 15:52: Lactic Acid Level 3.55*H 06/25/22 17:57: Lactic Acid Level 0.98 Time of Focused Exam: 17:30 Objective Exam Vital Signs Vital Signs Date Time Temp Pulse Resp B/P (MAP) Pulse Ox O2 Delivery O2 Flow Rate FiO2 06/28/22 14:33 36.8 90 10 131/76 (94) 92 Nasal Cannula 5.00 Capillary Refill : Less Than 3 Seconds General Appearance: No Apparent Distress, Obese Respiratory: Lungs Clear, No Respiratory Distress Cardiovascular: Regular Rate, Rhythm, No Murmur Gastrointestinal: Normal Bowel Sounds, Non Tender, Soft Extremity: Inflammation, Swelling Neurologic/Psychiatric: Alert, Other (flat affect) Skin: Erythema (left leg, left 5th toe wound) Results/Procedures Lab Laboratory Tests 06/28/22 05:20 Patient resulted labs reviewed. Imaging: Reviewed Imaging Films, Reviewed Imaging Report Assessment/Plan Assessment and Plan Assess & Plan/Chief Complaint Severe sepsis Diabetic foot ulcer Osteomyelitis IV fluids Vanc and Zosyn MRI with osteomyelitis Wound care following Surgery following, planning for amputation T2DM on insulin Neuropathy Diabetic foot ulcer Non-adherent to medication regimen Levemir Novology with meals Sliding scale insulin Diabetes education HTN PAD Cardiology following Peripheral angiogram with balloon angioplasty today MPI negative Morbid obesity Clinically significant, no acute management needs DVT prophylaxis: Lovenox MAISHA, resolved Lactic acidosis, resolved Hypokalemia, resolved Hypomagnesemia, resolved Hyponatremia, resolved Diagnosis/Problems Diagnosis/Problems (1) Severe sepsis Status: Acute (2) Osteomyelitis due to type 2 diabetes mellitus Status: Acute (3) MAISHA (acute kidney injury) Status: Acute (4) Lactic acidosis Status: Acute (5) Non-adherence to medical treatment Status: Acute (6) T2DM (type 2 diabetes mellitus) Status: Acute Qualifiers: Diabetes mellitus mcfp insulin use: with mcfp use Diabetes mellitus complication status: with skin complications Diabetes mellitus complication detail: with foot ulcer Qualified Codes: E11.621 - Type 2 diabetes mellitus with foot ulcer; L97.509 - Non-pressure chronic ulcer of other part of unspecified foot with unspecified severity; Z79.4 - long-term (current) use of insulin (7) PAD (peripheral artery disease) Status: Acute (8) Morbid obesity Status: Chronic BEE GARCIA MD Jun 28, 2022 14:57
[2022-06-28] MEDS: VANCOMYCIN INJECTION 1,750 MG in NS IV 500 ML 500 ML IV SCH (15:25)
[2022-06-29] VITALS (7 sets, daily range): BP systolic 136–188; BP diastolic 72–99
[2022-06-29] MEDS: ACETAMINOPHEN 325 MG TABLET PO PRN ×2 (00:43→05:15)
[2022-06-29] MEDS ORDERED: VANCOMYCIN 1000 MG/VIAL ONE (03:14)
[2022-06-29] MEDS ORDERED: VANCOMYCIN 750 MG/VIAL IV ONE (03:14)
[2022-06-29] MEDS: VANCOMYCIN INJECTION 1,750 MG in NS IV 500 ML 500 ML IV SCH ×2 (03:21→15:30)
[2022-06-29] MEDS: NS IV 1000 ML 1,000 ML IV SCH ×4 (05:26→20:14)
[2022-06-29] MEDS: inSUlin ASPART (NovoLOG) 1 UNIT/0.01 ML (CHARGE PER UNIT) SC SCH ×7 (05:26→20:15)
[2022-06-29 05:57] LABS: BASOPHILS % (AUTO) 0 % (0-10); EOSINOPHILS # (AUTO) 0.1 10^3/uL (0.0-0.3); EOSINOPHILS % (AUTO) 1 % (0-10); HEMATOCRIT 39 % (40-54); HEMOGLOBIN 12.8 g/dL (13.3-17.7); LYMPHOCYTES # (AUTO) 1.4 10^3/uL (1.0-4.0); LYMPHOCYTES % (AUTO) 16 % (12-44); MEAN CORPUSCULAR HEMOGLOBIN 31 pg (25-34); MEAN CORPUSCULAR HGB CONC 33 g/dL (32-36); MEAN CORPUSCULAR VOLUME 92 fL (80-99); MEAN PLATELET VOLUME 9.8 fL (9.0-12.2); MONOCYTES # (AUTO) 0.7 10^3/uL (0.0-1.0); MONOCYTES % (AUTO) 9 % (0-12); NEUTROPHILS # (AUTO) 6.4 10^3/uL (1.8-7.8); NEUTROPHILS % (AUTO) 73 % (42-75); PLATELET COUNT 262 10^3/uL (130-400); WHITE BLOOD COUNT 8.7 10^3/uL (4.3-11.0)
[2022-06-29 06:11] LABS: POTASSIUM 3.4 MMOL/L (3.6-5.0)
[2022-06-29 06:13] LABS: CALCIUM 8.6 MG/DL (8.5-10.1)
[2022-06-29] MEDS: KCL 20 MEQ TAB (K-DUR) PO SCH (06:16)
[2022-06-29] MEDS: POTASSIUM CL 10MEQ/50ML IVPB 50 ML IV SCH (06:16)
[2022-06-29 06:17] LABS: CREATININE SERUM 0.78 MG/DL (0.60-1.30)
[2022-06-29] MEDS: MAGNESIUM 1 GM/100 ML IVPB 100 ML IV SCH (06:22)
[2022-06-29] MEDS: PIPERACILLIN SODIUM/TAZOBACTAM 4.5 GM in NS (IVPB) 100 ML IV SCH ×3 (06:27→22:58)
[2022-06-29] MEDS ORDERED: KCL 20 MEQ TAB (K-DUR) PO ONE (06:30)
[2022-06-29] MEDS: POVIDONE (BETADINE) 10% SOLN 240 ML BTL TOP SCH ×2 (08:54→20:16)
[2022-06-29] MEDS: DOCUSATE SODIUM 100 MG (COLACE) CAP PO SCH ×2 (08:55→20:14)
[2022-06-29] MEDS: ENOXAPARIN 40 MG/0.4 ML (LOVENOX) SYR SC SCH ×2 (08:55→20:14)
[2022-06-29] MEDS: PANTOPRAZOLE 40 MG (PROTONIX) TAB PO SCH (08:55)
[2022-06-29] MEDS: GABAPENTIN 300 MG (NEURONTIN) CAP PO SCH ×2 (08:55→17:20)
[2022-06-29] MEDS: SENNOSIDES 8.6 MG (SENOKOT) TAB PO SCH ×2 (08:56→20:15)
--- NOTE | 2022-06-29 11:17 | Progress Note - Surgery ---
JULIO CAHIREZ 06/29/22 1117: Subjective Date Seen by a Provider: Jun 29, 2022 Time Seen by a Provider: 11:12 Subjective/Events-last exam 66 M with let 5th toe osteomylitis with diabetic neuropathy and hospitalized for sepsis was asked to be seen by surgery per Dr. Zuniga. Continues to have left 5th toe ulceration. No pain reported today. Pt had balloon anigoplasty yesterday per Kristen w/o complication. Pt reports not issue post-op. Pt resting in bed comfortably with no acute distress. Hemodynamicly stable. Review of Systems General: No Chills, No Night Sweats HEENT: No Head Aches, No Visual Changes Pulmonary: No Dyspnea, No Cough Cardiovascular: No: Chest Pain, Lt Headedness Gastrointestinal: No: Nausea, Vomiting Genitourinary: No Dysuria, No Frequency Musculoskeletal: No: leg pain, foot pain Neurological: Numbness (L foot); No: Confusion Focused Exam Time of Focused Exam: 17:30 Objective Exam Vital Signs Date Time Temp Pulse Resp B/P (MAP) Pulse Ox O2 Delivery O2 Flow Rate FiO2 06/29/22 08:00 Nasal Cannula 4.00 06/29/22 07:25 36.6 83 18 165/90 (115) 93 Nasal Cannula 3.00 06/29/22 07:16 Nasal Cannula 3.00 06/29/22 07:14 93 Nasal Cannula 4.00 06/29/22 07:00 84 06/29/22 03:46 36.7 87 18 136/89 (105) 91 Nasal Cannula 4.00 06/29/22 01:00 81 06/28/22 23:57 36.5 90 18 154/86 (108) 91 Nasal Cannula 4.00 06/28/22 20:00 Nasal Cannula 4.00 06/28/22 19:32 37.0 87 17 143/85 (104) 94 Nasal Cannula 4.00 06/28/22 19:00 89 06/28/22 17:30 95 14 156/98 (117) 94 Nasal Cannula 5.00 06/28/22 16:35 87 16 154/93 (113) 92 Nasal Cannula 5.00 06/28/22 16:00 88 17 134/86 (102) 92 Nasal Cannula 5.00 06/28/22 15:30 92 13 144/76 (98) 95 Nasal Cannula 5.00 06/28/22 14:33 36.8 90 10 131/76 (94) 92 Nasal Cannula 5.00 06/28/22 14:15 91 12 141/98 (112) 92 Nasal Cannula 5.00 06/28/22 13:45 90 18 131/85 (100) 91 Nasal Cannula 5.00 06/28/22 13:00 92 I & O 06/29/22 07:00 Intake Total 780 ml Output Total 1400 ml Balance -620 ml Capillary Refill : NONE General Appearance: No Apparent Distress, Obese HEENT: PERRL/EOMI, Pharynx Normal Neck: Normal Inspection, Supple Respiratory: Lungs Clear, No Respiratory Distress Cardiovascular: Regular Rate, Rhythm, No Murmur Peripheral Pulses: 2+ Radial Pulses (R), 2+ Radial Pulses (L) Gastrointestinal: soft, no organomegaly Extremity: Inflammation, Swelling Neurologic/Psychiatric: Alert, Oriented x3, Other (flat affect) Skin: Erythema (left leg, left 5th toe wound), Rash (stasis dermatitis on L LE) Lymphatic: No Adenopathy Results Lab Laboratory Tests 06/28/22 13:12: Vancomycin Level Trough 9.8L 06/28/22 15:13: Glucometer 147H 06/28/22 20:07: Glucometer 207H 06/29/22 05:03: Glucometer 109 06/29/22 05:24: White Blood Count 8.7, Red Blood Count 4.20L, Hemoglobin 12.8L, Hematocrit 39L, Mean Corpuscular Volume 92, Mean Corpuscular Hemoglobin 31, Mean Corpuscular Hemoglobin Concent 33, Red Cell Distribution Width 12.8, Platelet Count 262, Mean Platelet Volume 9.8, Immature Granulocyte % (Auto) 1, Neutrophils (%) (Auto) 73, Lymphocytes (%) (Auto) 16, Monocytes (%) (Auto) 9, Eosinophils (%) (Auto) 1, Basophils (%) (Auto) 0, Neutrophils # (Auto) 6.4, Lymphocytes # (Auto) 1.4, Monocytes # (Auto) 0.7, Eosinophils # (Auto) 0.1, Basophils # (Auto) 0.0, Immature Granulocyte # (Auto) 0.1, Sodium Level 137, Potassium Level 3.4L, Chloride Level 103, Carbon Dioxide Level 26, Anion Gap 8, Blood Urea Nitrogen 9, Creatinine 0.78, Estimat Glomerular Filtration Rate 100, BUN/Creatinine Ratio 12, Glucose Level 111H, Calcium Level 8.6, Magnesium Level 2.0 06/29/22 11:11: Glucometer 133H Microbiology 06/26/22 Urine Culture - Final, Complete NO GROWTH 06/25/22 Blood Culture - Preliminary, Resulted No growth Assessment/Plan Assessment/Plan Assessment/Plan osteomylitis of left 5th toe diabetic neuropathy sepsis Lt 5th toe amputation scheduled for tomorrow 04/30/22 sliding scale insulin NPO at midnight continue IV vanc therpay NINO DUFF DO 06/29/22 1212: Subjective Subjective/Events-last exam Asked by Dr. Zuniga to see patient. Patient is a 66 year old male with diabetes. He was admitted for sepsis. Found to have osteomyelitis of the left 5th toe. He states he is doing better today. Had balloon angioplasty yesterday. No significant pain. Wanting to go home. Denies n/v fever sweats chills shortness of breath or chest pain. Objective Exam General Appearance: No Apparent Distress, Obese HEENT: PERRL/EOMI, Pharynx Normal Neck: Normal Inspection, Supple Respiratory: Chest Non Tender, No Accessory Muscle Use, No Respiratory Distress Cardiovascular: Regular Rate, Rhythm, No JVD Gastrointestinal: soft, no organomegaly Extremity: Other (left 5th toe with ulceration and some edema) Neurologic/Psychiatric: Alert, Oriented x3 Skin: Normal Color, Warm/Dry, Erythema ( left 5th toe wound) Lymphatic: No Adenopathy Assessment/Plan Assessment/Plan Assessment/Plan osteomylitis of left 5th toe diabetic neuropathy sepsis Discussed risks and benefits of left 5th toe amputation he was understands risks and benefits and wishes to proceed. obtain signed consent scheduled for tomorrow 04/30/22 sliding scale insulin NPO at midnight continue IV vanc therpay Likely surgery in am and home in afternoon, Discussed with Dr. Zuniga. Supervisory-Addendum Brief Verification & Attestation Participated in pt care: history, MDM, physical Personally performed: exam, history, MDM, supervision of care Care discussed with: Medical Student Procedures: n/a Results interpretation: Verified all documentation Verification and Attestation of Medical Student E/M Service A medical student performed and documented this service in my presence. I reviewed and verified all information documented by the medical student and made modifications to such information, when appropriate. I personally performed the physical exam and medical decision making. Nino Duff, Jun 29, 2022,12:12 JULIO CHAIREZ Jun 29, 2022 11:17 NINO DUFF DO Jun 29, 2022 12:12
--- NOTE | 2022-06-29 12:09 | Cardiology Progress Note ---
Subjective Date Seen by Provider: Jun 29, 2022 Time Seen by Provider: 12:08 Subjective/Events-last exam Patient was seen at bedside, complaining of pain in his right shoulder. No chest pain was reported Review of Systems General: No Chills, No Night Sweats, No Fatigue, No Malaise, No Appetite, No Other HEENT: No Head Aches, No Visual Changes, No Eye Pain, No Ear Pain, No Dysphasia, No Sinus Congestion, No Post Nasal Drip, No Sore Throat, No Other Pulmonary: No Dyspnea, No Cough, No Pleuritic Chest Pain, No Other Cardiovascular: No: Chest Pain, Palpitations, Orthopnea, Paroxysmal Noc. Dyspnea, Edema, Lt Headedness, Other Focused Exam Time of Focused Exam: 17:30 Objective-Cardiology Exam Last Set of Vital Signs Vital Signs 06/29/22 11:17 Temp 36.6 Pulse 80 Resp 18 B/P (MAP) 158/85 (109) Pulse Ox 94 O2 Delivery Nasal Cannula O2 Flow Rate 3.00 I&O Intake and Output 06/29/22 00:00 Intake Total 640 ml Output Total 1020 ml Balance -380 ml Intake Oral 640 ml Output Urine Total 1020 ml # Bowel Movements 2 General: Alert, Oriented X3 HEENT: Atraumatic Neck: Supple, No JVD Lungs: Clear to Auscultation, Normal Air Movement Heart: Regular Rate, Normal S1, Normal S2 Abdomen: Soft, No Tenderness Extremities: No Clubbing, No Cyanosis, Other (trace edema) Neuro: Normal Speech, Sensation Intact Psych/Mental Status: Mental Status NL, Mood NL Results Lab Laboratory Tests 06/29/22 05:24 A/P-Cardiology Admission Diagnosis LLE cellulitis with nonhealing wound Sepsis PVD HTN DM Assessment/Plan Sepsis, LLE cellulitis with nonhealing wound,osteomyelitis to left 5th toe, started on antibiotic, Dr. Waite consulted, recommending amputation of toe Peripheral arterial disease, nonhealing wound on left foot. Multiple interventions in the past, had peripheral procedure with Dr. Barron in the past resulted in bleeding. Patient was not satisfied with the results. Reported that he had an intervention done with Dr. Botello in the remote past. Angiogram was done on January 30, 2022 showing total occlusion of the left anterior tibial artery with successful balloon angioplasty, severe stenosis of the proximal left posterior tibial artery with successful balloon angioplasty with excellent results. Had mild to moderate disease at the common femoral and SFA. On the right side also there is an occlusion of the anterior tibial artery and severe stenosis of the distal left posterior tibial artery. Patient has been maintained on ASA and Plavix, reports sometimes forgets to take his medications. TOM was done on February 27, 2022 was 0.94 on the right and 1.28 on the left and TBI bilaterally was 0.81. Peripheral angiogram was carried out on June 28, 2022 which showed occlusion of the left anterior tibial artery, attempt for angioplasty was successful in reestablishing flow in the proximal and mid anterior tibial artery, the distal part is occluded. Otherwise mild to moderate disease. Abdominal pain, nausea and dry heaves. Diarrhea, reporting improvement. Has been managed by primary care physician Chest pain, retrosternal area, multiple risk factors for coronary artery disease Lexiscan stress test was done on 06/27/2022 showing no ischemia or infarction, ejection fraction 63% Severe left carotid artery stenosis, mild right he was referred for further evaluation with Dr. Campbell. Patient reporting he underwent recent CTA Head and neck at [facility]. Hypertension, has been maintained on lisinopril as outpatient Hyperlipidemia, lipid profile done January 2022 showing total cholesterol 217, HDL 38, LDL 114, trig 217. Recurrent syncope secondary to low blood pressure Diabetes mellitus, poorly controlled followed and managed by primary care physician BMI 38, we discussed weight loss and exercise after his intervention History of tobaccoism, stopped smoking in 2009. History of non compliance THOMAS MCLEOD MD Jun 29, 2022 12:09
[2022-06-29] MEDS ORDERED: TROUGH ORDER-PHARMACY XX NR (14:00)
--- NOTE | 2022-06-29 15:24 | Progress Note - Hospitalist ---
Subjective HPI/CC On Admission Date Seen by Provider: Jun 29, 2022 Time Seen by Provider: 10:50 Santo Rivera is a 66 year old male with PMH HTN, HLD, PAD, poorly controlled T2DM on insulin with diabetic foot ulcer, who presented with altered mental status. He was reportedly acting strangely at work yesterday. He denies fevers and ch ills. He denies shortness of breath and cough. He was feeling nauseous. He denies abdominal pain. He denies diarrhea. He denies chest pain. Subjective/Events-last exam He is laying in bed. His shoulder hurts. He wants pain medicine and says he will leave if he doesn't get it. He denies fevers. He denies nausea. Focused Exam Time of Focused Exam: 17:30 Objective Exam Vital Signs Vital Signs Date Time Temp Pulse Resp B/P (MAP) Pulse Ox O2 Delivery O2 Flow Rate FiO2 06/29/22 12:41 93 06/29/22 11:17 36.6 18 158/85 (109) 94 Nasal Cannula 3.00 Capillary Refill : NONE General Appearance: No Apparent Distress, Obese Respiratory: Lungs Clear, No Respiratory Distress Cardiovascular: Regular Rate, Rhythm, No Murmur Gastrointestinal: Normal Bowel Sounds, Soft Extremity: Normal Inspection, Inflammation, Swelling Neurologic/Psychiatric: Alert, Other (irritable) Skin: Other (left 5th toe wound) Results/Procedures Lab Laboratory Tests 06/29/22 05:24 Patient resulted labs reviewed. Imaging: Reviewed Imaging Films, Reviewed Imaging Report Assessment/Plan Assessment and Plan Assess & Plan/Chief Complaint Severe sepsis Diabetic foot ulcer Osteomyelitis IV fluids Vanc and Zosyn MRI with osteomyelitis Wound care following Surgery following, planning for amputation Case discussed with Dr. Duff, surgery T2DM on insulin Neuropathy Diabetic foot ulcer Non-adherent to medication regimen Levemir Novology with meals Sliding scale insulin Diabetes education HTN PAD Cardiology following Peripheral angiogram with balloon angioplasty today MPI negative Morbid obesity Clinically significant, no acute management needs DVT prophylaxis: Lovenox MAISHA, resolved Lactic acidosis, resolved Hypokalemia, resolved Hypomagnesemia, resolved Hyponatremia, resolved Diagnosis/Problems Diagnosis/Problems (1) Severe sepsis Status: Acute (2) Osteomyelitis due to type 2 diabetes mellitus Status: Acute (3) MAISHA (acute kidney injury) Status: Acute (4) Lactic acidosis Status: Acute (5) Non-adherence to medical treatment Status: Acute (6) T2DM (type 2 diabetes mellitus) Status: Acute 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
[2022-06-30] VITALS (8 sets, daily range): BP systolic 115–196; BP diastolic 65–106
[2022-06-30] MEDS: VANCOMYCIN INJECTION 1,750 MG in NS IV 500 ML 500 ML IV SCH ×2 (02:18→15:45)
[2022-06-30 05:37] LABS: BASOPHILS # (AUTO) 0.1 10^3/uL (0.0-0.1); BASOPHILS % (AUTO) 1 % (0-10); EOSINOPHILS # (AUTO) 0.2 10^3/uL (0.0-0.3); EOSINOPHILS % (AUTO) 1 % (0-10); HEMATOCRIT 38 % (40-54); HEMOGLOBIN 12.9 g/dL (13.3-17.7); LYMPHOCYTES # (AUTO) 1.4 10^3/uL (1.0-4.0); LYMPHOCYTES % (AUTO) 13 % (12-44); MEAN CORPUSCULAR HEMOGLOBIN 31 pg (25-34); MEAN CORPUSCULAR HGB CONC 34 g/dL (32-36); MEAN CORPUSCULAR VOLUME 91 fL (80-99); MEAN PLATELET VOLUME 9.5 fL (9.0-12.2); MONOCYTES % (AUTO) 9 % (0-12); NEUTROPHILS # (AUTO) 8.1 10^3/uL (1.8-7.8); NEUTROPHILS % (AUTO) 75 % (42-75); PLATELET COUNT 309 10^3/uL (130-400); WHITE BLOOD COUNT 10.9 10^3/uL (4.3-11.0)
[2022-06-30] MEDS: NS IV 1000 ML 1,000 ML IV SCH (05:37)
[2022-06-30 05:59] LABS: POTASSIUM 3.3 MMOL/L (3.6-5.0)
[2022-06-30 06:00] LABS: CALCIUM 8.5 MG/DL (8.5-10.1)
[2022-06-30] MEDS: inSUlin ASPART (NovoLOG) 1 UNIT/0.01 ML (CHARGE PER UNIT) SC SCH ×7 (06:03→21:16)
[2022-06-30 06:05] LABS: CREATININE SERUM 0.8 MG/DL (0.60-1.30)
[2022-06-30 06:07] LABS: MAGNESIUM 1.8 MG/DL (1.6-2.4)
[2022-06-30] MEDS: KCL 20 MEQ TAB (K-DUR) PO SCH (06:17)
[2022-06-30] MEDS: POTASSIUM CL 10MEQ/50ML IVPB 50 ML IV SCH ×5 (06:17→09:57)
[2022-06-30] MEDS: MAGNESIUM 1 GM/100 ML IVPB 100 ML IV SCH (06:18)
[2022-06-30] MEDS: PIPERACILLIN SODIUM/TAZOBACTAM 4.5 GM in NS (IVPB) 100 ML IV SCH ×3 (06:30→23:25)
[2022-06-30] MEDS ORDERED: LIDOCAINE/EPI 1%-1:100,000 (XYLOCAINE) 10 ML ONE (07:30)
--- NOTE | 2022-06-30 07:46 | Progress Note - Surgery ---
JUILO CHAIREZ 06/30/22 0746: Subjective Date Seen by a Provider: Jun 30, 2022 Subjective/Events-last exam 66 M admitted for sever spesis and found to have osteomyelitits on the left 5th toe, had lt le angioplasty 2 days ago, with plans for 5th toe amputation today. Pt resting in be comfortably with no complaints. Pt denies any pain, N/V, CP, SOB, lightheadedness, or headache. Pt able to void and BM w/o complaints. BP spiked this am to 196/109 but remains asymptomatic, cardio notified. Pts denies any concerns about procedure. Review of Systems General: No Chills, No Night Sweats HEENT: No Head Aches, No Visual Changes Pulmonary: No Dyspnea, No Cough Cardiovascular: No: Chest Pain, Palpitations Gastrointestinal: No: Nausea, Vomiting, Abdominal Pain Genitourinary: No Dysuria, No Frequency Musculoskeletal: No: leg pain, foot pain Neurological: No: Weakness, Change in speech, Confusion Focused Exam Time of Focused Exam: 17:30 Objective Exam Vital Signs Date Time Temp Pulse Resp B/P (MAP) Pulse Ox O2 Delivery O2 Flow Rate FiO2 06/30/22 03:07 35.8 92 20 163/91 (115) 94 Nasal Cannula 3.00 06/30/22 01:00 100 06/30/22 00:16 36.7 96 16 131/78 (95) 92 Nasal Cannula 3.00 06/29/22 21:45 145/72 (96) 06/29/22 20:36 Nasal Cannula 4.00 06/29/22 19:52 37.3 97 22 170/94 (119) 92 Nasal Cannula 3.00 06/29/22 19:00 106 06/29/22 15:45 162/84 (110) 06/29/22 15:38 36.7 96 21 188/99 (128) 92 Nasal Cannula 3.00 06/29/22 12:41 93 06/29/22 11:17 36.6 80 18 158/85 (109) 94 Nasal Cannula 3.00 06/29/22 08:00 Nasal Cannula 4.00 I & O 06/30/22 07:00 Intake Total 7889 ml Output Total 3595 ml Balance 4294 ml Capillary Refill : NONE General Appearance: No Apparent Distress, Obese HEENT: PERRL/EOMI, Pharynx Normal Neck: Normal Inspection, Supple Respiratory: Lungs Clear, No Accessory Muscle Use, No Respiratory Distress Cardiovascular: Regular Rate, Rhythm, No Murmur Peripheral Pulses: 2+ Dorsalis Pedis (R), 2+ Left Dors-Pedis (L), 2+ Radial Pulses (R), 2+ Radial Pulses (L) Gastrointestinal: normal bowel sounds, non tender, soft, no organomegaly Extremity: Normal Inspection, Inflammation (Lt LE), Swelling Neurologic/Psychiatric: Alert, Oriented x3, Other (irritable) Skin: Warm/Dry, Erythema (Lt LE), Other (left 5th toe wound) Lymphatic: No Adenopathy Results Lab Laboratory Tests 06/29/22 11:11: Glucometer 133H 06/29/22 14:10: Vancomycin Level Trough 14.1 06/29/22 15:32: Glucometer 112H 06/29/22 19:59: Glucometer 162H 06/30/22 04:57: White Blood Count 10.9, Red Blood Count 4.22L, Hemoglobin 12.9L, Hematocrit 38L, Mean Corpuscular Volume 91, Mean Corpuscular Hemoglobin 31, Mean Corpuscular Hemoglobin Concent 34, Red Cell Distribution Width 12.9, Platelet Count 309, Mean Platelet Volume 9.5, Immature Granulocyte % (Auto) 2, Neutrophils (%) (Auto) 75, Lymphocytes (%) (Auto) 13, Monocytes (%) (Auto) 9, Eosinophils (%) (Auto) 1, Basophils (%) (Auto) 1, Neutrophils # (Auto) 8.1H, Lymphocytes # (Auto) 1.4, Monocytes # (Auto) 1.0, Eosinophils # (Auto) 0.2, Basophils # (Auto) 0.1, Immature Granulocyte # (Auto) 0.2H, Sodium Level 137, Potassium Level 3.3L, Chloride Level 103, Carbon Dioxide Level 25, Anion Gap 9, Blood Urea Nitrogen 7, Creatinine 0.80, Estimat Glomerular Filtration Rate 99, BUN/Creatinine Ratio 9, Glucose Level 162H, Calcium Level 8.5, Magnesium Level 1.8 Microbiology 06/26/22 Urine Culture - Final, Complete NO GROWTH 06/25/22 Blood Culture - Preliminary, Resulted No growth Assessment/Plan Assessment/Plan Assessment/Plan osteomylitis of left 5th toe diabetic neuropathy sepsis HTN urgency Discussed risks and benefits of left 5th toe amputation he was understands risks and benefits and wishes to proceed. obtained signed consent scheduled for today 04/30/22 hold sliding scale insulin due to NPO NPO started midnight continue IV vanc therpay cardiology notified for HTN, plans to proceed if cleared by LETA Rg DO 06/30/22 1405: Subjective Time Seen by a Provider: 07:50 Subjective/Events-last exam Patient npo. Planning for surgery this morning of left 5th toe amputation. Patient blood pressure elevated. Feeling well, without any complaints. Denies n/v fever sweats chills shortness of breath or chest pain at this time. Objective Exam General Appearance: No Apparent Distress, Obese HEENT: PERRL/EOMI, Normal ENT Inspection Neck: Normal Inspection, Supple Respiratory: Chest Non Tender, No Accessory Muscle Use, No Respiratory Distress Cardiovascular: Regular Rate, Rhythm, No JVD Gastrointestinal: non tender, soft Extremity: Inflammation (Lt LE), Swelling Neurologic/Psychiatric: Alert, Oriented x3 Skin: Warm/Dry, Erythema (Lt LE improving), Other (left 5th toe wound- ulcerated) Lymphatic: No Adenopathy Assessment/Plan Assessment/Plan Assessment/Plan osteomylitis of left 5th toe diabetic neuropathy sepsis HTN urgency Discussed risks and benefits of left 5th toe amputation he was understands risks and benefits and wishes to proceed. obtained signed consent scheduled for today 04/30/22 will cancel today hold sliding scale insulin due to NPO continue IV vanc therpay Discussed with anesthesia and will hold on procedure today. Get Htn better controlled and then plan. WIll start diet and then make NPO after midnight. Supervisory-Addendum Brief Verification & Attestation Participated in pt care: history, MDM, physical Personally performed: exam, history, MDM, supervision of care Care discussed with: Medical Student Procedures: n/a Results interpretation: Verified all documentation Verification and Attestation of Medical Student E/M Service A medical student performed and documented this service in my presence. I reviewed and verified all information documented by the medical student and made modifications to such information, when appropriate. I personally performed the physical exam and medical decision making. Leta Duff, Jun 30, 2022,14:05 JULIO CHAIREZ Jun 30, 2022 07:46 LETA DUFF DO Jun 30, 2022 14:05
[2022-06-30] MEDS ORDERED: fentaNYL INJ 100 MCG/2 ML AMP ONE (07:51)
[2022-06-30] MEDS ORDERED: PROPOFOL INJECTION 0 ML IV ONE (07:51)
[2022-06-30] MEDS ORDERED: MIDAZOLAM 2 MG/2 ML (VERSED) VIAL ONE (07:51)
[2022-06-30] MEDS ORDERED: ONDANSETRON 4 MG/2 ML (SDV) Z0FRAN ONE (07:51)
[2022-06-30] MEDS ORDERED: hydrALAZINE (APESOLINE) 20 MG/ML VIAL IV ONE ×2 (08:30→10:00)
[2022-06-30] MEDS: GABAPENTIN 300 MG (NEURONTIN) CAP PO SCH ×2 (08:59→16:49)
[2022-06-30] MEDS: ENOXAPARIN 40 MG/0.4 ML (LOVENOX) SYR SC SCH ×2 (08:59→20:55)
[2022-06-30] MEDS: SENNOSIDES 8.6 MG (SENOKOT) TAB PO SCH ×2 (08:59→20:55)
[2022-06-30] MEDS: PANTOPRAZOLE 40 MG (PROTONIX) TAB PO SCH (09:00)
[2022-06-30] MEDS: DOCUSATE SODIUM 100 MG (COLACE) CAP PO SCH ×2 (09:00→20:55)
[2022-06-30] MEDS: ACETAMINOPHEN 325 MG TABLET PO PRN ×2 (09:00→16:48)
[2022-06-30] MEDS: POVIDONE (BETADINE) 10% SOLN 240 ML BTL TOP SCH ×2 (09:03→20:58)
[2022-06-30] MEDS ORDERED: inSUlin ASPART (NovoLOG) 1 UNIT/0.01 ML (CHARGE PER UNIT) SC ONE ×2 (09:25→11:45)
[2022-06-30] MEDS ORDERED: amLODIPine 10 MG (NORVASC) TAB PO ONE (11:30)
--- NOTE | 2022-06-30 11:43 | Cardiology Progress Note ---
Subjective Date Seen by Provider: Jun 30, 2022 Time Seen by Provider: 11:41 Subjective/Events-last exam Patient was seen at bedside, sitting comfortably, denied any chest pain or shortness of breath Review of Systems General: No Chills, No Night Sweats, No Fatigue, No Malaise, No Appetite, No Other HEENT: No Head Aches, No Visual Changes, No Eye Pain, No Ear Pain, No Dysphasia, No Sinus Congestion, No Post Nasal Drip, No Sore Throat, No Other Pulmonary: No Dyspnea, No Cough, No Pleuritic Chest Pain, No Other Cardiovascular: No: Chest Pain, Palpitations, Orthopnea, Paroxysmal Noc. Dyspnea, Edema, Lt Headedness, Other Focused Exam Time of Focused Exam: 17:30 Objective-Cardiology Exam Last Set of Vital Signs Vital Signs 06/30/22 06/30/22 09:52 11:20 Temp 36.6 Pulse 101 Resp 20 B/P (MAP) 123/68 (86) Pulse Ox 92 O2 Delivery Room Air O2 Flow Rate 0.00 I&O Intake and Output 06/30/22 00:00 Intake Total 7967 ml Output Total 3245 ml Balance 4722 ml Intake Oral 1967 ml IV Total 6000 ml Output Urine Total 3245 ml # Bowel Movements 2 General: Alert, Oriented X3 HEENT: Atraumatic Neck: Supple, No JVD Lungs: Clear to Auscultation, Normal Air Movement Heart: Regular Rate, Normal S1, Normal S2 Abdomen: Soft, No Tenderness Extremities: No Clubbing, No Cyanosis, Other (trace edema) Neuro: Normal Speech, Sensation Intact Psych/Mental Status: Mental Status NL, Mood NL Results Lab Laboratory Tests 06/30/22 04:57 A/P-Cardiology Admission Diagnosis LLE cellulitis with nonhealing wound Sepsis PVD HTN DM Assessment/Plan Sepsis, LLE cellulitis with nonhealing wound,osteomyelitis to left 5th toe, started on antibiotic, Dr. Waite consulted, recommending amputation of toe Labile hypertension, patient has been maintained on lisinopril as an outpatient Currently on amlodipine 10 mg daily Had an episode of severe hypertension this morning required 2 doses of hydralazine. On my evaluation I checked his blood pressure and it was 136/70. I will give him 1 dose of losartan 100 mg this evening and we will keep as needed dose of hydralazine in preparation for his surgery tomorrow Peripheral arterial disease, nonhealing wound on left foot. Multiple interventions in the past, had peripheral procedure with Dr. Barron in the past resulted in bleeding. Patient was not satisfied with the results. Reported that he had an intervention done with Dr. Botello in the remote past. Angiogram was done on January 30, 2022 showing total occlusion of the left anterior tibial artery with successful balloon angioplasty, severe stenosis of the p roximal left posterior tibial artery with successful balloon angioplasty with excellent results. Had mild to moderate disease at the common femoral and SFA. On the right side also there is an occlusion of the anterior tibial artery and severe stenosis of the distal left posterior tibial artery. Patient has been maintained on ASA and Plavix, reports sometimes forgets to take his medications. TOM was done on February 27, 2022 was 0.94 on the right and 1.28 on the left and TBI bilaterally was 0.81. Peripheral angiogram was carried out on June 28, 2022 which showed occlusion of the left anterior tibial artery, attempt for angioplasty was successful in reestablishing flow in the proximal and mid anterior tibial artery, the distal part is occluded. Otherwise mild to moderate disease. Abdominal pain, nausea and dry heaves. Diarrhea, reporting improvement. Has been managed by primary care physician Chest pain, retrosternal area, multiple risk factors for coronary artery disease Lexiscan stress test was done on 06/27/2022 showing no ischemia or infarction, ejection fraction 63% Severe left carotid artery stenosis, mild right he was referred for further evaluation with Dr. Campbell. Patient reporting he underwent recent CTA Head and neck at [place]. Hyperlipidemia, lipid profile done January 2022 showing total cholesterol 217, HDL 38, LDL 114, trig 217. Recurrent syncope secondary to low blood pressure Diabetes mellitus, poorly controlled followed and managed by primary care physician BMI 38, we discussed weight loss and exercise after his intervention History of tobaccoism, stopped smoking in 2009. History of non compliance THOMAS MCLEOD MD Jun 30, 2022 11:43
--- NOTE | 2022-06-30 17:51 | Progress Note - Hospitalist ---
Subjective HPI/CC On Admission Date Seen by Provider: Jun 30, 2022 Time Seen by Provider: 10:50 Santo Rivera is a 66 year old male with PMH HTN, HLD, PAD, poorly controlled T2DM on insulin with diabetic foot ulcer, who presented with altered mental status. He was reportedly acting strangely at work yesterday. He denies fevers and ch ills. He denies shortness of breath and cough. He was feeling nauseous. He denies abdominal pain. He denies diarrhea. He denies chest pain. Subjective/Events-last exam He is sitting in his chair. He is feeling well. He ate breakfast. He has no complaints. Focused Exam Time of Focused Exam: 17:30 Objective Exam Vital Signs Vital Signs Date Time Temp Pulse Resp B/P (MAP) Pulse Ox O2 Delivery O2 Flow Rate FiO2 06/30/22 15:37 36.8 101 18 145/82 (103) 93 Room Air 06/30/22 09:52 0.00 Capillary Refill : NONE General Appearance: No Apparent Distress, Obese Respiratory: Lungs Clear, No Respiratory Distress Cardiovascular: Regular Rate, Rhythm, No Murmur Gastrointestinal: Normal Bowel Sounds, Soft Extremity: Non Tender, Swelling, Other (left foot wound) Neurologic/Psychiatric: Alert, Other (flat affect) Results/Procedures Lab Laboratory Tests 06/30/22 04:57 Patient resulted labs reviewed. Imaging: Reviewed Imaging Films, Reviewed Imaging Report Assessment/Plan Assessment and Plan Assess & Plan/Chief Complaint Severe sepsis Diabetic foot ulcer Osteomyelitis IV fluids Vanc and Zosyn MRI with osteomyelitis Wound care following Surgery following, planning for amputation tomorrow HTN Begin Losartan IV Hydralazine as needed T2DM on insulin Neuropathy Diabetic foot ulcer Non-adherent to medication regimen Levemir Novology with meals Sliding scale insulin Diabetes education PAD Cardiology following Peripheral angiogram with balloon angioplasty today MPI negative Morbid obesity Clinically significant, no acute management needs DVT prophylaxis: Lovenox MAISHA, resolved Lactic acidosis, resolved Hypokalemia, resolved Hypomagnesemia, resolved Hyponatremia, resolved Diagnosis/Problems Diagnosis/Problems (1) Severe sepsis Status: Acute (2) Osteomyelitis due to type 2 diabetes mellitus Status: Acute (3) MAISHA (acute kidney injury) Status: Acute (4) Lactic acidosis Status: Acute (5) Non-adherence to medical treatment Status: Acute (6) T2DM (type 2 diabetes mellitus) Status: Acute Qualifiers: Diabetes mellitus correction insulin use: with correction use Diabetes mellitus complication status: with skin complications Diabetes mellitus complication detail: with foot ulcer Qualified Codes: E11.621 - Type 2 diabetes mellitus with foot ulcer; L97.509 - Non-pressure chronic ulcer of other part of unspecified foot with unspecified severity; Z79.4 - custodial (current) use of insulin (7) PAD (peripheral artery disease) Status: Acute (8) Morbid obesity Status: Chronic BEE GARCIA MD Jun 30, 2022 17:51
[2022-06-30] MEDS ORDERED: LOSARTAN 100 MG (COZAAR) TABLET PO ONE (21:00)
[2022-06-30] MEDS: hydrALAZINE (APESOLINE) 20 MG/ML VIAL IV PRN (23:29)
[2022-07-01] VITALS (12 sets, daily range): BP systolic 102–196; BP diastolic 60–97
[2022-07-01] MEDS: VANCOMYCIN INJECTION 1,750 MG in NS IV 500 ML 500 ML IV SCH ×2 (02:43→15:08)
[2022-07-01 05:46] LABS: BASOPHILS # (AUTO) 0.1 10^3/uL (0.0-0.1); BASOPHILS % (AUTO) 1 % (0-10); EOSINOPHILS # (AUTO) 0.2 10^3/uL (0.0-0.3); EOSINOPHILS % (AUTO) 2 % (0-10); HEMATOCRIT 37 % (40-54); HEMOGLOBIN 12.5 g/dL (13.3-17.7); LYMPHOCYTES # (AUTO) 1.9 10^3/uL (1.0-4.0); LYMPHOCYTES % (AUTO) 19 % (12-44); MEAN CORPUSCULAR HEMOGLOBIN 30 pg (25-34); MEAN CORPUSCULAR HGB CONC 34 g/dL (32-36); MEAN CORPUSCULAR VOLUME 90 fL (80-99); MEAN PLATELET VOLUME 9.4 fL (9.0-12.2); MONOCYTES % (AUTO) 10 % (0-12); NEUTROPHILS # (AUTO) 6.5 10^3/uL (1.8-7.8); NEUTROPHILS % (AUTO) 65 % (42-75); PLATELET COUNT 365 10^3/uL (130-400); WHITE BLOOD COUNT 9.9 10^3/uL (4.3-11.0)
[2022-07-01 06:18] LABS: CALCIUM 8.6 MG/DL (8.5-10.1); CREATININE SERUM 0.97 MG/DL (0.60-1.30); MAGNESIUM 1.7 MG/DL (1.6-2.4); POTASSIUM 3.2 MMOL/L (3.6-5.0)
[2022-07-01] MEDS: KCL 20 MEQ TAB (K-DUR) PO SCH (06:23)
[2022-07-01] MEDS: POTASSIUM CL 10MEQ/50ML IVPB 50 ML IV SCH ×5 (06:24→09:08)
[2022-07-01] MEDS: MAGNESIUM 1 GM/100 ML IVPB 100 ML IV SCH ×3 (06:24→07:40)
[2022-07-01] MEDS: inSUlin ASPART (NovoLOG) 1 UNIT/0.01 ML (CHARGE PER UNIT) SC SCH ×7 (06:24→20:23)
[2022-07-01] MEDS: PIPERACILLIN SODIUM/TAZOBACTAM 4.5 GM in NS (IVPB) 100 ML IV SCH ×3 (06:33→23:10)
[2022-07-01] MEDS: ENOXAPARIN 40 MG/0.4 ML (LOVENOX) SYR SC SCH ×2 (07:31→20:11)
[2022-07-01] MEDS: GABAPENTIN 300 MG (NEURONTIN) CAP PO SCH ×2 (07:31→18:09)
[2022-07-01] MEDS: PANTOPRAZOLE 40 MG (PROTONIX) TAB PO SCH (07:31)
[2022-07-01] MEDS: DOCUSATE SODIUM 100 MG (COLACE) CAP PO SCH ×2 (07:31→20:11)
[2022-07-01] MEDS: SENNOSIDES 8.6 MG (SENOKOT) TAB PO SCH ×2 (07:31→20:11)
[2022-07-01] MEDS: POVIDONE (BETADINE) 10% SOLN 240 ML BTL TOP SCH ×2 (07:44→20:11)
[2022-07-01] MEDS: hydrALAZINE (APESOLINE) 20 MG/ML VIAL IV PRN ×2 (07:48→16:15)
[2022-07-01] MEDS ORDERED: amLODIPine 10 MG (NORVASC) TAB PO SCH (09:00)
--- NOTE | 2022-07-01 09:11 | Cardiology Progress Note ---
Subjective Date Seen by Provider: Jul 01, 2022 Time Seen by Provider: 09:09 Subjective/Events-last exam Patient sitting up at bedside, no new complaints. Denies any chest pain or dyspnea. Focused Exam Time of Focused Exam: 17:30 Objective-Cardiology Exam Last Set of Vital Signs Vital Signs 07/01/22 07/01/22 07:47 08:00 Temp 37.0 Pulse 99 Resp 20 B/P (MAP) 196/97 (130) Pulse Ox 94 O2 Delivery Room Air O2 Flow Rate 1.50 I&O Intake and Output 07/01/22 00:00 Intake Total 3532 ml Output Total 2850 ml Balance 682 ml Intake Oral 1432 ml IV Total 2100 ml Output Urine Total 2850 ml # Voids 2 # Bowel Movements 5 General: Alert, Oriented X3 HEENT: Atraumatic Neck: Supple, No JVD Lungs: Clear to Auscultation, Normal Air Movement Heart: Regular Rate, Normal S1, Normal S2 Abdomen: Soft, No Tenderness Extremities: No Clubbing, No Cyanosis, Other (trace edema) Neuro: Normal Speech, Sensation Intact Psych/Mental Status: Mental Status NL, Mood NL Results Lab Laboratory Tests 07/01/22 05:38 A/P-Cardiology Admission Diagnosis LLE cellulitis with nonhealing wound Sepsis PVD HTN DM Assessment/Plan Sepsis, LLE cellulitis with nonhealing wound,osteomyelitis to left 5th toe, started on antibiotic, Dr. Waite consulted, recommending amputation of toe Labile hypertension, patient has been maintained on lisinopril as an outpatient Had an episode of severe hypertension yesterday morning required 2 doses of hydralazine. Currently receiving IV Hydralazine PRN Peripheral arterial disease, nonhealing wound on left foot. Multiple interventions in the past, had peripheral procedure with Dr. Barron in the past resulted in bleeding. Patient was not satisfied with the results. Reported that he had an intervention done with Dr. Botello in the remote past. Angiogram was done on January 30, 2022 showing total occlusion of the left anterior tibial artery with successful balloon angioplasty, severe stenosis of the proximal left posterior tibial artery with successful balloon angioplasty with excellent results. Had mild to moderate disease at the common femoral and SFA. On the right side also there is an occlusion of the anterior tibial artery and severe stenosis of the distal left posterior tibial artery. Patient has been maintained on ASA and Plavix, reports sometimes forgets to take his medications. TOM was done on February 27, 2022 was 0.94 on the right and 1.28 on the left and TBI bilaterally was 0.81. Peripheral angiogram was carried out on June 28, 2022 which showed occlusion of the left anterior tibial artery, attempt for angioplasty was successful in reestablishing flow in the proximal and mid anterior tibial artery, the distal part is occluded. Otherwise mild to moderate disease. Abdominal pain, nausea and dry heaves. Diarrhea, reporting improvement. Has been managed by primary care physician Chest pain, retrosternal area, multiple risk factors for coronary artery disease Lexiscan stress test was done on 06/27/2022 showing no ischemia or infarction, ejection fraction 63% Severe left carotid artery stenosis, mild right he was referred for further evaluation with Dr. Campbell. Patient reporting he underwent recent CTA Head and neck at [place]. Hyperlipidemia, lipid profile done January 2022 showing total cholesterol 217, HDL 38, LDL 114, trig 217. Recurrent syncope secondary to low blood pressure Diabetes mellitus, poorly controlled followed and managed by primary care physician BMI 38, we discussed weight loss and exercise after his intervention History of tobaccoism, stopped smoking in 2009. History of non compliance REY LOPEZ Jul 01, 2022 09:11
--- NOTE | 2022-07-01 10:21 | Cardiology Progress Note ---
Subjective Date Seen by Provider: Jul 01, 2022 Time Seen by Provider: 10:18 Subjective/Events-last exam Patient was seen at bedside, sitting comfortably. No new complaint. Review of Systems General: No Chills, No Night Sweats, No Fatigue, No Malaise, No Appetite, No Other HEENT: No Head Aches, No Visual Changes, No Eye Pain, No Ear Pain, No Dysphasia, No Sinus Congestion, No Post Nasal Drip, No Sore Throat, No Other Pulmonary: No Dyspnea, No Cough, No Pleuritic Chest Pain, No Other Cardiovascular: No: Chest Pain, Palpitations, Orthopnea, Paroxysmal Noc. Dyspnea, Edema, Lt Headedness, Other Focused Exam Time of Focused Exam: 17:30 Objective-Cardiology Exam Last Set of Vital Signs Vital Signs 07/01/22 07/01/22 07:47 08:00 Temp 37.0 Pulse 99 Resp 20 B/P (MAP) 196/97 (130) Pulse Ox 94 O2 Delivery Room Air O2 Flow Rate 1.50 I&O Intake and Output 07/01/22 00:00 Intake Total 3532 ml Output Total 2850 ml Balance 682 ml Intake Oral 1432 ml IV Total 2100 ml Output Urine Total 2850 ml # Voids 2 # Bowel Movements 5 General: Alert, Oriented X3 HEENT: Atraumatic Neck: Supple, No JVD Lungs: Clear to Auscultation, Normal Air Movement Heart: Regular Rate, Normal S1, Normal S2 Abdomen: Soft, No Tenderness Extremities: No Clubbing, No Cyanosis, Other (trace edema) Neuro: Normal Speech, Sensation Intact Psych/Mental Status: Mental Status NL, Mood NL Results Lab Laboratory Tests 07/01/22 05:38 A/P-Cardiology Admission Diagnosis LLE cellulitis with nonhealing wound Sepsis PVD HTN DM Assessment/Plan Sepsis, LLE cellulitis with nonhealing wound,osteomyelitis to left 5th toe, started on antibiotic, Dr. Waite consulted, recommending amputation of toe Labile hypertension, patient has been maintained on lisinopril as an outpatient Had an episode of severe hypertension yesterday morning required 2 doses of hydralazine. This morning his blood pressure was elevated, received 1 dose of hydralazine IV then repeat blood pressure was 157/83. I gave him additional dose of hydralazine and started him on losartan 100 mg daily and amlodipine 5 mg daily. Continue to monitor blood pressure Peripheral arterial disease, nonhealing wound on left foot. Multiple interventions in the past, had peripheral procedure with Dr. Anderson way the past resulted in bleeding. Patient was not satisfied with the results. Reported that he had an intervention done with Dr. Botello in the remote past. Angiogram was done on January 30, 2022 showing total occlusion of the left anterior tibial artery with successful balloon angioplasty, severe stenosis of the proximal left posterior tibial artery with successful balloon angioplasty with excellent results. Had mild to moderate disease at the common femoral and SFA. On the right side also there is an occlusion of the anterior tibial artery and severe stenosis of the distal left posterior tibial artery. Patient has been maintained on ASA and Plavix, reports sometimes forgets to take his medications. TOM was done on February 27, 2022 was 0.94 on the right and 1.28 on the left and TBI bilaterally was 0.81. Peripheral angiogram was carried out on June 28, 2022 which showed occlusion of the left anterior tibial artery, attempt for angioplasty was successful in reestablishing flow in the proximal and mid anterior tibial artery, the distal part is occluded. Otherwise mild to moderate disease. Abdominal pain, nausea and dry heaves. Diarrhea, reporting improvement. Has been managed by primary care physician Chest pain, retrosternal area, multiple risk factors for coronary artery disease Lexiscan stress test was done on 06/27/2022 showing no ischemia or infarction, ejection fraction 63% Severe left carotid artery stenosis, mild right he was referred for further evaluation with Dr. Campbell. Patient reporting he underwent recent CTA Head and neck at [place]. Hyperlipidemia, lipid profile done January 2022 showing total cholesterol 217, HDL 38, LDL 114, trig 217. Recurrent syncope secondary to low blood pressure Diabetes mellitus, poorly controlled followed and managed by primary care physician BMI 38, we discussed weight loss and exercise after his intervention History of tobaccoism, stopped smoking in 2009. History of non compliance THOMAS MCLEOD MD Jul 01, 2022 10:21
[2022-07-01] MEDS ORDERED: hydrALAZINE (APESOLINE) 20 MG/ML VIAL IV ONE (10:30)
--- NOTE | 2022-07-01 10:41 | Discharge Inst-Simple/Standard ---
Discharge Inst-Standard Discharge Medications New, Converted or Re-Newed RX: Transmitted to Pharmacy Patient Instructions/Follow Up Plan of Care/Instructions/FU: Please continue to take your medications as written. Please follow up with your primary care doctor to follow up this hospital stay. Activity as Tolerated: Yes Discharge Diet: Cardiac Diet Return to The Hospital For: Chest pain, shortness of breath, fever, weakness, if you feel you are getting worse. KAYLEE LU MD Jul 01, 2022 10:41
[2022-07-01] MEDS ORDERED: AMOX1TAB12 PO (10:51)
[2022-07-01] MEDS ORDERED: LORazepam 1 MG (ATIVAN) TAB PO PRN (14:00)
--- NOTE | 2022-07-01 14:00 | Progress Note - Hospitalist ---
Subjective HPI/CC On Admission Date Seen by Provider: Jul 01, 2022 Santo Rivera is a 66 year old male with PMH HTN, HLD, PAD, poorly controlled T2DM on insulin with diabetic foot ulcer, who presented with altered mental status. He was reportedly acting strangely at work yesterday. He denies fevers and chills. He denies shortness of breath and cough. He was feeling nauseous. He denies abdominal pain. He denies diarrhea. He denies chest pain. Subjective/Events-last exam Pt very agitated this AM. Would like to leave AMA as he is hungry and doesn't know when surgery is. (Later changed his mind and decided to stay.) Focused Exam Time of Focused Exam: 17:30 Objective Exam Vital Signs Vital Signs Date Time Temp Pulse Resp B/P (MAP) Pulse Ox O2 Delivery O2 Flow Rate FiO2 07/01/22 12:14 99 07/01/22 12:00 37.0 20 93 Nasal Cannula 1.50 Capillary Refill : NONE General Appearance: No Apparent Distress, Chronically ill, Obese Respiratory: Lungs Clear, No Respiratory Distress Cardiovascular: Regular Rate, Rhythm, No Murmur Gastrointestinal: Normal Bowel Sounds, Soft Neurologic/Psychiatric: Alert, Oriented x3 Results/Procedures Lab Laboratory Tests 07/01/22 05:38 Patient resulted labs reviewed. Imaging: Reviewed Imaging Films, Reviewed Imaging Report Assessment/Plan Assessment and Plan Assess & Plan/Chief Complaint Severe sepsis Diabetic foot ulcer Osteomyelitis Vanc and Zosyn MRI with osteomyelitis Wound care following Surgery following, planning for amputation tomorrow HTN continue Losartan and add amlodipine IV Hydralazine as needed T2DM on insulin Neuropathy Diabetic foot ulcer Non-adherent to medication regimen Levemir Novology with meals Sliding scale insulin Diabetes education PAD Cardiology following Peripheral angiogram with balloon angioplasty today ASA if no surgery MPI negative Morbid obesity Clinically significant, no acute management needs DVT prophylaxis: KAYLEE Clifford MD Jul 01, 2022 14:00
[2022-07-01] MEDS ORDERED: LACTATED RINGERS 1,000 ML IV PRN ×2 (14:30→17:45)
[2022-07-01] MEDS ORDERED: LIDOCAINE/EPI 1%-1:100,000 (XYLOCAINE) 10 ML ONE (16:07)
[2022-07-01] MEDS ORDERED: MIDAZOLAM 2 MG/2 ML (VERSED) VIAL ONE (16:19)
[2022-07-01] MEDS ORDERED: PROPOFOL INJECTION 50 ML IV ONE (16:19)
[2022-07-01] MEDS ORDERED: KETAMINE 50 MG/5 ML SYRINGE ONE (16:54)
--- NOTE | 2022-07-01 16:56 | Progress Note-Pre Operative ---
Pre-Operative Progress Note Date of Available H&P: Jul 01, 2022 Date H&P Reviewed: Jul 01, 2022 Time H&P Reviewed: 15:00 History & Physical: No changes noted Pre-Operative Diagnosis: left foot 5th digit osteomyelitis PADMA GARG MD Jul 01, 2022 16:56
[2022-07-01] MEDS ORDERED: LIDOCAINE/EPI 1%-1:100,000 (XYLOCAINE) 10 ML INJ ONE (17:03)
[2022-07-01] MEDS ORDERED: ONDANSETRON 4 MG/2 ML (SDV) Z0FRAN ONE (17:33)
--- NOTE | 2022-07-01 17:39 | Progress Note-Post Operative ---
Post-Operative Progess Note Surgeon (s)/Endo Tech (s) Surgeon PADMA GARG MD Endo Tech: none Pre-Operative Diagnosis left foot 5th digit osteomyelitis Post-Operative Diagnosis same Procedure & Operative Findings Date of Procedure 07/01/22 Procedure Performed/Findings foot nerve block. left foot 5th digit osteomyelitis. Anesthesia Type mac with foot nerve block and local Estimated Blood Loss Estimated blood loss (mL): minimal Specimens/Packing Specimens Removed left foot 5th toe PADMA GARG MD Jul 01, 2022 17:38
[2022-07-01] MEDS ORDERED: fentaNYL INJ 100 MCG/2 ML AMP IVP ONE (17:45)
[2022-07-01] MEDS ORDERED: MEPERIDINE (DEMEROL) INJ 50 MG/ML IVP ONE (17:45)
[2022-07-01] MEDS ORDERED: morphine INJ 10 MG/ML 1ML (SYR OR VIAL) IVP ONE (17:45)
[2022-07-01] MEDS ORDERED: ONDANSETRON 4 MG/2 ML (SDV) Z0FRAN IVP PRN (17:45)
[2022-07-02] MEDS: VANCOMYCIN INJECTION 1,750 MG in NS IV 500 ML 500 ML IV SCH (03:09)
[2022-07-02 03:12] VITALS: BP 149/84
--- NOTE | 2022-07-02 03:20 | OPERATIVE REPORT ---
DATE OF SERVICE: 07/01/2022 ATTENDING PRIMARY CARE PHYSICIAN: Jaxon Ling DO PREOPERATIVE DIAGNOSES: Left foot fifth digit osteomyelitis and overlying soft tissue nonhealing wound. POSTOPERATIVE DIAGNOSES: Left foot fifth digit osteomyelitis and overlying soft tissue nonhealing wound. PROCEDURES: Foot nerve block, amputation, left foot fifth digit. SURGEON: Padma Garg MD ANESTHESIA: MAC, ankle nerve block, local ESTIMATED BLOOD LOSS: Minimal. FINDINGS: Poor perfusion, left fifth toe, no abscess. DISPOSITION: The patient tolerated the procedure well. INDICATIONS: The patient is a 66-year-old male, who we were initially consulted on 06/27/2022. He was brought to the Emergency Department by private vehicle due to confusion and possible fall at work. He does have an extensive past medical history including hypertension, peripheral vascular disease and poorly controlled diabetes. He was found to be hyperglycemic with blood sugar of 391. He also did appear to be dehydrated with mild acute kidney injury with a BUN of 23 and creatinine 1.48. The patient was admitted, started on IV fluids and his mentation. He was found to have an ulcer on the lateral and plantar aspect of the left foot. He knew about this lesion and states that he had been going to podiatry and wound care and underwent local debridement; however, the wound would not heal. The patient does have peripheral vascular disease and underwent an aortogram and bilateral runoff and was found to have a significant occlusion of the anterior tibial vessels, posterior tibial arteries and underwent an angioplasty and stent placement. The patient also did have recent ankle brachial indexes and his left foot was found to be 0.81. Foot x-ray was performed, which did show soft tissue swelling; however, no signs of osteomyelitis; however, this was followed by an MRI, which was consistent with osteomyelitis of the entire fifth digit. It was recommended that the patient have an amputation; however, he was initially resistant and; however, finally agreed to have the procedure done. DESCRIPTION OF PROCEDURE: The patient was brought to the IV pain and sedative medications and monitored anesthesia care, left foot was prepped and draped in standard surgical fashion. We then proceeded with a foot nerve block using 1% lidocaine with epinephrine and peroneal nerve as well as the posterior tibial nerve. Local anesthesia was also put around the metacarpophalangeal joint. An anterior and posterior skin flaps were then created were marked off and a skin incision was made using a 15 blade. We then proceeded to use a periosteal elevator was used to remove the periosteum off of the distal metatarsal. We then proceeded with a cauterizing and cutting of the ligamentous and tendon attachments to the joint capsule using electrocautery with visualization of good hemostasis. The specimen was then sent to pathology. Good hemostasis was observed and then we proceeded with skin flaps created using interrupted 0 Prolene sutures with visualization of good hemostasis. The wound was then covered with a nonstick dressing followed by 4 x 4 gauze followed by Kerlix, followed by Coban and a walking shoe. The patient tolerated the procedure well. He will be instructed to keep the foot clean and dry and to start changing the dressing tomorrow with gauze followed by Kerlix wrap. Recommended that he proceed with elevation of the foot while at rest or sitting in a chair. We will allow the admitting physician to decide when to discharge him home due to his other medical comorbidities. Job ID: [id number] DocumentID: [id number] Dictated Date: 07/01/2022 17:51:08 Cargo Service Agent Date: 07/02/2022 03:19:05 Dictated By: PADMA GARG MD [facility]
[2022-07-02] MEDS: inSUlin ASPART (NovoLOG) 1 UNIT/0.01 ML (CHARGE PER UNIT) SC SCH ×6 (05:24→16:09)
[2022-07-02 05:57] LABS: BASOPHILS # (AUTO) 0.1 10^3/uL (0.0-0.1); BASOPHILS % (AUTO) 1 % (0-10); EOSINOPHILS # (AUTO) 0.3 10^3/uL (0.0-0.3); EOSINOPHILS % (AUTO) 2 % (0-10); HEMATOCRIT 39 % (40-54); HEMOGLOBIN 12.7 g/dL (13.3-17.7); LYMPHOCYTES # (AUTO) 1.8 10^3/uL (1.0-4.0); LYMPHOCYTES % (AUTO) 16 % (12-44); MEAN CORPUSCULAR HEMOGLOBIN 30 pg (25-34); MEAN CORPUSCULAR HGB CONC 33 g/dL (32-36); MEAN CORPUSCULAR VOLUME 91 fL (80-99); MEAN PLATELET VOLUME 9.1 fL (9.0-12.2); MONOCYTES % (AUTO) 9 % (0-12); NEUTROPHILS # (AUTO) 7.4 10^3/uL (1.8-7.8); NEUTROPHILS % (AUTO) 68 % (42-75); PLATELET COUNT 430 10^3/uL (130-400); WHITE BLOOD COUNT 10.9 10^3/uL (4.3-11.0)
[2022-07-02 06:14] LABS: POTASSIUM 3.3 MMOL/L (3.6-5.0)
[2022-07-02 06:15] LABS: CALCIUM 8.7 MG/DL (8.5-10.1)
[2022-07-02] MEDS: KCL 20 MEQ TAB (K-DUR) PO SCH ×3 (06:17→08:18)
[2022-07-02] MEDS: POTASSIUM CL 10MEQ/50ML IVPB 50 ML IV SCH (06:17)
[2022-07-02 06:20] LABS: CREATININE SERUM 1.03 MG/DL (0.60-1.30)
[2022-07-02 06:22] LABS: MAGNESIUM 1.9 MG/DL (1.6-2.4)
[2022-07-02] MEDS: MAGNESIUM 1 GM/100 ML IVPB 100 ML IV SCH (06:23)
[2022-07-02] MEDS: PIPERACILLIN SODIUM/TAZOBACTAM 4.5 GM in NS (IVPB) 100 ML IV SCH ×2 (06:50→15:59)
[2022-07-02 08:08] VITALS: BP 114/69
[2022-07-02] MEDS: GABAPENTIN 300 MG (NEURONTIN) CAP PO SCH (08:18)
[2022-07-02] MEDS: PANTOPRAZOLE 40 MG (PROTONIX) TAB PO SCH (08:18)
[2022-07-02] MEDS: SENNOSIDES 8.6 MG (SENOKOT) TAB PO SCH (08:18)
[2022-07-02] MEDS: DOCUSATE SODIUM 100 MG (COLACE) CAP PO SCH (08:18)
[2022-07-02] MEDS: POVIDONE (BETADINE) 10% SOLN 240 ML BTL TOP SCH (08:19)
[2022-07-02] MEDS: ENOXAPARIN 40 MG/0.4 ML (LOVENOX) SYR SC SCH (08:19)
[2022-07-02] MEDS ORDERED: LOSARTAN 100 MG (COZAAR) TABLET PO SCH (09:00)
[2022-07-02] MEDS ORDERED: amLODIPine 5 MG (NORVASC) TAB PO SCH (09:00)
--- NOTE | 2022-07-02 09:09 | Cardiology Progress Note ---
Subjective Date Seen by Provider: Jul 02, 2022 Time Seen by Provider: 09:08 Subjective/Events-last exam Patient was seen at bedside, laying down comfortably, recovering from surgery Review of Systems General: No Chills, No Night Sweats, No Fatigue, No Malaise, No Appetite, No Other HEENT: No Head Aches, No Visual Changes, No Eye Pain, No Ear Pain, No Dysphasia, No Sinus Congestion, No Post Nasal Drip, No Sore Throat, No Other Pulmonary: No Dyspnea, No Cough, No Pleuritic Chest Pain, No Other Cardiovascular: No: Chest Pain, Palpitations, Orthopnea, Paroxysmal Noc. Dyspnea, Edema, Lt Headedness, Other Focused Exam Time of Focused Exam: 17:30 Objective-Cardiology Exam Last Set of Vital Signs Vital Signs 07/02/22 07/02/22 03:12 08:08 Temp 36.7 Pulse 91 Resp 20 B/P (MAP) 114/69 (84) Pulse Ox 93 O2 Delivery Room Air O2 Flow Rate 3.00 I&O Intake and Output 07/02/22 00:00 Intake Total 7177.5 ml Balance 7177.5 ml Intake Oral 560 ml IV Total 6617.5 ml # Voids 6 # Bowel Movements 1 General: Alert, Oriented X3 HEENT: Atraumatic Neck: Supple, No JVD Lungs: Clear to Auscultation, Normal Air Movement Heart: Regular Rate, Normal S1, Normal S2 Abdomen: Soft, No Tenderness Extremities: No Clubbing, No Cyanosis, Other (trace edema) Skin: No Rashes Neuro: Normal Speech, Sensation Intact Psych/Mental Status: Mental Status NL, Mood NL Results Lab Laboratory Tests 07/02/22 05:30 A/P-Cardiology Admission Diagnosis LLE cellulitis with nonhealing wound Sepsis PVD HTN DM Assessment/Plan Sepsis, LLE cellulitis with nonhealing wound,osteomyelitis to left 5th toe, status post amputation done on July 01, 2022 Recovering well. Labile hypertension, blood pressure is better controlled Continue to monitor Peripheral arterial disease, nonhealing wound on left foot. Multiple interventions in the past, had peripheral procedure with Dr. Barron in the past resulted in bleeding. Patient was not satisfied with the results. Reported that he had an intervention done with Dr. Botello in the remote past. Angiogram was done on January 30, 2022 showing total occlusion of the left anterior tibial artery with successful balloon angioplasty, severe stenosis of the proximal left posterior tibial artery with successful balloon angioplasty with excellent results. Had mild to moderate disease at the common femoral and SFA. On the right side also there is an occlusion of the anterior tibial artery and severe stenosis of the distal left posterior tibial artery. Patient has been maintained on ASA and Plavix, reports sometimes forgets to take his medications. TOM was done on February 27, 2022 was 0.94 on the right and 1.28 on the left and TBI bilaterally was 0.81. Peripheral angiogram was carried out on June 28, 2022 which showed occlusion of the left anterior tibial artery, attempt for angioplasty was successful in reestablishing flow in the proximal and mid anterior tibial artery, the distal part is occluded. Otherwise mild to moderate disease. Chest pain, retrosternal area, multiple risk factors for coronary artery disease Lexiscan stress test was done on 06/27/2022 showing no ischemia or infarction, ejection fraction 63% Severe left carotid artery stenosis, mild right he was referred for further evaluation with Dr. Campbell. Patient reporting he underwent recent CTA Head and neck at [facility]. Hyperlipidemia, lipid profile done January 2022 showing total cholesterol 217, HDL 38, LDL 114, trig 217. Recurrent syncope secondary to low blood pressure Diabetes mellitus, poorly controlled followed and managed by primary care physician BMI 38, we discussed weight loss and exercise after his intervention History of tobaccoism, stopped smoking in 2009. History of non compliance THOMAS MCLEOD MD Jul 02, 2022 09:09
[2022-07-02] MEDS ORDERED: CYCLOBENZAPRINE 10 MG (FLEXERIL) TAB PO PRN (09:15)
--- NOTE | 2022-07-02 09:30 | Discharge Summary ---
Diagnosis/Chief Complaint Date of Admission Jun 25, 2022 at 18:31 Date of Discharge Discharge Date: Jul 02, 2022 Admission Diagnosis Severe sepsis Primary Care Jaxon Ling DO Discharge Diagnosis (1) Severe sepsis Status: Acute (2) Osteomyelitis due to type 2 diabetes mellitus Status: Acute (3) MAISHA (acute kidney injury) Status: Acute (4) Lactic acidosis Status: Acute (5) Non-adherence to medical treatment Status: Acute (6) T2DM (type 2 diabetes mellitus) Status: Acute (7) PAD (peripheral artery disease) Status: Acute (8) Morbid obesity Status: Chronic Discharge Summary Discharge Physical Exam Allergies: Coded Allergies: No Known Drug Allergies (Unverified , 09/20/19) Vitals & I&Os Vital Signs Date Time Temp Pulse Resp B/P (MAP) Pulse Ox O2 Delivery O2 Flow Rate FiO2 07/02/22 08:08 36.7 91 20 114/69 (84) 93 Room Air 07/02/22 03:12 3.00 General Appearance: No Apparent Distress, Obese Respiratory: Lungs Clear Cardiovascular: Regular Rate, Rhythm Neurologic/Psychiatric: Alert, Oriented x3 Hospital Course Patient was admitted to the hospital secondary to severe sepsis with osteomyelitis. He was treated with IV antibiotics and did well. Surgery was consulted due to the osteomyelitis of his left foot. This was confirmed with an MRI. He underwent amputation of the fifth digit on July 01. He was able to be discharged home in stable and improved condition to follow-up with his primary care physician, Dr. Ling and with Dr. GARG the surgeon. Labs (last 24 hrs) Laboratory Tests 07/01/22 12:03: Glucometer 163H 07/01/22 15:28: Glucometer 160H 07/01/22 18:12: Glucometer 170H 07/01/22 20:19: Glucometer 165H 07/02/22 05:22: Glucometer 134H 07/02/22 05:30: White Blood Count 10.9, Red Blood Count 4.24L, Hemoglobin 12.7L, Hematocrit 39L, Mean Corpuscular Volume 91, Mean Corpuscular Hemoglobin 30, Mean Corpuscular Hemoglobin Concent 33, Red Cell Distribution Width 13.4, Platelet Count 430H, Mean Platelet Volume 9.1, Immature Granulocyte % (Auto) 4, Neutrophils (%) (Auto) 68, Lymphocytes (%) (Auto) 16, Monocytes (%) (Auto) 9, Eosinophils (%) (Auto) 2, Basophils (%) (Auto) 1, Neutrophils # (Auto) 7.4, Lymphocytes # (Auto) 1.8, Monocytes # (Auto) 1.0, Eosinophils # (Auto) 0.3, Basophils # (Auto) 0.1, Immature Granulocyte # (Auto) 0.4H, Sodium Level 136, Potassium Level 3.3L, Chl oride Level 104, Carbon Dioxide Level 24, Anion Gap 8, Blood Urea Nitrogen 8, Creatinine 1.03, Estimat Glomerular Filtration Rate 81, BUN/Creatinine Ratio 8, Glucose Level 163H, Calcium Level 8.7, Magnesium Level 1.9 Microbiology 06/29/22 MRSA Screen - Final, Complete MRSA not isolated 06/26/22 Urine Culture - Final, Complete NO GROWTH 06/25/22 Blood Culture - Final, Complete No growth Patient resulted labs reviewed. Pending Labs Laboratory Tests 07/02/22 05:22: Glucometer 134 07/02/22 05:30: White Blood Count 10.9, Red Blood Count 4.24, Hemoglobin 12.7, Hematocrit 39, Mean Corpuscular Volume 91, Mean Corpuscular Hemoglobin 30, Mean Corpuscular Hemoglobin Concent 33, Red Cell Distribution Width 13.4, Platelet Count 430, Mean Platelet Volume 9.1, Immature Granulocyte % (Auto) 4, Neutrophils (%) (Auto) 68, Lymphocytes (%) (Auto) 16, Monocytes (%) (Auto) 9, Eosinophils (%) (Auto) 2, Basophils (%) (Auto) 1, Neutrophils # (Auto) 7.4, Lymphocytes # (Auto) 1.8, Monocytes # (Auto) 1.0, Eosinophils # (Auto) 0.3, Basophils # (Auto) 0.1, Immature Granulocyte # (Auto) 0.4, Sodium Level 136, Potassium Level 3.3, Chloride Level 104, Carbon Dioxide Level 24, Anion Gap 8, Blood Urea Nitrogen 8, Creatinine 1.03, Estimat Glomerular Filtration Rate 81, BUN/Creatinine Ratio 8, Glucose Level 163, Calcium Level 8.7, Magnesium Level 1.9 Imaging: Reviewed Imaging Films, Reviewed Imaging Report Discussion & Recommendations Discharge Planning: >30 minutes discharge planning Discharge Home Medications: Active Scripts Active Amox Tr-K Clv 875-125 mg Tab (Amoxicillin/Potassium Clav) 875 Mg-125 Mg Tablet 1 Each PO BID Reported [Metamucil Gummies] 3 Ea PO HS Novolog Flexpen (Insulin Aspart) 100 Unit/Ml (3 Ml) Solution 5 Units SQ AC Jardiance (Empagliflozin) 10 Mg Tablet 10 Mg PO DAILY LAST FILLED 05-06-2022 #30/30 DAY SUPPLY Clopidogrel (Clopidogrel Bisulfate) 75 Mg Tablet 75 Mg PO DAILY LAST FILLED 05-06-2022 #30/30 DAY SUPPLY Aspirin EC (Aspirin) 81 Mg Tablet.dr 81 Mg PO HS Ibuprofen 600 Mg Tablet 600-1,200 Mg PO BID PRN Levemir (Insulin Determir) 100 Unit/Ml Soln 33 Units SQ HS Neurontin (Gabapentin) 300 Mg Capsule 600 Mg PO BID WITH MEALS TAKES 2 (300MG) CAPS Instructions to patient/family Please see electronic discharge instructions given to patient. Copy Copies To 1: JAXON LING DO Problem Qualifiers (1) T2DM (type 2 diabetes mellitus): Diabetes mellitus longterm insulin use: with longterm use Diabetes mellitus complication status: with skin complications Diabetes mellitus complication detail: with foot ulcer Qualified Codes: E11.621 - Type 2 diabetes mellitus with foot ulcer; L97.509 - Non-pressure chronic ulcer of other part of unspecified foot with unspecified severity; Z79.4 - termite treater (current) use of insulin KAYLEE LU MD Jul 02, 2022 09:30
[2022-07-02] MEDS ORDERED: AMOX1TAB12 PO (10:04)
--- NOTE | 2022-07-02 10:19 | Anesthesia-General Post-Op ---
MAC Patient Condition Mental Status/LOC: Same as Preop Cardiovascular: Satisfactory Nausea/Vomiting: Absent Respiratory: Satisfactory Pain: Controlled Complications: Absent Post Op Complications Complications None Follow Up Care/Instructions Patient Instructions None needed. Anesthesiology Discharge Order Discharge Order Patient is doing well, no complaints, stable vital signs, no apparent adverse anesthesia problems. No complications reported per nursing. KEVIN FALLON CRNA Jul 02, 2022 10:19
[2022-07-02 11:15] VITALS: BP 160/87
[2022-07-02 12:00] VITALS: BP 160/87
[2022-07-02] MEDS ORDERED: CYCL10TA25 PO (13:03)
[2022-07-02 15:52] VITALS: BP 140/73
== END 2022-07-02 16:30 | disposition home or self-care (01) | DRG 853 ==
LOC: EDUNIT# 15:36 → ER 15:39 → 4TH 18:31 → CSD 06-28 13:43 → 4TH 06-28 18:17
PROVIDERS: ADMIT Internal Medicine; ATTEND Internal Medicine
PROC: B41G1ZZ Fluoroscopy of Left Lower Extremity Arteries using Low Osmolar Contrast (ICD-10-PCS; 2022-06-28)
PROC: B41F1ZZ Fluoroscopy of Right Lower Extremity Arteries using Low Osmolar Contrast (ICD-10-PCS; 2022-06-28)
PROC: 0Y6Y0Z0 Detachment at Left 5th Toe, Complete, Open Approach (ICD-10-PCS; principal; 2022-07-01 16:49)
DX: A41.9 Sepsis, unspecified organism (principal); J96.01 Acute respiratory failure with hypoxia; L03.116 Cellulitis of left lower limb; M86.9 Osteomyelitis, unspecified; Z68.41 Body mass index [BMI] 40.0-44.9, adult; N17.9 Acute kidney failure, unspecified; E87.1 Hypo-osmolality and hyponatremia; E87.20 Acidosis, unspecified; Z20.822 Contact with and (suspected) exposure to COVID-19; R65.20 Severe sepsis without septic shock; E11.69 Type 2 diabetes mellitus with other specified complication; E11.65 Type 2 diabetes mellitus with hyperglycemia; E11.621 Type 2 diabetes mellitus with foot ulcer; L97.529 Non-pressure chronic ulcer of other part of left foot with unspecified severity; E11.42 Type 2 diabetes mellitus with diabetic polyneuropathy; I16.0 Hypertensive urgency; I10 Essential (primary) hypertension; E11.51 Type 2 diabetes mellitus with diabetic peripheral angiopathy without gangrene; I70.292 Other atherosclerosis of native arteries of extremities, left leg; I70.291 Other atherosclerosis of native arteries of extremities, right leg; E66.01 Morbid (severe) obesity due to excess calories; E86.0 Dehydration; E87.6 Hypokalemia; E83.42 Hypomagnesemia; Z79.4 Long term (current) use of insulin
CPT/HCPCS: 36248; 36415; 70450; 71045; 73630; 73720; 75716; 78452; 80048; 80053; 80202; 81000; 82947; 83605; 83735; 84145; 85007; 85025; 85027; 85610; 85652; 85730; 86141; 87040; 87081; 87088; 87636; 93005; 93017; 93306; 94760

== ENCOUNTER → 2022-07-03 | Outpatient (CLI) | payer BC ==
[~2022-07-03] MED LIST changes: +CYCL10TA25 PO; +METAMUCIL GUMMIES PO
== END ==
LOC: WOUNDCARE 09:37
PROVIDERS: ATTEND Family Medicine
DX: E11.621 Type 2 diabetes mellitus with foot ulcer (principal); E11.65 Type 2 diabetes mellitus with hyperglycemia; E11.40 Type 2 diabetes mellitus with diabetic neuropathy, unspecified; E66.01 Morbid (severe) obesity due to excess calories; E55.9 Vitamin D deficiency, unspecified; Z68.39 Body mass index [BMI] 39.0-39.9, adult
CPT/HCPCS: 99212

== ENCOUNTER → 2022-07-26 | Outpatient (CLI) | payer BC ==
[2022-07-26 11:18] LABS: BASOPHILS # (AUTO) 0.1 10^3/uL (0.0-0.1); BASOPHILS % (AUTO) 0 % (0-10); EOSINOPHILS # (AUTO) 0.2 10^3/uL (0.0-0.3); EOSINOPHILS % (AUTO) 1 % (0-10); HEMATOCRIT 46 % (40-54); HEMOGLOBIN 15.5 g/dL (13.3-17.7); LYMPHOCYTES # (AUTO) 2.5 10^3/uL (1.0-4.0); LYMPHOCYTES % (AUTO) 20 % (12-44); MEAN CORPUSCULAR HEMOGLOBIN 31 pg (25-34); MEAN CORPUSCULAR HGB CONC 34 g/dL (32-36); MEAN CORPUSCULAR VOLUME 91 fL (80-99); MEAN PLATELET VOLUME 10.5 fL (9.0-12.2); MONOCYTES # (AUTO) 0.9 10^3/uL (0.0-1.0); MONOCYTES % (AUTO) 7 % (0-12); NEUTROPHILS % (AUTO) 71 % (42-75); PLATELET COUNT 282 10^3/uL (130-400); WHITE BLOOD COUNT 12.7 10^3/uL (4.3-11.0)
[2022-07-26 11:36] LABS: ERYTHROCYTE SEDIMENTATION RATE 47 MM/HR (0-30)
== END ==
LOC: WOUNDCARE 10:25
PROVIDERS: ATTEND Family Medicine
DX: E11.621 Type 2 diabetes mellitus with foot ulcer (principal); L97.509 Non-pressure chronic ulcer of other part of unspecified foot with unspecified severity; E11.65 Type 2 diabetes mellitus with hyperglycemia; E11.42 Type 2 diabetes mellitus with diabetic polyneuropathy; E66.01 Morbid (severe) obesity due to excess calories; E55.9 Vitamin D deficiency, unspecified; T87.81 Dehiscence of amputation stump; T87.44 Infection of amputation stump, left lower extremity; I70.248 Atherosclerosis of native arteries of left leg with ulceration of other part of lower leg; E11.52 Type 2 diabetes mellitus with diabetic peripheral angiopathy with gangrene; I96 Gangrene, not elsewhere classified
CPT/HCPCS: 36415; 83036; 85025; 85652; 86141; 87070; 87077; 87186; 87205

== ENCOUNTER → 2022-08-01 | Outpatient (CLI) | payer BC ==
[~2022-08-01] MED LIST changes: +GADOTERATE 0.5 MMOL/ML (CLARISCAN) 20 ML VIAL IV ONE; +GADOTERATE 0.5 MMOL/ML (CLARISCAN) 5 ML VIAL IV ONE
--- NOTE | 2022-08-01 16:24 | Diagnostic Imaging Report ---
PROCEDURE: MRI left lower extremity with and without contrast. TECHNIQUE: Multiplanar, multisequence pre and post contrast-enhanced MRI of the left lower extremity was accomplished. INDICATION: Soft tissue ulcer and infection in the forefoot. COMPARISON: 06/26/2022 FINDINGS: Amputation of the 5th toe has been performed at the level of the MTP joint. An ulcer is noted at the amputation stump and the base of the ulcer contacts the head of the 5th metatarsal. There is abnormal T1 hypointense marrow replacement throughout the 5th metatarsal shaft. Areas of abnormal marrow placement show associated enhancement. These features are all indicative of osteomyelitis within the entirety of the 5th metatarsal. No osteomyelitis within the 1st through 4th phalanges. Additionally, the 1st through 4th metatarsals are normal. No ring-enhancing fluid collection within the foot that would suggest a drainable abscess. No features of infectious tenosynovitis. IMPRESSION: 1. Soft tissue ulcer at the lateral aspect of the amputation stump has a sinus tract extending into the foot and encasing the 5th metatarsal head. There is associated osteomyelitis throughout the entirety of the 5th metatarsal to the level if its base. Dictated by: Dictated on workstation # [id number]
== END ==
LOC: RAD 08:12
PROVIDERS: ATTEND Family Medicine
DX: E11.621 Type 2 diabetes mellitus with foot ulcer (principal); E11.65 Type 2 diabetes mellitus with hyperglycemia; E11.40 Type 2 diabetes mellitus with diabetic neuropathy, unspecified; E66.01 Morbid (severe) obesity due to excess calories; E55.9 Vitamin D deficiency, unspecified; T87.81 Dehiscence of amputation stump; T87.44 Infection of amputation stump, left lower extremity; I70.245 Atherosclerosis of native arteries of left leg with ulceration of other part of foot
CPT/HCPCS: 73720

== ENCOUNTER → 2022-08-01 | Outpatient (CLI) | payer BC ==
[~2022-08-01] MED LIST changes: -GADOTERATE 0.5 MMOL/ML (CLARISCAN) 20 ML VIAL IV ONE; -GADOTERATE 0.5 MMOL/ML (CLARISCAN) 5 ML VIAL IV ONE
== END ==
LOC: WOUNDCARE 09:34
PROVIDERS: ATTEND Family Medicine
DX: E11.621 Type 2 diabetes mellitus with foot ulcer (principal); E11.65 Type 2 diabetes mellitus with hyperglycemia; E11.40 Type 2 diabetes mellitus with diabetic neuropathy, unspecified; E66.01 Morbid (severe) obesity due to excess calories; E55.9 Vitamin D deficiency, unspecified; T87.81 Dehiscence of amputation stump; T87.44 Infection of amputation stump, left lower extremity; I70.245 Atherosclerosis of native arteries of left leg with ulceration of other part of foot; B37.89 Other sites of candidiasis; B95.62 Methicillin resistant Staphylococcus aureus infection as the cause of diseases classified elsewhere; E11.52 Type 2 diabetes mellitus with diabetic peripheral angiopathy with gangrene
CPT/HCPCS: 11043; G0463

== ENCOUNTER → 2022-08-07 | Outpatient (CLI) | payer BC | LOC: WOUNDCARE 08:15 | PROVIDERS: ATTEND Family Medicine | DX: I96 Gangrene, not elsewhere classified (principal); E11.621 Type 2 diabetes mellitus with foot ulcer; E11.65 Type 2 diabetes mellitus with hyperglycemia; E11.40 Type 2 diabetes mellitus with diabetic neuropathy, unspecified; E66.01 Morbid (severe) obesity due to excess calories; E55.9 Vitamin D deficiency, unspecified; T87.81 Dehiscence of amputation stump; T87.44 Infection of amputation stump, left lower extremity; I70.245 Atherosclerosis of native arteries of left leg with ulceration of other part of foot; B95.61 Methicillin susceptible Staphylococcus aureus infection as the cause of diseases classified elsewhere; M86.172 Other acute osteomyelitis, left ankle and foot; Z91.199 Patient's noncompliance with other medical treatment and regimen due to unspecified reason; Z68.39 Body mass index [BMI] 39.0-39.9, adult | CPT/HCPCS: 11042; G0463 ==

== ENCOUNTER → 2022-08-14 | Outpatient (CLI) | payer BC ==
[2022-08-14 09:43] LABS: CALCIUM 9.7 MG/DL (8.5-10.1); CREATININE SERUM 1.43 MG/DL (0.60-1.30); POTASSIUM 4.3 MMOL/L (3.6-5.0)
== END ==
LOC: WOUNDCARE 08:19
PROVIDERS: ATTEND Family Medicine
DX: I96 Gangrene, not elsewhere classified (principal); E11.621 Type 2 diabetes mellitus with foot ulcer; E11.65 Type 2 diabetes mellitus with hyperglycemia; E11.40 Type 2 diabetes mellitus with diabetic neuropathy, unspecified; T87.81 Dehiscence of amputation stump; T87.44 Infection of amputation stump, left lower extremity; I70.245 Atherosclerosis of native arteries of left leg with ulceration of other part of foot; B95.61 Methicillin susceptible Staphylococcus aureus infection as the cause of diseases classified elsewhere; M86.172 Other acute osteomyelitis, left ankle and foot; E55.9 Vitamin D deficiency, unspecified; E66.01 Morbid (severe) obesity due to excess calories; Z91.199 Patient's noncompliance with other medical treatment and regimen due to unspecified reason; Z68.39 Body mass index [BMI] 39.0-39.9, adult
CPT/HCPCS: 11042; 80048; G0463; 36415

== ENCOUNTER → 2022-08-21 | Outpatient (CLI) | payer BC ==
[~2022-08-21] MED LIST changes: +CLIN-144 PO
== END ==
LOC: WOUNDCARE 08:18
PROVIDERS: ATTEND Family Medicine
DX: I96 Gangrene, not elsewhere classified (principal); E11.621 Type 2 diabetes mellitus with foot ulcer; E11.65 Type 2 diabetes mellitus with hyperglycemia; E11.40 Type 2 diabetes mellitus with diabetic neuropathy, unspecified; E66.01 Morbid (severe) obesity due to excess calories; E55.9 Vitamin D deficiency, unspecified; T87.81 Dehiscence of amputation stump; T87.44 Infection of amputation stump, left lower extremity; I70.245 Atherosclerosis of native arteries of left leg with ulceration of other part of foot; B95.61 Methicillin susceptible Staphylococcus aureus infection as the cause of diseases classified elsewhere; M86.472 Chronic osteomyelitis with draining sinus, left ankle and foot; Z91.199 Patient's noncompliance with other medical treatment and regimen due to unspecified reason; Z68.39 Body mass index [BMI] 39.0-39.9, adult
CPT/HCPCS: 99213

== ENCOUNTER 2022-08-22 06:03 | Outpatient (CLI) | payer BC ==
[~2022-08-22] VITALS: Ht 180.3 cm; Wt 125.0 kg
[~2022-08-22 06:03] MED LIST changes: -CLIN-144 PO
[2022-08-27] MEDS ORDERED: CLIN-144 PO (10:49)
== END 2022-08-27 11:06 | disposition home or self-care (01) ==
LOC: PREOP 06:03
PROVIDERS: ATTEND Surgery
DX: Z01.818 Encounter for other preprocedural examination (principal)

== ENCOUNTER 2022-08-29 11:34 | Day surgery (SDC) | payer BC ==
[2022-08-29] VITALS (9 sets, daily range): BP systolic 96–150; BP diastolic 57–102
[~2022-08-29] VITALS: Ht 180.3 cm; Wt 125.0 kg
[~2022-08-29 11:34] MED LIST changes: +CLIN-144 PO
[2022-08-29] MEDS ORDERED: MIDAZOLAM 2 MG/2 ML (VERSED) VIAL ONE (11:53)
[2022-08-29] MEDS ORDERED: PROPOFOL INJECTION 50 ML IV ONE (11:53)
[2022-08-29] MEDS ORDERED: fentaNYL INJ 100 MCG/2 ML AMP ONE (11:53)
[2022-08-29] MEDS ORDERED: BUPIVACAINE 0.5% 30 ML (SENSORCAINE) VIAL ONE (12:15)
[2022-08-29] MEDS ORDERED: LACTATED RINGERS 1,000 ML IV PRN (12:30)
[2022-08-29] MEDS ORDERED: LISI10TA25 PO (12:49)
--- NOTE | 2022-08-29 13:41 | Progress Note-Pre Operative ---
Pre-Operative Progress Note Date H&P Reviewed: Aug 29, 2022 Time H&P Reviewed: 13:40 History & Physical: H&P Reviewed, Patient Examed, No changes noted Pre-Operative Diagnosis: Osteomyelitis left 5th metatarsal JAIRO CHRISTIANSEN APRN Aug 29, 2022 13:41
[2022-08-29] MEDS ORDERED: HYDR-3817 PO (13:43)
--- NOTE | 2022-08-29 13:43 | Discharge Inst-Surgical ---
D/C Lap Instructions-KIDO Reconcile Patient Problems Problems Reviewed?: Yes New, Converted, or Re-Newed RX: RX on Chart Follow Up Appt in 2 weeks Activity as tolerated No driving for 24 hours No driving while on pain medications Incentive Spirometry use every 2 hours while awake Regular Diet Symptoms to Report: Fever over 101 degree F, Nausea/Vomiting Infection Signs and Symptoms to report: Increased redness, Foul odor of wound, Increased drainage Bathing instructions: May shower Operative Area Clean/Dry; Keep incision clean/dry If any problems/questions: Contact your physician or go to Emergency Room JAIRO CHRISTIANSEN APRN Aug 29, 2022 13:43
[2022-08-29] MEDS ORDERED: ONDANSETRON 4 MG/2 ML (SDV) Z0FRAN IVP PRN ×2 (13:45→15:15)
[2022-08-29] MEDS ORDERED: ACETAMINOPHEN 325 MG TABLET PO PRN (13:45)
[2022-08-29] MEDS ORDERED: morphine INJ 10 MG/ML 1ML (SYR OR VIAL) IVP PRN (13:45)
[2022-08-29] MEDS ORDERED: HYDROcodone/APAP 5 MG/325 MG (LORTAB) TAB PO ONE (13:45)
[2022-08-29] MEDS ORDERED: ceFAZolin INJECTION 2,000 MG ONE (13:46)
[2022-08-29] MEDS ORDERED: NS (IVPB) 50 ML ONE (13:48)
--- NOTE | 2022-08-29 14:51 | Progress Note-Post Operative ---
Post-Operative Progess Note Surgeon (s)/Interior Systems Carpenter (s) Surgeon PADMA GARG MD Interior Systems Carpenter: sumit rivera DRAW HAND Pre-Operative Diagnosis Osteomyelitis left 5th metatarsal Post-Operative Diagnosis same Procedure & Operative Findings Date of Procedure 08/29/22 Procedure Performed/Findings resection left 5th metatarsal. Anesthesia Type mac with nerve foot nerve block Estimated Blood Loss Estimated blood loss (mL): minimal Specimens/Packing Specimens Removed left foot 5th metarsal. PADMA GARG MD Aug 29, 2022 14:51
--- NOTE | 2022-08-29 15:03 | Anesthesia-General Post-Op ---
MAC Patient Condition Mental Status/LOC: Same as Preop Cardiovascular: Satisfactory Nausea/Vomiting: Absent Respiratory: Satisfactory Pain: Controlled Complications: Absent Post Op Complications Complications None Follow Up Care/Instructions Patient Instructions None needed. Anesthesiology Discharge Order Discharge Order Patient is doing well, no complaints, stable vital signs, no apparent adverse anesthesia problems. No complications reported per nursing. JONATHAN CALVIN CRNA Aug 29, 2022 15:03
[2022-08-29] MEDS ORDERED: MEPERIDINE (DEMEROL) INJ 50 MG/ML IVP ONE (15:15)
[2022-08-29] MEDS ORDERED: morphine INJ 10 MG/ML 1ML (SYR OR VIAL) IVP ONE (15:15)
--- NOTE | 2022-08-29 16:45 | OPERATIVE REPORT ---
DATE OF SERVICE: 08/29/2022 ATTENDING PRIMARY CARE PHYSICIAN: Jaxon Ling DO PREOPERATIVE DIAGNOSIS: Osteomyelitis, left fifth metatarsal bone. POSTOPERATIVE DIAGNOSIS: Osteomyelitis, left fifth metatarsal bone. PROCEDURE: Resection left fifth metatarsal bone. Foot nerve block. SURGEON: PADMA GARG MD CHIEF CLOTH FINISHING RANGE OPERATOR: Lincoln King APRN ANESTHESIA: Monitored anesthesia care with a nerve block. ESTIMATED BLOOD LOSS: Minimal. FINDINGS: A very soft fifth metatarsal bone consistent with osteomyelitis. DISPOSITION: The patient tolerated the procedure well. INDICATIONS: The patient is a 66-year-old male, insulin-dependent diabetic. He has had issues with peripheral neuropathy as well as diabetic ulcerations of his feet. He developed significant osteomyelitis and infection of the left fifth toe requiring amputation. He had a further wound complications and an MRI was done, which did show significant osteomyelitis encompassing the entire left fifth metatarsal bone. He is here for a fifth metatarsal bone resection. DESCRIPTION OF PROCEDURE: The patient was brought to the operating room, laid supine on the table. After adequate IV anesthetic medications and monitored anesthesia care, a foot nerve block was done. The peroneal as well as the tibial nerves were then anesthetized using 1% lidocaine with epinephrine. We then proceeded to make an incision along the lateral foot using a 15 blade. The subcutaneous tissue as well as any necrotic tissue was debrided using electrocautery. Once the metatarsal bone was identified, the musculature attached to the bone were taken down using blunt dissection as well as electrocautery. The ligaments ligamental attachment to the tarsal bones was then taken down using electrocautery and the entire fifth metatarsal bone removed. Debridement continued from skin, subcutaneous tissue as well as the muscle until good bleeding tissue identified. We were then able to loosely approximate the skin and subcutaneous tissue using 0 Prolene interrupted sutures. Wound was then cleaned and covered with a sterile gauze followed by Kerlix wrap and then Coban and a walking boot. The patient tolerated the procedure well. He will need to proceed with a gauze dressing on a daily basis to allow for drainage and allow the wound to completely heal by secondary intention. We will have him follow up in the office as well. Job ID: [id number] DocumentID: [id number] Dictated Date: 08/29/2022 15:09:19 Black Topper Date: 08/29/2022 16:44:00 Dictated By: PADMA GARG MD [facility]
== END 2022-08-29 16:50 | disposition home or self-care (01) ==
LOC: SDC 11:34
PROVIDERS: ATTEND Surgery
DX: M86.172 Other acute osteomyelitis, left ankle and foot (principal); M86.672 Other chronic osteomyelitis, left ankle and foot; L03.116 Cellulitis of left lower limb; E66.9 Obesity, unspecified; Z68.38 Body mass index [BMI] 38.0-38.9, adult
CPT/HCPCS: 82947; 87081

== ENCOUNTER 2022-09-11 07:01 | Day surgery (SDC) | payer BC ==
[~2022-09-11] VITALS: Ht 180.3 cm; Wt 123.8 kg
[~2022-09-11 07:01] MED LIST changes: +HYDR-3817 PO
[2022-09-11] MEDS ORDERED: HEParin (CATH LAB) 2,000 ML IV ONE (07:12)
[2022-09-11] MEDS ORDERED: LIDOCAINE 1% INJ 30 ML (XYLOCAINE) VIAL ONE (07:12)
[2022-09-11] MEDS ORDERED: NS IV 1000 ML 1,000 ML ONE (07:12)
[2022-09-11] MEDS ORDERED: NS IV 1000 ML 1,000 ML IV SCH ×2 (07:15→09:30)
[2022-09-11 07:24] VITALS: BP 147/83
[2022-09-11 07:39] LABS: HEMATOCRIT 38 % (40-54); HEMOGLOBIN 11.8 g/dL (13.3-17.7); MEAN CORPUSCULAR HEMOGLOBIN 28 pg (25-34); MEAN CORPUSCULAR HGB CONC 32 g/dL (32-36); MEAN CORPUSCULAR VOLUME 89 fL (80-99); MEAN PLATELET VOLUME 9.1 fL (9.0-12.2); PLATELET COUNT 589 10^3/uL (130-400); WHITE BLOOD COUNT 18.5 10^3/uL (4.3-11.0)
--- NOTE | 2022-09-11 07:52 | Diagnostic Imaging Report ---
EXAMINATION: Chest 1 view HISTORY: Hypertension. Peripheral arterial disease. Precatheterization. COMPARISON: 06/25/2022. FINDINGS: The lung volumes are normal. No focal consolidation is seen. No large pleural effusion or pneumothorax is seen. The cardiomediastinal silhouette is prominent. No acute osseous abnormality is seen. IMPRESSION: 1. Cardiomegaly. No overt pulmonary edema. Dictated by: Dictated on workstation # [id number]
[2022-09-11 07:53] LABS: INR 1.2 (0.8-1.4); PROTHROMBIN TIME PATIENT 15.2 SEC (12.2-14.7)
[2022-09-11] MEDS ORDERED: fentaNYL INJ 100 MCG/2 ML AMP ONE (08:00)
[2022-09-11] MEDS ORDERED: MIDAZOLAM 5 MG/5 ML (VERSED) VIAL ONE (08:00)
[2022-09-11 08:03] LABS: BILIRUBIN,TOTAL 0.5 MG/DL (0.1-1.0); CALCIUM 9.8 MG/DL (8.5-10.1); CREATININE SERUM 1.29 MG/DL (0.60-1.30); POTASSIUM 3.3 MMOL/L (3.6-5.0); TOTAL PROTEIN 9.1 GM/DL (6.4-8.2)
--- NOTE | 2022-09-11 08:03 | Cardiac Procedure Note-CS/ASA ---
Pre-Procedure Note Pre-Op Procedure Note Date of Available H&P: Aug 20, 2022 Date H&P Reviewed: Sep 11, 2022 Time H&P Reviewed: 08:03 History & Physical: H&P Reviewed, Patient Examed, No changes noted Pre-Operative Diagnosis: PAD Conscious Sedation Pre-Proced Time 08:03 ASA Score 3 For ASA 3 and 4: Consider anesthesia and medical clearance. Also, for patients with a history of failed moderate sedation consider anesthesia. Airway Lungs Heart ASA score ASA 1: a normal healthy patient ASA 2: a patient with a mild systemic disease (mid diabetes, controlled hypertension, obesity ASA 3: a patient with a severe systemic disease that limits activity (angina, COPD, prior Myocardial infarction) ASA 4: a patient with an incapacitating disease that is a constant threat to life (CHF, renal failure) ASA 5: a moribund patient not expected to survive 24 hrs. (ruptured aneurysm) ASA 6: a declared brain- patient whose organs are being harvested. For emergent operations, add the letter E after the classification Mallampati Classification Grade 3 Sedation Plan Analgesia, Amnesia, Plan communicated to team members, Discussed options with patient/fam, Discussed risks with patient/fam The patient is an appropriate candidate to undergo the planned procedure, sedation, and anesthesia. The patient immediately re-assessed prior to indication. THOMAS MCLEOD MD Sep 11, 2022 08:03
[2022-09-11] MEDS ORDERED: CLOP75TA28 PO (08:14)
[2022-09-11] MEDS ORDERED: LIRA0.6P3 SQ (08:14)
[2022-09-11] MEDS ORDERED: HEParin 1000 UNIT/ML (10ML VIAL) FOR BOLUS ONE (08:35)
[2022-09-11] MEDS ORDERED: MIDAZOLAM 2 MG/2 ML (VERSED) VIAL ONE (09:00)
[2022-09-11] MEDS ORDERED: NITRO DRIP 25000 MCG/D5W 250 ML IV ONE (09:06)
[2022-09-11] MEDS ORDERED: CLOPIDOGREL 300 MG (PLAVIX) TABLET PO ONE (09:12)
[2022-09-11] MEDS ORDERED: ASPIRIN 325 MG (5 GR) TABLET ONE (09:12)
--- NOTE | 2022-09-11 09:21 | Discharge Inst-Post CATH ---
Discharge Inst-CATH/EP Problems Reviewed?: Yes Post Cardiac Cath/EP D/C Inst Follow Up/Plan Appointment with Dr. Peterson's office in 2 to 4 weeks <b>CARDIAC CATH/EP PROCEDURE DISCHARGE INSTRUCTIONS</b> ACTIVITY * Go Home directly and rest. * Limit activity of the leg (or wrist if it was used) for 7 days including aer obics, swimming, jogging, bicycling, etc. * Restrict stair-climbing for 7 days if possible, if not, climb up with your non-cath leg, then bring together on the same step. * Avoid lifting, pushing, pulling or excessive movement of the affected extremi ty for 7 days. * Customary sexual activity may be resumed after 2 days-use caution not to use a position that strains or causes pain to the affected extremity. * No driving for 24 hours. * NO SMOKING. * Avoid straining for bowel movements for 7 days. * Gentle walking on level ground is allowed. * Returning to work will depend on the type of procedure and the results. Your doctor will discuss this with you. CALL YOUR DOCTOR FOR ANY OF THE FOLLOWING: *If bleeding from the puncture site occurs- Apply gentle pressure to site with clean cloth and call your doctor or EMS. * If a knot or lump forms under the skin, increases in size, or causes pain. * If bruising appears to be worsening or moving further down your leg instead of disappearing. * Temperature above 101 F. CARE OF YOUR GROIN INCISION; * Bruising or purple discoloration of the skin near the puncture site is common. * You may shower only, no bathtub bathing for 5 days. Be careful to avoid slipping as your leg may feel stiff. * If a closure device was used on your femoral artery, please see the attached guide regarding care of the device and your leg. * Leave dressing on FOR 24 hours. CARE OF YOUR WRIST INCISION; * Bruising or purple discoloration of the skin near the puncture site is common. * You may shower. * DO NOT submerge wrist. * Leave dressing on FOR 24 hours. THOMAS PETERSON MD Sep 11, 2022 09:21
--- NOTE | 2022-09-11 09:27 | Peripheral Report ---
Peripheral Report Physician (s)/Brass Sorter (s) Physician THOMAS MCLEOD MD Pre-Procedure Diagnosis Pre-Procedure Diagnosis: PAD Post-Procedure Note Procedure Start Date: Sep 11, 2022 Name of Procedure: Bilateral lower extremity runoff Third order Additional imaging PIPE LINER to the left anterior tibial artery Findings/Procedure Note PROCEDURE NOTE: 66-year-old gentleman with peripheral arterial disease, recurrent leg wound, nonhealing wound, had multiple intervention in the past. Had progressive worsening of his leg wound. Had abnormal TOM, scheduled for peripheral angiogram. After explaining the procedure to the patient, all pros and cons were explained, all questions were answered. The patient signed the consent and then he was placed on the cardiac catheterization laboratory. The patient was placed on the cardiac catheterization laboratory. Groin was prepped SL fashion local anesthesia was used. Sheath placed in the right femoral artery, runoff to the right leg was done through the sheath down to the trifurcation. Rim catheter was used to cross over then a straight catheter was advanced and placed in the left common iliac artery and runoff to the left leg was done then I advanced the straight catheter down to the popliteal artery and did DSA imaging at the level of the trifurcation then repeat DSA imaging at the level of the foot. Patient has total occlusion of the anterior tibial artery. Received 5000 units of heparin Command 14 wire was used and advanced in the anterior tibial artery, I was unable to cross the total occlusion, I used mini 18 catheter for support and was able to cross the total occlusion down to the ankle. Lowland 14 balloon was used 2.5 x 200 did multiple inflation Angiogram post intervention showed resolution with no residual stenosis. Sheath was exchanged again to a short 6 [place] sheath then it was removed and Mynx device deployed FINDINGS: Right lower extremity: Slow flow was noted diffusely, the common femoral artery has mild disease, mild irregularity in the SFA with no obstructive disease down to the trifurcation, slow flow was noted. Left lower extremity: Left common femoral artery has no obstructive disease Left SFA and popliteal artery has moderate stenosis up to 50%, nonobstructive disease Left anterior tibial artery is occluded at the midportion reconstructed by collateral at the ankle, successful balloon angioplasty using Lowland 2.5 x 200 with excellent results. Resolution with no residual stenosis Left peroneal artery has mild disease nonobstructive disease Left posterior tibial artery is occluded at the midportion, no full reconstruction down at the level of the ankle, the artery is fairly small. CONCLUSIONS: 1. Total occlusion of the left anterior tibial artery with successful intervention reestablishing flow with no residual stenosis down to the ankle 2. Total occlusion at the distal left posterior tibial artery, there is no reconstruction by collateral and no good target vessel for intervention at this point. 3. Good flow through the peroneal artery. 4. Otherwise mild to moderate disease on the left lower extremity 5. Slow flow in the right lower extremity down to the trifurcation, no obstructive disease DISCUSSION AND RECOMMENDATIONS: Continue to maximize medical therapy. Anesthesia Type: Conscious Sedation Estimated blood loss (mL): 25 ml Contrast Amount: 55 ml Total Radiation Dose: 270 mGy Post-Procedure Diagnosis Post-operative diagnosis: Critical limb ischemia Peripheral arterial disease Hypertension Hyperlipidemia Diabetes mellitus type 2 THOMAS MCLEOD MD Sep 11, 2022 09:27
[2022-09-11] MEDS ORDERED: PATIENT MAY USE OWN MEDS, ALL PO SCH (09:30)
[2022-09-11] MEDS ORDERED: IBUPROFEN 600 MG (MOTRIN) TAB PO PRN (09:30)
[2022-09-11 09:42] VITALS: BP 122/80
[2022-09-11 09:45] VITALS: BP 117/79
[2022-09-11 10:00] VITALS: BP 122/80
[2022-09-11 12:00] VITALS: BP 121/80
[2022-09-11 15:11] VITALS: BP 121/80
[2022-09-11] MEDS ORDERED: GABAPENTIN 300 MG (NEURONTIN) CAP PO SCH (18:00)
[2022-09-12] MEDS ORDERED: ASPIRIN E.C. 81 MG (ECOTRIN) TAB PO SCH (09:00)
[2022-09-12] MEDS ORDERED: NON-FORMULARY MEDICATION 1 EA EA (Liraglutide (Victoza 3-Pak) 0.6 MG) SQ SCH (09:00)
[2022-09-12] MEDS ORDERED: lisINopril 10 MG (PRINIVIL) TABLET PO SCH (09:00)
[2022-09-12] MEDS ORDERED: CLOPIDOGREL 75 MG (PLAVIX) TABLET PO SCH (09:00)
[2022-09-12] MEDS ORDERED: EMPAGLIFLOZIN 10 MG TABLET (JARDIANCE) PO SCH (09:00)
[2022-09-12] MEDS ORDERED: inSUlin ASPART (NovoLOG) 1 UNIT/0.01 ML (CHARGE PER UNIT) SQ SCH (09:00)
== END 2022-09-11 15:03 | disposition home or self-care (01) ==
LOC: CATH 07:01 → CSD 09:42 → CATH 15:03
PROVIDERS: ATTEND Internal Medicine Cardiovascular Disease
DX: E11.51 Type 2 diabetes mellitus with diabetic peripheral angiopathy without gangrene (principal); I70.222 Atherosclerosis of native arteries of extremities with rest pain, left leg; I10 Essential (primary) hypertension; E78.5 Hyperlipidemia, unspecified; E66.9 Obesity, unspecified; Z79.02 Long term (current) use of antithrombotics/antiplatelets; Z79.4 Long term (current) use of insulin; Z68.38 Body mass index [BMI] 38.0-38.9, adult; Z87.891 Personal history of nicotine dependence
CPT/HCPCS: 37228; 71045; 75716; 80053; 80061; 85027; 85610; 85730; 87081; 93005; C1725; C1760; C1769 ×2; C1887 ×3; C1894 ×2; 36415